=== PATIENT | female | born 1950 | race Caucasian/White ===

== ENCOUNTER 2019-12-02 19:59 | Emergency (ER) | payer MEDICARE, OTHER, SELFPAY ==
[2019-12-02 20:09] VITALS: BP 116/86; PULSE 101; RESP 18; TEMP 37.6; O2SAT 97; BMI 30.4
[2019-12-02 20:31] LABS: Basophils % 0.3 %; Eosinophils # 0.1 10^3/uL (0.0-0.8); Eosinophils % 0.7 %; Hematocrit 40.6 % (37.0-47.0); Hemoglobin 13.2 g/dL (11.5-15.3); Lymphocytes # 0.3 10^3/uL (0.8-4.8); Lymphocytes % 3.4 %; Mean Corpuscular HGB Conc 32.5 g/dL (30.0-36.0); Mean Corpuscular Volume 89.2 fL (81-99); Mean Platelet Volume 9.9 fL (7.4-10.4); Monocytes # 0.3 10^3/uL (0.2-0.9); Neutrophils # 8.7 10^3/uL (1.8-7.7); Neutrophils % 92.3 %; Nucleated Red Blood Cells % 0 %; Platelet Count 220 10^3/cmm (130-400); Red Blood Count 4.55 10^6/uL (4.1-5.3); Red Cell Distribution Width 13.2 % (12.1-15.1); White Blood Count 9.4 10^3/uL (4.0-10.0)
[2019-12-02 20:48] VITALS: BP 170/99; PULSE 99; RESP 18; O2SAT 97
[2019-12-02 20:50] LABS: Alanine Aminotransferase 20 U/L (0-33); Albumin Level 4.3 g/dL (3.5-5.2); Alkaline Phosphatase 83 IU/L (35-105); Anion Gap 17.8 (5-19); Aspartate Amino Transferase 19 U/L (0-32); Blood Urea Nitrogen 20 mg/dL (8-23); Calcium 9.9 mg/Dl (8.8-10.2); Carbon Dioxide 23 mmol/L (22-29); Chloride 103 mmol/L (98-107); Globulin 3.1 g/dL (1.3-4.6); Glomerular Filtration Rate 44.4 mL/min (90-130); Glucose 154 mg/dL (74-106); Lipase 20 U/L (13-60); Potassium 3.8 mmol/L (3.5-5.1); Sodium 140 mmol/L (136-145); Total Bilirubin 0.3 mg/dL (0.15-1.2); Total Protein 7.4 g/dL (6.6-8.7)
--- NOTE | 2019-12-02 23:27 | W.ED.NAVMDI ---
HPI - Nausea/Vomiting/Diarrhea General: Chief complaint: Nausea/Vomiting/Diarrhea Stated complaint: VOMITING Time Seen by Provider: 12/02/19 23:26 History of Present Illness: HPI Narrative: Patient is had nausea and vomiting started today. She also says she has right left flank pain and has had trouble urinating today, Thinks that could be because she hasn't been able to keep anything down. Most of her abdominal pain is on the left side and on the left flank side. She states the pain is rated at about an 8. She has vomited around 10 times today. Patient states she had some shrimp Several hours before the vomiting started and thinks that that could be the cause of her illness. Denies any diarrhea but does say she's been constipated for 3 days. Patient says that going 3 days with a bowel movement really normal for her. She does take some Docusate to help with constipation. Denies any fever, chills, chest pain, shortness of breath, cough, upper respiratory symptoms, blood in the stool, blood in the urine, hematuria, bladder incontinence, numbness or weakness to extremities. Patient states that about a month ago she was treated for diverticulitis and put on Flagyl. Denies any fever, chills, chest pain, shortness of breath, dysuria, hematuria, blood in the stool, diarrhea, numbness or tingling to extremities, weakness to extremities, upper respiratory symptoms or headache. Review of Systems General: Reports: 10 or more systems reviewed and unremarkable except in HPI and below PFSH ED PFSH: Statuses (acute, chronic, etc) shown below reflect problem list status as previously entered and may not be historically accurate Social History Smoking and tobacco status: never smoked Physical Exam Const: COMMON NORMALS: oriented x3 HENMT: COMMON NORMALS: normocephalic HEAD & SCALP: normocephalic MOUTH: oral and palatal mucosa normal THROAT: posterior oropharynx normal and uvula midline Neck/C-Spine: COMMON NORMALS: supple GENERAL: Yes normal visual inspection Resp: COMMON NORMALS: normal respiratory effort, no retractions, no use of accessory muscles and clear to auscultation bilaterally AUSCULTATION: clear to auscultation bilaterally Cardio: COMMON NORMALS: regular rate, regular rhythm, S1 normal heart sound, S2 normal heart sound, no gallops, no clicks, no murmurs and peripheral pulses 2+ throughout RATE: regular rate RHYTHM: regular rhythm HEART SOUNDS: S1 normal and S2 normal PERIPHERAL PULSES: pulses 2+ throughout GI: COMMON NORMALS: normal to inspection, nondistended, normoactive bowel sounds, soft to palpation and no masses INSPECTION: Yes central obesity PALPATION: Yes soft and Yes tender Details: LLQ : BLADDER/KIDNEY EXAM: Yes CVA tenderness on the left Back/Pelvis: GENERAL BACK: Yes CVA tenderness CVA tenderness: left Neuro: COMMON NORMALS: oriented x3 Skin: COMMON NORMALS: no rashes or lesions noted GENERAL SKIN EXAM: no rashes or lesions noted Course ED course: She says after some IV fluids, morphine and Zofran and she is feeling a lot better. CT of the abdomen was performed and showed nothing acute patient does have some colonic diverticulosis. Vital Signs: Vital signs: Vital Signs Temperature 98.9 F 12/02/19 23:45 Pulse Rate 98 12/03/19 03:57 Respiratory Rate 16 12/03/19 03:57 Blood Pressure 130/73 12/03/19 03:57 Pulse Oximetry 92 12/03/19 03:57 MDM - Nausea/Vomiting/Diarrhea Lab Data: Attestation: I reviewed the patient's lab results. Labs: Lab Results 12/02/19 12/02/19 12/02/19 Range/Units 20:25 20:25 23:40 WBC 9.4 (4.0-10.0) 10^3/ uL RBC 4.55 (4.1-5.3) 10^6/u L Hgb 13.2 (11.5-15.3) g/dL Hct 40.6 (37.0-47.0) % MCV 89.2 (81-99) fL MCH 29.0 (28.0-34.0) pg MCHC 32.5 (30.0-36.0) g/dL RDW 13.2 (12.1-15.1) % Plt Count 220 (130-400) 10^3/c mm MPV 9.9 (7.4-10.4) fL Neut % (Auto) 92.3 % Lymph % (Auto) 3.4 % [place] % (Auto) 3.0 % Eos % (Auto) 0.7 % Baso % (Auto) 0.3 % Neut # (Auto) 8.7 H (1.8-7.7) 10^3/u L Lymph # (Auto) 0.3 L (0.8-4.8) 10^3/u L [place] # (Auto) 0.3 (0.2-0.9) 10^3/u L Eos # (Auto) 0.1 (0.0-0.8) 10^3/u L Baso # (Auto) 0.0 (0.0-0.1) 10^3/u L Nucleated RBC % (a uto) 0 % Nucleated RBCs # 0.0 /100WBC Sodium 140 (136-145) mmol/L Potassium 3.8 (3.5-5.1) mmol/L Chloride 103 (98-107) mmol/L Carbon Dioxide 23 (22-29) mmol/L Anion Gap 17.8 (5-19) BUN 20 (8-23) mg/dL Creatinine 1.2 H (0.5-0.9) mg/dL GFR Calculation 44.4 L (90-130) mL/min Glucose 154 H (74-106) mg/dL Calcium 9.9 (8.8-10.2) mg/Dl Total Bilirubin 0.3 (0.15-1.2) mg/dL AST 19 (0-32) U/L ALT 20 (0-33) U/L Alkaline Phosphata se 83 (35-105) IU/L Total Protein 7.4 (6.6-8.7) g/dL Albumin 4.3 (3.5-5.2) g/dL Globulin 3.1 (1.3-4.6) g/dL Lipase 20 (13-60) U/L Urine Color Yellow (Yellow) Urine Appearance Clear (CLEAR) Urine pH 5 (5-7) Ur Specific Gravit y 1.025 (1.005-1.030) Urine Protein Neg (Negative) Urine Glucose (UA) Norm (Normal) Urine Ketones Negative (Negative) Urine Occult Blood Neg (Negative) Urine Nitrate Negative (Negative) Urine Bilirubin Neg (NEGATIVE) Urine Urobilinogen Norm (Negative) mg/dL Ur Leukocyte Soo ase Negative (Negative) Urine RBC 0-4 H (0-2) /hpf Urine WBC 0-4 H (0-5) /hpf Ur Squamous Epith Cells 25-40 H (0-5) Urine Bacteria 1+ H (NONE) Discharge Plan Discharge Patient Disposition: Home, Self-Care Clinical Impression: Diverticulosis of colon Condition: Stable Prescriptions: New Zofran 4 mg tablet 4 mg PO Q8H PRN (Reason: nausea and vomiting) 3 Days Qty: 10 RF: 0 No Action aspirin 325 mg tablet 650 mg PO TID RF: 0 docusate sodium [Colace] 100 mg capsule 100 mg PO .qd RF: 0 nitroglycerin [Nitro-Time] 2.5 mg capsule, extended release 2.5 mg PO BID PRN (Reason: not prn) RF: 0 clonidine HCl 0.3 mg tablet 0.15 mg PO QID RF: 0 alprazolam [Xanax] 0.5 mg tablet 0.5 mg PO TID PRN (Reason: anxiety) RF: 0 hydralazine 25 mg tablet 25 mg PO QID PRN (Reason: Blood Pressure) RF: 0 hydrochlorothiazide 12.5 mg capsule 12.5 mg PO QAM RF: 0 labetalol 200 mg tablet 200 mg PO TID RF: 0 verapamil 120 mg capsule,ext rel. pellets 24 hr 120 mg PO BID RF: 0 pregabalin [Lyrica] 50 mg capsule 50 mg PO TID RF: 0 Discharge Orders: Discharge Order (Routine); Ordered 12/03/19 Ordered By: Augustin Lay Referrals: Ann Marie Kim MD [Primary Care Provider] - Discharge Diet: Advance as tolerated Discharge Activity: Increase activity as tolerated Activity Restrictions/Additional Instructions: Follow-up with your primary care doctor in 5-7 days for reevaluation. Continue all home medications as previously prescribed. Try to eat a high-fiber diet. Drink plenty of fluids and take Tylenol or ibuprofen as needed for any pain or fevers. Consider [id number] MiraLAX to help with normalizing bowel movements. Discharge Date/Time: 12/03/19 04:08 Coding Level of Care Code ED Clamp Carrier Operator for Crystal Urban
[2019-12-02 23:45] VITALS: BP 147/80; PULSE 97; RESP 20; TEMP 37.2; O2SAT 93
--- NOTE | 2019-12-02 23:58 | PC.NURSE ---
rates pain 8/10
--- NOTE | 2019-12-02 23:59 | CTR_ITS ---
PROCEDURE INFORMATION: Exam: CT Abdomen And Pelvis With Contrast Exam date and time: 12/02/2019 1:44 AM Age: 69 years old Clinical indication: Vomiting; Abdominal pain; Localized; Left; Prior surgery; Surgery date: 6+ months; Surgery type: Hyst, gb; Additional info: Abdominal pain, nausea, vomiting and constipation TECHNIQUE: Imaging protocol: Computed tomography of the abdomen and pelvis with intravenous contrast. Total DLP: 1441.35 mGy-cm Radiation optimization: All CT scans at this facility use at least one of these dose optimization techniques: automated exposure control; mA and/or kV adjustment per patient size (includes targeted exams where dose is matched to clinical indication); or iterative reconstruction. Contrast material: VISI; Contrast volume: 95 ml; Contrast route: IV; COMPARISON: CT Abdomen/Pelvis Renal [id number] 09/28/2019 3:01 AM FINDINGS: Lungs: Calcified right pulmonary granuloma. Liver: Normal. No mass. Gallbladder and bile ducts: Cholecystectomy. Pancreas: Normal. No ductal dilation. Spleen: No splenomegaly. Adrenals: Normal. No mass. Kidneys and ureters: Subcentimeter left renal cyst. Stomach and bowel: Colonic diverticulosis. Appendix: No evidence of acute appendicitis. Intraperitoneal space: No free air. No significant fluid collection. Vasculature: No abdominal aortic aneurysm. Lymph nodes: No enlarged lymph nodes. Bladder: Unremarkable as visualized. Reproductive: Hysterectomy. Bones/joints: Unremarkable. No acute fracture. Soft tissues: Unremarkable. CT/CT abdomen pelvis w con* [id number] IMPRESSION: No acute abnormality detected. Radiation Dose CTDIVOL = (mGy): DLP = 1441.35 (mGy-cm)
[2019-12-03] MEDS: ondansetron 2 mg/ML SDV 2 mL 4 MG IVP (00:23)
[2019-12-03] MEDS: sodium chloride 0.9% 500 ML IV (00:23)
[2019-12-03 00:24] VITALS: RESP 20; O2SAT 93
[2019-12-03] MEDS: morphine 4 mg/mL SDV 1 mL IVP (00:24)
[2019-12-03 00:35] LABS: Urine Appearance Clear (CLEAR); Urine Color Yellow (Yellow); pH Urine 5 (5-7)
[2019-12-03 00:36] LABS: Protein Urine Neg (Negative); Specific Gravity, Urine 1.025 (1.005-1.030)
[2019-12-03 00:37] LABS: Add Urine Culture? No; Bacteria Urine 1+; Bilirubin Urine Neg (NEGATIVE); Blood Urine Neg (Negative); Glucose Urine UA Norm (Normal); Ketones Urine Negative (Negative); Leukocyte Esterase Urine Negative (Negative); Nitrate Urine Negative (Negative); RBC Urine 0-4 /hpf (0-2); Squamous Epithelial Cell Urine 25-40 (0-5); Urobilinogen Urine Norm (Negative); WBC Urine 0-4 /hpf (0-5)
[2019-12-03 01:11] VITALS: BP 116/71; PULSE 95; RESP 16; O2SAT 93
--- NOTE | 2019-12-03 01:12 | PC.NURSE ---
resting with eyes closed resp e/u NAD noted. denies needs at this time
[2019-12-03] MEDS: iodixanol 320 mg/mL 100mL Btl IV (01:47)
--- NOTE | 2019-12-03 02:04 | PC.NURSE ---
returns from CT denies needs at this time. remains drowsy without c/o's denies pain or discomfort at this time
--- NOTE | 2019-12-03 03:30 | PC.NURSE ---
resting quietly without c/o's. denies needs at this time
[2019-12-03 03:57] VITALS: BP 130/73; PULSE 98; RESP 16; O2SAT 92
== END 2019-12-03 04:08 | disposition home or self-care (01) ==
PROVIDERS: Emergency Medicine; Emergency Provider Physician Assistant; Family Provider Family Medicine; PCP Family Medicine
DX: K57.30 Diverticulosis of large intestine without perforation or abscess without bleeding (principal)
CPT/HCPCS: 74177; 80053; 81001; 83690; 85025; 96360; 96374; 99282; J2270; J2405; J7040; Q9967

== ENCOUNTER 2019-12-11 08:33 | Outpatient (CLI) | payer MEDICARE, OTHER, SELFPAY ==
--- NOTE | 2019-12-11 08:45 | MM_ITS ---
WS: [id number] . BILATERAL DIGITAL SCREENING MAMMOGRAPHY WITH CAD CLINICAL INFORMATION: SCREENING HISTORY: Screening mammogram. No current complaints. COMPARISON: June 22, 2016 TECHNIQUE: Bilateral CC and MLO views. FINDINGS: Scattered fibroglandular densities bilaterally. Lucent centered calcifications. Stable punctate calci fications. No suspicious focal mass, asymmetry, calcifications, or architectural distortion. No evide nce of malignancy. MM/[place] [id number] IMPRESSION: BI-RADS: 2-Benign FOLLOW UP: 1 Year Follow-up Recommend return to annual screening mammography.
== END 2019-12-11 08:34 | disposition home or self-care (01) ==
LOC: RADSHAW 08:41
PROVIDERS: Family Provider Family Medicine; PCP Family Medicine; Visit Provider Family Medicine
DX: Z12.31 Encounter for screening mammogram for malignant neoplasm of breast (principal)
CPT/HCPCS: 77067

== ENCOUNTER → 2019-12-16 13:49 | Outpatient (BNVA) | payer MEDICARE, OTHER, SELFPAY | PROVIDERS: Family Provider Family Medicine; PCP Family Medicine; Visit Provider Otolaryngology | DX: K14.6 Glossodynia (principal); K21.9 Gastro-esophageal reflux disease without esophagitis | CPT/HCPCS: 99204; 99214 ==

== ENCOUNTER → 2019-12-27 08:52 | Outpatient (BNVA) | payer MEDICARE, OTHER, SELFPAY | PROVIDERS: Family Provider Family Medicine; PCP Family Medicine; Referring Provider Family Medicine; Visit Provider Family Medicine | DX: K14.6 Glossodynia (principal); Z00.00 Encounter for general adult medical examination without abnormal findings | CPT/HCPCS: 80053; 82607; 83540; 83550; 85025; 85651 ==

== ENCOUNTER → 2020-01-13 10:34 | Outpatient (BNVA) | payer MEDICARE, OTHER, SELFPAY | PROVIDERS: Family Provider Family Medicine; PCP Family Medicine; Visit Provider Otolaryngology | DX: K14.6 Glossodynia (principal); K21.9 Gastro-esophageal reflux disease without esophagitis | CPT/HCPCS: 99214 ==

== ENCOUNTER → 2020-01-23 08:08 | Outpatient (BNVA) | payer MEDICARE, OTHER, SELFPAY | PROVIDERS: Family Provider Family Medicine; PCP Family Medicine; Visit Provider Anesthesiology | DX: G89.29 Other chronic pain (principal); M51.16 Intervertebral disc disorders with radiculopathy, lumbar region; Z79.891 Long term (current) use of opiate analgesic | CPT/HCPCS: 62323; 77003; 99214; J1040; J2001; J3490 ==

== ENCOUNTER → 2020-01-30 12:36 | Outpatient (BNVA) | payer MEDICARE, OTHER, SELFPAY | PROVIDERS: Family Provider Family Medicine; PCP Family Medicine; Referring Provider Family Medicine; Visit Provider Family Medicine | DX: E11.9 Type 2 diabetes mellitus without complications (principal); M35.1 Other overlap syndromes; F41.9 Anxiety disorder, unspecified | CPT/HCPCS: 83036; 85651; 86431 ==

== ENCOUNTER → 2020-07-01 11:39 | Outpatient (BNVA) | payer MEDICARE, OTHER, SELFPAY | PROVIDERS: Family Provider Family Medicine; PCP Family Medicine; Visit Provider Family Medicine | DX: E11.9 Type 2 diabetes mellitus without complications (principal); I10 Essential (primary) hypertension; M75.52 Bursitis of left shoulder; R73.9 Hyperglycemia, unspecified; F41.9 Anxiety disorder, unspecified; R06.02 Shortness of breath; R06.00 Dyspnea, unspecified | CPT/HCPCS: 80048; 83036 ==

== ENCOUNTER 2020-07-04 22:46 | Emergency (ER) | payer MEDICARE, OTHER, SELFPAY ==
--- NOTE | 2020-07-04 22:54 | XRR_ITS ---
PROCEDURE INFORMATION: Exam: XR Chest, 1 View Exam date and time: 07/04/2020 11:58 PM Age: 70 years old Clinical indication: Chest pain; Type not specified; Additional info: Cp TECHNIQUE: Imaging protocol: XR of the chest Views: 1 view. COMPARISON: CR Chest 1 [place] [id number] 05/05/2018 4:44 PM FINDINGS: Lungs: A calcified granulomas seen in the right lower hemithorax. Pleural space: There is some blunting of the left costophrenic recess possibly secondary to some pleural scarring versus a small pleural effusion. Heart/Mediastinum: Unremarkable. No cardiomegaly. Bones/joints: Unremarkable. XR/XR chest 1V portable [id number] IMPRESSION: 1. Blunting of the left costophrenic recess likely secondary to pleural thickening versus small pleural effusion. 2. Calcified granuloma seen in the right lower hemithorax.
--- NOTE | 2020-07-04 22:54 | ECG_ITS ---
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 Measurements Intervals [place] Rate: 71 P: 52 MA: 163 QRS: -4 QRSD: 88 T: 30 QT: 392 QTc: 427 Interpretive Statements SINUS RHYTHM NONSPECIFIC T-WAVE ABNORMALITY Compared to ECG 05/05/2018 15:23:05 T-wave abnormality now present Sinus bradycardia no longer present Electronically Signed On 07-05-2020 8:24:18 CDT by Matilda Leary M.D. [id number] f
[2020-07-04 23:09] VITALS: BP 117/75; PULSE 75; RESP 18; TEMP 36.7; O2SAT 97; BMI 28.8
--- NOTE | 2020-07-05 00:18 | CTR_ITS ---
PROCEDURE INFORMATION: Exam: CT Head Without Contrast Exam date and time: 07/05/2020 1:04 AM Age: 70 years old Clinical indication: Dizziness; Additional info: Dizzy TECHNIQUE: Imaging protocol: Computed tomography of the head without contrast. Radiation optimization: All CT scans at this facility use at least one of these dose optimization techniques: automated exposure control; mA and/or kV adjustment per patient size (includes targeted exams where dose is matched to clinical indication); or iterative reconstruction. COMPARISON: CT Head wo IV contrast* [id number] 05/05/2018 4:41 PM RADIATION DOSE METRICS: Total DLP (mGy-cm): 795.8 FINDINGS: Brain: Subtle areas of hypoattenuation are seen in the deep white matter of the cerebral hemispheres bilaterally compatible with mild deep white matter microvascular disease. Ventricles: Normal. No ventriculomegaly. Bones/joints: Unremarkable. No acute fracture. Sinuses: Visualized sinuses are unremarkable. No fluid levels. Mastoid air cells: Visualized mastoid air cells are well aerated. Soft tissues: Unremarkable. CT/CT head wo con* [id number] IMPRESSION: There are no acute intracranial findings. Radiation Dose CTDIVOL = (mGy): DLP = 795.8 (mGy-cm)
[2020-07-05 00:46] LABS: Basophils # 0.1 10^3/uL (0.0-0.1); Basophils % 0.8 %; Eosinophils # 0.1 10^3/uL (0.0-0.8); Eosinophils % 0.5 %; Hemoglobin 12.9 g/dL (11.5-15.3); Lymphocytes # 1.9 10^3/uL (0.8-4.8); Lymphocytes % 19.5 %; Mean Corpuscular HGB Conc 32.3 g/dL (30.0-36.0); Mean Corpuscular Hemoglobin 30.2 pg (28.0-34.0); Mean Corpuscular Volume 93.7 fL (81-99); Mean Platelet Volume 9.9 fL (7.4-10.4); Monocytes # 0.8 10^3/uL (0.2-0.9); Monocytes % 7.8 %; Neutrophils # 6.94 10^3/uL (1.8-7.7); Neutrophils % 71.1 %; Nucleated Red Blood Cells % 0 %; Platelet Count 242 10^3/cmm (130-400); Red Blood Count 4.27 10^6/uL (4.1-5.3); Red Cell Distribution Width 13.1 % (12.1-15.1); White Blood Count 9.8 10^3/uL (4.0-10.0)
[2020-07-05 00:48] VITALS: BP 155/108; PULSE 60; RESP 16; O2SAT 96
--- NOTE | 2020-07-05 00:54 | ECG_ITS ---
[facility] Test Date: 2020-07-05 Pat Name: Holly Diez Department: Room: Gender: Female Director Of Hotel: : 1950 Requested By: Lainey Holland Order Number: [id number] Yo MD: Matilda Leary M.D. Measurements Intervals [place] Rate: 60 P: 49 CO: 173 QRS: 12 QRSD: 92 T: 45 QT: 432 QTc: 432 Interpretive Statements SINUS RHYTHM NONSPECIFIC T-WAVE ABNORMALITY Compared to ECG 07/04/2020 23:15:43 No significant changes Electronically Signed On 07-05-2020 8:49:37 CDT by Matilda Leary M.D. [id number]
[2020-07-05 01:02] LABS: Alanine Aminotransferase 24 U/L (0-33); Albumin Level 4.1 g/dL (3.5-5.2); Alkaline Phosphatase 74 IU/L (35-105); Anion Gap 14.4 (5-19); Aspartate Amino Transferase 15 U/L (0-32); Blood Urea Nitrogen 19 mg/dL (8-23); Carbon Dioxide 25 mmol/L (22-29); Chloride 104 mmol/L (98-107); Globulin 2.8 g/dL (1.3-4.6); Glucose 133 mg/dL (65-115); Osmolality Calculated 286 mOsm/kg (285-295); Potassium 4.4 mmol/L (3.5-5.1); Sodium 139 mmol/L (136-145); Total Bilirubin 0.2 mg/dL (0.15-1.2); Total Protein 6.9 g/dL (6.6-8.7)
[2020-07-05 01:04] LABS: Troponin(5th) Baseline 10 ng/L (0-10)
--- NOTE | 2020-07-05 01:09 | ED_ITS ---
HPI - Chest Pain General: Chief Complaint: Chest Pain Stated Complaint: cp Time Seen by Provider: 07/04/20 23:56 History of Present Illness: HPI narrative: 70-year-old female who complains of high blood pressure, dizziness, and chest discomfort that is been present since last night. She took her antihypertensives today, and took an extra dose because of the hypertension. She also took nitroglycerin at home with some relief for about an hour at a time. She complains of some chest discomfort and discomfort in her left arm. She does not have any weakness or acute visual change, or trouble with language. She does have a mild headache. She has no prior history of coronary disease MD complaint: chest heaviness and chest discomfort Pertinent past history: other (Hypertension) Onset (ago): day(s) (1) Timing of current episode: episodic Prior episodes: No Onset: during rest Pain location: substernal and left chest Pain radiation: left arm and back Quality: tightness Relieving factors: nitroglycerin Exacerbating factors: nothing Associated symptoms: Reports dyspnea and nausea; Deny abdominal pain, diaphoresis, fever(s), leg edema, syncope or vomiting Treatment prior to arrival: nitroglycerin Review of Systems Const: Denies: fever(s) or diaphoresis Eyes: Reports: blurry vision; Denies: change in vision ENMT: Denies: dental pain, change in hearing, epistaxis or sinus pain Card: Denies: syncope Resp: Reports: dyspnea GI: Reports: nausea; Denies: abdominal pain or vomiting : Denies: dysuria or hematuria Musc: Denies: neck pain or back pain Skin/Breast: Denies: rash or erythema Neuro: Reports: headache(s) and dizziness; Denies: vertigo or seizure-like activity Psych: Denies: anxiety [facility] ED PFSH: Medical History (Updated 07/05/20 @ 02:15 by Brady Cerda DO) Anxiety Diabetes Encounter for long-term opiate analgesic use Essential hypertension Lumbar disc disease with radiculopathy Opioid contract exists Surgical History History of cholecystectomy History of dilation and curettage History of total hysterectomy Family History Father Parkinson disease Cancer Mother Cancer Social History Smoking and tobacco status: never smoked Alcohol intake: never History of recent travel: No Physical Exam Const: GENERAL APPEARANCE: well developed ORIENTATION/CONSCIOUSNESS: Yes oriented to person, Yes oriented to place and Yes oriented to time HENMT: COMMON NORMALS: normocephalic, external ears normal and Normal external nose present HEAD & SCALP: normocephalic FACE & SINUS: normal facial exam NOSE: Normal external nose present and No nasal discharge present EXTERNAL EAR: Yes external ears normal THROAT: posterior oropharynx normal; no peritonsillar mass Eye: COMMON NORMALS: Equal, round and reactive pupils present, EOMs intact bilaterally and conjunctivae normal EYELID: eyelids normal CONJUNCTIVA: Yes conjunctivae normal PUPIL: Yes Equal, round and reactive pupils present Neck/C-Spine: GENERAL: No tracheal deviation Chest: COMMONS NORMALS: normal inspection of the chest CHEST: No tenderness Resp: COMMON NORMALS: clear to auscultation bilaterally EFFORT & INSPECTION: No tachypneic, No respiratory distress, No retractions, No uses accessory muscles and No tracheal deviation AUSCULTATION: clear to auscultation bilaterally, no rhonchi, no wheezes and lung sounds not diminished Cardio: COMMON NORMALS: regular rate and regular rhythm RATE: regular rate RHYTHM: regular rhythm HEART SOUNDS: no murmurs PERIPHERAL PULSES: radial pulses present GI: INSPECTION: No abdominal distension AUSCULTATION: No Hyperactive bowel sounds present and No Hypoactive bowel sounds present PALPATION: No Guarding due to palpation present (GI) and No Rigid due to palpation PERCUSSION: no dullness to percussion and no tympanic to percussion Neuro: SENSORIUM/ORIENTATION: Yes oriented to person, Yes oriented to place and Yes oriented to time COORDINATION/BALANCE: [id number] test normal SPEECH: speech normal SENSORY EXAM: Yes extremities MOTOR EXAM: 5/5 motor strength present throughout and Pronator motor function not present COORDINATION: [id number] test normal Psych: COMMON NORMALS: mental status grossly normal Skin: COMMON NORMALS: no rashes or lesions noted GENERAL SKIN EXAM: no rashes or lesions noted Course Vital Signs: Vital signs: Vital Signs Temperature 98.0 F 07/04/20 23:09 Pulse Rate 64 07/05/20 01:49 Respiratory Rate 18 08/09/20 01:49 Blood Pressure 146/77 08/09/20 01:49 Pulse Oximetry 99 07/05/20 01:49 MDM - Chest Pain MDM Narrative: Medical decision making narrative: Patient's blood pressure still elevated on arrival. She received 1.5 inches of nitroglycerin paste, and amlodipine. She did not want an IV line, as she is a hard stick .. After hours of discomfort, if there was any coronary involvement, it should be elevated. Her laboratory is otherwise benign. Her chest x-ray is negative. Her head CT done for the complaint of dizziness is negative. There is no widening of the mediastinum to suggest dissection. Her blood pressure now is 130/76. She will follow-up with her primary. She is already on verapamil. We used a dose of amlodipine, which brought her pressure down nicely. I told her it that we did not want her on verapamil plus amlodipine all the time, but that she could take an amlodipine if her blood pressure remains high as needed. This of course, is only until she can see her primary. She will continue to take her pressures twice daily at home. Lab Data: Labs: Lab Results 07/05/20 07/05/20 07/05/20 Range/Units 00:31 00:31 00:31 WBC 9.8 (4.0-10.0) 10^3/ uL RBC 4.27 (4.1-5.3) 10^6/u L Hgb 12.9 (11.5-15.3) g/dL Hct 40.0 (37.0-47.0) % MCV 93.7 (81-99) fL MCH 30.2 (28.0-34.0) pg MCHC 32.3 (30.0-36.0) g/dL RDW 13.1 (12.1-15.1) % Plt Count 242 (130-400) 10^3/c mm MPV 9.9 (7.4-10.4) fL Neut % (Auto) 71.1 % Lymph % (Auto) 19.5 % [place] % (Auto) 7.8 % Eos % (Auto) 0.5 % Baso % (Auto) 0.8 % Neut # (Auto) 6.94 (1.8-7.7) 10^3/u L Lymph # (Auto) 1.9 (0.8-4.8) 10^3/u L [place] # (Auto) 0.8 (0.2-0.9) 10^3/u L Eos # (Auto) 0.1 (0.0-0.8) 10^3/u L Baso # (Auto) 0.1 (0.0-0.1) 10^3/u L Nucleated RBC % (a uto) 0 % Nucleated RBCs # 0.0 /100WBC Sodium 139 (136-145) mmol/L Potassium 4.4 (3.5-5.1) mmol/L Chloride 104 (98-107) mmol/L Carbon Dioxide 25 (22-29) mmol/L Anion Gap 14.4 (5-19) BUN 19 (8-23) mg/dL Creatinine 1.1 H (0.5-0.9) mg/dL GFR Calculation Not Reportable Glucose 133 H (65-115) mg/dL Calculated Osmolal ity 286 (285-295) mOsm/k g Calcium 9.0 (8.5-10.5) mg/dL Total Bilirubin 0.2 (0.15-1.2) mg/dL AST 15 (0-32) U/L ALT 24 (0-33) U/L Alkaline Phosphata se 74 (35-105) IU/L Troponin T Baselin e 10 (0-10) ng/L Total Protein 6.9 (6.6-8.7) g/dL Albumin 4.1 (3.5-5.2) g/dL Globulin 2.8 (1.3-4.6) g/dL Discharge Plan Discharge Patient Disposition: Home Clinical Impression: Essential hypertension Condition: Stable Prescriptions: New amlodipine 10 mg tablet 10 mg PO DAILY Qty: 14 RF: 0 No Action triamcinolone acetonide 0.1 % ointment 1 applic TOPICAL DAILY Qty: 30 RF: 1 mirtazapine 30 mg tablet 30 mg PO DAILY Qty: 10 RF: 0 aspirin 325 mg tablet 650 mg PO TID RF: 0 nitroglycerin [Nitro-Time] 2.5 mg capsule, extended release 2.5 mg PO BID PRN (Reason: not prn) RF: 0 hydralazine 25 mg tablet 25 mg PO QID PRN (Reason: Blood Pressure) RF: 0 labetalol 200 mg tablet 200 mg PO TID RF: 0 verapamil 120 mg capsule,ext rel. pellets 24 hr 120 mg PO BID RF: 0 clonidine HCl 0.3 mg tablet 0.15 mg PO QID Qty: 180 RF: 3 hydrochlorothiazide 12.5 mg capsule 12.5 mg PO QAM 90 Days Qty: 90 RF: 3 alprazolam [Xanax] 0.5 mg tablet 0.5 mg PO TID PRN (Reason: anxiety) 30 Days Qty: 90 RF: 3 metformin 500 mg tablet 500 mg PO DAILY Qty: 30 RF: 1 Discharge Orders: Discharge Order (Routine); Ordered 07/05/20 Ordered By: Brady Cerda Referrals: Ann Marie Kim MD [Primary Care Provider] - 1-3 days Discharge Diet: Advance as tolerated Discharge Activity: Increase activity as tolerated Patient Instructions: Chest Pain (ED), Hypertension (ED) Activity Restrictions/Additional Instructions: Continue to take your blood pressures twice daily. Only take the medication you were prescribed if your systolic or top number blood pressure remains over 150. Return for worsening chest discomfort despite treatment, shortness of breath, mental status changes, weakness, other concerning symptoms. Coding Level of Care Code ED Lactation Nurse for Crystal Fwd Exam Comprehensive
[2020-07-05] MEDS: nitroglycerin 1 gm/inch oint Pkt 1.5 INCH TOPICAL (01:10)
[2020-07-05] MEDS: amlodipine 10 mg Tablet PO (01:10)
[2020-07-05 01:21] VITALS: BP 161/105; PULSE 82; RESP 18; O2SAT 98
[2020-07-05 01:49] VITALS: BP 146/77; PULSE 64; RESP 18; O2SAT 99
== END 2020-07-05 02:27 | disposition home or self-care (01) ==
PROVIDERS: Emergency Medicine; Emergency Provider Emergency Medicine; PCP Family Medicine
DX: I10 Essential (primary) hypertension (principal); Z79.82 Long term (current) use of aspirin; E11.9 Type 2 diabetes mellitus without complications
CPT/HCPCS: 12345; 70450; 71045; 80053; 84484; 85025; 93005; 99282; 99284

== ENCOUNTER 2020-07-10 07:41 | Outpatient (CLI) | payer MEDICARE, OTHER, SELFPAY ==
--- NOTE | 2020-07-10 07:50 | XR_ITS ---
WS: [id number] Left shoulder, 3 views, 07/10/2020 Clinical Data: pain left shoulder Comparison: Left shoulder, 02/20/2008. Findings: No fractures or dislocations are seen. The AC joint shows minimal osteoarthritis. The adjacent left c lavicle, left scapula and ribs are normal. The soft tissues are unremarkable. XR/XR shoulder LT min 2V* [id number] Impression: Negative left shoulder.
--- NOTE | 2020-07-10 07:50 | XR_ITS ---
WS: [id number] Chest 2 views, 07/10/2020 Clinical Data: dyspnea Comparison: Portable chest, 07/04/2020. Findings: No nodules, masses or effusions are seen. The heart is normal. The pulmonary vascularity is not increased. No pneumonia or pneumothorax is seen. The aortic arch and descending aorta are tortuo us. There is a left cardiophrenic fat pad or cyst. XR/XR chest 2V* [id number] Impression: Atherosclerosis.
== END 2020-07-10 07:42 | disposition home or self-care (01) ==
LOC: RADWPI 07:46
PROVIDERS: PCP Family Medicine; Visit Provider Family Medicine
DX: R06.00 Dyspnea, unspecified (principal); M25.512 Pain in left shoulder; I70.90 Unspecified atherosclerosis
CPT/HCPCS: 71046; 73030

== ENCOUNTER 2020-08-16 07:17 | Emergency (ER) | payer MEDICARE, OTHER, SELFPAY ==
[2020-08-16 07:21] VITALS: BP 127/73; PULSE 70; RESP 18; TEMP 36.2; O2SAT 98; BMI 27.9
--- NOTE | 2020-08-16 07:32 | ED_ITS ---
HPI - Skin/Abscess/Foreign Bdy General: Chief complaint: Skin/Abscess/Foreign Body Stated complaint: RASH Time Seen by Provider: 08/16/20 07:21 History of Present Illness: HPI narrative: Patient is a 70-year-old female comes to the ED with a pruritic rash. Patient says it started approximately 5 days ago. Her primary care physician called in some acyclovir because they thought it was potentially shingles. Patient has been taking acyclovir for 4 days and has not gotten any better. Rash is not painful. She describes the rash as red and very itchy and continues to spread. Rash continues to spread and is located on left upper quadrant of her abdomen and also around the side to her back. She states that now her whole back is starting to feel itchy. She denies any known contact with any plants such as poison sumac, poison sara or poison oak. Patient states she does have an allergy to plastics. Patient denies any known contact with any plastics. Denies any change in soaps, lotions or detergents. Associated symptoms: Deny chills, fever(s), nausea or vomiting Review of Systems Const: Denies: fever(s), chills or fatigue Eyes: Denies: change in vision or eye discomfort ENMT: Denies: throat pain, odynophagia, nasal discharge or nasal congestion Card: Denies: chest pain, palpitations, edema, swelling of feet/ankles, dy spnea on exertion or orthopnea Resp: Denies: dyspnea, productive cough or non-productive cough GI: Denies: abdominal pain, nausea, vomiting, diarrhea, constipation or hematochezia : Denies: flank pain, dysuria or hematuria Musc: Denies: neck pain, back pain or extremity swelling Skin/Breast: Reports: rash and pruritus; Denies: new lesions Neuro: Denies: headache(s), numbness in extremities or weakness in extremities PFSH ED PFSH: Medical History Anxiety Diabetes Encounter for long-term opiate analgesic use Essential hypertension Lumbar disc disease with radiculopathy Opioid contract exists Surgical History History of cholecystectomy History of dilation and curettage History of total hysterectomy Family History Father Parkinson disease Cancer Mother Cancer Social History Smoking and tobacco status: never smoked Alcohol intake: never History of recent travel: No Physical Exam Const: COMMON NORMALS: no acute distress, patient oriented x3, healthy appearing and alert GENERAL APPEARANCE: cooperative and comfortable HENMT: COMMON NORMALS: normocephalic HEAD & SCALP: normocephalic MOUTH: Normal oral and palatal mucosa present THROAT: posterior oropharynx normal and uvula midline Neck/C-Spine: COMMON NORMALS: supple GENERAL: Yes normal visual inspection Resp: COMMON NORMALS: normal respiratory effort, No retractions, No use of accessory muscles and clear to auscultation bilaterally AUSCULTATION: clear to auscultation bilaterally Cardio: COMMON NORMALS: regular rate, regular rhythm, S1 normal heart sound present, S2 normal heart sound present, No gallops present (Cardio), No clicks present (Cardio), No murmurs present (Cardio) and Peripheral pulses 2+ throughout RATE: regular rate RHYTHM: regular rhythm HEART SOUNDS: S1 normal heart sound present and S2 normal heart sound present PERIPHERAL PULSES: Peripheral pulses 2+ throughout GI: COMMON NORMALS: Normal to inspection, nondistended, normoactive bowel sounds present, Soft to palpation, non-tender and no masses PALPATION: Yes Soft to palpation : COMMON NORMALS: Yes no CVA tenderness BLADDER/KIDNEY EXAM: Yes no CVA tenderness Back/Pelvis: COMMON NORMALS: no CVA tenderness Extremity: COMMON NORMALS: normal to inspection Neuro: COMMON NORMALS: patient oriented x3 and moves all extremities SENSORIUM/ORIENTATION: Yes alert Skin: NARRATIVE SKIN EXAM: Patient is a 70-year-old female who has a pruritic rash on the left upper quadrant of her abdomen that wraps around to her back. It appears red there are multiple tiny raised red dots surrounding inflamed red rash. No vesicles or purulent drainage seen. It appears based on kind of allergic dermatitis causing urticaria. GENERAL SKIN EXAM: dry skin Course Vital Signs: Vital signs: Vital Signs Temperature 97.2 F L 08/16/20 07:21 Pulse Rate 70 08/16/20 07:21 Respiratory Rate 18 08/16/20 07:21 Blood Pressure 127/73 08/16/20 07:21 Pulse Oximetry 98 08/16/20 07:21 MDM - Skin/Abscess/Foreign Bdy MDM Narrative: Medical decision making narrative: Patient is a 70-year-old female comes to the ED with pruritic rash on her abdomen. Physical exam shows a red inflamed rash with surrounding urticaria. Patient diagnosed with allergic dermatitis and was given a shot of triamcinolone while here in the ED. She was sent home with a prescription for triamcinolone cream and oral prednisone to help with rash. I told her to follow-up with her PCP in 7 to 10 days for reevaluation. Return to ED precautions given. Patient understood and agree with plan. Discharge Plan Discharge Patient Disposition: Home Clinical Impression: Allergic dermatitis Condition: Stable Prescriptions: New prednisone 50 mg tablet 50 mg PO DAILY 5 Days Qty: 5 RF: 0 triamcinolone acetonide 0.1 % cream 1 applic TOPICAL BID Qty: 15 RF: 0 No Action triamcinolone acetonide 0.1 % ointment 1 applic TOPICAL DAILY Qty: 30 RF: 1 alprazolam [Xanax] 0.5 mg tablet 0.5 mg PO QID PRN (Reason: anxiety) 30 Days Qty: 120 RF: 3 nitroglycerin 0.4 mg tablet, sublingual 0.4 mg SUBLINGUAL Q5M PRN (Reason: chest pain) Qty: 25 RF: 2 sulindac 200 mg tablet 200 mg PO ONCE Qty: 30 RF: 1 hydrochlorothiazide 12.5 mg capsule 12.5 mg PO QAM PRNRF: 0 aspirin 325 mg tablet 650 mg PO TID RF: 0 hydralazine 25 mg tablet 25 mg PO QID PRN (Reason: Blood Pressure) RF: 0 labetalol 200 mg tablet 200 mg PO TID RF: 0 verapamil 120 mg capsule,ext rel. pellets 24 hr 120 mg PO BID RF: 0 zolpidem 10 mg tablet 10 mg PO .bed time Qty: 10 RF: 0 clonidine HCl 0.3 mg tablet 0.15 mg PO QID Qty: 180 RF: 3 acyclovir 800 mg tablet 800 mg PO QID 7 Days Qty: 28 RF: 0 Discharge Orders: Discharge Order (Routine); Ordered 08/16/20 Ordered By: Augustin Lay Referrals: Ann Marie Kim MD [Primary Care Provider] - Discharge Diet: Regular Discharge Activity: Resume usual activity Patient Instructions: Contact Dermatitis (ED) Activity Restrictions/Additional Instructions: Follow-up with medical provider as directed in 7 to 10 days. Take medications as prescribed. You can also take [id number] Benadryl or Zyrtec to help with rash as well. Return to the ER or your medical provider if condition worsens. Please read and understand discharge instructions. If any questions, please ask. Coding Level of Care Code ED Campus Interviews Intern for Crystal Fwd Exam Comprehensive
[2020-08-16] MEDS: triamcinolone 40 mg/mL SDV IM (07:53)
[2020-08-16 07:57] VITALS: RESP 18
== END 2020-08-16 07:56 | disposition home or self-care (01) ==
PROVIDERS: Emergency Provider Physician Assistant; PCP Family Medicine
DX: L23.9 Allergic contact dermatitis, unspecified cause (principal); Z79.82 Long term (current) use of aspirin; E11.9 Type 2 diabetes mellitus without complications; I10 Essential (primary) hypertension
CPT/HCPCS: 12345; 96372; 99281; 99282; J3301

== ENCOUNTER 2020-08-26 07:09 | Outpatient (CLI) | payer MEDICARE, OTHER, SELFPAY ==
--- NOTE | 2020-08-26 07:46 | ECG_ITS ---
[facility] Test Date: 2020-08-26 Pat Name: Holly Diez Department: Room: Gender: Female [employer] Workers: : 1950 Requested By: Matilda Leary Order Number: [id number] MD: Matilda Leary M.D. Interpretive Statements NAME OF STUDY: LEXISCAN SESTAMIBI STRESS TEST INDICATION: Chest Pain PROCEDURE: At the baseline, the EKG revealed sinus rhythm at 67 beats per minute. Normal axis with normal ST and T's. The baseline blood pressure was 142/80 mm Hg with a heart rate of 67 beats/min and oxygen saturation of 97%. Lexiscan was infused over a period of 20 seconds. A total of 0.4 milligrams of Lexiscan was infused. The stress phase was continued for a total of 5 minutes. Heart rate at the end of the stress phase was 74 bpm with a blood pressure 139/76 mm Hg and oxygen saturation of 98%. The EKG at the peak infusion revealed sinus rhythm with no significant ST and T wave chnages. Sestamibi was injected 20 seconds after the Lexiscan infusion. The study was terminated due to protocol completion. Blood pressure at the end of the recovery phase was 137/71 mm Hg with a heart rate of 71 per minute and oxygen saturation of 97%. CONCLUSION: 1. Nonspecific ST-T changes with the LexiScan infusion 2. No LexiScan induced chest pain or cardiac arrhythmia 3. Normal blood pressure and heart rate response 4. Sestamibi/sestamibi perfusion scan pending; see separate report. Electronically Signed On 08-27-2020 20:19:19 CDT by Matilda Leary M.D. [id number]
--- NOTE | 2020-08-26 07:47 | NMCV_ITS ---
NM kailey perf SPECT r/s* [id number] Holly Diez Age: 70 Gender: F : 1950 Exam Date: 08/26/2020 08:23 Ordering Phys: Matilda Leary MD ([email or web address]) Technologist: KIRK Roper Exam Location: [facility] Indications: Chest pain STRESS TEST Please see separate stress test report in [facility] for full findings IMAGE PROTOCOL Rest/Stress 1 Lexiscan Day Radiopharmaceutical Dose (mCi) Administration Site Administered by Rest: Tc-99m 10.8 IV KIRK Roper Sestamibi Stress:Tc-99m 32.3 IV KIRK Roper Sestamibi Rest: 26-Aug-2020 60 Discovery 630 Stress: 26-Aug-2020 45 Discovery 630 0.4mg Lexiscan. Images obtained in supine and prone position. SPECT RESULTS Technical Quality: Good Raw Data Analysis: Normal Image Corrections: No attenuation or motion correction applied Summed Stress Score: 0 Summed Rest Score: 0 Summed Difference Score: 0 PERFUSION FINDINGS SPECT images demonstrate homogeneous tracer distribution throughout the myocardium. FUNCTIONAL RESULTS (calculated via Gated SPECT) Stress Image LV EF (%): 75 Stress EDV (mL):59 TID: 1.03 Stress ESV (mL):15 FUNCTIONAL FINDINGS: The left ventricle is normal in size. Transient Ischemia Dilatation of 1. There is normal left ventricular systolic function. The left ventricular ejection fraction is normal with a value of 75%. There is normal left ventricular wall thickening. IMPRESSIONS 1. Myocardial perfusion imaging is normal. 2. Overall left ventricular systolic function is normal without regional wall motion abnormalities. 3. The left ventricular ejection fraction is normal with a value of 75%. 4. This study suggests low likelihood for of angiographically significant disease. Matilda Leary MD (Electronically Signed) Final Date: 30 August 2020 18:37 S
[2020-08-26 07:55] VITALS: BMI 28.8
[2020-08-26] MEDS: regadenoson 0.4 Mg/5 ml Syringe IVP (09:11)
[2020-08-26 09:29] VITALS: BP 137/71; PULSE 70
== END 2020-08-26 07:10 | disposition home or self-care (01) ==
LOC: CDL 07:12
PROVIDERS: PCP Family Medicine; Visit Provider Internal Medicine Cardiovascular Disease
DX: R07.9 Chest pain, unspecified (principal)
CPT/HCPCS: 78452; 93017; A9500; J2785

== ENCOUNTER 2020-09-03 07:43 | Outpatient (CLI) | payer MEDICARE, OTHER, SELFPAY ==
--- NOTE | 2020-09-03 08:00 | USCV_ITS ---
Holly Diez Age: 70 Gender: F : 1950 Exam Date: 09/03/2020 08:03 Ordering Phys: Matilda Leary MD ([email or web address]) Technologist: Ольга Davison Exam Location: [facility] Indication: carotid bruit Risk Factors: Previous Vascular Surgery: Right Brachial BP: / Left Brachial BP: / Right Left Velocity (cm/s) Spectral Plaque Velocity (cm/s) Spectral Plaque Syst/Diast Broadening Syst/Diast Broadening 61.40/ 8.50 Prox CCA 65.80 / 18.80 50.50/ 13.20 Mid CCA 59.80 / 13.70 31.50/ 8.00 Distal CCA 73.50 / 22.20 Hetro 59.80/ 17.10 Prox ICA 115.70/ 39.40 47.00/ 12.00 Mid ICA 69.40 / 26.70 73.40/ 20.50 Distal ICA 67.20 / 24.80 Hetro 86.30 ECA 71.80 1.20 ICA/CCA 1.57 Antegrade Vertebral Antegrade 51.30/ 14.00 cm/s 40.10/ 9.10 cm/s Tri Subclavian Tri 160.0 155.4 0 0 FINDINGS Mild to moderate dense plaques at the bifurcations and proximal carotid artery bilaterally Intimal thickening in the common carotid arteries bilaterally Antegrade flow in the vertebral arteries bilaterally Normal Doppler flow velocities in the external carotid arteries bilaterally The left proximal internal carotid artery was found to be tortuous CONCLUSIONS Mild to moderate dense plaques at the bifurcations and proximal carotid arteries bilaterally with elevated velocity ratios consistent with 16-49% stenosis. Intimal thickening in the common carotid arteries bilaterally . Dr Shona Hamilton MD [facility] (Electronically Signed) Final Date: 03 September 2020 21:22 S
== END 2020-09-03 07:44 | disposition home or self-care (01) ==
LOC: US 07:43
PROVIDERS: PCP Family Medicine; Visit Provider Internal Medicine Cardiovascular Disease
DX: R09.89 Other specified symptoms and signs involving the circulatory and respiratory systems (principal); I65.23 Occlusion and stenosis of bilateral carotid arteries
CPT/HCPCS: 93880

== ENCOUNTER → 2020-10-28 08:34 | Outpatient (BNVA) | payer MEDICARE, OTHER, SELFPAY | PROVIDERS: PCP Family Medicine; Visit Provider Nurse Practitioner | DX: M51.16 Intervertebral disc disorders with radiculopathy, lumbar region (principal); M54.9 Dorsalgia, unspecified; Z79.891 Long term (current) use of opiate analgesic | CPT/HCPCS: 99213 ==

== ENCOUNTER → 2020-11-03 12:34 | Outpatient (BNVA) | payer MEDICARE, OTHER, SELFPAY | PROVIDERS: PCP Family Medicine; Visit Provider Anesthesiology Pain Medicine | DX: Z01.812 Encounter for preprocedural laboratory examination (principal); E11.9 Type 2 diabetes mellitus without complications; G89.29 Other chronic pain; M51.16 Intervertebral disc disorders with radiculopathy, lumbar region; M54.9 Dorsalgia, unspecified | CPT/HCPCS: 62323; J1040; J3490 ==

== ENCOUNTER → 2020-11-18 08:54 | Outpatient (BNVA) | payer MEDICARE, OTHER, SELFPAY | PROVIDERS: PCP Family Medicine; Visit Provider Anesthesiology | DX: M54.9 Dorsalgia, unspecified (principal); M54.6 Pain in thoracic spine; G89.29 Other chronic pain | CPT/HCPCS: 99213 ==

== ENCOUNTER 2020-11-23 08:50 | Outpatient (CLI) | payer MEDICARE, OTHER, SELFPAY ==
--- NOTE | 2020-11-23 08:58 | XR_ITS ---
WS: [id number] Exam: XR lumbar spine 2-3V* [id number] Date/Time of Exam: 11/23/2020 8:58 AM Reason For Exam: M51.16 - Intervertebral disc disorders with radiculopathy, lumbar region Comparison 07/18/2019. No acute fracture or dislocation. Grade 1 degenerative anterolisthesis of L4 on L5. Mild degenerative retrolisthesis of L2 on L3. Degenerative disc narrowing at L1-2, L2-3 and L5-S1. Spondylosis. Facet arthropathy at all levels. Mild dextroscoliosis. DJD of the SI joints. Aortoiliac atherosclerotic dis ease. XR/XR lumbar spine 2-3V* [id number] IMPRESSION: 1. No acute fracture or malalignment. 2. Degenerative anterolisthesis of L4 on L5 stable. Degenerative retrolisthesis of L2 on L3 also unchanged. 3. Degenerative changes and mild scoliosis as above.
--- NOTE | 2020-11-23 08:58 | XR_ITS ---
WS: [id number] Exam: XR thoracic spine 3V* [id number] Date/Time of Exam: 11/23/2020 8:58 AM Reason For Exam: M54.6 - Pain in thoracic spine No fracture or dislocation. Mild spondylosis. Slight dextroscoliosis of may be positional. Normal par aspinal soft tissues. Osteopenia. XR/XR thoracic spine 3V* [id number] IMPRESSION: 1. No fracture or malalignment. 2. Mild degenerative changes and osteopenia.
== END 2020-11-23 08:51 | disposition home or self-care (01) ==
LOC: RADWPI 08:55
PROVIDERS: PCP Family Medicine; Visit Provider Anesthesiology
DX: M54.6 Pain in thoracic spine (principal); G89.29 Other chronic pain; M41.80 Other forms of scoliosis, site unspecified; M85.88 Other specified disorders of bone density and structure, other site
CPT/HCPCS: 72072; 72100

== ENCOUNTER → 2020-12-16 09:54 | Outpatient (BNVA) | payer MEDICARE, OTHER, SELFPAY | PROVIDERS: PCP Family Medicine; Visit Provider Nurse Practitioner | DX: M51.16 Intervertebral disc disorders with radiculopathy, lumbar region (principal); M53.2X6 Spinal instabilities, lumbar region | CPT/HCPCS: 72120; 99213 ==

== ENCOUNTER 2020-12-16 11:02 | Outpatient (CLI) | payer MEDICARE, OTHER, SELFPAY ==
--- NOTE | 2020-12-16 11:04 | XR_ITS ---
WS: [id number] LUMBAR SPINE FLEXION AND EXTENSION TECHNIQUE: 3 views of the lumbar spine: Lateral neutral, flexion, and extension views. CLINICAL INFORMATION: M51.16 - Intervertebral disc disorders with radiculopathy, lumbar region COMPARISON: None. FINDINGS: Mild lumbar curve. Slight anterolisthesis L4 on L5 measuring 7 mm in neutral position. This increases slightly to 8 mm in flexion and decreases to 5 mm in extension. Disc space narrowing worse at L1-L2 L2-3 and L5-S1. Slight retrolisthesis L1 on L2 and L2 on L3. Anterior hypertrophic changes upper lumb ar spine. Advanced facet arthropathy L5-S1. Aortic calcification. XR/XR lumbar spine f/e only [id number] IMPRESSION: 1. Mild flexion-extension instability L4-5 described above. 2. Disc space narrowing worse at L1-2 and L2-3.
== END 2020-12-16 11:03 | disposition home or self-care (01) ==
LOC: RADWPI 11:02
PROVIDERS: PCP Family Medicine; Visit Provider Nurse Practitioner
DX: M51.16 Intervertebral disc disorders with radiculopathy, lumbar region (principal); M53.2X6 Spinal instabilities, lumbar region
CPT/HCPCS: 72120

== ENCOUNTER 2020-12-30 16:20 | Outpatient (CLI) | payer MEDICARE, OTHER, SELFPAY ==
--- NOTE | 2020-12-30 16:45 | MR_ITS ---
WS: [id number] MRI LUMBAR SPINE NONCONTRAST HISTORY: M51.16 - Intervertebral disc disorders with radiculopathy, lumbar region COMPARISON: 07/18/2019 TECHNIQUE: Sagittal and axial multisequence imaging is submitted. Increased signal in the thoracic cord at the T11-12 level is unchanged and may be a cyst mild syrinx. Increase in the lumbar lordosis. L1 and L2 retrolisthesis by 5 mm. L3 retrolisthesis by 2 mm. Disc spaces are narrowed with degeneration. No marrow edema or fracture. Conus terminates normally at L1-2 disc level. L1-L2: Diffuse annular disc bulging with no significant stenosis. L2-L3: Diffuse annular disc bulging and mild osteophytic ridging. There is a focal disc protrusion ex tending into the LEFT lateral recess displacing the L3 nerve root posteriorly. Mild bilateral foramin al stenosis. There is minimal encroachment upon the RIGHT L3 nerve root. Similar findings were noted on the prior study. L3-L4: Diffuse annular disc bulging and mild osteophytic ridging. Mild bilateral facet arthritis. The re is shallow central disc protrusion. Very mild central stenosis. No foraminal narrowing. L4-L5: Mild annular disc bulging. Marked facet hypertrophy encroaches into the thecal sac. Very mild progression of the central stenosis and encroachment upon the thecal sac. No foraminal narrowing. L5-S1: Diffuse annular disc bulging with small foraminal osteophytes. No significant stenosis. Nerve roots are slightly clumped in the periphery of the thecal sac. MR/MR lumbar spine wo con* [id number] IMPRESSION: 1. Moderate spondylitic changes throughout the lumbar spine with only mild pro gression since 07/18/2019. 2. Mild central stenosis at L4-5 has slightly progressed since the prior study . 3. Moderate-sized LEFT paracentral disc protrusion extending into the LEFT lat eral recess at L2-3 with displacement of the L3 nerve root. 4. Mild encroachment upon the RIGHT L3 nerve root and mild bilateral foraminal stenosis at L2-3. 5. Mild central stenosis at L3-4 is unchanged.
== END 2020-12-30 16:21 | disposition home or self-care (01) ==
LOC: RADSHAW 16:20
PROVIDERS: PCP Family Medicine; Visit Provider Nurse Practitioner
DX: M51.16 Intervertebral disc disorders with radiculopathy, lumbar region (principal); M48.061 Spinal stenosis, lumbar region without neurogenic claudication; M51.26 Other intervertebral disc displacement, lumbar region
CPT/HCPCS: 72148

== ENCOUNTER → 2021-03-18 08:50 | Outpatient (BNVA) | payer MEDICARE, OTHER, SELFPAY | PROVIDERS: PCP Family Medicine; Visit Provider Surgery | DX: Z86.010 Personal history of colon polyps (principal); Z11.52 Encounter for screening for COVID-19 | CPT/HCPCS: 87635 ==

== ENCOUNTER 2021-03-23 07:34 | Day surgery (SDC) | payer MEDICARE, OTHER, SELFPAY ==
[2021-03-19 07:27] VITALS: BMI 29.6
[2021-03-22 07:36] VITALS: BMI 29.6
--- NOTE | 2021-03-23 07:44 | ANES.PREANE2 ---
Pre-Anesthetic Assessment Pre-Anesthetic Assessment: Height/Weight: Height 1.7 m Weight 85.729 kg Preop Diagnosis: diagnostic Proposed Procedure: Operation Date: 03/23/21 08:30 Proposed Procedures p Colonoscopy 83062 Z86.010(Not Applicable) - Elvis Lopez MD Familial anesthetic complications: None Was Beta Meron taken within 24 hours: Yes Was Clonidine taken within 24 hours: Yes Last intake: > 8 hrs Social: Social History: No alcohol and No tobacco Exam: Pre-Anes Outpt Exam: alert, oriented x 3, clear to auscultation bilaterally and regular rate & rhythm Airway: Cervical ROM: WNL Dentition: Full CV/HEM: CV/HEM: HTN GI: GI: GERD Metabolic: Metabolic: DM (Pre-DM) Musc/skel: Comments: says she cannot lay for any length of time on her side because the bones move, supposed to have surgery in august (spondylolisthesis L4-L5) Anesthetic Plan: ASA status: 3 Anesthesia: MAC Risk of > 500 ml blood loss (7ml/kg in children): No PFSH Anesthesia PFSH: Medical History Anxiety Diabetes Essential hypertension History of colon polyps Irritable bowel syndrome with both constipation and diarrhea Lumbar disc disease with radiculopathy Thoracic spine pain Surgical History History of cholecystectomy History of colonoscopy (~2014) History of dilation and curettage History of total hysterectomy Family History Father Parkinson disease Cancer Mother Cancer Social History Smoking and tobacco status: never smoked Alcohol intake: never History of recent travel: No Data Anesthesia Cardiac Studies: No Data to Display
[2021-03-23 08:08] VITALS: BP 120/74; PULSE 68; RESP 16; TEMP 37; O2SAT 98
[2021-03-23] MEDS: sodium chloride 0.9% 1,000 ML 30 ML IV (08:15)
--- NOTE | 2021-03-23 08:23 | W.PM.OPSUD ---
Surgery/Procedure H&P Update DATE OF PROCEDURE: March 23, 2021 DATE H&P PERFORMED: 03/01/21 H&P UPDATE INFORMATION: I have reviewed H&P completed within last 30 days, I have examined patient prior to procedure and No changes to prior documentation PREOP DIAGNOSIS: diagnostic PLANNED PROCEDURE: Operation Date: 03/23/21 08:30 Proposed Procedures p Colonoscopy 08628 Z86.010(Not Applicable) - Elvis Lopez MD
[2021-03-23 08:50] VITALS: BP 108/46; PULSE 56; RESP 16; TEMP 36; O2SAT 96
--- NOTE | 2021-03-23 14:15 | ANE.PACU2 ---
Inpatient post-anesthesia follow up: Airway intact: Yes Vital signs: Temperature 96.8 F Pulse Rate 56 Respiratory Rate 16 Blood Pressure 108/46 Pulse Oximetry 96 Oxygen Delivery Me thod Nasal Cannula Oxygen Flow Rate 5 Fraction of Inspir ed Oxygen Hydration adequate: Yes Nausea and vomiting: No Pain level: 1 Mental status: Baseline
== END 2021-03-23 09:20 | disposition home or self-care (01) ==
PROVIDERS: PCP Family Medicine; Visit Provider Surgery
PROC: 0DJD8ZZ Inspection of Lower Intestinal Tract, Via Natural or Artificial Opening Endoscopic (ICD-10-PCS; CPT 45378; principal; 2021-03-23 08:30)
DX: Z86.010 Personal history of colon polyps (principal); K57.30 Diverticulosis of large intestine without perforation or abscess without bleeding; K59.00 Constipation, unspecified; Z79.82 Long term (current) use of aspirin; F41.9 Anxiety disorder, unspecified; E11.9 Type 2 diabetes mellitus without complications; I10 Essential (primary) hypertension; K21.9 Gastro-esophageal reflux disease without esophagitis
CPT/HCPCS: 45378; 96360; J2704; J7030

== ENCOUNTER 2021-04-12 11:10 | Outpatient (CLI) | payer MEDICARE, OTHER, SELFPAY ==
[2021-04-12 11:43] LABS: Basophils # 0.1 10^3/uL (0.0-0.1); Basophils % 1.2 %; Eosinophils # 0.2 10^3/uL (0.0-0.8); Eosinophils % 2.2 %; Hematocrit 38.2 % (37.0-47.0); Hemoglobin 12.3 g/dL (11.5-15.3); Lymphocytes # 1.7 10^3/uL (0.8-4.8); Lymphocytes % 22.3 %; Mean Corpuscular HGB Conc 32.2 g/dL (30.0-36.0); Mean Corpuscular Hemoglobin 29.6 pg (28.0-34.0); Monocytes # 0.6 10^3/uL (0.2-0.9); Monocytes % 7.4 %; Neutrophils # 5.16 10^3/uL (1.8-7.7); Neutrophils % 66.8 %; Nucleated Red Blood Cells % 0 %; Platelet Count 241 10^3/cmm (130-400); Red Blood Count 4.15 10^6/uL (4.1-5.3); White Blood Count 7.7 10^3/uL (4.0-10.0)
[2021-04-12 11:59] LABS: Estmated Average Glucose 114; Hemoglobin A1C 5.6 % (4.0-6.0)
[2021-04-12 12:15] LABS: Alanine Aminotransferase 22 U/L (0-33); Albumin Level 4.1 g/dL (3.5-5.2); Alkaline Phosphatase 74 IU/L (35-105); Anion Gap 12.7 (5-19); Aspartate Amino Transferase 18 U/L (0-32); Blood Urea Nitrogen 15 mg/dL (8-23); Calcium 8.7 mg/dL (8.5-10.5); Carbon Dioxide 24 mmol/L (22-29); Chloride 106 mmol/L (98-107); Free T4 Free Thyroxine 1.11 ng/dL (0.82-1.77); Globulin 2.8 g/dL (1.3-4.6); Glucose 99 mg/dL (65-115); Osmolality Calculated 289 mOsm/kg (285-295); Potassium 3.7 mmol/L (3.5-5.1); Sodium 139 mmol/L (136-145); Thyroid Stimulating Hormone 3.68 uIU/mL (0.27-4.20); Total Bilirubin 0.3 mg/dL (0.15-1.2); Total Protein 6.9 g/dL (6.6-8.7)
[2021-04-12 12:26] LABS: Erythrocyte Sedimentation Rate 49 mm/hr (0-15)
[2021-04-13 13:53] LABS: Anti-Nuclear Antibody Screen NEGATIVE (NEGATIVE)
== END 2021-04-12 11:11 | disposition home or self-care (01) ==
LOC: LAB 11:18
PROVIDERS: PCP Family Medicine; Visit Provider Family Medicine
DX: E11.9 Type 2 diabetes mellitus without complications (principal); I10 Essential (primary) hypertension; L93.2 Other local lupus erythematosus; T46.5X5A Adverse effect of other antihypertensive drugs, initial encounter; Z79.891 Long term (current) use of opiate analgesic
CPT/HCPCS: 36415; 80053; 83036; 84439; 84443; 85025; 85651; 86038

== ENCOUNTER → 2022-02-22 13:29 | Outpatient (BNVA) | payer MEDICARE, OTHER, SELFPAY | PROVIDERS: PCP Family Medicine; Visit Provider Orthopaedic Surgery | DX: M43.16 Spondylolisthesis, lumbar region (principal) | CPT/HCPCS: 72110 ==

== ENCOUNTER → 2022-03-15 08:23 | Outpatient (BNVA) | payer MEDICARE, OTHER, SELFPAY | PROVIDERS: PCP Family Medicine; Visit Provider Family Medicine | DX: E11.9 Type 2 diabetes mellitus without complications (principal); I10 Essential (primary) hypertension | CPT/HCPCS: 83036; 85025 ==

== ENCOUNTER → 2022-03-24 13:14 | Day surgery (SDC) | payer MEDICARE, OTHER, SELFPAY | PROVIDERS: PCP Family Medicine; Visit Provider Orthopaedic Surgery | DX: Z01.818 Encounter for other preprocedural examination (principal) | CPT/HCPCS: 93005 ==

== ENCOUNTER → 2022-03-25 08:21 | Outpatient (BNVA) | payer MEDICARE, OTHER, SELFPAY | PROVIDERS: PCP Family Medicine; Visit Provider Internal Medicine Cardiovascular Disease | DX: Z01.810 Encounter for preprocedural cardiovascular examination (principal); I10 Essential (primary) hypertension; L93.2 Other local lupus erythematosus; T46.5X5A Adverse effect of other antihypertensive drugs, initial encounter; F41.9 Anxiety disorder, unspecified; E11.9 Type 2 diabetes mellitus without complications | CPT/HCPCS: 99213 ==

== ENCOUNTER 2022-03-30 10:59 | Inpatient (IN) | payer MEDICARE, OTHER, SELFPAY ==
[2022-03-24 12:58] VITALS: BMI 29.2
--- NOTE | 2022-03-24 13:14 | ECG_ITS ---
[facility] Test Date: 2022-03-24 Pat Name: Holly Diez Department: Room: Gender: Female [employer] Manager: : 1950 Requested By: Gosia Sotelo Order Number: [id number] MD: Ranjit Block M.D. Measurements Intervals [place] Rate: 66 P: 30 [place]: 174 QRS: 9 QRSD: 90 T: 29 QT: 418 QTc: 441 Interpretive Statements SINUS RHYTHM Compared to ECG 07/05/2020 01:09:39 T-wave abnormality no longer present Electronically Signed On 03-24-2022 17:01:21 CDT by Ranjit Block M.D. [email or web address] memorial hospitalInDex Pharmaceuticalsmount st. mary hospitalSwipesense/store/OM/[id number]
--- NOTE | 2022-03-24 13:23 | P.ANESASSM_ITS ---
Pre-Anesthetic Assessment Height/Weight: Height 1.68 m Weight 82.1 kg Preop Diagnosis: diagnostic Operation Date: 03/30/22 07:00 Proposed Procedures p Posterior Lumbar Interbody Fusion(Not Applicable) - Aguila Ibarra DO Familial anesthetic complications: none Was Beta Meron taken within 24 hours: Yes Was Clonidine taken within 24 hours: Yes Social No alcohol and No tobacco Exam alert, oriented x 3, clear to auscultation bilaterally and regular rate & rhythm Airway Submandibular: within normal limits Cervical ROM: within normal limits Mallampati: Class II Dentition: chipped Pulmonary None reported CV/HEM Hypertension None reported Hepatic None reported GI Gastroesophageal Reflux Disease IBS Gastroenteritis Metabolic Diabetes Mellitus Musc/skel Lower Back Pain and Osteoarthritis/DJD Drug induced SLE Anterolisthesis Bursitis of left shoulder Neuropsych Anxiety Anesthetic Plan ASA status: 3 Anesthesia: Anesthesia Evaluation and General Other: We discussed risk and benefits of general anesthesia including PONV, sore throat (sometimes severe), corneal abrasion, positioning and peripheral nerve injuries, life threatening allergic reaction, post operative ICU admission requiring prolonged intubation, stroke, heart attack, , and rare incidences of recall. Patient consents to proceed with general anesthesia. Pending metanaphrines and cardiac clearence. Plan GETA, 2 IV , arterial line. Patient has hx of hypertensive, patient to take clonidine, verapamil, and labetalol DOS. Risk of > 500 ml blood loss (7ml/kg in children): No Other Pertinent Information Patient sent for cardiac clearance given hx of long standing periodic hypertensive urgency with headache, diaphoresis at times, anxiety, and sensation of feeling cold triggered by caffeine and chocolate (patient does not drink.). Urine metanaphrines ordered and pending. Medications/Allergies Home Medications Medication Instructions Recorded Confirmed Last Taken Type nitroglycerin 0.4 mg sublingual 0.4 mg SUBLINGUAL Q5M PRN #25 tab 07/08/20 03/24/22 Unknown Rx tablet clonidine HCl 0.3 mg tablet 0.3 mg PO TID 90 Days #270 tab 05/12/21 03/24/22 Unknown Rx verapamil 120 mg tablet,extended See Rx Instructions .ROUTE 09/27/21 03/22/22 Unknown Rx release .COMPLEX #180 tablet alprazolam 0.5 mg tablet (Xanax) 0.5 mg PO QID PRN 30 Days #120 tab 11/01/21 03/24/22 Unknown Rx labetalol 200 mg tablet See Rx Instructions .ROUTE 02/25/22 03/24/22 Unknown Rx .COMPLEX #270 tab hydralazine 25 mg tablet 25 mg PO QID 03/24/22 03/24/22 Unknown History Allergies Allergy/AdvReac Type Severity Reaction Status Date / Time plastics Allergy ALGY-Rash Uncoded 03/24/22 13:27 [facility] Anesthesia Medical History Anxiety Diabetes Eczema Essential hypertension History of colon polyps Irritable bowel syndrome with both constipation and diarrhea Lumbar disc disease with radiculopathy Thoracic spine pain Surgical History History of cholecystectomy History of colonoscopy (03/23/21) 2015: Colon polyps 2020: Mild diverticulosis History of dilation and curettage History of total hysterectomy Family History Father Parkinson disease Cancer Mother Cancer Social History Smoking and tobacco status: never smoked Alcohol intake: never History of recent travel: No Data Anesthesia : 03/24/22 13:50 Cardiac Studies: Sestamibi Stress Test (Cardiology) 08/26/20
[2022-03-24 14:39] LABS: Alanine Aminotransferase 18 U/L (0-33); Alkaline Phosphatase 72 IU/L (35-105); Aspartate Amino Transferase 17 U/L (0-32); Blood Urea Nitrogen 15 mg/dL (8-23); Calcium 8.4 mg/dL (8.5-10.5); Carbon Dioxide 25 mmol/L (22-29); Chloride 104 mmol/L (98-107); Globulin 2.5 g/dL (1.3-4.6); Glucose 110 mg/dL (65-115); Osmolality Calculated 289 mOsm/kg (285-295); Sodium 139 mmol/L (136-145); Total Bilirubin 0.2 mg/dL (0.15-1.2); Total Protein 6.5 g/dL (6.6-8.7)
[2022-03-24 14:42] LABS: Anion Gap 14.1 (5-19); Potassium 4.1 mmol/L (3.5-5.1)
[2022-03-30] VITALS (20 sets, daily range): BP systolic 136–186; BP diastolic 63–105; PULSE 66–85; RESP 14–19; TEMP 36.2–36.8; O2SAT 91–100; BMI 31.0
--- NOTE | 2022-03-30 | XR_ITS ---
WS: [id number] C-ARM RADIOGRAPHS LUMBAR SPINE; 3 IMAGES HISTORY: REECE PICS COMPARISON: None available. Intraoperative imaging during lumbar spine decompression. Posterior fusion noted at the L4-5 level. XR/XR lumbar spine 1V [id number] IMPRESSION: Intraoperative imaging during posterior L4-5 spine fusion.
--- NOTE | 2022-03-30 | SCC_ITS ---
Procedure done: 1. L4-L5 instrumentation 2. L4-L5 posterior spine fusion 3. L4/5 laminectomy with partial facetectomy 4. Use of computer navigation / stereotactic of spine 5. Bone marrow aspirate from Right iliac crest 6. Use of autograft 7. use allograft 1 second of fluoroscopic guidance, for a cumulative dose of 87.2 mGy, was provided to Dr. Ibarra by the radiology department. C-arm images of the lumbar spine were saved for the patient's permanent record. KERVIN
--- NOTE | 2022-03-30 06:49 | W.PM.OPSUD ---
Surgery/Procedure H&P Update DATE OF PROCEDURE: March 30, 2022 DATE H&P PERFORMED: 03/25/22 H&P UPDATE INFORMATION: I have reviewed H&P completed within last 30 days, I have examined patient prior to procedure and No changes to prior documentation PREOP DIAGNOSIS: Spondylolisthesis L4-5 with lumbar stenosis PLANNED PROCEDURE: Operation Date: 03/30/22 07:00 Proposed Procedures p Posterior Lumbar Interbody Fusion(Not Applicable) - Aguila Ibarra DO
--- NOTE | 2022-03-30 07:35 | P.ANESUD_ITS ---
Pre-Anesthetic Update Pre-Anesthetic Assessment: Date of Surgery/Procedure: 03/30/22 Preop Tara gnosis: Spondylolisthesis L4-5 with lumbar stenosis Proposed Procedure: Operation Date: 03/30/22 07:00 Proposed Procedures p Posterior Lumbar Interbody Fusion(Not Applicable) - Aguila Ibarra, DO Any changes to Pre-Anesthetic Assessment?: No Last Intake: Intake Last Liquid Date 03/30/22 Last Liquid Time 02:00 Last Solid Date 03/29/22 Last Solid Time 18:00 Vitals: Temperature 97.2 F L 03/30/22 06:02 Temperature Source Temporal Artery S can 03/30/22 06:02 Pulse Rate 66 03/30/22 06:02 Respiratory Rate 18 03/30/22 06:02 Blood Pressure 136/66 03/30/22 06:02 Blood Pressure Claribel n 89 03/30/22 06:02 Pulse Oximetry 98 03/30/22 06:02 Oxygen Delivery Me thod 03/30/22 06:05 Exam: Pre-Anes Outpt Exam: alert, oriented x 3, clear to auscultation bilaterally and regular rate & rhythm Cardiac Studies: Sestamibi Stress Test (Cardiology) 08/26/20
[2022-03-30] MEDS: vancomycin 1,000 MG SDV 1000 MG IRRIGATION (08:04)
[2022-03-30] MEDS: heparin, porcine 1,000 unit/mL INJ 10 mL 10000 UNIT IRRIGATION (08:06)
[2022-03-30] MEDS: fentaNYL 50 mcg/mL INJ 2mL IVP ×2 (10:00→10:12)
--- NOTE | 2022-03-30 10:02 | PM.OP ---
Operative Report Date of procedure: March 30, 2022 Pre-op diagnosis: Preop Diagnosis Spondylolisthesis L4-5 with lumbar stenosis Post-op diagnosis: same Procedure done: 1. L4-L5 instrumentation 2. L4-L5 posterior spine fusion 3. L4/5 laminectomy with partial facetectomy 4. Use of computer navigation / stereotactic of spine 5. Bone marrow aspirate from Right iliac crest 6. Use of autograft 7. use allograft Surgeon: Aguila Ibarra Electrician Locomotive: Cheo Barber Electrician Locomotive: The assistant to the dean, Cheo Barber, PAC was needed for his expertise under the microscope. He was important and necessary throughout the procedure to complete in a safe and timely manner. He assisted with patient positioning prepping and draping tissue retraction suctioning of the operative field protection of the dural sac and tissue closure Estimated blood loss (mL): 50 Procedure: 1. L4-L5 instrumentation 2. L4-L5 posterior spine fusion 3. L4/5 laminectomy with partial facetectomy 4. Use of computer navigation / stereotactic of spine 5. Bone marrow aspirate from Right iliac crest 6. Use of autograft 7. use allograft Patient brought to the operative suite after undergoing anesthesia all areas impingement were well-padded patient was positioned in the prone position. Patient was prepped and draped normal sterile fashion. Skin incision was made over the L4-5 level. Subperiosteal dissection was made out to the transverse processes of L4 and L5 bilaterally. Once exposure was complete attention was brought to obtaining the bone marrow aspirate. This was done by using the Kiley cell bone marrow aspiration kit. Is placed into the right iliac crest and aspirated then a 1 tube was then in place into the iliac crest and the bone marrow aspirate was taken at 1 mm increments until 20 cc were taken. This bone marrow aspirate was then mixed with the ostial amp fibers and sponge. Along with the autograft is taken later in the case. Patient attention was brought to placing the fiducial. The 2 pins were placed into the right iliac crest. These pins were removed later at the end of the case. The fiducial was attached to these 2 pins. And then the C-arm was brought in and spun around the patient. The information from the serum was then linked to the computer order to facilitate placing pedicle screws using computer navigation. Next attention was brought to placing the pedicle screws. This was done by using the gearshift probe that was attached to the fiducial and linked to the computer. Once the gearshift was placed the screws were measured as the gearshift was removed and then the pedicle feeler was used followed by placing the screw with the computer navigation. This was repeated at L4 and L5 bilaterally. Once the screws were placed. It was felt that patient did not need a cage placed and neck showed wanted to just distract little bit at the foramen. Next attention was brought to decompressing the laminectomy was performed using high-speed bur curved curette and Kerrison rongeur this was done at L4 once the lamina was taken down the medial aspect of the facet joint on the left side was taken down using high-speed bur Kerrison rongeur and curettes. The L4 nerve was felt to be adequately decompressed on the left side as well as the L5 nerve root as a transfer on the pedicle. Next attention was brought to placing the rods. The rhoda was placed on the right side L4-5 the rhoda was distracted and then the caps were placed locked the rhoda into position. This process was repeated on the left side as well. Decision was brought to decorticating the transverse processes of L4 and L5 bilaterally once this was done with a high-speed bur the autograft and allograft were packed into the lateral gutters. Wounds were irrigated and closed in layered fashion using Vicryl for the thoracolumbar fascia and 2-0 Vicryl and Monocryl suture for the skin with Steri-Strips. Sterile dressings were applied patient was transferred to the PACU in stable condition.
[2022-03-30] MEDS: HYDROmorphone 1 mg/mL INJ 1 mL 0.5 MG IVP (10:18)
[2022-03-30] MEDS: diphenhydrAMINE 50 mg/mL SDV 1mL 12.5 MG IVP (10:50)
[2022-03-30] MEDS: ondansetron 2 mg/ML SDV 2 mL 4 MG IVP (10:51)
[2022-03-30] MEDS: lactated ringers 1,000 ML 90 ML IV (12:13)
[2022-03-30] MEDS: hyDRALAzine 25 mg Tablet PO ×2 (12:14→20:55)
--- NOTE | 2022-03-30 12:38 | ANE.PACU2 ---
Inpatient post-anesthesia follow up: Airway intact: Yes Vital signs: Temperature 97.2 F Pulse Rate 67 Respiratory Rate 14 Blood Pressure 175/74 Pulse Oximetry 96 Oxygen Delivery Me thod Nasal Cannula Oxygen Flow Rate 2 Fraction of Inspir ed Oxygen Hydration adequate: Yes Nausea and vomiting: Yes Pain level: 3 Mental status: Baseline
[2022-03-30] MEDS: HYDROcodone-acetaminophen 5-325 mg Tablet PO ×2 (15:25→21:01)
[2022-03-30] MEDS: labetalol 200 mg Tablet PO ×2 (15:26→20:55)
[2022-03-30] MEDS: docusate sodium 100 mg Capsule PO (17:51)
[2022-03-30] MEDS: ketorolac 30 mg/mL INJ IVP (18:38)
[2022-03-31] VITALS (11 sets, daily range): BP systolic 144–194; BP diastolic 74–91; PULSE 86–97; RESP 16–19; TEMP 36.8–37.6; O2SAT 94–98
[2022-03-31] MEDS: ALPRAZolam 0.5 mg Tablet PO ×3 (00:17→20:49)
[2022-03-31] MEDS: morphine 4 mg/mL SDV 1 mL 2 MG IVP ×4 (00:23→16:11)
[2022-03-31] MEDS: ketorolac 30 mg/mL INJ IVP ×2 (01:26→20:05)
[2022-03-31] MEDS: HYDROcodone-acetaminophen 5-325 mg Tablet PO ×3 (03:08→19:55)
[2022-03-31] MEDS: lactated ringers 1,000 ML 90 ML IV ×2 (05:30→16:09)
[2022-03-31] MEDS: enoxaparin 40 mg/0.4 mL Syringe SUBCUT (05:30)
[2022-03-31] MEDS: nitroglycerin 0.4 mg sublingual Tablet SUBLINGUAL (05:37)
--- NOTE | 2022-03-31 07:54 | P.PN_ITS ---
Subjective Subjective: POD 1 Ms Diez is doing okay complains of low back and left leg pain. Her is present today. She denies any headaches, fevers, chills, shortness of breath or chest pain. Her biggest complaint is her lower abdominal area where she has skin on skin contact from excessive weight loss. Vitals/I&O/Wt Last Vital Signs Temp 98.2 F 03/31/22 04:50 Pulse 91 03/31/22 04:50 Resp 18 03/31/22 06:01 BP 177/91 03/31/22 05:35 Pulse Ox 98 03/31/22 04:50 03/30/22 03/31/22 03/31/22 22:59 06:59 14:59 Intake Total 160 / 510 1060 / 1570 Output Total 565 / 1015 320 / 1335 Balance -405 / -505 740 / 235 Weight last 48 hrs Weight 192 lb 1.6 oz Physical Exam Narrative: Patient presents alert and oriented x3 with a good general appearance normal mood and affect. Normal coordination normal stability. Mild tenderness around the incisional site with the incision appear to be clean and dry. No signs of erythema or drainage. No signs of infection. Patient denies any fevers or chills. 5/5 motor strength both lower extremities except with left hip flexion where she is 4/5 strength. negative straight leg raise bilaterally. Calves are supple no medial thigh tenderness. Pulses are 2+ at the dorsalis pedis and posterior tibial region. Good capillary refill throughout normal sensation light touch both lower extremities. Urinary Catheter Management: Vega: Cath Placed During This Visit: yes Reason for Continuing Indwelling Catheter: Other Urinary Catheter Date of Insertion: 03/30/22 Urinary Catheter Time of Insertion: 07:35 Data : 03/24/22 13:50 A&P Assessment and plan (1) Status post lumbar spinal fusion: We will discontinue the Vega catheter and Hemovac drain today. Have physical therapy work on mobilization. Discussed with the nurses regarding the care for the skin on skin contact in her lower abdominal area. We will plan to discharge her tomorrow to home. 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
[2022-03-31] MEDS: cloNIDine 0.1 mg Tablet 0.3 MG PO ×3 (07:57→20:46)
[2022-03-31] MEDS: hyDRALAzine 25 mg Tablet PO ×4 (07:57→20:51)
[2022-03-31] MEDS: docusate sodium 100 mg Capsule PO (07:57)
[2022-03-31] MEDS: labetalol 200 mg Tablet PO ×3 (07:58→20:46)
[2022-03-31] MEDS: nystatin powder 15 gm Btl 1 APPLIC TOPICAL ×2 (10:45→17:38)
--- NOTE | 2022-03-31 10:52 | PC.CHAP ---
Pastoral Care Encounter/Spiritual Assessment Type of Contact [] Declined secretary office clerk visit [] Patient/Family/Request visit [] Outpatient visit [] Follow-up visit [] Physician referral [] Code/Alert [x] Routine visit [] Staff referral [] Actively dying [] Patient sleeping [] Family support [] [] Out of room [] Palliative care [] [x] Receiving care in room [] Pre-surgical visit [] Trauma [] Long length of stay [] ICU visit [] Other: Relational/Emotional Strength [x] Patient feels connected with others/family/visitors/staff [] Distress [] Loneliness/isolation [] Abandonment Spirituality of Patient [x] Person of Nicole [] Attends Holiness of their Nicole [x] Believes in Prayer [] Reads Bible or Judaism materials [] There are Spiritual issues to be addressed Credit Card Analyst Interventions [x] Prayer [x] Active listening [] Non-anxious presence [] Spiritual/emotional support [] Crisis/trauma care [] Spiritual counseling [] Bereavement support [] Provided bereavement packet [] Provided Bible/devotional materials [] Provided toy/stuffed animal, coloring book to patient or family member [] Provided Communion [] Anointing/Pooler [] Salvation [] Completed spiritual assessment [] Other: Impact on Illness or Injury [] Angry [x] Fearful [] Anxious [] Often cries [] Exhaustion [x] Unable to work [] Unable to attend roman catholic [] Unable to walk/stand [] Unable to read [] Unable to drive [] Unable to eat/drink [] Unable to sleep [] Unable to be with family [] Patient intubated [] Other: Summary has a negetive attitude well go home soon Time spent with patient 10 mins
[2022-04-01] VITALS: BP 129/75; PULSE 88; RESP 18; TEMP 36.6; O2SAT 96
[2022-04-01] MEDS: HYDROcodone-acetaminophen 5-325 mg Tablet PO ×2 (03:04→10:25)
[2022-04-01] MEDS: lactated ringers 1,000 ML 90 ML IV (03:05)
[2022-04-01 04:00] VITALS: BP 146/78; PULSE 88; RESP 16; TEMP 36.9; O2SAT 94
[2022-04-01 05:40] VITALS: BP 146/68; PULSE 88; RESP 18; TEMP 36.8; O2SAT 97
[2022-04-01] MEDS: enoxaparin 40 mg/0.4 mL Syringe SUBCUT (05:42)
--- NOTE | 2022-04-01 07:08 | PM.DCS ---
Discharge Providers Date of Admission: 03/30/22 10:59 Date of Discharge: April 01, 2022 Attending Provider at Admission: Aguila Ibarra DO Attending Provider at Discharge: Aguila Ibarra DO Primary Care Provider: Ann Marie Kim MD Diagnoses at Discharge Discharge Diagnosis (1) Status post lumbar spinal fusion: Status: Acute Reason for Visit Reason for Visit: spondylosis lumbar region Hospital Course Hospital Course uneventful Physical Exam Narrative: pain controlled Urinary Catheter Management: Vega: Cath Placed During This Visit: yes Reason for Continuing Indwelling Catheter: Other Urinary Catheter Date of Insertion: 03/30/22 Urinary Catheter Time of Insertion: 07:35 Discharge Data Studies Completed and Pending Completed Studies During Hospitalization Category Date Time Status XR lumbar spine 1V [id number] Routine Exams 03/30/22 Completed Pending at discharge Category Date Time Status Miscellaneous Test Routine Lab 03/24/22 13:30 Received Urinalysis Routine Lab 03/24/22 14:00 Ordered Radiology Impressions Lumbar Spine X-Ray 03/30/22 00:00 IMPRESSION: Intraoperative imaging during posterior L4-5 spine fusion. Laboratory Results Sodium 139 mmol/L (136-145) 03/24/22 13:50 Potassium 4.1 mmol/L (3.5-5.1) 03/24/22 13:50 Chloride 104 mmol/L (98-107) 03/24/22 13:50 Carbon Dioxide 25 mmol/L (22-29) 03/24/22 13:50 Anion Gap 14.1 (5-19) 03/24/22 13:50 BUN 15 mg/dL (8-23) 03/24/22 13:50 Creatinine 0.9 mg/dL (0.5-0.9) 03/24/22 13:50 GFR Calculation Not Reportable 03/24/22 13:50 Glucose 110 mg/dL (65-115) 03/24/22 13:50 Calculated Osmolality 289 mOsm/kg (285-295) 03/24/22 13:50 Calcium 8.4 mg/dL (8.5-10.5) L 03/24/22 13:50 Total Bilirubin 0.2 mg/dL (0.15-1.2) 03/24/22 13:50 AST 17 U/L (0-32) 03/24/22 13:50 ALT 18 U/L (0-33) 03/24/22 13:50 Alkaline Phosphatase 72 IU/L (35-105) 03/24/22 13:50 Total Protein 6.5 g/dL (6.6-8.7) L 03/24/22 13:50 Albumin 4.0 g/dL (3.5-5.2) 03/24/22 13:50 Globulin 2.5 g/dL (1.3-4.6) 03/24/22 13:50 Plasma Free Metaneph Cancelled 03/24/22 13:30 Plasma Free Normeta Cancelled 03/24/22 13:30 Pls Totl Free Metaneph Cancelled 03/24/22 13:30 Vitals Last Vital Signs Temp 98.2 F 04/01/22 05:40 Pulse 88 04/01/22 05:40 Resp 18 04/01/22 05:40 BP 146/68 04/01/22 05:40 Pulse Ox 97 04/01/22 05:40 Discharge Plan Discharge Patient Disposition: Home Condition: Stable Prescriptions: New hydrocodone-acetaminophen 5-325 mg tablet 1 - 2 tab PO .Q4-6H Qty: 40 0RF Continued nitroglycerin 0.4 mg tablet, sublingual 0.4 mg SUBLINGUAL Q5M PRN (Reason: chest pain) Qty: 25 2RF Rx Instructions: do not exceed 3 doses per episode clonidine HCl 0.3 mg tablet 0.3 mg PO TID 90 Days Qty: 270 3RF verapamil 120 mg tablet extended release See Rx Instructions .ROUTE .COMPLEX Qty: 180 2RF Dose Instruction: TAKE 1 TABLET BY MOUTH TWICE DAILY Rx Instructions: TAKE 1 TABLET BY MOUTH TWICE DAILY alprazolam [Xanax] 0.5 mg tablet 0.5 mg PO QID PRN (Reason: anxiety) 30 Days Qty: 120 4RF labetalol 200 mg tablet See Rx Instructions .ROUTE .COMPLEX Qty: 270 1RF Dose Instruction: TAKE 1 TABLET BY MOUTH THREE TIMES DAILY Rx Instructions: TAKE 1 TABLET BY MOUTH THREE TIMES DAILY hydralazine 25 mg tablet 25 mg PO QID 0RF Discharge Orders: Discharge Order (Routine); Ordered 04/01/22 Ordered By: Aguila Ibarra Discharge Diet: Advance as tolerated Discharge Activity: Limit activity as instructed Patient Instructions: Opioid Safety Activity Restrictions/Additional Instructions: Thank you for [facility] for your care! The following is a list of instructions, from your provider, to follow upon your discharge to ensure you have the optimal recovery from your recent injury orsurgery. Follow-up care is a gramajo part of your treatment and safety. Be sure to make and go to all appointments, and call your doctor if you are having problems. If you do not already have a follow-up appointment made, call Dr. Ibarra office in the next 1-3 days to make follow up appointment for mondayApril 05 at [phone]. It is also a good idea to know your test results and keep a list of the medicines you take. Medications will be prescribed for you at your provider's discretion. These medications are to be used as instructed; if they are taken more often that prescribed they will not be refilled early and in most cases will not be refilled at all. > When a refill is needed,you should contact sruthi cummins 2-3 business days before your prescription runs out. Medications will NOT be refilled by legal receptionist providers after hours! > Many pain medications contain Tylenol (Acetaminophen). Do not consume more than 4,000 mg of Tylenol per day in total with any combination ofmedications. > Pain medications can cause constipation. Please use an over the counter stool softener as directed, while taking pain medications. Consulty our local pharmacist with questions or recommendations on stool softeners. If constipation persists, contact our office or your primary care provider. > While under our care,you are not to receive pain medications or other controlled substances from any other provider unless our office is notified and approves. Any attempts to do so will result in refusal to prescribe any further pain medications and possible dismissal from our practice. ? Keep dressing on until seen in the clinic on MondayApril 05 ? Walking is essential for the healing process after surgery. We would like you to slowly advance your walking. This should be done on relatively flat clear ground (inside or out) or can be done on a treadmill. Remember this goal does not have to happen all at once, slowly increase your distance and duration. This can be broken into more more than one walk per day as tolerated. Patients who walk as directed after surgery rarely require Physical Therapy. In the unlikely event this issue arises your provider will direct hospital staff to make the appropriate arrangements. ? No lifting over 5 pounds {a gallon of milk) or bending/twisting until further notice. Each of these activities places an unnecessary amount of stress onto the body and can impede the delicate healing process. > Instead of bending at the waist, keep your back straight and bend at the knees. > Instead of twisting your torso, keep your back straight and turn your entire body with your feet. ? You may sleep in any position which makes you comfortable. Many patients find comfort sleeping in a reclining chair. It is not abnormal to have difficulty sleeping for the first several weeks following your surgery. We recommend trying Benadry! or Tylenol PM as directed to help with your sleeping difficulties. Both medications are over the counter and available withoutprescription. ? NO SMOKING!!! Smoking dramatically increases the probability of developing postoperative wound infections. ? Common complaints after lumbar and/or thoracic spine surgery include, but are not limited to: numbness and/or tingling in the legs, pain around the incision and surrounding tissues, muscle spasms, or stiffness of the middle to low back. Contact our office if these symptoms persist or if an acute change occurs. ? No driving for the first 3-5days, and not while taking narcotics until seen at your follow-up appointment and cleared. There are no restrictions for riding on short trips, however if you take a longer trip, arrangements should be made to make regular stops to get out of the vehicle and stretch . ? Swelling is an unfortunate event that will take place with any surgery and is the primary source of your postoperative discomfort. While walking and regular approved activities helps control inflammation, there are additional steps you can take to minimizeswelling. > Place ice over the surgical site and surrounding tissue for twenty minutes, followed by applying a low/medium heat (heating pad) for an additional twenty minutes every 1-2 hours as needed for painrelief. > You may use of over the counter anti-inflammatory medications (Ibuprofen, Motrin, Aleve, Advil, etc) as directed on the package label. These types of medicines wm significantly reduce the amount of discomfort you experience after surgery from swelling. It should be noted that if you have and allergy to any of these medications, or a history of ulcers or kidney disease you should consult you primary care provider prior to starting these medications. Discharge Attestations Time Spent in Discharge Care*: less than 30 min Quality Metrics Clinical Quality Measures [ No reported AMI, CVA or VTE this stay] Coding Level of Care Code Acute Chg FW DC note Diagnoses Status post lumbar spinal fusion Z98.1
[2022-04-01 07:48] VITALS: BP 162/79; PULSE 88; RESP 16; TEMP 37.1; O2SAT 95
[2022-04-01] MEDS: docusate sodium 100 mg Capsule PO (08:23)
[2022-04-01] MEDS: cloNIDine 0.1 mg Tablet 0.3 MG PO (08:23)
[2022-04-01] MEDS: hyDRALAzine 25 mg Tablet PO (08:23)
[2022-04-01] MEDS: labetalol 200 mg Tablet PO (08:24)
[2022-04-01] MEDS: nystatin powder 15 gm Btl 1 APPLIC TOPICAL (10:13)
[2022-04-01 10:40] VITALS: BP 162/79; PULSE 88; RESP 16; TEMP 37.1; O2SAT 95
== END 2022-04-01 10:40 | disposition home or self-care (01) | DRG 460 ==
LOC: MEDSURG 11:00
PROVIDERS: Anesthesiology; Admitting Provider Orthopaedic Surgery; PCP Family Medicine; Visit Provider Orthopaedic Surgery
PROC: 0SG007J Fusion of Lumbar Vertebral Joint with Autologous Tissue Substitute, Posterior Approach, Anterior Column, Open Approach (ICD-10-PCS; CPT 22612; principal; 2022-03-30 07:00)
DX: M43.16 Spondylolisthesis, lumbar region (principal); M48.061 Spinal stenosis, lumbar region without neurogenic claudication
CPT/HCPCS: 51702; 72020; 76000; 80053; 83835; 96372; 97110; 97116; 97161; 97530; C1713; J0690; J1100; J1170; J1200; J1644; J1650; J1885; J2270; J2370; J2405; J2704; J3010; J3370; J3490

== ENCOUNTER → 2022-04-05 11:07 | Outpatient (BNVA) | payer MEDICARE, OTHER, SELFPAY | PROVIDERS: PCP Family Medicine; Visit Provider Orthopaedic Surgery | DX: Z47.89 Encounter for other orthopedic aftercare (principal); Z98.890 Other specified postprocedural states; Z98.1 Arthrodesis status | CPT/HCPCS: 99024 ==

== ENCOUNTER → 2022-04-12 14:59 | Outpatient (BNVA) | payer MEDICARE, OTHER, SELFPAY | PROVIDERS: PCP Family Medicine; Visit Provider Orthopaedic Surgery | DX: Z47.89 Encounter for other orthopedic aftercare (principal); Z98.890 Other specified postprocedural states | CPT/HCPCS: 99024 ==

== ENCOUNTER → 2022-04-19 15:23 | Outpatient (BNVA) | payer MEDICARE, OTHER, SELFPAY | PROVIDERS: PCP Family Medicine; Visit Provider Orthopaedic Surgery | DX: Z47.89 Encounter for other orthopedic aftercare (principal); Z98.890 Other specified postprocedural states; Z98.1 Arthrodesis status | CPT/HCPCS: 72100; 99024 ==

== ENCOUNTER → 2022-05-03 15:05 | Outpatient (BNVA) | payer MEDICARE, OTHER, SELFPAY | PROVIDERS: PCP Family Medicine; Visit Provider Orthopaedic Surgery | DX: Z47.89 Encounter for other orthopedic aftercare (principal); Z98.890 Other specified postprocedural states; Z98.1 Arthrodesis status | CPT/HCPCS: 72100; 99024 ==

== ENCOUNTER → 2022-05-10 12:49 | Outpatient (BNVA) | payer MEDICARE, OTHER, SELFPAY | PROVIDERS: PCP Family Medicine; Visit Provider Orthopaedic Surgery | DX: Z47.89 Encounter for other orthopedic aftercare (principal); Z98.1 Arthrodesis status; M47.816 Spondylosis without myelopathy or radiculopathy, lumbar region | CPT/HCPCS: 72100; 99024 ==

== ENCOUNTER → 2022-05-31 12:48 | Outpatient (BNVA) | payer MEDICARE, OTHER, SELFPAY | PROVIDERS: PCP Family Medicine; Visit Provider Orthopaedic Surgery | DX: Z47.89 Encounter for other orthopedic aftercare (principal); Z98.890 Other specified postprocedural states; Z98.1 Arthrodesis status | CPT/HCPCS: 72100; 99024 ==

== ENCOUNTER → 2022-06-15 11:51 | Outpatient (BNVA) | payer MEDICARE, OTHER, SELFPAY | PROVIDERS: PCP Family Medicine; Visit Provider Family Medicine | DX: I10 Essential (primary) hypertension (principal) | CPT/HCPCS: 80048; 85025 ==

== ENCOUNTER → 2022-06-16 15:20 | Outpatient (BNVA) | payer MEDICARE, OTHER, SELFPAY | PROVIDERS: PCP Family Medicine; Visit Provider Orthopaedic Surgery | DX: Z47.89 Encounter for other orthopedic aftercare (principal); Z98.890 Other specified postprocedural states; Z98.1 Arthrodesis status | CPT/HCPCS: 72100; 99024 ==

== ENCOUNTER 2022-07-15 09:52 | Outpatient (CLI) | payer MEDICARE, OTHER, SELFPAY ==
--- NOTE | 2022-07-15 10:07 | XR_ITS ---
WS: [id number] Lumbar spine, AP and lateral standing, 07/15/2022 Clinical Data: Z98.1 - Arthrodesis status Comparison: Lumbar spine, 06/16/2022. Findings: The posterior lumbar fusion with bilateral pedicle screws and connecting rods remains stable at L4-L5 . Degenerative disc narrowing at all levels remains the same. There is anterior osteoarthritic spurri ng of the lower thoracic and the upper lumbar vertebral bodies. There is a slight dextroscoliosis. Th ere is a laminectomy at L4. The transverse processes and SI joints are unremarkable. There is calcifi cation in the wall of the abdominal aorta but no aneurysm. There is diffuse osteoporosis. XR/XR lumbar spine 2-3V* [id number] Impression: Stable posterior lumbar fusion.
== END 2022-07-15 09:53 | disposition home or self-care (01) ==
LOC: RAD 09:55
PROVIDERS: PCP Family Medicine; Visit Provider Orthopaedic Surgery
DX: Z98.1 Arthrodesis status (principal)
CPT/HCPCS: 72100

== ENCOUNTER → 2022-07-21 14:30 | Outpatient (BNVA) | payer MEDICARE, OTHER, SELFPAY | PROVIDERS: PCP Family Medicine; Visit Provider Physician Assistant | DX: Z98.1 Arthrodesis status (principal); Z47.89 Encounter for other orthopedic aftercare | CPT/HCPCS: 99213 ==

== ENCOUNTER 2022-08-18 07:00 | Outpatient (CLI) | payer MEDICARE, OTHER, SELFPAY ==
--- NOTE | 2022-08-18 07:15 | MR_ITS ---
WS: [id number] MRI LUMBAR SPINE NONCONTRAST HISTORY: Status post lumbar spinal fusion, pain in back after recent surgery. RIGHT hip and RIGHT leg pain with weakness. COMPARISON: 12/30/2020 TECHNIQUE: Sagittal and axial multisequence imaging is submitted. Mild curvature the lumbar spine with increase in the lumbar lordosis. L1 retrolisthesis by 4.6 mm. 3 mm retrolisthesis of L2 and L3. L4 anterolisthesis by 3 mm. New since the prior MRI is a posterior liz mbar fusion at L4-5. Postsurgical changes are noted within the paravertebral soft tissues. No focal f luid collection. Disc spaces are all narrowed and desiccated. Most significant at L1-2, L2-3 and L5-S1. Conus terminates normally at L1. L1-L2: Mild disc bulging with fluid in the facet joints. No significant stenosis. L2-L3: Osteophytic ridging and annular disc bulge. Mild ligamentum flavum and facet arthritis. LEFT s ubarticular recess disc protrusion is reidentified and slightly increased in size. Contacts the trave rsing LEFT L3 nerve root with displacement. Mild bilateral foraminal stenosis is unchanged. L3-L4: Moderate diffuse annular disc bulge with a central disc protrusion. Ligamentum flavum and face t arthritis. There is artifact from the hardware obscuring portions of the disc and central canal. Th ere is moderate central with bilateral subarticular recess stenosis and at least mild foraminal steno sis. Progression of stenosis since the prior study. L4-L5: Mild disc bulging with ligamentum flavum and facet arthritis. Posterior laminectomy defect is evident. RIGHT hemilaminectomy defect. There may be a defect on the LEFT being obscured by the metall ic artifact. Improved central and foraminal stenosis as compared to the prior study. L5-S1: Mild disc bulging. Osteophytic ridging. There is very slight contact on the S1 nerve roots naty aterally, slightly greater on the RIGHT. RIGHT cortical cyst. MR/MR lumbar spine wo con* [id number] IMPRESSION: 1. Since the prior examination posterior lumbar fusion at L4-5 with laminectom y defect. 2. Progression of central and bilateral subarticular recess stenosis at L3-4 s nolan the prior examination of 12/30/2020. 3. Increase in size of the LEFT subarticular recess disc protrusion at L2-3. Disc contacts and displaces the traversing LEFT L3 nerve root.
== END 2022-08-18 07:01 | disposition home or self-care (01) ==
LOC: RAD 07:01
PROVIDERS: PCP Family Medicine; Visit Provider Orthopaedic Surgery
DX: Z98.1 Arthrodesis status (principal); M25.551 Pain in right hip; M96.1 Postlaminectomy syndrome, not elsewhere classified; M48.061 Spinal stenosis, lumbar region without neurogenic claudication; M51.26 Other intervertebral disc displacement, lumbar region
CPT/HCPCS: 72148

== ENCOUNTER → 2022-08-23 08:52 | Outpatient (BNVA) | payer MEDICARE, OTHER, SELFPAY | PROVIDERS: PCP Family Medicine; Visit Provider Orthopaedic Surgery | DX: M48.062 Spinal stenosis, lumbar region with neurogenic claudication (principal); Z98.1 Arthrodesis status | CPT/HCPCS: 99214 ==

== ENCOUNTER → 2022-09-15 08:55 | Outpatient (BNVA) | payer MEDICARE, OTHER, SELFPAY | PROVIDERS: PCP Family Medicine; Visit Provider Anesthesiology Pain Medicine | DX: M48.062 Spinal stenosis, lumbar region with neurogenic claudication (principal); M43.16 Spondylolisthesis, lumbar region; M47.816 Spondylosis without myelopathy or radiculopathy, lumbar region; Z98.1 Arthrodesis status | CPT/HCPCS: 99205 ==

== ENCOUNTER → 2022-09-27 14:02 | Outpatient (BNVA) | payer MEDICARE, OTHER, SELFPAY | PROVIDERS: PCP Family Medicine; Visit Provider Anesthesiology Pain Medicine | DX: M54.16 Radiculopathy, lumbar region (principal); M48.062 Spinal stenosis, lumbar region with neurogenic claudication | CPT/HCPCS: 64483; 64484; J1100; J3490 ==

== ENCOUNTER → 2022-10-11 12:34 | Outpatient (BNVA) | payer MEDICARE, OTHER, SELFPAY | PROVIDERS: PCP Family Medicine; Visit Provider Anesthesiology Pain Medicine | DX: M54.16 Radiculopathy, lumbar region (principal); M48.062 Spinal stenosis, lumbar region with neurogenic claudication | CPT/HCPCS: 64483; 64484; J1100; J3490 ==

== ENCOUNTER → 2022-10-26 09:08 | Outpatient (BNVA) | payer MEDICARE, OTHER, SELFPAY | PROVIDERS: PCP Family Medicine; Visit Provider Anesthesiology Pain Medicine | DX: M48.062 Spinal stenosis, lumbar region with neurogenic claudication (principal); M43.16 Spondylolisthesis, lumbar region; M47.816 Spondylosis without myelopathy or radiculopathy, lumbar region; Z98.1 Arthrodesis status | CPT/HCPCS: 99214 ==

== ENCOUNTER → 2022-11-09 10:04 | Outpatient (BNVA) | payer MEDICARE, OTHER, SELFPAY | PROVIDERS: PCP Family Medicine; Visit Provider Anesthesiology Pain Medicine | DX: M54.16 Radiculopathy, lumbar region (principal); M48.062 Spinal stenosis, lumbar region with neurogenic claudication; M47.816 Spondylosis without myelopathy or radiculopathy, lumbar region; M43.16 Spondylolisthesis, lumbar region; Z98.1 Arthrodesis status; M79.604 Pain in right leg; M79.605 Pain in left leg | CPT/HCPCS: 72110; 99214 ==

== ENCOUNTER → 2022-12-06 12:41 | Outpatient (BNVA) | payer MEDICARE, OTHER, SELFPAY | PROVIDERS: PCP Family Medicine; Visit Provider Anesthesiology Pain Medicine | DX: M47.816 Spondylosis without myelopathy or radiculopathy, lumbar region (principal); M48.062 Spinal stenosis, lumbar region with neurogenic claudication | CPT/HCPCS: 64493; 64494; 64495 ==

== ENCOUNTER → 2022-12-20 12:34 | Outpatient (BNVA) | payer MEDICARE, OTHER, SELFPAY | PROVIDERS: PCP Family Medicine; Visit Provider Anesthesiology Pain Medicine | DX: M47.816 Spondylosis without myelopathy or radiculopathy, lumbar region (principal); M48.062 Spinal stenosis, lumbar region with neurogenic claudication | CPT/HCPCS: 64493; 64494; 64495 ==

== ENCOUNTER → 2023-01-12 09:18 | Outpatient (BNVA) | payer MEDICARE, OTHER, SELFPAY | PROVIDERS: PCP Family Medicine; Visit Provider Anesthesiology Pain Medicine | DX: M48.062 Spinal stenosis, lumbar region with neurogenic claudication (principal); M43.16 Spondylolisthesis, lumbar region; M47.816 Spondylosis without myelopathy or radiculopathy, lumbar region; M79.604 Pain in right leg; M79.605 Pain in left leg; Z98.1 Arthrodesis status | CPT/HCPCS: 99214 ==

== ENCOUNTER → 2023-01-24 14:15 | Outpatient (BNVA) | payer MEDICARE, OTHER, SELFPAY | PROVIDERS: PCP Family Medicine; Visit Provider Physician Assistant | DX: M47.894 Other spondylosis, thoracic region (principal); Z98.1 Arthrodesis status; W19.XXXA Unspecified fall, initial encounter | CPT/HCPCS: 72072; 72100; 99213 ==

== ENCOUNTER → 2023-01-31 14:27 | Outpatient (BNVA) | payer MEDICARE, OTHER, SELFPAY | PROVIDERS: PCP Family Medicine; Visit Provider Anesthesiology Pain Medicine | DX: M47.816 Spondylosis without myelopathy or radiculopathy, lumbar region (principal); M48.062 Spinal stenosis, lumbar region with neurogenic claudication | CPT/HCPCS: 64635; 64636 ==

== ENCOUNTER → 2023-02-14 12:31 | Outpatient (BNVA) | payer MEDICARE, OTHER, SELFPAY | PROVIDERS: PCP Family Medicine; Visit Provider Anesthesiology Pain Medicine | DX: M47.816 Spondylosis without myelopathy or radiculopathy, lumbar region (principal) | CPT/HCPCS: 64635; 64636; J1030 ==

== ENCOUNTER → 2023-02-27 09:28 | Outpatient (BNVA) | payer MEDICARE, OTHER, SELFPAY | PROVIDERS: PCP Family Medicine; Visit Provider Anesthesiology Pain Medicine | DX: M48.062 Spinal stenosis, lumbar region with neurogenic claudication (principal); M43.16 Spondylolisthesis, lumbar region; M47.816 Spondylosis without myelopathy or radiculopathy, lumbar region; Z98.1 Arthrodesis status | CPT/HCPCS: 99212 ==

== ENCOUNTER → 2023-03-14 14:27 | Outpatient (BNVA) | payer MEDICARE, OTHER, SELFPAY | PROVIDERS: PCP Family Medicine; Visit Provider Anesthesiology Pain Medicine | DX: M47.816 Spondylosis without myelopathy or radiculopathy, lumbar region (principal); M48.062 Spinal stenosis, lumbar region with neurogenic claudication | CPT/HCPCS: 64635; 64636; J1030 ==

== ENCOUNTER → 2023-03-28 10:44 | Outpatient (BNVA) | payer MEDICARE, OTHER, SELFPAY | PROVIDERS: PCP Family Medicine; Visit Provider Anesthesiology Pain Medicine | DX: M06.9 Rheumatoid arthritis, unspecified (principal); M48.062 Spinal stenosis, lumbar region with neurogenic claudication; M43.16 Spondylolisthesis, lumbar region; M47.816 Spondylosis without myelopathy or radiculopathy, lumbar region; Z98.1 Arthrodesis status | CPT/HCPCS: 99213 ==

== ENCOUNTER → 2023-04-13 10:01 | Outpatient (BNVA) | payer MEDICARE, OTHER, SELFPAY | PROVIDERS: PCP Family Medicine; Visit Provider Family Medicine | DX: R35.0 Frequency of micturition (principal); I87.2 Venous insufficiency (chronic) (peripheral); I10 Essential (primary) hypertension; M43.16 Spondylolisthesis, lumbar region; K59.09 Other constipation; R39.9 Unspecified symptoms and signs involving the genitourinary system; D17.9 Benign lipomatous neoplasm, unspecified | CPT/HCPCS: 81000 ==

== ENCOUNTER → 2023-06-06 10:55 | Outpatient (BNVA) | payer MEDICARE, OTHER, SELFPAY | PROVIDERS: PCP Family Medicine; Visit Provider Orthopaedic Surgery | DX: Z98.1 Arthrodesis status (principal); M25.569 Pain in unspecified knee | CPT/HCPCS: 72100; 73560; 73565; 99214 ==

== ENCOUNTER → 2023-06-08 08:59 | Outpatient (BNVA) | payer MEDICARE, OTHER, SELFPAY | PROVIDERS: PCP Family Medicine; Visit Provider Family Medicine | DX: R30.0 Dysuria (principal); N39.46 Mixed incontinence | CPT/HCPCS: 81000 ==

== ENCOUNTER → 2023-06-28 09:31 | Outpatient (BNVA) | payer MEDICARE, OTHER, SELFPAY | PROVIDERS: PCP Family Medicine; Visit Provider Anesthesiology Pain Medicine | DX: M48.062 Spinal stenosis, lumbar region with neurogenic claudication (principal); M43.16 Spondylolisthesis, lumbar region; Z98.1 Arthrodesis status; M47.816 Spondylosis without myelopathy or radiculopathy, lumbar region | CPT/HCPCS: 99215 ==

== ENCOUNTER → 2023-06-29 11:06 | Outpatient (BNVA) | payer MEDICARE, OTHER, SELFPAY | PROVIDERS: PCP Family Medicine; Visit Provider Internal Medicine Rheumatology | DX: Z79.899 Other long term (current) drug therapy (principal); M19.90 Unspecified osteoarthritis, unspecified site; M16.0 Bilateral primary osteoarthritis of hip; M19.042 Primary osteoarthritis, left hand | CPT/HCPCS: 36415; 72170; 73130; 73630; 80076; 82306; 82565; 85025; 85651; 86140; 86431; 86480; 86704; 86803; 87340; 99204 ==

== ENCOUNTER → 2023-08-01 09:22 | Outpatient (BNVA) | payer MEDICARE, OTHER, SELFPAY | PROVIDERS: PCP Family Medicine; Visit Provider Anesthesiology Pain Medicine | DX: M48.062 Spinal stenosis, lumbar region with neurogenic claudication (principal); M43.16 Spondylolisthesis, lumbar region; Z98.1 Arthrodesis status; M47.816 Spondylosis without myelopathy or radiculopathy, lumbar region | CPT/HCPCS: 99214 ==

== ENCOUNTER 2023-08-14 12:36 | Outpatient (CLI) | payer MEDICARE, OTHER, SELFPAY ==
--- NOTE | 2023-08-14 12:50 | MM_ITS ---
WS: [id number] BILATERAL 3D TOMOSYNTHESIS DIGITAL SCREENING MAMMOGRAPHY WITH CAD CLINICAL INFORMATION: Z00.00 - Encounter for general adult medical examination ... HISTORY: Screening mammogram. No current complaints. COMPARISON: 2020 TECHNIQUE: Bilateral CC and MLO views. FINDINGS: Scattered fibroglandular densities bilaterally. No suspicious focal mass, asymmetry, calcifications, or architectural distortion. No evidence of malignancy. Incidental punctate and lucent centered calci fications. IMPRESSION: MM/[place] [id number] BI-RADS: 2-Benign FOLLOW UP: 1 Year Follow-up Recommend return to annual screening mammography.
[2023-08-14 13:51] LABS: Basophils # 0.1 10^3/uL (0.0-0.1); Basophils % 1.2 %; Eosinophils # 0.1 10^3/uL (0.0-0.8); Eosinophils % 1.7 %; Hematocrit 36.5 % (36-47); Lymphocytes % 24.5 %; Mean Corpuscular HGB Conc 32.9 g/dL (30-55); Mean Corpuscular Hemoglobin 30.3 pg (27-33); Mean Corpuscular Volume 92.2 fl (85-98); Mean Platelet Volume 9.5 fL (7.4-10.4); Monocytes # 0.7 10^3/uL (0.2-0.9); Monocytes % 8.2 %; Neutrophils # 5.27 10^3/uL (1.8-7.7); Nucleated Red Blood Cells % 0 %; Platelet Count 240 10^3/cmm (157-399); Red Blood Count 3.96 10^6/uL (3.85-5.65); Red Cell Distribution Width 13.1 % (12.1-15.1); White Blood Count 8.22 10^3/uL (3.29-11.43)
[2023-08-14 14:16] LABS: Alanine Aminotransferase 25 U/L (0-33); Albumin Level 3.9 g/dL (3.5-5.2); Alkaline Phosphatase 68 U/L (35-105); Anion Gap 11.1 (5-19); Aspartate Amino Transferase 17 U/L (0-32); Blood Urea Nitrogen 15 mg/dL (8-23); C Reactive Protein 10.6 mg/L (0.0-4.9); Calcium 9.1 mg/dL (8.5-10.5); Carbon Dioxide 28 mmol/L (22-29); Chloride 104 mmol/L (98-107); Globulin 2.8 g/dL (1.3-4.6); Glucose 102 mg/dL (65-115); Osmolality Calculated 289 mOsm/kg (285-295); Potassium 4.1 mmol/L (3.5-5.1); Sodium 139 mmol/L (136-145); Total Bilirubin 0.2 mg/dL (0.15-1.2); Total Protein 6.7 g/dL (6.6-8.7)
[2023-08-14 14:33] LABS: Estmated Average Glucose 126
[2023-08-14 14:49] LABS: Add Urine Microscopic? YES; Bilirubin Urine Neg (Negative); Blood Urine Neg (Negative); Glucose Urine UA Norm (Normal); Ketones Urine Negative (Negative); Leukocyte Esterase Urine 2+ (Negative); Nitrate Urine Negative (Negative); Protein Urine Neg (Negative); Specific Gravity, Urine 1.015 (1.005-1.030); Urine Appearance Clear (CLEAR); Urine Color Yellow (Yellow); Urobilinogen Urine Norm (Negative); pH Urine 5 (5-7)
[2023-08-14 14:50] LABS: Add Urine Culture? No; Bacteria Urine TRACE /hpf; Squamous Epithelial Cell Urine 0-4 /hpf (0-5); Transitional Epi Cells Urine RARE /hpf
== END 2023-08-14 12:37 | disposition home or self-care (01) ==
PROVIDERS: Orthopaedic Surgery; PCP Family Medicine; Referring Provider Internal Medicine Rheumatology; Visit Provider Family Medicine
DX: Z12.31 Encounter for screening mammogram for malignant neoplasm of breast (principal); Z00.00 Encounter for general adult medical examination without abnormal findings; Z01.818 Encounter for other preprocedural examination; H49.10 Fourth [trochlear] nerve palsy, unspecified eye; M19.90 Unspecified osteoarthritis, unspecified site; Z79.899 Other long term (current) drug therapy
CPT/HCPCS: 36415; 77063; 77067; 80053; 81001; 83036; 85025; 86140

== ENCOUNTER → 2023-08-22 12:39 | Outpatient (BNVA) | payer MEDICARE, OTHER, SELFPAY | PROVIDERS: PCP Family Medicine; Visit Provider Anesthesiology Pain Medicine | DX: M54.16 Radiculopathy, lumbar region (principal); M48.062 Spinal stenosis, lumbar region with neurogenic claudication | CPT/HCPCS: 64483; 64484; J1100; J3490 ==

== ENCOUNTER → 2023-08-28 13:17 | Outpatient (BNVA) | payer MEDICARE, OTHER, SELFPAY | PROVIDERS: PCP Family Medicine; Visit Provider Internal Medicine Rheumatology | DX: M51.16 Intervertebral disc disorders with radiculopathy, lumbar region (principal); M19.90 Unspecified osteoarthritis, unspecified site; M47.816 Spondylosis without myelopathy or radiculopathy, lumbar region; M48.062 Spinal stenosis, lumbar region with neurogenic claudication | CPT/HCPCS: 99214 ==

== ENCOUNTER → 2023-10-24 13:14 | Outpatient (BNVA) | payer MEDICARE, OTHER, SELFPAY | PROVIDERS: PCP Family Medicine; Visit Provider Anesthesiology Pain Medicine | DX: M54.16 Radiculopathy, lumbar region (principal); M48.062 Spinal stenosis, lumbar region with neurogenic claudication | CPT/HCPCS: 64483; 64484; J1100; J3490 ==

== ENCOUNTER → 2023-10-30 13:41 | Outpatient (BNVA) | payer MEDICARE, OTHER, SELFPAY | PROVIDERS: PCP Family Medicine; Referring Provider Internal Medicine Rheumatology; Visit Provider Dermatology | DX: K13.0 Diseases of lips (principal); L73.8 Other specified follicular disorders; L82.1 Other seborrheic keratosis; D22.21 Melanocytic nevi of right ear and external auricular canal; D22.0 Melanocytic nevi of lip | CPT/HCPCS: 17000; 17110; 99203 ==

== ENCOUNTER → 2023-11-01 13:40 | Outpatient (BNVA) | payer MEDICARE, OTHER, SELFPAY | PROVIDERS: PCP Family Medicine; Visit Provider Specialist | DX: G30.1 Alzheimer's disease with late onset (principal); F02.B0 Dementia in other diseases classified elsewhere, moderate, without behavioral disturbance, psychotic disturbance, mood disturbance, and anxiety | CPT/HCPCS: 96116; 99205 ==

== ENCOUNTER → 2023-11-08 10:12 | Outpatient (BNVA) | payer MEDICARE, OTHER, SELFPAY | PROVIDERS: PCP Family Medicine; Visit Provider Anesthesiology Pain Medicine | DX: M48.062 Spinal stenosis, lumbar region with neurogenic claudication (principal); M54.2 Cervicalgia; M25.519 Pain in unspecified shoulder; M43.16 Spondylolisthesis, lumbar region; Z98.1 Arthrodesis status; M47.816 Spondylosis without myelopathy or radiculopathy, lumbar region | CPT/HCPCS: 99214 ==

== ENCOUNTER → 2023-11-14 10:33 | Outpatient (BNVA) | payer MEDICARE, OTHER, SELFPAY | PROVIDERS: PCP Family Medicine; Visit Provider Orthopaedic Surgery | DX: M48.062 Spinal stenosis, lumbar region with neurogenic claudication (principal); Z98.1 Arthrodesis status; M81.0 Age-related osteoporosis without current pathological fracture; M47.816 Spondylosis without myelopathy or radiculopathy, lumbar region; M51.36 Other intervertebral disc degeneration, lumbar region | CPT/HCPCS: 72100; 99214 ==

== ENCOUNTER 2023-11-30 09:07 | Outpatient (CLI) | payer MEDICARE, OTHER, SELFPAY ==
--- NOTE | 2023-11-30 09:30 | MR_ITS ---
WS: [id number] MR CERVICAL SPINE WO/W COMPARISON: None. HISTORY: M54.2 - Cervicalgia TECHNIQUE: Sagittal T1, T2 and T2 inversion recovery; axial T2, T2 gradient and fiesta. Post gadolini um imaging with fat saturation technique. FINDINGS:Straightening of the normal cervical lordosis. No high grade central canal narrowing. Cord s ignal is normal. No abnormal gadolinium enhancement C2-3: Mild facet arthropathy. Spinal canal and foramen are patent. C3-4: Mild disc osteophyte complex with endplate ridging. Moderate facet arthropathy. Mild bilateral foraminal narrowing. Tiny central protrusion. C4-5: Tiny central protrusion. Moderate bilateral bony foraminal narrowing. Moderate facet arthropath y with uncovertebral joint hypertrophy. Edema and enhancement RIGHT facet compatible with synovitis. C5-6: Disc osteophyte complex with endplate ridging. Slight indentation of the cervical cord. Moderat e facet arthropathy. Moderate to severe bilateral bony foraminal narrowing. Moderate facet arthropat hy. C6-7: Disc osteophyte complex endplate ridging. Moderate to severe bilateral bony foraminal narrowing . Moderate facet arthropathy. C7-T1: Uncovertebral joint hypertrophy with osteophytic ridging. Moderate to severe LEFT and mild RIG HT bony foraminal narrowing. Moderate facet arthropathy. IMPRESSION: 1. Straightening of the normal cervical lordosis. No high-grade central canal narrowing. Cord signa l is normal. 2. Moderate to severe multilevel bony foraminal narrowing worse at bilateral C4-5, bilateral C5-C6, bilateral C6-7, and LEFT C7-T1. 3. Synovitis RIGHT C4-5 facets with associated edema and enhancement. This is likely inflammatory. 4. No other suspicious findings.
[2023-11-30] MEDS: gadobenate dimeglumine 20 mL vial IV (10:14)
== END 2023-11-30 09:08 | disposition home or self-care (01) ==
LOC: RAD 09:08
PROVIDERS: PCP Family Medicine; Visit Provider Anesthesiology Pain Medicine
DX: M48.02 Spinal stenosis, cervical region (principal); M25.519 Pain in unspecified shoulder; M65.88 Other synovitis and tenosynovitis, other site
CPT/HCPCS: 72156; A9577

== ENCOUNTER → 2023-12-05 12:55 | Outpatient (BNVA) | payer MEDICARE, OTHER, SELFPAY | PROVIDERS: PCP Family Medicine; Visit Provider Internal Medicine Rheumatology | DX: M19.90 Unspecified osteoarthritis, unspecified site (principal); Z79.899 Other long term (current) drug therapy; M45.6 Ankylosing spondylitis lumbar region; M51.16 Intervertebral disc disorders with radiculopathy, lumbar region; M47.816 Spondylosis without myelopathy or radiculopathy, lumbar region; M48.062 Spinal stenosis, lumbar region with neurogenic claudication | CPT/HCPCS: 99214 ==

== ENCOUNTER 2023-12-07 10:22 | Outpatient (CLI) | payer MEDICARE, OTHER, SELFPAY ==
--- NOTE | 2023-12-07 11:00 | MR_ITS ---
WS: [id number] MRI LUMBAR SPINE NONCONTRAST HISTORY: lumbar pain, prior lumbar spine surgery. COMPARISON: None available. TECHNIQUE: Sagittal and axial multisequence imaging is submitted. Posterior lumbar fusion at L4-5. Increase in the lumbar lordosis. 3 mm retrolisthesis of L1 and L2. L4 anterolisthesis by 5 mm. Simila r findings as noted on the prior study. Disc spaces are all narrowed and desiccated. Hypertrophic osteophytes throughout all vertebral bodies . Conus terminates normally at L1-2 disc level. L1-L2: Diffuse annular disc bulging, no stenosis. L2-L3: Diffuse marked annular disc bulging is asymmetric to the LEFT. Osteophytic ridging and posteri or displacement of the L2 vertebral body. Asymmetric disc protrusion extends into the LEFT subarticul ar recess contacting the traversing LEFT L3 nerve root. Very similar to the prior study. There is add itional disc contact on the traversing RIGHT L3 nerve root. Mild central, moderate bilateral subartic ular recess and foraminal stenosis. Stenosis appears to have progressed since the prior study. L3-L4: Marked annular disc bulging, osteophytic ridging, ligamentum flavum and facet arthritis. [place] appearance of the thecal sac with a large central disc protrusion. The large central disc protrusi on has increased in size. Progression of stenoses. Moderate to severe central, bilateral subarticular recess and foraminal stenosis. L4-L5: Osteophytic ridging, annular disc bulging and facet arthritis. Large posterior laminectomy def ect. No stenosis. L5-S1: Mild disc bulging. No stenosis. Subcentimeter LEFT renal cyst. IMPRESSION: 1. Prior posterior lumbar fusion at L4-5 with large laminectomy defects. 2. L3-4: Progression of stenoses and degenerative changes. The central disc protrusion has increased in size. Moderate to severe central, bilateral subarticular recess and foraminal stenosis. Most sign ificant contact on the traversing L4 nerve roots. 3. L4-5: No stenosis. 4. L2-3: Disc contacts the traversing L3 nerve roots, greatest on the LEFT. Progression of mild cent ral, bilateral subarticular recess and foraminal stenosis since the prior exam.
== END 2023-12-07 10:23 | disposition home or self-care (01) ==
PROVIDERS: PCP Family Medicine; Visit Provider Orthopaedic Surgery
DX: M48.062 Spinal stenosis, lumbar region with neurogenic claudication (principal); Z98.1 Arthrodesis status; M51.26 Other intervertebral disc displacement, lumbar region; M47.816 Spondylosis without myelopathy or radiculopathy, lumbar region
CPT/HCPCS: 72148

== ENCOUNTER 2023-12-08 07:54 | Outpatient (CLI) | payer MEDICARE, OTHER, SELFPAY ==
--- NOTE | 2023-12-08 08:30 | CT_ITS ---
WS: [id number] CT HEAD TECHNIQUE: Noncontrast CT of the head obtained from the skullbase to the vertex. CLINICAL INFORMATION: disorientation/balance/weakness on 11/20 to 11/21/23 COMPARISON: None. DLP: 1084.[address] scans at [facility] use at least one of these dose optimization techniques: automated e xposure control; mA and/or kV adjustment per patient size (includes targeted exams where dose is matc hed to clinical indication); or iterative reconstruction. FINDINGS: No evidence of intracranial hemorrhage or mass effect. Ventricular system and basal cisterns are dodd nt. Moderate small vessel changes with mild parenchymal volume loss. Intracranial vascular calcificat ion. No extra-axial fluid collections. No evidence of mass or mass effect. Paranasal sinuses and mastoid air cells are well aerated. .Normal visualized soft tissues. IMPRESSION: 1. No evidence of intracranial hemorrhage or mass effect. 2. Moderate small vessel changes with mild parenchymal volume loss 3. Intracranial vascular calcification 4. No acute intracranial findings.
== END 2023-12-08 07:55 | disposition home or self-care (01) ==
LOC: RAD 07:54
PROVIDERS: PCP Family Medicine; Visit Provider Family Medicine
DX: F41.9 Anxiety disorder, unspecified (principal); F03.90 Unspecified dementia, unspecified severity, without behavioral disturbance, psychotic disturbance, mood disturbance, and anxiety; R41.82 Altered mental status, unspecified; R42 Dizziness and giddiness; G45.9 Transient cerebral ischemic attack, unspecified
CPT/HCPCS: 70450

== ENCOUNTER → 2023-12-27 09:19 | Outpatient (BNVA) | payer MEDICARE, OTHER, SELFPAY | PROVIDERS: PCP Family Medicine; Visit Provider Anesthesiology Pain Medicine | DX: M48.062 Spinal stenosis, lumbar region with neurogenic claudication (principal); Z98.1 Arthrodesis status; M48.02 Spinal stenosis, cervical region | CPT/HCPCS: 99214 ==

== ENCOUNTER 2024-01-01 10:37 | Outpatient (CLI) | payer MEDICARE, OTHER, SELFPAY ==
[2024-01-01 11:15] LABS: Basophils % 0.4 %; Eosinophils % 0.3 %; Hematocrit 35.8 % (36-47); Lymphocytes # 0.8 10^3/uL (0.8-4.8); Lymphocytes % 11.5 %; Mean Corpuscular HGB Conc 32.1 g/dL (30-55); Mean Corpuscular Hemoglobin 30.6 pg (27-33); Mean Corpuscular Volume 95.2 fl (85-98); Mean Platelet Volume 9.6 fL (7.4-10.4); Monocytes # 0.4 10^3/uL (0.2-0.9); Monocytes % 6.3 %; Neutrophils # 5.34 10^3/uL (1.8-7.7); Nucleated Red Blood Cells % 0 %; Platelet Count 170 10^3/cmm (157-399); Red Blood Count 3.76 10^6/uL (3.85-5.65); Red Cell Distribution Width 13.4 % (12.1-15.1); White Blood Count 6.68 10^3/uL (3.29-11.43)
[2024-01-01 11:33] LABS: Alanine Aminotransferase 20 U/L (0-33); Albumin Level 3.3 g/dL (3.5-5.2); Alkaline Phosphatase 50 U/L (35-105); Aspartate Amino Transferase 15 U/L (0-32); C Reactive Protein 25.7 mg/L (0.0-4.9); Globulin 2.7 g/dL (1.3-4.6); Total Bilirubin 0.3 mg/dL (0.15-1.2)
[2024-01-02 20:50] LABS: HLA-B27 NEGATIVE (NEGATIVE)
== END 2024-01-01 10:38 | disposition home or self-care (01) ==
LOC: LAB 10:40
PROVIDERS: Absent Provider Internal Medicine Rheumatology; PCP Family Medicine; Visit Provider Internal Medicine Rheumatology
DX: M45.6 Ankylosing spondylitis lumbar region (principal); M19.90 Unspecified osteoarthritis, unspecified site; Z79.899 Other long term (current) drug therapy
CPT/HCPCS: 36415; 80076; 82565; 85025; 86140; 86812

== ENCOUNTER → 2024-01-29 16:46 | Outpatient (BNVA) | payer MEDICARE, OTHER, SELFPAY | PROVIDERS: PCP Family Medicine; Visit Provider Family Medicine | DX: K21.9 Gastro-esophageal reflux disease without esophagitis (principal); M19.90 Unspecified osteoarthritis, unspecified site | CPT/HCPCS: 80053; 85025; 86140 ==

== ENCOUNTER → 2024-01-31 13:36 | Outpatient (BNVA) | payer MEDICARE, OTHER, SELFPAY | PROVIDERS: PCP Family Medicine; Visit Provider Specialist | DX: F03.90 Unspecified dementia, unspecified severity, without behavioral disturbance, psychotic disturbance, mood disturbance, and anxiety (principal) | CPT/HCPCS: 99213 ==

== ENCOUNTER → 2024-03-19 12:37 | Outpatient (BNVA) | payer MEDICARE, OTHER, SELFPAY | PROVIDERS: PCP Family Medicine; Visit Provider Internal Medicine Rheumatology | DX: Z79.899 Other long term (current) drug therapy (principal); M19.90 Unspecified osteoarthritis, unspecified site; M51.16 Intervertebral disc disorders with radiculopathy, lumbar region; M47.816 Spondylosis without myelopathy or radiculopathy, lumbar region; M48.062 Spinal stenosis, lumbar region with neurogenic claudication | CPT/HCPCS: 99214 ==

== ENCOUNTER 2024-04-18 12:13 | Outpatient (CLI) | payer MEDICARE, OTHER, SELFPAY ==
[2024-04-18 12:56] LABS: Basophils # 0.1 10^3/uL (0.0-0.1); Basophils % 1.8 %; Eosinophils # 0.1 10^3/uL (0.0-0.8); Eosinophils % 2.6 %; Hematocrit 36.6 % (36-47); Lymphocytes # 1.3 10^3/uL (0.8-4.8); Lymphocytes % 24.3 %; Mean Corpuscular HGB Conc 31.4 g/dL (30-55); Mean Corpuscular Hemoglobin 29.9 pg (27-33); Mean Corpuscular Volume 95.3 fl (85-98); Mean Platelet Volume 10.3 fL (7.4-10.4); Monocytes # 0.6 10^3/uL (0.2-0.9); Monocytes % 11.8 %; Neutrophils # 3.22 10^3/uL (1.8-7.7); Neutrophils % 59.3 %; Nucleated Red Blood Cells % 0 %; Platelet Count 196 10^3/cmm (157-399); Red Blood Count 3.84 10^6/uL (3.85-5.65); Red Cell Distribution Width 12.9 % (12.1-15.1); White Blood Count 5.43 10^3/uL (3.29-11.43)
[2024-04-18 13:18] LABS: Alanine Aminotransferase 11 U/L (0-33); Albumin Level 3.7 g/dL (3.5-5.2); Alkaline Phosphatase 67 U/L (35-105); Aspartate Amino Transferase 17 U/L (0-32); C Reactive Protein 6.2 mg/L (0.0-4.9); Globulin 2.9 g/dL (1.3-4.6); Total Bilirubin 0.2 mg/dL (0.15-1.2); Total Protein 6.6 g/dL (6.6-8.7)
[2024-04-20 00:29] LABS: HLA-B27 NEGATIVE (NEGATIVE)
== END 2024-04-18 12:14 | disposition home or self-care (01) ==
LOC: LAB 12:14
PROVIDERS: PCP Family Medicine; Visit Provider Internal Medicine Rheumatology
DX: Z79.899 Other long term (current) drug therapy (principal); M19.90 Unspecified osteoarthritis, unspecified site; M45.6 Ankylosing spondylitis lumbar region
CPT/HCPCS: 36415; 80076; 82565; 85025; 86140; 86812

== ENCOUNTER 2024-05-02 08:10 | Emergency (ER) | payer MEDICARE, OTHER, SELFPAY ==
[2024-05-02 08:30] VITALS: BP 124/75; PULSE 73; TEMP 36.4; O2SAT 95; BMI 26.8
--- NOTE | 2024-05-02 09:01 | W.ED.BACK ---
HPI - Back Pain/Injury General: Chief Complaint: Back Pain/Injury Stated Complaint: right side pain Time Seen by Provider: 05/02/24 08:23 Source: patient Mode of arrival: ambulatory History of Present Illness: 74-year-old female who presents to the emergency room with complaints of right flank pain x 2 days. No fever sweats or chills she has noticed some discoloration of her urine. She states she has rheumatoid arthritis has other generalized aches and pains in all extremities but this is more focal and new. She has not had associated vomiting or diarrhea. She has some chronic constipation. Pain seems to radiate down into her leg. She has had back surgery in the past. Pain emanates from the right upper quadrant. No recent traumas or falls no fecal incontinence or urinary retention no saddle paresthesias. Onset (ago): day(s) Timing: constant and progressively worsening Severity: moderate Quality: sharp Radiation: right upper leg Exacerbating factors: none Relieving factors: none Associated symptoms: Deny abdominal pain, arthralgias, chills, change in bowel habits, difficulty walking, dysuria, fatigue, fecal incontinence, fever(s), hematuria, myalgias, nausea, numbness, syncope, tingling/numbness/burning, urinary frequency, urinary urgency, vomiting or weakness Work related injury: No Review of Systems Const: Denies: fever(s), chills or fatigue Card: Denies: chest pain or syncope Resp: Denies: dyspnea GI: Denies: abdominal pain, nausea, vomiting, fecal incontinence or change in bowel habits : Denies: dysuria, urinary frequency, urinary urgency or hematuria Musc: Denies: neck pain or back pain Skin/Breast: Denies: rash Neuro: Denies: difficulty walking [facility] [place] [facility] PFSH: Medical History Immunization counseling High risk medication use Inflammatory arthritis Eczema History of colon polyps Irritable bowel syndrome with both constipation and diarrhea Thoracic spine pain Essential hypertension Anxiety Diabetes Lumbar disc disease with radiculopathy Surgical History History of colonoscopy (03/23/21) 2015: Colon polyps 2020: Mild diverticulosis History of cholecystectomy History of dilation and curettage History of total hysterectomy Family History Father Parkinson disease Cancer Mother Cancer Social History Smoking and tobacco/nicotine status: never used tobacco/nicotine Second hand smoke exposure: No Alcohol intake: never Substance/Drug Use: never Physical Exam Const: GENERAL APPEARANCE: cooperative and comfortable ORIENTATION/CONSCIOUSNESS: Yes awake, Yes oriented to person, Yes oriented to place and Yes oriented to time HENMT: COMMON NORMALS: normocephalic, atraumatic and hearing grossly normal bilaterally HEAD & SCALP: normocephalic and atraumatic Resp: COMMON NORMALS: normal respiratory effort, No retractions, No use of accessory muscles and clear to auscultation bilaterally AUSCULTATION: clear to auscultation bilaterally Cardio: COMMON NORMALS: regular rate, regular rhythm and No murmurs present (Cardio) RATE: regular rate RHYTHM: regular rhythm GI: COMMON NORMALS: No hepatosplenomegaly present AUSCULTATION: Yes normoactive bowel sounds PALPATION: Yes Tenderness to palpation present (GI) (Diffuse), No Guarding due to palpation present (GI) and Yes No hepatosplenomegaly present : BLADDER/KIDNEY EXAM: Yes CVA tenderness Back/Pelvis: GENERAL BACK: Yes CVA tenderness CVA tenderness: right Extremity: COMMON NORMALS: normal to inspection, capillary refill normal, no clubbing, cyanosis or edema, no calf tenderness and no pedal edema Neuro: SENSORIUM/ORIENTATION: Yes oriented to person, Yes oriented to place and Yes oriented to time Skin: COMMON NORMALS: no rashes or lesions noted GENERAL SKIN EXAM: no rashes or lesions noted Course Vital Signs: Vital signs: Vital Signs Temperature 97.6 F 05/02/24 11:38 Pulse Rate 79 05/02/24 11:38 Respiratory Rate 16 05/02/24 11:38 Blood Pressure 179/91 05/02/24 11:38 Pulse Oximetry 95 05/02/24 11:38 Oxygen Delivery Me thod Room Air 05/02/24 08:30 MDM - Back Pain/Injury Medical Decision Making Cystitis, pyelonephritis no leukocytosis. Will treat as an outpatient given hydrocodone for the flank pain also given Pyridium and started on oral antibiotic. Follow-up with primary care if not improving. Return if symptoms worsen. Medical Records I reviewed the patient's medical records. Labs I reviewed the patient's lab results. 05/02/24 09:12 05/02/24 09:12 Radiology Impressions Abdomen/Pelvis CT 05/02/24 09:25 IMPRESSION: 1. No renal or ureteral calcification or obstruction. 2. Prior cholecystectomy. 3. No GI tract obstruction or colitis. 4. Mild perinephric stranding around each kidney can be seen with urinary tract infection. This stranding is new since 2019. Laboratory Results WBC 5.81 10^3/uL (3.29-11.43) 05/02/24 09:12 RBC 3.37 10^6/uL (3.85-5.65) L 05/02/24 09:12 Hgb 10.10 g/dL (11.27-16.99) L 05/02/24 09:12 Hct 32.3 % (36-47) L 05/02/24 09:12 MCV 95.8 fl (85-98) 05/02/24 09:12 MCH 30.0 pg (27-33) 05/02/24 09:12 MCHC 31.3 g/dL (30-55) 05/02/24 09:12 RDW 13.0 % (12.1-15.1) 05/02/24 09:12 Plt Count 180 10^3/cmm (157-399) 05/02/24 09:12 MPV 9.9 fL (7.4-10.4) 05/02/24 09:12 Neut % (Auto) 60.2 % 05/02/24 09:12 Lymph % (Auto) 24.3 % 05/02/24 09:12 [place] % (Auto) 11.7 % 05/02/24 09:12 Eos % (Auto) 2.1 % 05/02/24 09:12 Baso % (Auto) 1.5 % 05/02/24 09:12 Neut # (Auto) 3.50 10^3/uL (1.8-7.7) 05/02/24 09:12 Lymph # (Auto) 1.4 10^3/uL (0.8-4.8) 05/02/24 09:12 [place] # (Auto) 0.7 10^3/uL (0.2-0.9) 05/02/24 09:12 Eos # (Auto) 0.1 10^3/uL (0.0-0.8) 05/02/24 09:12 Baso # (Auto) 0.1 10^3/uL (0.0-0.1) 05/02/24 09:12 Nucleated RBC % (auto) 0 % 05/02/24 09:12 Nucleated RBCs # 0.0 /100WBC 05/02/24 09:12 Sodium 142 mmol/L (136-145) 05/02/24 09:12 Potassium 3.9 mmol/L (3.5-5.1) 05/02/24 09:12 Chloride 106 mmol/L (98-107) 05/02/24 09:12 Carbon Dioxide 24 mmol/L (22-29) 05/02/24 09:12 Anion Gap 15.9 (5-19) 05/02/24 09:12 BUN 18 mg/dL (8-23) 05/02/24 09:12 Creatinine 0.9 mg/dL (0.5-0.9) 05/02/24 09:12 GFR Calculation Not Reportable 05/02/24 09:12 Glucose 113 mg/dL (65-115) 05/02/24 09:12 Calculated Osmolality 297 mOsm/kg (285-295) H 05/02/24 09:12 Calcium 9.1 mg/dL (8.5-10.5) 05/02/24 09:12 Total Bilirubin 0.3 mg/dL (0.15-1.2) 05/02/24 09:12 AST 15 U/L (0-32) 05/02/24 09:12 ALT 14 U/L (0-33) 05/02/24 09:12 Alkaline Phosphatase 66 U/L (35-105) 05/02/24 09:12 Total Protein 6.9 g/dL (6.6-8.7) 05/02/24 09:12 Albumin 3.8 g/dL (3.5-5.2) 05/02/24 09:12 Globulin 3.1 g/dL (1.3-4.6) 05/02/24 09:12 Lipase 35 U/L (13-60) 05/02/24 09:12 Urine Color Yellow (Yellow) 05/02/24 08:43 Urine Appearance Clear (CLEAR) 05/02/24 08:43 Urine pH 6 (5-7) 05/02/24 08:43 Ur Specific [place] 1.015 (1.005-1.030) 05/02/24 08:43 Urine Protein Neg (Negative) 05/02/24 08:43 Urine Glucose (UA) Norm (Normal) 05/02/24 08:43 Urine Ketones Negative (Negative) 05/02/24 08:43 Urine Blood Neg (Negative) 05/02/24 08:43 Urine Nitrate Negative (Negative) 05/02/24 08:43 Urine Bilirubin Neg (Negative) 05/02/24 08:43 Urine Urobilinogen Norm mg/dL (Negative) 05/02/24 08:43 Ur Leukocyte Esterase 1+ (Negative) H 05/02/24 08:43 Urine RBC 0-4 /hpf (0-2) H 05/02/24 08:43 Urine WBC 5-10 /hpf (0-5) H 05/02/24 08:43 Ur Squamous Epith Cells 0-4 /hpf (0-5) H 05/02/24 08:43 Ur Transition Epith Cell 0-4 /hpf 05/02/24 08:43 Amorphous Sediment Not Reportable 05/02/24 08:43 Urine Bacteria Trace /hpf (NONE) 05/02/24 08:43 Urine Mucus None /hpf 05/02/24 08:43 All radiology interpretation(s) finalized by discharge Discharge Plan Discharge Patient Disposition: Home Clinical Impression: Pyelonephritis, Cystitis Condition: Stable Prescriptions: New Cipro 500 mg tablet 500 mg PO BID Qty: 20 0RF hydrocodone-acetaminophen 5-325 mg tablet 1 tab PO Q6H PRN (Reason: pain) Qty: 15 0RF promethazine 25 mg tablet 25 mg PO Q6H PRN (Reason: nausea and vomiting) Qty: 20 0RF Pyridium 200 mg tablet 200 mg PO Q8H Qty: 6 0RF Miralax 17 gram/dose powder 17 g PO DAILY Qty: 850 0RF No Action memantine 10 mg tablet 10 mg PO BID Qty: 60 5RF sulfasalazine 500 mg tablet 0.5 g PO BID Qty: 60 3RF Rx Instructions: Take 1 tab daily x1wk then stay on 1 tab twice daily.... give with food (meal/snack) leflunomide 20 mg tablet 20 mg PO DAILY Qty: 90 1RF nitroglycerin 0.4 mg tablet, sublingual 0.4 mg SUBLINGUAL Q5M PRN (Reason: chest pain) Qty: 25 2RF Rx Instructions: do not exceed 3 doses per episode clonidine HCl 0.3 mg tablet See Rx Instructions .ROUTE .COMPLEX Qty: 180 3RF Dose Instruction: TAKE 1 TABLET BY MOUTH THREE TIMES DAILY FOR 60 DAYS Rx Instructions: TAKE 1 TABLET BY MOUTH THREE TIMES DAILY FOR 60 DAYS alprazolam 0.5 mg tablet 0.5 mg PO QID Qty: 120 5RF prednisone 20 mg tablet See Rx Instructions PO .COMPLEX PRN (Reason: joint pain flare) Qty: 30 0RF Rx Instructions: take 1 or 2 tab daily for 3-7 days as needed for arthritis flare PO PRN; hydralazine 25 mg tablet 25 mg PO QID Qty: 240 1RF verapamil 120 mg tablet extended release 120 mg PO BID omeprazole 20 mg capsule,delayed release(DR/EC) 20 mg PO DAILY labetalol 200 mg tablet 200 mg PO TID diclofenac sodium 1 % gel 4 g topical QID PRN (Reason: Pain) Rx Instructions: apply to affected area as needed Discharge Orders: Discharge ED (Routine); Ordered 05/02/24 Ordered By: Venkata Johnson Referrals: Ann Marie Kim MD [Primary Care Provider] - Discharge Diet: Regular Discharge Activity: Increase activity as tolerated Patient Instructions: Opioid Safety, Pain Management Activity Restrictions/Additional Instructions: Thank you for choosing [facility] for your healthcare needs today. It is very important that you follow up as instructed or that you return to the Emergency Department should you have concerns or if your condition changes or worsens in any way. You were seen in the emergency room for flank pain. CT shows pyelonephritis your white count was normal. Recommend starting oral antibiotics 1 twice a day for 10 days also gave you pain medications and nausea medicine. Because of your pre-existing constipation recommend starting MiraLAX 17 g daily. Follow-up with your primary care doctor if not improving Coding Level of Care Code ED Acid Conditioner for Crystal Urban
[2024-05-02 09:21] LABS: Add Urine Microscopic? YES; Bilirubin Urine Neg (Negative); Blood Urine Neg (Negative); Glucose Urine UA Norm (Normal); Ketones Urine Negative (Negative); Leukocyte Esterase Urine 1+ (Negative); Nitrate Urine Negative (Negative); Protein Urine Neg (Negative); Specific Gravity, Urine 1.015 (1.005-1.030); Urine Appearance Clear (CLEAR); Urine Color Yellow (Yellow); Urobilinogen Urine Norm (Negative); pH Urine 6 (5-7)
[2024-05-02 09:22] LABS: Basophils # 0.1 10^3/uL (0.0-0.1); Basophils % 1.5 %; Eosinophils # 0.1 10^3/uL (0.0-0.8); Eosinophils % 2.1 %; Hematocrit 32.3 % (36-47); Lymphocytes # 1.4 10^3/uL (0.8-4.8); Lymphocytes % 24.3 %; Mean Corpuscular HGB Conc 31.3 g/dL (30-55); Mean Corpuscular Volume 95.8 fl (85-98); Mean Platelet Volume 9.9 fL (7.4-10.4); Monocytes # 0.7 10^3/uL (0.2-0.9); Monocytes % 11.7 %; Neutrophils % 60.2 %; Nucleated Red Blood Cells % 0 %; Platelet Count 180 10^3/cmm (157-399); Red Blood Count 3.37 10^6/uL (3.85-5.65); White Blood Count 5.81 10^3/uL (3.29-11.43)
--- NOTE | 2024-05-02 09:25 | CT_ITS ---
WS: [id number] CT ABDOMEN AND PELVIS NONCONTRAST HISTORY: Abdominal pain, RIGHT flank pain and RIGHT lower quadrant pain. TECHNIQUE: Imaging performed through the abdomen and pelvis. Coronal and sagittal reformats are submi tted. All CT scans at [facility] use at least one of these dose optimization techniques: auto mated exposure control; mA and/or kV adjustment per patient size (includes targeted exams where dose is matched to clinical indication); or iterative reconstruction. DLP: 698.51 mGy.cm COMPARISON: 12/03/2019 Lower thorax: Benign granuloma RIGHT lower lobe. No pneumonia. Mild cardiomegaly. Liver: Normal size liver. No mass or bile duct dilatation. Gallbladder: Prior cholecystectomy. Pancreas: Mild atrophy. No pancreatitis or pancreatic duct dilatation. Normal common bile duct. Spleen: Normal. Adrenal glands: Normal. No mass. Right kidney: Mild perinephric stranding. No renal obstruction. Left kidney: Mild perinephric stranding. No renal obstruction. Aorta: Mild atherosclerosis abdominal aorta with no aneurysm. No free fluid, intraperitoneal air or significant lymphadenopathy. GI tract: Normal stomach. No small bowel obstruction. No evidence of acute appendicitis. Mild distal colonic diverticular disease without acute diverticulitis. Abdominal wall: Negative. No hernia. Pelvis: No free fluid or adenopathy. Normal urinary bladder. Osseous structures: Prior posterior lumbar fusion at L4-5. CT/CT abdomen pelvis wo con [id number] IMPRESSION: 1. No renal or ureteral calcification or obstruction. 2. Prior cholecystectomy. 3. No GI tract obstruction or colitis. 4. Mild perinephric stranding around each kidney can be seen with urinary trac t infection. This stranding is new since 2019.
[2024-05-02 09:44] LABS: Bacteria Urine TRACE /hpf; RBC Urine 0-4 /hpf (0-2); Squamous Epithelial Cell Urine 0-4 /hpf (0-5); Transitional Epi Cells Urine 0-4 /hpf
[2024-05-02 09:46] LABS: Add Urine Culture? No
[2024-05-02 09:49] LABS: Alanine Aminotransferase 14 U/L (0-33); Albumin Level 3.8 g/dL (3.5-5.2); Alkaline Phosphatase 66 U/L (35-105); Anion Gap 15.9 (5-19); Aspartate Amino Transferase 15 U/L (0-32); Blood Urea Nitrogen 18 mg/dL (8-23); Calcium 9.1 mg/dL (8.5-10.5); Carbon Dioxide 24 mmol/L (22-29); Chloride 106 mmol/L (98-107); Globulin 3.1 g/dL (1.3-4.6); Glucose 113 mg/dL (65-115); Lipase 35 U/L (13-60); Osmolality Calculated 297 mOsm/kg (285-295); Potassium 3.9 mmol/L (3.5-5.1); Sodium 142 mmol/L (136-145); Total Bilirubin 0.3 mg/dL (0.15-1.2); Total Protein 6.9 g/dL (6.6-8.7)
[2024-05-02 11:35] VITALS: BP 179/91; PULSE 79; RESP 16; O2SAT 95
[2024-05-02 11:38] VITALS: BP 179/91; PULSE 79; RESP 16; TEMP 36.4; O2SAT 95
== END 2024-05-02 11:39 | disposition home or self-care (01) ==
PROVIDERS: Emergency Provider Family Medicine; PCP Family Medicine
DX: N12 Tubulo-interstitial nephritis, not specified as acute or chronic (principal); N30.90 Cystitis, unspecified without hematuria; I10 Essential (primary) hypertension; E11.9 Type 2 diabetes mellitus without complications
CPT/HCPCS: 36415; 74176; 80053; 81001; 83690; 85025; 99284

== ENCOUNTER → 2024-05-28 15:57 | Outpatient (BNVA) | payer MEDICARE, OTHER, SELFPAY | PROVIDERS: PCP Family Medicine; Visit Provider Orthopaedic Surgery | DX: M54.50 Low back pain, unspecified (principal); M48.062 Spinal stenosis, lumbar region with neurogenic claudication | CPT/HCPCS: 72110; 99214 ==

== ENCOUNTER 2024-06-04 09:35 | Emergency (ER) | payer MEDICARE, OTHER, SELFPAY ==
[2024-06-04] VITALS (8 sets, daily range): BP systolic 146–208; BP diastolic 88–141; PULSE 79–100; RESP 16–20; TEMP 36.4; O2SAT 94–97; BMI 25.0
--- NOTE | 2024-06-04 10:22 | ED_ITS ---
HPI - Back Pain/Injury General: Chief Complaint: Back Pain/Injury Stated Complaint: right side pain lower back pain Time Seen by Provider: 06/04/24 10:12 PFSH ED PFSH: Medical History Immunization counseling High risk medication use Inflammatory arthritis Eczema History of colon polyps Irritable bowel syndrome with both constipation and diarrhea Thoracic spine pain Essential hypertension Anxiety Diabetes Lumbar disc disease with radiculopathy Surgical History History of colonoscopy (03/23/21) 2015: Colon polyps 2020: Mild diverticulosis History of cholecystectomy History of dilation and curettage History of total hysterectomy Family History Father Parkinson disease Cancer Mother Cancer Social History Smoking and tobacco/nicotine status: never used tobacco/nicotine Second hand smoke exposure: No Alcohol intake: never Substance/Drug Use: never Course Vital Signs: Vital signs: Vital Signs Temperature 97.5 F L 06/04/24 09:42 Pulse Rate 100 06/04/24 09:42 Respiratory Rate 20 H 06/04/24 09:42 Blood Pressure 205/110 06/04/24 09:42 Pulse Oximetry 95 06/04/24 09:42 Oxygen Delivery Me thod Room Air 06/04/24 09:42 Discharge Plan Discharge Condition: Stable Prescriptions: No Action memantine 10 mg tablet 10 mg PO BID Qty: 60 5RF tramadol 50 mg tablet 50 mg PO TID PRN (Reason: pain) 14 Days Qty: 42 0RF sulfasalazine 500 mg tablet 0.5 g PO BID Qty: 60 3RF Rx Instructions: Take 1 tab daily x1wk then stay on 1 tab twice daily.... give with food (meal/snack) leflunomide 20 mg tablet 20 mg PO DAILY Qty: 90 1RF dicyclomine 20 mg tablet 20 mg PO TID PRN (Reason: abdominal pain/bowel cramping) Qty: 20 0RF nitroglycerin 0.4 mg tablet, sublingual 0.4 mg SUBLINGUAL Q5M PRN (Reason: chest pain) Qty: 25 2RF Rx Instructions: do not exceed 3 doses per episode clonidine HCl 0.3 mg tablet See Rx Instructions .ROUTE .COMPLEX Qty: 180 3RF Dose Instruction: TAKE 1 TABLET BY MOUTH THREE TIMES DAILY FOR 60 DAYS Rx Instructions: TAKE 1 TABLET BY MOUTH THREE TIMES DAILY FOR 60 DAYS hydralazine 25 mg tablet 25 mg PO QID Qty: 240 1RF alprazolam 0.5 mg tablet 0.5 mg PO QID Qty: 120 5RF verapamil 120 mg tablet extended release 120 mg PO BID omeprazole 20 mg capsule,delayed release(DR/EC) 20 mg PO DAILY labetalol 200 mg tablet 200 mg PO TID diclofenac sodium 1 % gel 4 g topical QID PRN (Reason: Pain) Rx Instructions: apply to affected area as needed promethazine 25 mg tablet 25 mg PO Q6H PRN (Reason: nausea and vomiting) Qty: 20 0RF Miralax 17 gram/dose powder 17 g PO DAILY Qty: 850 0RF Referrals: Ann Marie Kim MD [Primary Care Provider] - Coding Level of Care Code ED Zig Zag Spring Machine Operator for Ifrahg Rajni
--- NOTE | 2024-06-04 10:22 | CTR_ITS ---
PROCEDURE INFORMATION: Exam: CT Abdomen And Pelvis With Contrast Exam date and time: 06/04/2024 11:24 AM Age: 74 years old Clinical indication: Mass, lump, or swelling; Rlq; Prior surgery; Surgery date: 6+ months; Surgery type: Gb, complete hysterectomy, lumbar; Additional info: Complains of mass/pain to R lateral abdomen TECHNIQUE: Imaging protocol: Computed tomography of the abdomen and pelvis with contrast. Radiation optimization: All CT scans at this facility use at least one of these dose optimization techniques: automated exposure control; mA and/or kV adjustment per patient size (includes targeted exams where dose is matched to clinical indication); or iterative reconstruction. Contrast material: OMNI 350; Contrast volume: 100 ml; Contrast route: INTRAVENOUS (IV); COMPARISON: CT abdomen pelvis wo con [id number] 05/02/2024 9:42 AM RADIATION DOSE METRICS: Total DLP (mGy-cm): 654.24 FINDINGS: Liver: Normal. No mass. Gallbladder and biliary ducts: Normal. No calcified stones. No ductal dilation. Pancreas: Normal. No ductal dilation. Spleen: Normal. No splenomegaly. Adrenal glands: Normal. No mass. Kidneys and ureters: Small left renal cyst. Stomach and bowel: Unremarkable. No obstruction. No mucosal thickening. Appendix: No evidence of appendicitis. Intraperitoneal space: Unremarkable. No free air. No significant fluid collection. Vasculature: Unremarkable. No abdominal aortic aneurysm. Lymph nodes: Unremarkable. No enlarged lymph nodes. Urinary bladder: Unremarkable as visualized. Reproductive: Hysterectomy. Bones/joints: Lower lumbar laminectomy and fusion. Soft tissues: Unremarkable. CT/CT abdomen pelvis w con* [id number] IMPRESSION: No acute findings. COMMENTS: Consistent with the [employer]'s Incidental Findings Committee white paper (J Am Yoana Radiol 2018): Any incidental renal lesion less than 1 cm or classified as too small to characterize, or any incidental cystic renal lesion characterized as simple-appearing, is likely benign. No follow-up imaging is recommended for these lesions per consensus recommendations based on imaging criteria.
--- NOTE | 2024-06-04 10:25 | ED_ITS ---
HPI - Abdominal Pain 2 General: Chief Complaint: Back Pain/Injury Stated Complaint: right side pain lower back pain Time Seen by Provider: 06/04/24 10:12 Source: patient and family () Mode of arrival: wheelchair Limitations: no limitations History of Present Illness: Patient is a 74-year-old female presents to ED today along with her significant other for evaluation of right abdominal pain. She tells me that she can feel a lump that she feels like it is enlarging to the right side of her lateral trunk. She states that is causing her quite a bit of discomfort and radiates around into the right side of her abdomen. Patient states she was diagnosed with a kidney infection approximately a month ago and states I haven't cleared up . She is complaining of dark foul smelling urine and bubbles in my urine . She has had similar complaints back in January when she saw her PCP. She complains of diarrhea-again has had this complaint before through primary care. No fevers. She is very hypertensive upon arrival. States she has not taken any of her blood pressure meds today. States I usually have to fight to keep my top number below 180 . Scheduled for MRI of her back tomorrow. MD elicited complaint: abdominal pain Onset (ago): day(s) Pain Consistency: constant Location: RUQ, RLQ and R flank Severity: moderate Radiation: none Migration to: no migration Exacerbating factors: nothing Relieving factors: nothing Associated Symptoms: Reports diarrhea; Denies chills, dysuria, fever(s), hematochezia, hematemesis, melena, nausea and vomiting Related Data: Patient : No Review of Systems 2 Const: Denies: fever(s), chills, body aches, fatigue or malaise Card: Denies: chest pain Resp: Denies: dyspnea GI: Reports: abdominal pain and diarrhea; Denies: nausea, vomiting, hematemesis, hematochezia or melena : Reports: flank pain and other (complains of bubbles in urine and dark appearance ); Denies: difficulty voiding, dysuria, urinary frequency, urinary urgency or urinary hesitancy Musc: Reports: back pain; Denies: neck pain, extremity pain, extremity swelling, joint pain or joint swelling Skin/Breast: Denies: rash Neuro: Denies: headache(s) or dizziness PFS ED 2 PFSH: Medical History Immunization counseling High risk medication use Inflammatory arthritis Eczema History of colon polyps Irritable bowel syndrome with both constipation and diarrhea Thoracic spine pain Essential hypertension Anxiety Diabetes Lumbar disc disease with radiculopathy Surgical History History of colonoscopy (03/23/21) 2015: Colon polyps 2020: Mild diverticulosis History of cholecystectomy History of dilation and curettage History of total hysterectomy Family History Father Parkinson disease Cancer Mother Cancer Social History Smoking and tobacco/nicotine status: never used tobacco/nicotine Second hand smoke exposure: No Alcohol intake: never Substance/Drug Use: never Physical Exam 2 Const: COMMON NORMALS: no limitations, alert and well nourished GENERAL APPEARANCE: cooperative, anxious and other (tearful at times) O RIENTATION/CONSCIOUSNESS: Yes awake, Yes oriented to person and Yes oriented to place HENMT: COMMON NORMALS: normocephalic and atraumatic HEAD & SCALP: normal to inspection, normocephalic and atraumatic FACE & SINUS: normal facial exam Eye: COMMON NORMALS: no scleral icterus Neck/C-Spine: GENERAL: Yes normal visual inspection Chest: COMMONS NORMALS: normal inspection of the chest and normal palpation of entire chest wall Resp: COMMON NORMALS: normal respiratory effort and clear to auscultation bilaterally AUSCULTATION: clear to auscultation bilaterally Cardio: COMMON NORMALS: regular rate and regular rhythm RATE: regular rate RHYTHM: regular rhythm GI: COMMON NORMALS: Normal to inspection, nondistended, normoactive bowel sounds present, Soft to palpation and No hepatosplenomegaly present I NSPECTION: Yes normal to inspection AUSCULTATION: Yes normoactive bowel sounds PALPATION: Yes Soft to palpation, Yes Tenderness to palpation present (GI) (tenderness reported throughout R side of abdomen), No Guarding due to palpation present (GI), No Rigid due to palpation and Yes No hepatosplenomegaly present OTHER: patient complaints of a lump/mass to right lateral abdomen/trunk that is difficult to discern with my physical exam some of which due to body habitus/positioning; possibly some variations in adipose densities but I do not appreciate any soft tissue or bony masses : COMMON NORMALS: Yes no CVA tenderness BLADDER/KIDNEY EXAM: Yes no CVA tenderness Back/Pelvis: COMMON NORMALS: no CVA tenderness and thoracic and lumbar spine normal to inspection Extremity: GENERAL: Yes normal exam except as noted Neuro: COMMON NORMALS: moves all extremities, no focal motor deficits and no sensory deficits noted SENSORIUM/ORIENTATION: Yes alert, Yes oriented to person and Yes oriented to place Skin: COMMON NORMALS: no rashes or lesions noted GENERAL SKIN EXAM: no rashes or lesions noted Course 2 Vital Signs: Vital signs: Vital Signs Temperature 97.5 F L 06/04/24 09:42 Pulse Rate 80 06/04/24 12:00 Respiratory Rate 18 06/04/24 10:40 Blood Pressure 146/98 06/04/24 12:00 Pulse Oximetry 95 06/04/24 12:00 Oxygen Delivery Me thod Room Air 06/04/24 12:00 MDM - Abdominal Pain Medical Decision Making Workup here overall is unremarkable. CT abdomen/pelvis with no acute findings. Question whether her discomfort could be radicular from her back. Ultimately she is stable for discharge from an emergency standpoint. Recommend she follow- up with her primary care provider as well as continued follow-up with Dr. Ibarra for her back. She is requesting stronger pain medications and tramadol as well as small amount of this will be provided. Return to ED precautions given. Medical Records I reviewed the patient's medical records. Lab Data I reviewed the patient's lab results. 06/04/24 10:28 06/04/24 10:28 Labs/Radiology: Radiology Impressions Abdomen/Pelvis CT 06/04/24 10:22 IMPRESSION: No acute findings. COMMENTS: Consistent with the [employer]'s Incidental Findings Committee white paper (J Am Yoana Radiol 2018): Any incidental renal lesion less than 1 cm or classified as too small to characterize, or any incidental cystic renal lesion characterized as simple-appearing, is likely benign. No follow-up imaging is recommended for these lesions per consensus recommendations based on imaging criteria. Laboratory Results WBC 6.24 10^3/uL (3.29-11.43) 06/04/24 10:28 RBC 3.81 10^6/uL (3.85-5.65) L 06/04/24 10:28 Hgb 11.80 g/dL (11.27-16.99) 06/04/24 10:28 Hct 37.0 % (36-47) 06/04/24 10:28 MCV 97.1 fl (85-98) 06/04/24 10:28 MCH 31.0 pg (27-33) 06/04/24 10:28 MCHC 31.9 g/dL (30-55) 06/04/24 10:28 RDW 12.8 % (12.1-15.1) 06/04/24 10:28 Plt Count 206 10^3/cmm (157-399) 06/04/24 10:28 MPV 9.7 fL (7.4-10.4) 06/04/24 10:28 Neut % (Auto) 68.7 % 06/04/24 10: Lymph % (Auto) 19.7 % 06/04/24 10:28 [place]linger % (Auto) 8.5 % 06/04/24 10:28 Eos % (Auto) 1.8 % 06/04/24 10:28 Baso % (Auto) 1.1 % 06/04/24 10:28 Neut # (Auto) 4.29 10^3/uL (1.8-7.7) 06/04/24 10:28 Lymph # (Auto) 1.2 10^3/uL (0.8-4.8) 06/04/24 10:28 [place]linger # (Auto) 0.5 10^3/uL (0.2-0.9) 06/04/24 10:28 Eos # (Auto) 0.1 10^3/uL (0.0-0.8) 06/04/24 10:28 Baso # (Auto) 0.1 10^3/uL (0.0-0.1) 06/04/24 10:28 Nucleated RBC % (auto) 0 % 06/04/24 10: Nucleated RBCs # 0.0 /100WBC 06/04/24 10:28 Sodium 142 mmol/L (136-145) 06/04/24 10:28 Potassium 3.8 mmol/L (3.5-5.1) 06/04/24 10:28 Chloride 105 mmol/L (98-107) 06/04/24 10:28 Carbon Dioxide 24 mmol/L (22-29) 06/04/24 10:28 Anion Gap 16.8 (5-19) 06/04/24 10:28 BUN 14 mg/dL (8-23) 06/04/24 10:28 Creatinine 1.1 mg/dL (0.5-0.9) H 06/04/24 10:28 GFR Calculation Not Reportable 06/04/24 10:28 Glucose 108 mg/dL (65-115) 06/04/24 10:28 Calculated Osmolality 295 mOsm/kg (285-295) 06/04/24 10:28 Calcium 9.5 mg/dL (8.5-10.5) 06/04/24 10:28 Total Bilirubin 0.3 mg/dL (0.15-1.2) 06/04/24 10:28 AST 18 U/L (0-32) 06/04/24 10:28 ALT 13 U/L (0-33) 06/04/24 10:28 Alkaline Phosphatase 62 U/L (35-105) 06/04/24 10:28 Total Protein 7.1 g/dL (6.6-8.7) 06/04/24 10:28 Albumin 4.1 g/dL (3.5-5.2) 06/04/24 10:28 Globulin 3.0 g/dL (1.3-4.6) 06/04/24 10:28 Urine Color Yellow (Yellow) 06/04/24 10:28 Urine Appearance Clear (CLEAR) 06/04/24 10:28 Urine pH 5 (5-7) 06/04/24 10:28 Ur Specific [place] 1.020 (1.005-1.030) 06/04/24 10:28 Urine Protein Trace (Negative) 06/04/24 10:28 Urine Glucose (UA) Norm (Normal) 06/04/24 10:28 Urine Ketones Negative (Negative) 06/04/24 10:28 Urine Blood Neg (Negative) 06/04/24 10:28 Urine Nitrate Negative (Negative) 06/04/24 10:28 Urine Bilirubin 1+ (Negative) H 06/04/24 10:28 Urine Urobilinogen Norm mg/dL (Negative) 06/04/24 10:28 Ur Leukocyte Esterase Trace (Negative) H 06/04/24 10:28 Urine RBC Rare /hpf (0-2) 06/04/24 10:28 Urine WBC 0-4 /hpf (0-5) H 06/04/24 10:28 Ur Squamous Epith Cells None /hpf (0-5) 06/04/24 10:28 Amorphous Sediment Not Reportable 06/04/24 10:28 Urine Bacteria Trace /hpf (NONE) 06/04/24 10:28 Hyaline Casts 5-10 /lpf H 06/04/24 10:28 Urine Mucus 1+ /hpf 06/04/24 10:28 All radiology interpretation(s) finalized by discharge Discharge Plan Discharge Patient Disposition: Home Clinical Impression: Abdominal pain Qualifiers: Abdominal location: unspecified location Qualified Code(s): R10.9 - Unspecified abdominal pain Diarrhea Qualifiers: Diarrhea type: unspecified type Qualified Code(s): R19.7 - Diarrhea, unspecified Condition: Stable Prescriptions: New hydrocodone-acetaminophen 5-325 mg tablet 1 tab PO Q6H PRN (Reason: pain) Qty: 14 0RF Held tramadol 50 mg tablet 50 mg PO TID PRN (Reason: pain) 14 Days Qty: 42 0RF Hold Instructions: Do not take along with the hydrocodone-pick one or the other No Action memantine 10 mg tablet 10 mg PO BID Qty: 60 5RF sulfasalazine 500 mg tablet 0.5 g PO BID Qty: 60 3RF Rx Instructions: Take 1 tab daily x1wk then stay on 1 tab twice daily.... give with food (meal/snack) leflunomide 20 mg tablet 20 mg PO DAILY Qty: 90 1RF dicyclomine 20 mg tablet 20 mg PO TID PRN (Reason: abdominal pain/bowel cramping) Qty: 20 0RF nitroglycerin 0.4 mg tablet, sublingual 0.4 mg SUBLINGUAL Q5M PRN (Reason: chest pain) Qty: 25 2RF Rx Instructions: do not exceed 3 doses per episode clonidine HCl 0.3 mg tablet See Rx Instructions .ROUTE .COMPLEX Qty: 180 3RF Dose Instruction: TAKE 1 TABLET BY MOUTH THREE TIMES DAILY FOR 60 DAYS Rx Instructions: TAKE 1 TABLET BY MOUTH THREE TIMES DAILY FOR 60 DAYS hydralazine 25 mg tablet 25 mg PO QID Qty: 240 1RF alprazolam 0.5 mg tablet 0.5 mg PO QID Qty: 120 5RF verapamil 120 mg tablet extended release 120 mg PO BID omeprazole 20 mg capsule,delayed release(DR/EC) 20 mg PO DAILY labetalol 200 mg tablet 200 mg PO TID diclofenac sodium 1 % gel 4 g topical QID PRN (Reason: Pain) Rx Instructions: apply to affected area as needed promethazine 25 mg tablet 25 mg PO Q6H PRN (Reason: nausea and vomiting) Qty: 20 0RF Miralax 17 gram/dose powder 17 g PO DAILY Qty: 850 0RF Discharge Orders: Discharge ED (Routine); Ordered 06/04/24 Ordered By: Nicole Jiang Referrals: Ann Marie Kim MD [Primary Care Provider] - Patient Instructions: Abdominal Pain (ED), Opioid Safety, Pain Management Activity Restrictions/Additional Instructions: As we discussed please follow-up with your primary care provider. You may continue current plan for MRI imaging of your back in the morning. 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
[2024-06-04] MEDS: labetalol 200 mg Tablet PO (10:35)
[2024-06-04] MEDS: cloNIDine 0.1 mg Tablet PO (10:35)
[2024-06-04] MEDS: hyDRALAzine 25 mg Tablet PO (10:35)
--- NOTE | 2024-06-04 10:35 | ECG_ITS ---
[facility] Test Date: 2024-06-04 Pat Name: Holly Diez Department: Room: Gender: Female [employer]: : 1950 Requested By: Nicole Jiang Order Number: [id number] MD: Shona Hamilton M.D. Measurements Intervals [place] Rate: 74 P: 31 LA: 156 QRS: 6 QRSD: 93 T: 53 QT: 401 QTc: 448 Interpretive Statements SINUS RHYTHM Compared to ECG 03/24/2022 13:21:44 No significant changes Electronically Signed On 06-04-2024 23:45:26 CDT by Shona Hamilton M.D. [id number] f
[2024-06-04] MEDS: morphine 4 mg/mL SDV 1 mL IVP (10:40)
[2024-06-04 10:41] LABS: Basophils # 0.1 10^3/uL (0.0-0.1); Basophils % 1.1 %; Eosinophils # 0.1 10^3/uL (0.0-0.8); Eosinophils % 1.8 %; Lymphocytes # 1.2 10^3/uL (0.8-4.8); Lymphocytes % 19.7 %; Mean Corpuscular HGB Conc 31.9 g/dL (30-55); Mean Corpuscular Volume 97.1 fl (85-98); Mean Platelet Volume 9.7 fL (7.4-10.4); Monocytes # 0.5 10^3/uL (0.2-0.9); Monocytes % 8.5 %; Neutrophils # 4.29 10^3/uL (1.8-7.7); Neutrophils % 68.7 %; Nucleated Red Blood Cells % 0 %; Platelet Count 206 10^3/cmm (157-399); Red Blood Count 3.81 10^6/uL (3.85-5.65); Red Cell Distribution Width 12.8 % (12.1-15.1); White Blood Count 6.24 10^3/uL (3.29-11.43)
[2024-06-04] MEDS: ondansetron 2 mg/ML SDV 2 mL 4 MG IVP (10:41)
[2024-06-04 10:59] LABS: Alanine Aminotransferase 13 U/L (0-33); Albumin Level 4.1 g/dL (3.5-5.2); Alkaline Phosphatase 62 U/L (35-105); Anion Gap 16.8 (5-19); Aspartate Amino Transferase 18 U/L (0-32); Blood Urea Nitrogen 14 mg/dL (8-23); Calcium 9.5 mg/dL (8.5-10.5); Carbon Dioxide 24 mmol/L (22-29); Chloride 105 mmol/L (98-107); Creatinine Clr Calc Pharmacy 44.4391; Glucose 108 mg/dL (65-115); Osmolality Calculated 295 mOsm/kg (285-295); Potassium 3.8 mmol/L (3.5-5.1); Sodium 142 mmol/L (136-145); Total Bilirubin 0.3 mg/dL (0.15-1.2); Total Protein 7.1 g/dL (6.6-8.7)
[2024-06-04 11:27] LABS: Add Urine Microscopic? YES; Bilirubin Urine 1+ (Negative); Blood Urine Neg (Negative); Glucose Urine UA Norm (Normal); Ketones Urine Negative (Negative); Leukocyte Esterase Urine Trace (Negative); Nitrate Urine Negative (Negative); Protein Urine Trace (Negative); Urine Appearance Clear (CLEAR); Urine Color Yellow (Yellow); Urobilinogen Urine Norm (Negative); pH Urine 5 (5-7)
[2024-06-04] MEDS: iohexol 350 mg/mL 500 mL Btl (per mL) IV (11:30)
[2024-06-04 11:34] LABS: Add Urine Culture? No; Bacteria Urine TRACE /hpf; Mucus Urine 1+ /hpf; RBC Urine RARE /hpf (0-2); WBC Urine 0-4 /hpf (0-5)
== END 2024-06-04 12:47 | disposition home or self-care (01) ==
PROVIDERS: Family Medicine; Emergency Provider Physician Assistant; PCP Family Medicine
DX: R19.7 Diarrhea, unspecified (principal); R10.11 Right upper quadrant pain; R10.31 Right lower quadrant pain; I10 Essential (primary) hypertension; E11.9 Type 2 diabetes mellitus without complications
CPT/HCPCS: 74177; 80053; 81001; 85025; 93005; 96374; 96375; 99285; J2270; J2405; Q9967

== ENCOUNTER → 2024-06-05 07:37 | Outpatient (CLI) | payer MEDICARE, OTHER, SELFPAY ==
--- NOTE | 2024-06-05 08:00 | MR_ITS ---
WS: [id number] MRI LUMBAR SPINE NONCONTRAST TECHNIQUE: Sagittal T1, T2 and STIR imaging. Axial T1 and T2 imaging. CLINICAL INFORMATION: back pain COMPARISON: MRI 12/07/2023 FINDINGS: Mild lumbar curve. No acute compression. Pedicle screw fixation L4-5. Slight anterolisthesis L4 on L5 . L1-L2: Mild disc osteophyte complex with endplate ridging. Mild facet arthropathy. Foramen are patent . L2-L3: Slight retrolisthesis. Tiny LEFT subarticular protrusion with impingement of the LEFT subartic ular recess and traversing LEFT L3 nerve root. Moderate facet arthropathy. Mild central canal stenosi s. Mild RIGHT and no significant LEFT foraminal narrowing. L3-L4: Slight anterolisthesis L3 on L4. Central disc bulging with severe central canal stenosis. Impi ngement of traversing L4 nerve roots bilaterally. Moderate LEFT and mild RIGHT foraminal narrowing. L4-L5: Slight anterolisthesis L4 on L5. Pedicle screw fixation. Spinal canal and foramen are patent. Laminectomy defects. L5-S1: LEFT eccentric disc osteophyte complex with mild LEFT and no significant RIGHT foraminal narro wing. Mild facet arthropathy. Visualized pelvic bony structures: Normal. Paravertebral soft tissues: Normal. Small bilateral renal cysts. MR/MR lumbar spine wo con* [id number] IMPRESSION: Overall no significant changes since 12/07/2023 1. Severe central canal stenosis L3-4 due to central disc bulging unchanged si nce previous. 2. Moderate LEFT L3-4 foraminal narrowing. 3. LEFT subarticular protrusion L2-3 impinges the LEFT subarticular recess wit h mild central canal stenosis also unchanged. 4. Pedicle screw fixation L4-L5 and L5-S1 with laminectomy defects unchanged
== END | disposition home or self-care (01) ==
LOC: RAD 07:37
PROVIDERS: PCP Family Medicine; Visit Provider Orthopaedic Surgery
DX: M48.062 Spinal stenosis, lumbar region with neurogenic claudication (principal); Z98.1 Arthrodesis status; M47.896 Other spondylosis, lumbar region; M51.36 Other intervertebral disc degeneration, lumbar region; M25.78 Osteophyte, vertebrae
CPT/HCPCS: 72148

== ENCOUNTER → 2024-06-13 14:01 | Outpatient (BNVA) | payer MEDICARE, OTHER, SELFPAY | PROVIDERS: PCP Family Medicine; Visit Provider Orthopaedic Surgery | DX: Z09 Encounter for follow-up examination after completed treatment for conditions other than malignant neoplasm (principal); M48.062 Spinal stenosis, lumbar region with neurogenic claudication | CPT/HCPCS: 99214 ==

== ENCOUNTER 2024-06-18 09:47 | Outpatient (CLI) | payer MEDICARE, OTHER, SELFPAY ==
[2024-06-18 10:08] LABS: Basophils # 0.1 10^3/uL (0.0-0.1); Basophils % 1.3 %; Eosinophils # 0.1 10^3/uL (0.0-0.8); Eosinophils % 2.7 %; Hematocrit 32.1 % (36-47); Lymphocytes # 1.3 10^3/uL (0.8-4.8); Lymphocytes % 27.1 %; Mean Corpuscular HGB Conc 32.1 g/dL (30-55); Mean Corpuscular Hemoglobin 31.2 pg (27-33); Mean Corpuscular Volume 97.3 fl (85-98); Mean Platelet Volume 9.5 fL (7.4-10.4); Monocytes # 0.5 10^3/uL (0.2-0.9); Monocytes % 10.3 %; Neutrophils # 2.78 10^3/uL (1.8-7.7); Neutrophils % 58.4 %; Nucleated Red Blood Cells % 0 %; Platelet Count 204 10^3/cmm (157-399); Red Cell Distribution Width 12.2 % (12.1-15.1); White Blood Count 4.76 10^3/uL (3.29-11.43)
[2024-06-18 10:30] LABS: Alanine Aminotransferase 13 U/L (0-33); Albumin Level 3.7 g/dL (3.5-5.2); Alkaline Phosphatase 57 U/L (35-105); Aspartate Amino Transferase 18 U/L (0-32); C Reactive Protein 8.3 mg/L (0.0-4.9); Globulin 2.6 g/dL (1.3-4.6); Total Bilirubin 0.2 mg/dL (0.15-1.2); Total Protein 6.3 g/dL (6.6-8.7)
== END 2024-06-18 09:48 | disposition home or self-care (01) ==
LOC: LAB 09:48
PROVIDERS: PCP Family Medicine; Visit Provider Internal Medicine Rheumatology
DX: Z79.899 Other long term (current) drug therapy (principal); M19.90 Unspecified osteoarthritis, unspecified site
CPT/HCPCS: 36415; 80076; 82565; 85025; 86140

== ENCOUNTER → 2024-08-06 13:36 | Outpatient (BNVA) | payer MEDICARE, OTHER, SELFPAY | PROVIDERS: PCP Family Medicine; Visit Provider Internal Medicine Rheumatology | DX: M19.90 Unspecified osteoarthritis, unspecified site; M51.16 Intervertebral disc disorders with radiculopathy, lumbar region; M47.816 Spondylosis without myelopathy or radiculopathy, lumbar region; M48.062 Spinal stenosis, lumbar region with neurogenic claudication | CPT/HCPCS: 99214 ==

== ENCOUNTER → 2024-08-20 07:37 | Outpatient (BNVA) | payer MEDICARE, OTHER, SELFPAY | PROVIDERS: PCP Family Medicine; Visit Provider Orthopaedic Surgery | DX: M54.9 Dorsalgia, unspecified (principal); Z09 Encounter for follow-up examination after completed treatment for conditions other than malignant neoplasm | CPT/HCPCS: 36415; 80053; 81001; 85025; 99214 ==

== ENCOUNTER → 2024-09-02 11:15 | Outpatient (BNVA) | payer MEDICARE, OTHER, SELFPAY | PROVIDERS: PCP Family Medicine; Visit Provider Family Medicine | DX: Z01.818 Encounter for other preprocedural examination (principal) | CPT/HCPCS: 81003 ==

== ENCOUNTER 2024-09-19 14:42 | Emergency (ER) | payer MEDICARE, OTHER, SELFPAY ==
[2024-09-19 14:50] VITALS: BP 125/62; PULSE 70; RESP 16; TEMP 36.8; O2SAT 97; BMI 29.2
--- NOTE | 2024-09-19 14:52 | CTR_ITS ---
PROCEDURE INFORMATION: Exam: CTA Head With Contrast, Arteriography Exam date and time: 09/19/2024 3:14 PM Age: 74 years old Clinical indication: Other: Left side tingling; Patient HX: PT presents with weakness. Patient states that yesterday around noon she felt a loud pop and has had pain and tingling in left side of neck and down to left knee. Patient states that it hurts to move her head. During assessment, neuros checked, patient asked to smile and patient states i have forgot how. patient asked when she last felt normally and patient states around noon yesterday. All other neuro checks normal. ; Additional info: Possible stroke TECHNIQUE: Imaging protocol: Computed tomographic angiography of the head with contrast. Exam focused on the arteries. 3D rendering (Not supervised by radiologist): MIP and/or 3D reconstructed images were created by the technologist. Radiation optimization: All CT scans at this facility use at least one of these dose optimization techniques: automated exposure control; mA and/or kV adjustment per patient size (includes targeted exams where dose is matched to clinical indication); or iterative reconstruction. Contrast material: OMNI 350; Contrast volume: 100 ml; Contrast route: INTRAVENOUS (IV); COMPARISON: CT head wo con* [id number] 09/19/2024 3:07 PM RADIATION DOSE METRICS: Total DLP (mGy-cm): 475.22 FINDINGS: ANTERIOR CIRCULATION: Right internal carotid artery: The intracranial right internal carotid artery demonstrates mild atherosclerotic calcification of the carotid siphon without significant stenosis. No aneurysm. Right middle cerebral artery: Right middle cerebral artery is patent. No significant stenosis. No aneurysm. Right anterior cerebral artery: Right anterior cerebral artery is patent. No significant stenosis. No aneurysm. Left internal carotid artery: The intracranial left internal carotid artery demonstrates mild atherosclerotic calcification of the carotid siphon without significant stenosis. No aneurysm. Left middle cerebral artery: Left middle cerebral artery is patent. No significant stenosis. No aneurysm. Left anterior cerebral artery: Left anterior cerebral artery is patent. No significant stenosis. No aneurysm. POSTERIOR CIRCULATION: Right vertebral artery: Right vertebral artery is patent. No significant stenosis. No aneurysm. 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 The left vertebral artery is patent before and after the stenosis and patent at the level of the vertebrobasilar junction. Basilar artery: The basilar artery is patent. No significant stenosis. No aneurysm. Right posterior cerebral artery: Right posterior cerebral artery is patent. No significant stenosis. No aneurysm. Left posterior cerebral artery: Left posterior cerebral artery is patent. No significant stenosis. No aneurysm. Brain: Questionable linear low-attenuation within the left cerebellar hemisphere (series 4, image 240). There is extensive artifact at this level from the cranial vault. Otherwise, see separately dictated CT of the head. Cerebral ventricles: No hydrocephalus. Bones/joints: The calvarium is intact. Soft tissues: Soft tissues are unremarkable as visualized. COMMENTS: THIS REPORT CONTAINS FINDINGS THAT MAY BE CRITICAL TO PATIENT CARE. The exam findings were verbally communicated by me to HATTIE KOVACS via telephone conference at 3:52 PM CDT on 09/19/2024. The findings were acknowledged and understood. PROCEDURE INFORMATION: Exam: CTA Neck With Contrast Exam date and time: 09/19/2024 3:14 PM Age: 74 years old Clinical indication: Other: Left side tingling; Patient HX: PT presents with weakness. Patient states that yesterday around noon she felt a loud pop and has had pain and tingling in left side of neck and down to left knee. Patient states that it hurts to move her head. During assessment, neuros checked, patient asked to smile and patient states i have forgot how. patient asked when she last felt normally and patient states around noon yesterday. All other neuro checks normal. ; Additional info: Possible stroke TECHNIQUE: Imaging protocol: Computed tomographic angiography of the neck with contrast. Exam focused on the cervical segments of the vasculature. 3D rendering (Not supervised by radiologist): MIP and/or 3D reconstructed images were created by the technologist. Radiation optimization: All CT scans at this facility use at least one of these dose optimization techniques: automated exposure control; mA and/or kV adjustment per patient size (includes targeted exams where dose is matched to clinical indication); or iterative reconstruction. Contrast material: OMNI 350; Contrast volume: 100 ml; Contrast route: INTRAVENOUS (IV); COMPARISON: MR cervical spine wo/w [id number] 11/30/2023 9:40 AM RADIATION DOSE METRICS: Total DLP (mGy-cm): 475.22 FINDINGS: Right common carotid artery: The right common carotid artery demonstrates mild atherosclerotic narrowing, predominantly at the level of the carotid bulb. No significant stenosis. No dissection. Right internal carotid artery: Partially calcified plaque of the proximal right internal carotid artery resulting in mild stenosis by NASCET criteria. No occlusion. No evidence of dissection. Right external carotid artery: The right external carotid artery shows no evidence of significant stenosis. Left common carotid artery: The left common carotid artery demonstrates mild atherosclerotic narrowing, predominantly at the level of the carotid bulb. No significant stenosis. No dissection. Left internal carotid artery: Partially calcified plaque of the proximal left internal carotid artery resulting in mild stenosis by NASCET criteria. No occlusion. No evidence of dissection. Left external carotid artery: The left external carotid artery shows no evidence of significant stenosis. Right vertebral artery: Right vertebral artery is patent. No significant stenosis. No aneurysm. Left vertebral artery: Left vertebral artery is patent. No significant stenosis. No aneurysm. Thyroid: Subcentimeter nodules within the right thyroid gland measuring up to 3 mm. Soft tissues: Soft tissues are unremarkable as visualized. Soft tissues are unremarkable as visualized. Bones/joints: The cervical spine demonstrates moderate degenerative changes at multiple levels. Lungs: The visualized portions of the lungs are unremarkable. CT/CT angio headneck* [id number] IMPRESSION: 1. 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 The left vertebral artery is patent before and after the stenosis and patent at the level of the vertebrobasilar junction. 2. Questionable linear low-attenuation within the left cerebellar hemisphere, not seen on the concurrent head CT. This may be artifactual due to dense beam hardening from adjacent calvarium or may represent a small branch vessel infarct. MRI may be obtained for further assessment. IMPRESSION: 1. Mild atherosclerotic stenosis of the bilateral proximal cervical internal carotid arteries. 2. No high-grade stenosis or occlusion of the neck/extracranial vasculature. COMMENTS: 1. THIS REPORT CONTAINS FINDINGS THAT MAY BE CRITICAL TO PATIENT CARE. The exam findings were verbally communicated by me to HATTIE KOVACS via telephone conference at 3:52 PM CDT on 09/19/2024. The findings were acknowledged and understood. 2. Consistent with the [employer]'s Incidental Findings Committee white paper (J Am Yoana Radiol 2015): In patients aged 35 years and older with an incidental thyroid nodule equal to or greater than 1.[address], MRI or extrathyroidal US, further evaluation with dedicated thyroid US is recommended for patients with normal life expectancy and without comorbidities. For smaller nodules without suspicious features, no further evaluation or follow up is recommended. REFERENCES: NASCET CRITERIA. The degree of stenosis in the cervical segment of the internal carotid artery is based on NASCET criteria. Normal is no stenosis. Mild is less than 50% stenosis. Moderate is 50-69% stenosis. Severe is 70% to 99% stenosis. Total occlusion is no detectable patent lumen.
--- NOTE | 2024-09-19 14:52 | CTR_ITS ---
PROCEDURE INFORMATION: Exam: CT Head Without Contrast Exam date and time: 09/19/2024 3:07 PM Age: 74 years old Clinical indication: Stroke-like symptoms; Other: Left side of neck tingling; Additional info: Possible stroke TECHNIQUE: Imaging protocol: Computed tomography of the head without contrast. Radiation optimization: All CT scans at this facility use at least one of these dose optimization techniques: automated exposure control; mA and/or kV adjustment per patient size (includes targeted exams where dose is matched to clinical indication); or iterative reconstruction. Other technique: STROKE PROTOCOL was implemented. COMPARISON: CT head wo con* [id number] 12/08/2023 8:16 AM RADIATION DOSE METRICS: Total DLP (mGy-cm): 1100.48 FINDINGS: Brain: No intracranial hemorrhage. There is global parenchymal volume loss. Periventricular white matter hypoattenuation is nonspecific but most likely due to moderate small vessel disease. No evidence of acute territorial infarct or cerebral edema. No mass effect or midline shift. Cerebral ventricles: Prominent ventricles likely secondary to volume loss. Paranasal sinuses: Mild mucosal thickening of the paranasal sinuses. No air-fluid levels. Mastoid air cells: The mastoid air cells are clear. Bones: The calvarium is intact. Soft tissues: Soft tissues are unremarkable as visualized. CT/CT head wo con* [id number] IMPRESSION: 1. No acute intracranial findings. 2. Moderate chronic microvascular ischemic changes. ASSESSMENT: ASPECTS ([place] Stroke Program Early CT Score) is 10.
--- NOTE | 2024-09-19 14:53 | XR_ITS ---
WS: [id number] Exam: XR chest 1V portable [id number] Date/Time of Exam: 09/19/2024 2:53 PM Reason For Exam: Chest pain Comparison 07/10/2020. Lungs are fully expanded and clear. Unremarkable cardiomediastinal silhouette for technique. No pleur al effusions. Scattered calcified granulomas. XR/XR chest 1V portable [id number] IMPRESSION: 1. No acute cardiopulmonary finding.
--- NOTE | 2024-09-19 15:09 | CTR_ITS ---
PROCEDURE INFORMATION: Exam: CT Maxillofacial Without Contrast Exam date and time: 09/19/2024 3:11 PM Age: 74 years old Clinical indication: Jaw pain TECHNIQUE: Imaging protocol: Computed tomography of the face without contrast. Radiation optimization: All CT scans at this facility use at least one of these dose optimization techniques: automated exposure control; mA and/or kV adjustment per patient size (includes targeted exams where dose is matched to clinical indication); or iterative reconstruction. COMPARISON: CT head wo con* [id number] 09/19/2024 3:07 PM RADIATION DOSE METRICS: Total DLP (mGy-cm): 572.38 FINDINGS: Paranasal sinuses: Mild mucosal thickening of the paranasal sinuses. No air-fluid levels. Orbital cavities: The orbits are intact. The globes are unremarkable. Mastoid air cells: The visualized mastoid air cells are clear. Bones: There is no evidence of acute fracture. The osseous structures are unremarkable. Soft tissues: Soft tissues are unremarkable as visualized. CT/CT facial bones wo con* [id number] IMPRESSION: No acute findings.
[2024-09-19 15:17] LABS: Basophils # 0.1 10^3/uL (0.0-0.1); Basophils % 1.4 %; Eosinophils # 0.2 10^3/uL (0.0-0.8); Eosinophils % 2.1 %; Hematocrit 34.2 % (36-47); Lymphocytes # 2.2 10^3/uL (0.8-4.8); Lymphocytes % 31.4 %; Mean Corpuscular HGB Conc 32.5 g/dL (30-55); Mean Corpuscular Hemoglobin 30.2 pg (27-33); Mean Corpuscular Volume 93.2 fl (85-98); Monocytes # 0.6 10^3/uL (0.2-0.9); Monocytes % 8.9 %; Neutrophils # 3.98 10^3/uL (1.8-7.7); Neutrophils % 56.1 %; Nucleated Red Blood Cells % 0 %; Platelet Count 217 10^3/cmm (157-399); Red Blood Count 3.67 10^6/uL (3.85-5.65); Red Cell Distribution Width 13.1 % (12.1-15.1)
--- NOTE | 2024-09-19 15:18 | ED_ITS ---
HPI - Weakness 2 General: Chief complaint: Weakness Stated complaint: sob chest pain stroke like Time Seen by Provider: 09/19/24 14:44 History of Present Illness: 74-year-old female with a history of dem entia and chronic back pain and hypertension who presents to the emergency room by ambulance. She was complaining of some back pain that is kind of at her lateral rib and back area that radiated all the way down her legs all the way up into her jaw. She also says she does not know how to smile anymore. She moves her lips when she talks but she does not seem to be able to smile. No other focal motor deficits. No slurred speech. No confusion. No altered mental status. No abdominal pain. No nausea or vomiting. No shortness of breath. All of the symptoms started around 26 hours ago at around noon yesterday. Review of Systems 2 Narrative: Constitutional symptoms: Negative except as documented in HPI. Skin symptoms: Negative except as documented in HPI. Eye symptoms: Negative except as documented in HPI. ENMT symptoms: Negative except as documented in HPI. Respiratory symptoms: Negative except as documented in HPI. Cardiovascular symptoms: Negative except as documented in HPI. Gastrointestinal symptoms: Negative except as documented in HPI. Genitourinary symptoms: Negative except as documented in HPI. Musculoskeletal symptoms: Negative except as documented in HPI. Neurologic symptoms: Negative except as documented in HPI. Psychiatric symptoms: Negative except as documented in HPI. Endocrine symptoms: Negative except as documented in HPI. PFSH ED 2 PFSH: Medical History Immunization counseling High risk medication use Inflammatory arthritis Eczema History of colon polyps Irritable bowel syndrome with both constipation and diarrhea Thoracic spine pain Essential hypertension Anxiety Diabetes Lumbar disc disease with radiculopathy Surgical History History of colonoscopy (03/23/21) 2015: Colon polyps 2020: Mild diverticulosis History of cholecystectomy History of dilation and curettage History of total hysterectomy Family History Father Parkinson disease Cancer Mother Cancer Social History Smoking and tobacco/nicotine status: never used tobacco/nicotine Second hand smoke exposure: No Alcohol intake: never Substance/Drug Use: never Physical Exam 2 Narrative: EXAM NARRATIVE: General: Alert, no acute distress. Skin: Warm, dry. Head: Normocephalic, atraumatic. Neck: Supple, trachea midline. Eye: Extraocular movements are intact. Ears, nose, mouth and throat: mucosa moist. Cardiovascular: Regular, Normal peripheral perfusion. Respiratory: Lungs are clear to auscultation, respirations are non-labored, breath sounds are equal, Symmetrical chest wall expansion. Gastrointestinal: Soft, Nontender, Non distended Musculoskeletal: Normal ROM, no deformity. Neurological: Alert and oriented, No focal neurological deficit observed. Patient does not seem to be able to smile. She is able to move her upper lip when she talks normally. Psychiatric: Cooperative, appropriate mood & affect. Course 2 Vital Signs: Vital signs: Vital Signs Temperature 98.3 F 09/19/24 14:50 Pulse Rate 70 09/19/24 14:50 Respiratory Rate 16 09/19/24 14:50 Blood Pressure 125/62 09/19/24 14:50 Pulse Oximetry 97 09/19/24 14:50 Oxygen Delivery Me thod Room Air 09/19/24 14:50 MDM - Weakness Medical Decision Making Differential diagnosis for patient with chest pain includes but is not limited to and based on the above HPI, review of systems and physical exam: Pneumonia. unstable angina. angina. Acute coronary syndrome / CT. Pulmonary embolism. Costochondritis / musculoskeletal. Pleurisy. Pericarditis. Esophageal spasm. Pancreatis. Cholecystitis. Also will rule out stroke, however this symptom does not seem to be strokelike. Consultation: I spoke with Dr. Del Rio with neurology. She agrees that this does not need to be called as a stroke as a started over 26 hours ago and also the symptoms do not seem to be strokelike. I discussed the patient with her again and we reviewed the findings after all was done and she agrees with discharge home. She is seen the patient in clinic and she has fairly advanced dementia. Orders placed to evaluate differential diagnosis based on the above differential, HPI and physical exam EKG: Normal sinus rhythm, No ST-T changes, no ectopy, normal ND & QRS intervals, This was reviewed and interpreted by myself the ER physician Chest x-ray: No acute process. No infiltrate. No pneumothorax. This was reviewed and interpreted by myself the ER physician. CT head: No acute intracranial process. no intracranial hemorrhage, no evidence of infarct. no evidence of acute fracture.This was reviewed and interpreted by myself the ER physician. CTA of the head and neck: No obvious occlusions are identified. There is a small aneurysm that has what appears to be some chronic occlusion. No mass. This was reviewed and interpreted by myself the emergency room physician. I also reviewed the radiology report. Lab Review: Laboratory results were reviewed and interpreted by myself the emergency room physician. No leukocytosis. No anemia. No renal failure. I reviewed the patient's medical record. Reexamination: Patient's pain has resolved. She is talking normally. She still cannot seem to get herself to smile. But has no other focal motor deficits. We discussed that maybe her pain is related to her chronic back issues and it has now resolved. She request something stronger for pain if this happens again. I agreed. They are planning on moving soon and she will have follow-up when she does about her back issues. We discussed she needs to follow-up with her primary in the next few days and she will do this. Assessment and plan: Noncardiac chest pain Neurologic symptoms Symptoms have basically resolved. Patient will follow-up with her primary care provider - Discharged home - Discussed findings and plan with patient. Answered any questions. - All laboratory values were reviewed and interpreted personally by myself, the ER physician - All imaging was reviewed and interpreted personally by myself, the ER physician. - Evaluation and treatment of this problem were appropriate in the emergency setting Lab Data 09/19/24 15:01 09/19/24 15:[address] 09/19/24 14:52 IMPRESSION: 1. No acute intracranial findings. 2. Moderate chronic microvascular ischemic changes. ASSESSMENT: ASPECTS (Ellery Stroke Program Early CT Score) is 10. Head/Neck CTA 09/19/24 14:52 IMPRESSION: 1. 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 The left vertebral artery is patent before and after the stenosis and patent at the level of the vertebrobasilar junction. 2. Questionable linear low-attenuation within the left cerebellar hemisphere, not seen on the concurrent head CT. This may be artifactual due to dense beam hardening from adjacent calvarium or may represent a small branch vessel infarct. MRI may be obtained for further assessment. IMPRESSION: 1. Mild atherosclerotic stenosis of the bilateral proximal cervical internal carotid arteries. 2. No high-grade stenosis or occlusion of the neck/extracranial vasculature. COMMENTS: 1. THIS REPORT CONTAINS FINDINGS THAT MAY BE CRITICAL TO PATIENT CARE. The exam findings were verbally communicated by me to ROSA OLIVIER via telephone conference at 3:52 PM CDT on 09/19/2024. The findings were acknowledged and understood. 2. Consistent with the [employer]'s Incidental Findings Committee white paper (J Am Yoana Radiol 2015): In patients aged 35 years and older with an incidental thyroid nodule equal to or greater than 1.[address], MRI or extrathyroidal US, further evaluation with dedicated thyroid US is recommended for patients with normal life expectancy and without comorbidities. For smaller nodules without suspicious features, no further evaluation or follow up is recommended. REFERENCES: NASCET CRITERIA. The degree of stenosis in the cervical segment of the internal carotid artery is based on NASCET criteria. Normal is no stenosis. Mild is less than 50% stenosis. Moderate is 50-69% stenosis. Severe is 70% to 99% stenosis. Total occlusion is no detectable patent lumen. Chest X-Ray 09/19/24 14:53 IMPRESSION: 1. No acute cardiopulmonary finding. Face CT 09/19/24 15:09 IMPRESSION: No acute findings. Laboratory Results WBC 7.10 10^3/uL (3.29-11.43) 09/19/24 15:01 RBC 3.67 10^6/uL (3.85-5.65) L 09/19/24 15:01 Hgb 11.10 g/dL (11.27-16.99) L 09/19/24 15:01 Hct 34.2 % (36-47) L 09/19/24 15:01 MCV 93.2 fl (85-98) 09/19/24 15:01 MCH 30.2 pg (27-33) 09/19/24 15:01 MCHC 32.5 g/dL (30-55) 09/19/24 15:01 RDW 13.1 % (12.1-15.1) 09/19/24 15:01 Plt Count 217 10^3/cmm (157-399) 09/19/24 15:01 MPV 10.0 fL (7.4-10.4) 09/19/24 15:01 Neut % (Auto) 56.1 % 09/19/24 15:01 Lymph % (Auto) 31.4 % 09/19/24 15:01 [place] % (Auto) 8.9 % 09/19/24 15:01 Eos % (Auto) 2.1 % 09/19/24 15:01 Baso % (Auto) 1.4 % 09/19/24 15:01 Neut # (Auto) 3.98 10^3/uL (1.8-7.7) 09/19/24 15:01 Lymph # (Auto) 2.2 10^3/uL (0.8-4.8) 09/19/24 15:01 [place] # (Auto) 0.6 10^3/uL (0.2-0.9) 09/19/24 15:01 Eos # (Auto) 0.2 10^3/uL (0.0-0.8) 09/19/24 15:01 Baso # (Auto) 0.1 10^3/uL (0.0-0.1) 09/19/24 15:01 Nucleated RBC % (auto) 0 % 09/19/24 15:01 Nucleated RBCs # 0.0 /100WBC 09/19/24 15:01 Sodium 142 mmol/L (136-145) 09/19/24 15:01 Potassium 3.5 mmol/L (3.5-5.1) 09/19/24 15:01 Chloride 105 mmol/L (98-107) 09/19/24 15:01 Carbon Dioxide 26 mmol/L (22-29) 09/19/24 15:01 Anion Gap 14.5 (5-19) 09/19/24 15:01 BUN 16 mg/dL (8-23) 09/19/24 15:01 Creatinine 0.9 mg/dL (0.5-0.9) 09/19/24 15:01 GFR Calculation Not Reportable 09/19/24 15:01 Glucose 119 mg/dL (65-115) H 09/19/24 15:01 Calculated Osmolality 296 mOsm/kg (285-295) H 09/19/24 15:01 Lactic Acid 1.7 mmol/L (0.5-2.2) 09/19/24 15:01 Calcium 8.9 mg/dL (8.5-10.5) 09/19/24 15:01 Total Bilirubin 0.3 mg/dL (0.15-1.2) 09/19/24 15:01 AST 17 U/L (0-32) 09/19/24 15:01 ALT 11 U/L (0-33) 09/19/24 15:01 Alkaline Phosphatase 64 U/L (35-105) 09/19/24 15:01 Troponin T Baseline 17 ng/L (0-10) H 09/19/24 15:01 Total Protein 6.4 g/dL (6.6-8.7) L 09/19/24 15:01 Albumin 4.1 g/dL (3.5-5.2) 09/19/24 15:01 Globulin 2.3 g/dL (1.3-4.6) 09/19/24 15:01 All radiology interpretation(s) finalized by discharge Discharge Plan Discharge Patient Disposition: Home Clinical Impression: Non-cardiac chest pain, Neurological symptoms Condition: Stable Prescriptions: New hydrocodone-acetaminophen 5-325 mg tablet 1 tab PO Q8H PRN (Reason: pain) Qty: 14 0RF Rx Instructions: Take 1/2 to 1 tab every 8 hours as needed for pain polyethylene glycol 3350 [Miralax] 17 gram/dose powder 17 g PO DAILY Qty: 510 0RF Rx Instructions: Take 1 scoop daily while taking pain medications. No Action leflunomide 20 mg tablet 20 mg PO DAILY Qty: 90 1RF tramadol 50 mg tablet 50 mg PO TID PRN (Reason: pain) 14 Days Qty: 42 0RF Hold Instructions: Do not take along with the hydrocodone-pick one or the other dicyclomine 20 mg tablet 20 mg PO TID PRN (Reason: abdominal pain/bowel cramping) Qty: 20 0RF prednisone 5 mg tablet 5 mg PO DAILY PRN nitroglycerin 0.4 mg tablet, sublingual 0.4 mg SUBLINGUAL Q5M PRN (Reason: chest pain) Qty: 25 2RF Rx Instructions: do not exceed 3 doses per episode hydralazine 25 mg tablet 25 mg PO QID Qty: 240 1RF alprazolam 0.5 mg tablet 0.5 mg PO QID Qty: 120 5RF labetalol 200 mg tablet See Rx Instructions .ROUTE .COMPLEX Qty: 270 1RF Dose Instruction: TAKE 1 TABLET BY MOUTH THREE TIMES DAILY Rx Instructions: TAKE 1 TABLET BY MOUTH THREE TIMES DAILY verapamil 120 mg tablet extended release See Rx Instructions .ROUTE .COMPLEX Qty: 180 2RF Dose Instruction: TAKE ONE TABLET BY MOUTH TWICE DAILY Rx Instructions: TAKE ONE TABLET BY MOUTH TWICE DAILY clonidine HCl 0.3 mg tablet See Rx Instructions .ROUTE .COMPLEX Qty: 180 3RF Dose Instruction: TAKE 1 TABLET BY MOUTH THREE TIMES DAILY FOR 60 DAYS Rx Instructions: TAKE 1 TABLET BY MOUTH THREE TIMES DAILY FOR 60 DAYS diclofenac sodium 1 % gel 4 g topical QID PRN (Reason: Pain) Rx Instructions: apply to affected area as needed hydrocodone-acetaminophen 5-325 mg tablet 1 tab PO Q6H PRN (Reason: pain) Qty: 14 0RF Discharge Orders: Discharge ED (Routine); Ordered 09/19/24 Ordered By: Rosa Olivier Referrals: Ann Marie Kim MD [Primary Care Provider] - Discharge Diet: Usual diet Discharge Activity: Increase activity as tolerated Patient Instructions: Pain Management Activity Restrictions/Additional Instructions: Thank you for choosing [facility] for your healthcare needs today. Please realize this is an emergency room and that we are providing you with a medical screening exam and this may not be complete and all inclusive of all the testing and or work up that you may need to determine your ailment or severity of your illness. You have been screened and evaluated and felt safe for discharge. Health conditions do change or evolve sometimes and as such it is important that you follow up with your Primary Doctor to be re checked, 3-5 days is a general good time frame for follow up. 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 Related Data Home Medications Medication Instructions Recorded Confirmed diclofenac sodium 1 % topical gel 4 g topical QID PRN Pain 05/02/24 08/20/24 prednisone 5 mg tablet 5 mg PO DAILY PRN 09/02/24 09/02/24 Previous Rx's Medication Instructions Recorded nitroglycerin 0.4 mg sublingual 0.4 mg sublingual Q5M PRN chest 09/14/22 tablet pain #25 tabs hydralazine 25 mg tablet 25 mg PO QID #240 tabs 02/22/24 dicyclomine 20 mg tablet 20 mg PO TID PRN abdominal 05/13/24 pain/bowel cramping #20 tabs alprazolam 0.5 mg tablet 0.5 mg PO QID #120 tabs 05/20/24 tramadol 50 mg tablet 50 mg PO TID PRN pain 14 days #42 05/28/24 tabs hydrocodone 5 mg-acetaminophen 325 1 tab PO Q6H PRN pain #14 tabs 06/04/24 mg tablet labetalol 200 mg tablet See Rx Instructions .Route 07/12/24 .COMPLEX #270 tabs verapamil 120 mg tablet,extended See Rx Instructions .Route 07/15/24 release .COMPLEX #180 tabs clonidine HCl 0.3 mg tablet See Rx Instructions .Route 07/23/24 .COMPLEX #180 tabs leflunomide 20 mg tablet 20 mg PO DAILY #90 tabs 08/06/24 hydrocodone 5 mg-acetaminophen 325 1 tab PO Q8H PRN pain #14 tabs 09/19/24 mg tablet polyethylene glycol 3350 17 17 g PO DAILY #510 grams 09/19/24 gram/dose oral powder (Miralax) Allergies Allergy/AdvReac Type Severity Reaction Status Date / Time sulfasalazine Allergy Unknown ADR-Nausea Verified 09/02/24 11:22 plastics Allergy ALGY-Rash Uncoded 09/02/24 11:22
[2024-09-19] MEDS: iohexol 350 mg/mL 500 mL Btl (per mL) IV (15:25)
[2024-09-19 15:28] LABS: Alanine Aminotransferase 11 U/L (0-33); Albumin Level 4.1 g/dL (3.5-5.2); Alkaline Phosphatase 64 U/L (35-105); Anion Gap 14.5 (5-19); Aspartate Amino Transferase 17 U/L (0-32); Blood Urea Nitrogen 16 mg/dL (8-23); Calcium 8.9 mg/dL (8.5-10.5); Carbon Dioxide 26 mmol/L (22-29); Chloride 105 mmol/L (98-107); Creatinine Clr Calc Pharmacy 58.3365; Globulin 2.3 g/dL (1.3-4.6); Glucose 119 mg/dL (65-115); Osmolality Calculated 296 mOsm/kg (285-295); Potassium 3.5 mmol/L (3.5-5.1); Sodium 142 mmol/L (136-145); Total Bilirubin 0.3 mg/dL (0.15-1.2); Total Protein 6.4 g/dL (6.6-8.7)
[2024-09-19 15:33] LABS: Lactic Sepsis W/Reflex 1.7 mmol/L (0.5-2.2)
[2024-09-19 15:34] LABS: Troponin(5th) Baseline 17 ng/L (0-10)
--- NOTE | 2024-09-19 15:44 | ECG_ITS ---
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 Measurements Intervals [place] Rate: 62 P: 49 NV: 180 QRS: 17 QRSD: 90 T: 57 QT: 430 QTc: 438 Interpretive Statements SINUS RHYTHM NONSPECIFIC T-WAVE ABNORMALITY Compared to ECG 06/04/2024 10:35:48 T-wave abnormality now present Electronically Signed On 09-19-2024 22:58:58 CDT by Shona Hamilton M.D. [email or web address]
[2024-09-19 16:05] VITALS: BP 126/52; PULSE 62; RESP 12; O2SAT 96
[2024-09-19 16:35] VITALS: BP 123/56; PULSE 61; RESP 14; O2SAT 97
[2024-09-19 17:05] VITALS: BP 139/67; PULSE 65; RESP 16; O2SAT 97
[2024-09-19 17:33] VITALS: BP 139/67; PULSE 59; O2SAT 97
[2024-09-19 17:41] LABS: Troponin 5 2HR 14.37 ng/L (0-10)
[2024-09-19 17:42] LABS: Troponin 5 2HR Delta -2.63 ABS# (0-10)
== END 2024-09-19 17:34 | disposition home or self-care (01) ==
PROVIDERS: Emergency Provider Emergency Medicine; PCP Family Medicine
DX: R07.89 Other chest pain (principal); R29.818 Other symptoms and signs involving the nervous system
CPT/HCPCS: 36415; 70450; 70486; 70496; 70498; 71045; 80053; 83605; 84484; 85025; 93005; 99285

== ENCOUNTER 2024-10-08 07:35 | Outpatient (CLI) | payer MEDICARE, OTHER, SELFPAY ==
--- NOTE | 2024-10-08 07:38 | MM_ITS ---
WS: [id number] BILATERAL 3D TOMOSYNTHESIS DIGITAL SCREENING MAMMOGRAPHY WITH CAD CLINICAL INFORMATION: SCREENING HISTORY: Screening mammogram. No current complaints. COMPARISON: 08/14/2023 TECHNIQUE: Bilateral CC and MLO views. FINDINGS: Scattered fibroglandular densities bilaterally. No suspicious focal mass, asymmetry, calcifications, or architectural distortion. No evidence of malignancy. Incidental punctate calcifications. Lucent ce ntered calcifications. Skin calcifications. MM/MM scr tomosynthesis [id number] IMPRESSION: DENSITY: There are scattered areas of fibroglandular density. BI-RADS: 2 - Benign. FOLLOW UP: 1 Year Follow-up Recommend return to annual screening mammography.
== END 2024-10-08 07:36 | disposition home or self-care (01) ==
LOC: RAD 07:36
PROVIDERS: PCP Family Medicine; Visit Provider Family Medicine
DX: Z12.31 Encounter for screening mammogram for malignant neoplasm of breast (principal); R92.323 Mammographic fibroglandular density, bilateral breasts; R92.1 Mammographic calcification found on diagnostic imaging of breast; Z23 Encounter for immunization
CPT/HCPCS: 77063; 77067; 90686

== ENCOUNTER 2024-10-30 10:34 | Outpatient (CLI) | payer MEDICARE, OTHER, SELFPAY ==
--- NOTE | 2024-10-30 10:39 | XR_ITS ---
WS: [id number] XR knee LT 3V* [id number] REASON FOR EXAM: pop in medial knee 2 mos prior to visit FINDINGS: No fracture or focal bone lesion. No joint effusion. Medial knee joint space demonstrates narrowing which on a standing AP images of 06/06/2023 would be co nsidered moderate. There is a narrowing in the lateral knee joint space which on a standing AP view of 06/06/2023 would b e considered moderate. Moderate narrowing of the patellofemoral joint space with mild to moderate subchondral sclerosis and osteophytosis. XR/XR knee LT 3V* [id number] IMPRESSION: Mild to moderate osteoarthritis with no acute abnormality.
== END 2024-10-30 10:35 | disposition home or self-care (01) ==
LOC: RAD 10:38
PROVIDERS: PCP Family Medicine; Visit Provider Family Medicine
DX: M17.12 Unilateral primary osteoarthritis, left knee (principal); M25.762 Osteophyte, left knee
CPT/HCPCS: 73562

== ENCOUNTER 2024-11-05 12:19 | Outpatient (CLI) | payer MEDICARE, OTHER, SELFPAY ==
[2024-11-05 13:26] LABS: Alanine Aminotransferase 9 U/L (0-33); Albumin Level 3.5 g/dL (3.5-5.2); Alkaline Phosphatase 52 U/L (35-105); Aspartate Amino Transferase 15 U/L (0-32); Globulin 2.9 g/dL (1.3-4.6); Total Bilirubin 0.2 mg/dL (0.15-1.2); Total Protein 6.4 g/dL (6.6-8.7)
[2024-11-05 13:38] LABS: Basophils # 0.1 10^3/uL (0.0-0.1); Basophils % 1.6 %; Eosinophils # 0.1 10^3/uL (0.0-0.8); Eosinophils % 1.9 %; Lymphocytes # 1.5 10^3/uL (0.8-4.8); Lymphocytes % 23.2 %; Mean Corpuscular HGB Conc 31.9 g/dL (30-55); Mean Corpuscular Hemoglobin 29.9 pg (27-33); Mean Corpuscular Volume 93.8 fl (85-98); Mean Platelet Volume 9.9 fL (7.4-10.4); Monocytes # 0.7 10^3/uL (0.2-0.9); Monocytes % 11.1 %; Neutrophils # 3.93 10^3/uL (1.8-7.7); Nucleated Red Blood Cells % 0 %; Platelet Count 206 10^3/cmm (157-399); Red Blood Count 3.41 10^6/uL (3.85-5.65); Red Cell Distribution Width 13.1 % (12.1-15.1); White Blood Count 6.33 10^3/uL (3.29-11.43)
[2024-11-05 13:39] LABS: Erythrocyte Sedimentation Rate 15 mm/hr (0-15)
== END 2024-11-05 12:20 | disposition home or self-care (01) ==
LOC: LAB 12:22
PROVIDERS: PCP Family Medicine; Visit Provider Internal Medicine Rheumatology
DX: Z79.899 Other long term (current) drug therapy (principal); M19.90 Unspecified osteoarthritis, unspecified site
CPT/HCPCS: 36415; 80076; 82565; 85025; 85651; 86140

== ENCOUNTER → 2024-11-13 08:42 | Outpatient (BNVA) | payer MEDICARE, OTHER, SELFPAY | PROVIDERS: PCP Family Medicine; Visit Provider Specialist | DX: M25.562 Pain in left knee (principal); M17.12 Unilateral primary osteoarthritis, left knee | CPT/HCPCS: 73560; 73565; 99204 ==

== ENCOUNTER 2024-11-18 13:24 | Observation (INO) | payer MEDICARE, OTHER, SELFPAY ==
--- NOTE | 2024-11-17 10:44 | ANES.PREANE2 ---
Pre-Anesthetic Assessment Height/Weight: Height 5 ft 6 in Preop Diagnosis: Lumbar stenosis Operation Date: 11/18/24 07:00 Proposed Procedures p Lumbar Spine Decompression Lumbar Decompression(Not Applicable) - Aguila Ibarra, DO Social No alcohol and No tobacco Exam alert, oriented x 3, clear to auscultation bilaterally and regular rate & rhythm Airway Submandibular: within normal limits Cervical ROM: within normal limits Mallampati: Class III Dentition: full Anesthetic Plan ASA status: 3 Anesthesia: General Other: No prior issues with anesthesia NPO since yesterday History of diabetes Hypertension on hydralazine, clonidine, labetalol and verapamil Lupus on chronic prednisone Alzheimer's disease, patient is A&Ox3 Patient takes chronic tramadol at baseline Labs 11/05/2024 reviewed and acceptable for procedure Prior EKG showing sinus rhythm Plan for GETA Medications/Allergies Home Medications Medication Instructions Recorded Confirmed Last Taken Type nitroglycerin 0.4 mg sublingual 0.4 mg sublingual Q5M PRN chest 09/14/22 11/14/24 Unknown Rx tablet pain #25 tabs dicyclomine 20 mg tablet 20 mg PO TID PRN abdominal 05/13/24 11/14/24 11/14/24 Rx pain/bowel cramping #20 tabs alprazolam 0.5 mg tablet 0.5 mg PO QID #120 tabs 05/20/24 11/14/24 11/18/24 Rx tramadol 50 mg tablet 50 mg PO TID PRN pain 14 days #42 05/28/24 11/14/24 11/14/24 Rx tabs hydrocodone 5 mg-acetaminophen 325 1 tab PO Q6H PRN pain #14 tabs 06/04/24 11/14/24 Unknown Rx mg tablet labetalol 200 mg tablet See Rx Instructions .Route 07/12/24 11/14/24 11/18/24 Rx .COMPLEX #270 tabs verapamil 120 mg tablet,extended See Rx Instructions .Route 07/15/24 11/14/24 11/14/24 Rx release .COMPLEX #180 tabs clonidine HCl 0.3 mg tablet See Rx Instructions .Route 07/23/24 11/14/24 11/18/24 Rx .COMPLEX #180 tabs leflunomide 20 mg tablet 20 mg PO DAILY #90 tabs 08/06/24 11/14/24 11/14/24 Rx prednisone 5 mg tablet 5 mg PO DAILY PRN painm 09/02/24 11/14/24 Unknown History polyethylene glycol 3350 17 17 g PO DAILY #510 grams 09/19/24 11/14/24 Unknown Rx gram/dose oral powder (Miralax) hydralazine 25 mg tablet See Rx Instructions .Route 10/14/24 11/14/24 11/14/24 Rx .COMPLEX #240 tabs Allergies Allergy/AdvReac Type Severity Reaction Status Date / Time sulfasalazine Allergy Unknown ADR-Nausea Verified 11/13/24 08:58 plastics Allergy ALGY-Rash Uncoded 11/13/24 08:58 [facility] Anesthesia Medical History Immunization counseling High risk medication use Inflammatory arthritis Eczema History of colon polyps Irritable bowel syndrome with both constipation and diarrhea Thoracic spine pain Essential hypertension Anxiety Diabetes Lumbar disc disease with radiculopathy Surgical History History of colonoscopy (03/23/21) 2015: Colon polyps 2020: Mild diverticulosis History of cholecystectomy History of dilation and curettage History of total hysterectomy Family History Father Parkinson disease Cancer Mother Cancer Social History Smoking and tobacco/nicotine status: never used tobacco/nicotine Second hand smoke exposure: No Alcohol intake: never Substance/Drug Use: never Data Anesthesia Cardiac Studies: Sestamibi Stress Test (Cardiology) 08/26/20
[2024-11-18] VITALS (22 sets, daily range): BP systolic 146–220; BP diastolic 80–105; PULSE 79–96; RESP 16–18; TEMP 36.1–36.7; O2SAT 92–100; BMI 24.0
--- NOTE | 2024-11-18 06:23 | W.PM.OPSUD ---
Surgery/Procedure H&P Update DATE OF PROCEDURE: November 18, 2024 DATE H&P PERFORMED: 10/30/24 H&P UPDATE INFORMATION: I have reviewed H&P completed within last 30 days, I have examined patient prior to procedure and No changes to prior documentation PREOP DIAGNOSIS: Lumbar stenosis with neurogenic claudication PLANNED PROCEDURE: Operation Date: 11/18/24 07:00 Proposed Procedures p Lumbar Spine Decompression Lumbar Decompression(Not Applicable) - Aguila Ibarra DO
[2024-11-18] MEDS: sodium chloride 0.9% 1,000 ML 30 ML IV (06:24)
[2024-11-18] MEDS: ceFAZolin 2,000 mg SDV 2000 MG IVP ×3 (07:03→22:48)
[2024-11-18] MEDS: lidocaine-epi 1% 20 mL INJ INJECTION (07:34)
--- NOTE | 2024-11-18 08:06 | XR_ITS ---
WS: [id number] C-ARM RADIOGRAPHS LUMBAR SPINE; 2 IMAGES HISTORY: OR PIC COMPARISON: None available. Intraoperative imaging during lumbar spine fusion. Prior fusion at L4-5. New marker at the L3-4 level . XR/XR lumbar spine 2-3V* [id number] IMPRESSION: Intraoperative imaging during lumbar spine fusion.
--- NOTE | 2024-11-18 08:08 | PM.OP ---
Operative Report Date of procedure: November 18, 2024 Pre-op diagnosis: Lumbar stenosis with neurogenic claudication Post-op diagnosis: same Post-op findings: L3/4 laminectomy and partial facetectomy Surgeon: Aguila Ibarra DO Estimated blood loss (mL): 10 Procedure: L3/4 laminectomy and partial facetectomy Patient is brought to the operative suite. After undergoing anesthesia they are placed in the prone position. All areas of impingement are well padded. Patient is then prepped and draped in the normal sterile fashion. A skin incision is made over the L3/4 level. This is confirmed under c-arm guidance. A series of dilators are passed and the tubular retractor is docked on the L3 lamina. A bovie is used to clear the soft tissue off the lamina and the L 3/4 facet joint. A high speed walter is then used to perform the laminectomy and take down the medial aspect of the L 3/4 facet joint. A kerrison rongeure was then used to take down the remaining lamina and smooth the edge of the laminectomy up to the point where the ligamentum flavum attaches. Attention was then brought to the medial aspect of the facet joint. The remaining medial aspect of the superior and inferior aspect of the facet joint were taken down with the kerrison from the pedicle of L3 to L 4. The facet joint had significant hypertrophy. Attention was then brought to the Ligamentum Flavum. The ligament was taken down from the lamina of L3 to L4 and out medially to the remaining facet joint. The ligament was thick scarred. The dura was then exposed. The dura was in good repair. The L3 nerve was then traced with a curette out the L3/4 foramen and found to be adequately decompressed. The L4 nerve was traced with a curette around the L4 pedicle. The lateral recess was opened with a kerrison helping to further decompress the L4 nerve. Wound is then irrigated copiously with saline and surgiflo is used to stop any bleeding. The tubular retractor is removed and the wound is closed with vicryl and monocryl suture. Glue is then used to protect the wound. A sterile dressing is then placed. Patient was then placed in the supine position and transferred to the PACU in stable condition.
--- NOTE | 2024-11-18 08:19 | ANES.PREANE2 ---
Pre-Anesthetic Assessment Height/Weight: Height 5 ft 6 in Weight 149 lb Temp Pulse Resp BP Pulse Ox O2 Del Method 97 F L 79 17 157/86 97 Room Air 11/18/24 05:59 11/18/24 05:59 11/18/24 05:59 11/18/24 05:59 11/18/24 05:59 11/18/24 06:06 Preop Diagnosis: Lumbar stenosis Operation Date: 11/18/24 07:00 Proposed Procedures p Lumbar Spine Decompression Lumbar Decompression(Not Applicable) - Aguila Ibarra, DO Was Beta Meron taken within 24 hours: N/A Was Clonidine taken within 24 hours: Yes Last intake: Intake Last Liquid Date 11/17/24 Last Liquid Time 21:00 Last Solid Date 11/17/24 Last Solid Time 17:00 Social No alcohol and No tobacco Exam alert, oriented x 3 and regular rate & rhythm Decreased breath sounds bilaterally Airway Submandibular: within normal limits Cervical ROM: within normal limits Mallampati: Class II Dentition: full Comments: Comments: Missing teeth Anesthetic Plan ASA status: 3 Anesthesia: General Other: No prior issues with anesthesia NPO since yesterday History of hypertension on clonidine verapamil and labetalol Patient has COPD, on home O2 2 L at baseline Patient states that she is able to get around okay at home but does get short of breath with any long distance exertion Labs reviewed from 11/05/2024 and acceptable for procedure Plan for GETA Medications/Allergies Home Medications Medication Instructions Recorded Confirmed Last Taken Type nitroglycerin 0.4 mg sublingual 0.4 mg sublingual Q5M PRN chest 09/14/22 11/14/24 Unknown Rx tablet pain #25 tabs dicyclomine 20 mg tablet 20 mg PO TID PRN abdominal 05/13/24 11/14/24 11/14/24 Rx pain/bowel cramping #20 tabs alprazolam 0.5 mg tablet 0.5 mg PO QID #120 tabs 05/20/24 11/14/24 11/18/24 Rx labetalol 200 mg tablet See Rx Instructions .Route 07/12/24 11/14/24 11/18/24 Rx .COMPLEX #270 tabs verapamil 120 mg tablet,extended See Rx Instructions .Route 07/15/24 11/14/24 11/14/24 Rx release .COMPLEX #180 tabs clonidine HCl 0.3 mg tablet See Rx Instructions .Route 07/23/24 11/14/24 11/18/24 Rx .COMPLEX #180 tabs leflunomide 20 mg tablet 20 mg PO DAILY #90 tabs 08/06/24 11/14/24 11/14/24 Rx prednisone 5 mg tablet 5 mg PO DAILY PRN painm 09/02/24 11/14/24 Unknown History polyethylene glycol 3350 17 17 g PO DAILY #510 grams 09/19/24 11/14/24 Unknown Rx gram/dose oral powder (Miralax) hydralazine 25 mg tablet See Rx Instructions .Route 10/14/24 11/14/24 11/14/24 Rx .COMPLEX #240 tabs hydrocodone 5 mg-acetaminophen 325 1 - 2 tab PO .Q4-6H #40 tabs 11/18/24 Unknown Rx mg tablet Allergies Allergy/AdvReac Type Severity Reaction Status Date / Time sulfasalazine Allergy Unknown ADR-Nausea Verified 11/13/24 08:58 plastics Allergy ALGY-Rash Uncoded 11/13/24 08:58 Current Medications Generic Name Dose Route Start Last Admin Trade Name Freq PRN Reason Stop Dose Admin Sodium Chloride 1,000 mls @ 30 mls/hr 11/18/24 06:00 11/18/24 06:24 Sodium Chloride 0.9% IV 11/19/24 05:59 30 mls/hr .Q24H LLOYD Administration PFSH Anesthesia Medical History Immunization counseling High risk medication use Inflammatory arthritis Eczema History of colon polyps Irritable bowel syndrome with both constipation and diarrhea Thoracic spine pain Essential hypertension Anxiety Diabetes Lumbar disc disease with radiculopathy Surgical History History of colonoscopy (03/23/21) 2015: Colon polyps 2020: Mild diverticulosis History of cholecystectomy History of dilation and curettage History of total hysterectomy Family History Father Parkinson disease Cancer Mother Cancer Social History Smoking and tobacco/nicotine status: never used tobacco/nicotine Second hand smoke exposure: No Alcohol intake: never Substance/Drug Use: never Data Anesthesia Cardiac Studies: Sestamibi Stress Test (Cardiology) 08/26/20
[2024-11-18] MEDS: hyDRALAzine 20 mg/mL INJ 1 mL 10 MG IVP (08:26)
[2024-11-18] MEDS: HYDROcodone-acetaminophen 5-325 mg Tablet 1 TAB PO (09:18)
[2024-11-18] MEDS: ondansetron 2 mg/ML SDV 2 mL 4 MG IVP ×2 (10:26→16:30)
[2024-11-18] MEDS: labetalol 5 mg/mL SDV 20mL 10 MG IVP (12:40)
--- NOTE | 2024-11-18 12:46 | P.CONIM_ITS ---
Providers/Reason For Consult Consulting Physician/Specialty*: Collins Villalba MD, hospitalist Reason for Consult*: Hypertension Requesting Physician: Dr. Ibarra Attending Physician: Aguila Ibarra DO Primary Care Provider: Ann Marie Kim MD History of Present Illness History of Present Illness Holly Diez is a 74 year old female who underwent an L3/4 laminectomy today. Following surgery she has complained of significant pain in her left lower extremity, and blood pressure has been noted to be markedly high. Patient reports she did take some of her blood pressure medication this morning, her labetalol, clonidine, and perhaps hydralazine. She reports she did not take her verapamil as it sometimes makes her nauseated. She reports significant pain following her surgery. She states she feels like her left leg is completely numb. She reports cannot raise it off the bed but can move her foot. No chest pain, shortness of breath. Review of Systems General: Reports: 10 or more systems reviewed and unremarkable except in HPI and below Card: Denies: chest pain Resp: Denies: dyspnea Medications/Allergies Home Medications Medication Instructions Recorded Confirmed Last Taken Type nitroglycerin 0.4 mg sublingual 0.4 mg sublingual Q5M PRN chest 09/14/22 11/14/24 Unknown Rx tablet pain #25 tabs dicyclomine 20 mg tablet 20 mg PO TID PRN abdominal 05/13/24 11/14/24 11/14/24 Rx pain/bowel cramping #20 tabs alprazolam 0.5 mg tablet 0.5 mg PO QID #120 tabs 05/20/24 11/14/24 11/18/24 Rx labetalol 200 mg tablet See Rx Instructions .Route 07/12/24 11/14/24 11/18/24 Rx .COMPLEX #270 tabs verapamil 120 mg tablet,extended See Rx Instructions .Route 07/15/24 11/14/24 11/14/24 Rx release .COMPLEX #180 tabs clonidine HCl 0.3 mg tablet See Rx Instructions .Route 07/23/24 11/14/24 11/18/24 Rx .COMPLEX #180 tabs leflunomide 20 mg tablet 20 mg PO DAILY #90 tabs 08/06/24 11/14/24 11/14/24 Rx prednisone 5 mg tablet 5 mg PO DAILY PRN painm 09/02/24 11/14/24 Unknown History polyethylene glycol 3350 17 17 g PO DAILY #510 grams 09/19/24 11/14/24 Unknown Rx gram/dose oral powder (Miralax) hydralazine 25 mg tablet See Rx Instructions .Route 10/14/24 11/14/24 11/14/24 Rx .COMPLEX #240 tabs hydrocodone 5 mg-acetaminophen 325 1 - 2 tab PO .Q4-6H #40 tabs 11/18/24 Unknown Rx mg tablet Allergies Allergy/AdvReac Type Severity Reaction Status Date / Time sulfasalazine Allergy Unknown ADR-Nausea Verified 11/13/24 08:58 plastics Allergy ALGY-Rash Uncoded 11/13/24 08:58 Current Medications Generic Name Dose Route Start Last Admin Trade Name Freq PRN Reason Stop Dose Admin Sodium Chloride 1,000 mls @ 30 mls/hr 11/18/24 06:00 11/18/24 10:16 Sodium Chloride 0.9% IV 11/19/24 05:59 Infused .Q24H LLOYD Infusion Ondansetron HCl 4 mg 11/18/24 05:47 11/18/24 10:26 Ondansetron 2 Mg/Ml Sdv 2 Ml IVP 4 mg Q5M PRN Administration NAUSEA AND VOMITING PFSH Acute PFSH: Medical History Immunization counseling High risk medication use Inflammatory arthritis Eczema History of colon polyps Irritable bowel syndrome with both constipation and diarrhea Thoracic spine pain Essential hypertension Anxiety Diabetes Lumbar disc disease with radiculopathy Surgical History History of colonoscopy (03/23/21) 2015: Colon polyps 2020: Mild diverticulosis History of cholecystectomy History of dilation and curettage History of total hysterectomy Family History Father Parkinson disease Cancer Mother Cancer Social History Smoking and tobacco/nicotine status: never used tobacco/nicotine Second hand smoke exposure: No Alcohol intake: never Substance/Drug Use: never Vitals/I&O/Wt Last Vital Signs Temp 9.4 F L 11/18/24 08:45 Pulse 79 11/18/24 08:45 Resp 17 11/18/24 08:45 BP 178/89 11/18/24 08:45 Pulse Ox 96 11/18/24 08:45 O2 Del Method Room Air 11/18/24 08:45 O2 Flow Rate 5 11/18/24 08:27 11/17/24 11/18/24 11/18/24 22:59 06:59 14:59 Intake Total 1000 / 1000 Output Total 0 / 0 Balance 1000 / 1000 Weight last 48 hrs Weight 67.585 kg Physical Exam Narrative: General exam is a white female, reporting pain HEENT: Oropharynx clear Neck is supple no lymphadenopathy thyromegaly Cardiovascular regular rate and rhythm, no murmur Lungs clear Abdomen is soft nontender positive bowel sounds. No obvious organomegaly exam is deferred Extremities no cyanosis clubbing or edema. Can move right upper extremity without difficulty. Left she can dorsiflex and plantarflex some, wiggle her toes but I cannot get her to raise her leg off the bed. She reports she cannot feel sensation on that side subjectively on exam. This goes all the way to the hip. Neuro: See findings above Skin without rash Data Other Labs: Laboratory from November 05 reviewed. Hemoglobin 10.2, creatinine 0.9, LFTs are normal. A&P Assessment and plan (1) Essential hypertension: Blood pressure elevated. This may be secondary to not taking all of her medication this morning, in addition to significant pain. Reinstitute her home medication Labetalol IV has been ordered Her home medicines will be restarted Will follow her blood pressure closely Check CBC and CMP (2) Diabetes: Will need to consistent carb diet when p.o. status is initiated. It does not appear she is on any medication for diabetes currently, and her last hemoglobin A1c was 6.0. Will reevaluate after blood sugar comes back Qualifiers: Diabetes mellitus type: type 2 Diabetes mellitus penitentiary insulin use: without penitentiary use Diabetes mellitus complication status: without complication Qualified Code(s): E11.9 - Type 2 diabetes mellitus without complications (3) Lumbar disc disease with radiculopathy: Patient with significant pain postoperative, mainly focused in her left leg. She reports significant reduced sensation on this leg. She is able to move her toes, and has the ability to plantar flex and dorsiflex some. She has increased pain with trying to do a straight leg raise on the left side but easily does the right. Will let orthopedic spine surgery know this exam, and defer to them regarding significance postoperatively. (4) Inflammatory arthritis: She is on prednisone 5 mg daily, which she is slated to continue. Plan Multiple other medical problems as outlined in past medical history Thank you for this consultation, we will continue to follow with you Consult Attestations Medical Necessity Statement: As per primary Diagnoses Essential hypertension I10 Type 2 diabetes mellitus without complication, without long-term current use of insulin E11.9 Diabetes mellitus type: type 2 Diabetes mellitus penitentiary insulin use: without penitentiary use Diabetes mellitus complication status: without complication Lumbar disc disease with radiculopathy M51.16 Inflammatory arthritis M19.90 Time Spent (min) 42
[2024-11-18] MEDS: fentaNYL 50 mcg/mL INJ 2mL IVP (12:49)
--- NOTE | 2024-11-18 13:28 | ANE.PACU2 ---
Inpatient post-anesthesia follow up: Airway intact: Yes Vital signs: Temperature 97.4 F Pulse Rate 87 Respiratory Rate 16 Blood Pressure 184/99 Pulse Oximetry 96 Oxygen Delivery Me thod Room Air Oxygen Flow Rate 2 Fraction of Inspir ed Oxygen Hydration adequate: Yes Nausea and vomiting: No Pain level: 1 Mental status: Baseline
[2024-11-18] MEDS: cloNIDine 0.1 mg Tablet 0.3 MG PO ×2 (14:45→20:25)
[2024-11-18] MEDS: labetalol 200 mg Tablet PO ×2 (14:45→20:24)
[2024-11-18] MEDS: ALPRAZolam 0.5 mg Tablet PO ×2 (14:46→20:24)
[2024-11-18] MEDS: lactated ringers 1,000 ML 30 ML IV (14:48)
[2024-11-18] MEDS: ketorolac 30 mg/mL INJ IVP (14:49)
[2024-11-18] MEDS: HYDROcodone-acetaminophen 5-325 mg Tablet PO ×2 (14:49→23:35)
--- NOTE | 2024-11-18 16:08 | PC.PT ---
PT evaluation attempted x 2. BP continues to remain elevated. Patient states she is too sick and cannot put weight through LLE.
[2024-11-18] MEDS: alum-mag-hydroxide-sime 30 mL UDC PO (16:30)
[2024-11-18] MEDS: hyDRALAzine 25 mg Tablet PO ×2 (16:30→20:25)
[2024-11-18] MEDS: docusate sodium 100 mg Capsule PO (16:30)
[2024-11-18] MEDS: dexamethasone 10 mg/mL INJ IVP ×2 (16:30→22:48)
[2024-11-18 21:29] LABS: Basophils % 0.2 %; Hematocrit 33.4 % (36-47); Lymphocytes # 0.6 10^3/uL (0.8-4.8); Lymphocytes % 6.2 %; Mean Corpuscular HGB Conc 31.7 g/dL (30-55); Mean Corpuscular Hemoglobin 30.5 pg (27-33); Monocytes # 0.2 10^3/uL (0.2-0.9); Monocytes % 2.4 %; Neutrophils # 8.49 10^3/uL (1.8-7.7); Neutrophils % 90.9 %; Nucleated Red Blood Cells % 0 %; Platelet Count 169 10^3/cmm (157-399); Red Blood Count 3.48 10^6/uL (3.85-5.65); Red Cell Distribution Width 12.7 % (12.1-15.1); White Blood Count 9.34 10^3/uL (3.29-11.43)
[2024-11-18 21:43] LABS: Alanine Aminotransferase 8 U/L (0-33); Albumin Level 3.7 g/dL (3.5-5.2); Alkaline Phosphatase 60 U/L (35-105); Anion Gap 16.1 (5-19); Aspartate Amino Transferase 15 U/L (0-32); Blood Urea Nitrogen 18 mg/dL (8-23); Calcium 8.7 mg/dL (8.5-10.5); Carbon Dioxide 24 mmol/L (22-29); Chloride 101 mmol/L (98-107); Creatinine Clr Calc Pharmacy 48.0475; Globulin 2.6 g/dL (1.3-4.6); Glucose 156 mg/dL (65-115); Osmolality Calculated 289 mOsm/kg (285-295); Potassium 4.1 mmol/L (3.5-5.1); Sodium 137 mmol/L (136-145); Total Bilirubin 0.2 mg/dL (0.15-1.2); Total Protein 6.3 g/dL (6.6-8.7)
[2024-11-19] VITALS: BP 158/81; PULSE 90; RESP 17; TEMP 36.6; O2SAT 94
[2024-11-19 04:00] VITALS: BP 170/83; PULSE 89; RESP 17; TEMP 36.4; O2SAT 94
[2024-11-19] MEDS: dexamethasone 10 mg/mL INJ IVP (05:59)
[2024-11-19] MEDS: ceFAZolin 2,000 mg SDV 2000 MG IVP (06:06)
[2024-11-19 07:25] VITALS: BP 180/95; PULSE 89; RESP 18; TEMP 36.8; O2SAT 95
--- NOTE | 2024-11-19 08:25 | P.PN_ITS ---
Subjective 2 Subjective: Patient is still complaining of pain in her back and leg. At this point she is complaining more of the leg pain. Did discuss with her the option of potentially going to a rehab facility to help with her recovery. Vitals/I&O/Wt Last Vital Signs Temp 98.2 F 11/19/24 07:25 Pulse 89 11/19/24 07:25 Resp 18 11/19/24 07:25 BP 180/95 11/19/24 07:25 Pulse Ox 95 11/19/24 07:25 O2 Del Method Room Air 11/19/24 07:25 O2 Flow Rate 2 11/18/24 13:00 11/18/24 11/19/24 11/19/24 22:59 06:59 14:59 Intake Total 480 / 1480 300 / 1780 Output Total 300 / 300 Balance 180 / 1180 300 / 1480 Weight last 48 hrs Weight 149 lb 9.6 oz Weight 149 lb Weight 149 lb Physical Exam 2 Narrative: Sensation is improved since yesterday. But still having pain. Data 11/18/24 21:13 11/18/24 21:13 A&P Assessment and plan (1) Lumbar stenosis with neurogenic claudication: Patient is postop day #1 L3-4 decompression. Looking at [facility] placement Up with physical therapy Attestations 2 Medical Necessity Statement*: Pain control Coding Level of Care Code Acute Code for [facility] Fwd Diagnoses Lumbar stenosis with neurogenic claudication M48.062
--- NOTE | 2024-11-19 08:30 | PM.PN ---
Subjective Subjective: Reports leg is a little bit better. Still having some pain. Reports she can now feel a little bit in it. She is able to raise it is slightly off the bed. She did not get her verapamil yesterday, as it was labeled nonformulary. Medications: Reviewed: Yes Vitals/I&O/Wt Last Vital Signs Temp 98.2 F 11/19/24 07:25 Pulse 89 11/19/24 07:25 Resp 18 11/19/24 07:25 BP 180/95 11/19/24 07:25 Pulse Ox 95 11/19/24 07:25 O2 Del Method Room Air 11/19/24 07:25 O2 Flow Rate 2 11/18/24 13:00 11/18/24 11/19/24 11/19/24 22:59 06:59 14:59 Intake Total 480 / 1480 300 / 1780 Output Total 300 / 300 Balance 180 / 1180 300 / 1480 Weight last 48 hrs Weight 67.857 kg Weight 67.585 kg Weight 67.585 kg Physical Exam Narrative: General exam no distress Neck is supple no lymphadenopathy thyromegaly Cardiovascular regular rate and rhythm, no murmur Lungs clear Abdomen is soft nontender positive bowel sounds. No obvious organomegaly Extremities no cyanosis clubbing or edema. Now is able to sense her left lower extremity to palpation, although she reports it is dull. She is able to raise the leg slightly. Data 11/18/24 21:13 11/18/24 21:13 A&P Assessment and plan (1) Essential hypertension: Blood pressure elevated. Blood pressure still running high. I discussed with pharmacy. They will be starting verapamil 240 mg daily Continue other home medications Will follow her blood pressure closely Check CBC and CMP Currently Dexamethasone (2) Diabetes: Continue regular diet. Recent history of weight loss. It does not appear she is on any medication for diabetes currently, and her last hemoglobin A1c was 6.0. Will reevaluate after blood sugar comes back Qualifiers: Diabetes mellitus type: type 2 Diabetes mellitus termite control representative insulin use: without termite control representative use Diabetes mellitus complication status: without complication Qualified Code(s): E11.9 - Type 2 diabetes mellitus without complications (3) Lumbar disc disease with radiculopathy: Patient with significant pain postoperative, mainly focused in her left leg. This is improved from yesterday, but still significant (4) Inflammatory arthritis: She is on prednisone 5 mg daily. Currently on Dexamethasone for above. Plan Multiple other medical problems as outlined in past medical history Thank you for this consultation, we will continue to follow with you Attestations Medical Necessity Statement*: As per primary Diagnoses Essential hypertension I10 Type 2 diabetes mellitus without complication, without long-term current use of insulin E11.9 Diabetes mellitus type: type 2 Diabetes mellitus intermediate insulin use: without intermediate use Diabetes mellitus complication status: without complication Lumbar disc disease with radiculopathy M51.16 Inflammatory arthritis M19.90 Time Spent (min) 18
[2024-11-19 08:52] LABS: Thyroid Stimulating Hormone 0.44 uIU/mL (0.27-4.20)
--- NOTE | 2024-11-19 10:07 | P.DS_ITS ---
Discharge Providers Date of Admission: 11/18/24 13:24 Date of Discharge: November 19, 2024 Attending Provider at Admission: Aguila Ibarra DO Attending Provider at Discharge: Aguila Ibarra DO Primary Care Provider: Ann Marie Kim MD Diagnoses at Discharge Discharge Diagnosis (1) Essential hypertension: Status: Acute (2) Diabetes: Status: Acute Qualifiers: Diabetes mellitus type: type 2 Diabetes mellitus senior care insulin use: without senior care use Diabetes mellitus complication status: without complication Qualified Code(s): E11.9 - Type 2 diabetes mellitus without complications (3) Lumbar disc disease with radiculopathy: Status: Chronic (4) Inflammatory arthritis: Status: Acute Reason for Visit Reason for Visit: M48.062 Physical Exam Narrative: Patient numbness has improved Discharge Data Studies Completed and Pending Completed Studies During Hospitalization Category Date Time Status XR lumbar spine 2-3V* 96342 Routine Exams 11/18/24 08:06 Completed Pending at discharge Category Date Time Status C-arm Fluoroscopy [id number] Routine Exams 11/18/24 05:47 Ordered BMP [Basic Metabolic Panel] AM LABS Lab 11/20/24 04:00 Ordered CBC Auto Diff [Complete Blood Count w/Auto] AM LABS Lab 11/20/24 04:00 Ordered Radiology Impressions Lumbar Spine X-Ray 11/18/24 08:06 IMPRESSION: Intraoperative imaging during lumbar spine fusion. Laboratory Results WBC 9.34 10^3/uL (3.29-11.43) 11/18/24 21:13 RBC 3.48 10^6/uL (3.85-5.65) L 11/18/24 21:13 Hgb 10.60 g/dL (11.27-16.99) L 11/18/24 21:13 Hct 33.4 % (36-47) L 11/18/24 21:13 MCV 96.0 fl (85-98) 11/18/24 21:13 MCH 30.5 pg (27-33) 11/18/24 21:13 MCHC 31.7 g/dL (30-55) 11/18/24 21:13 RDW 12.7 % (12.1-15.1) 11/18/24 21:13 Plt Count 169 10^3/cmm (157-399) 11/18/24 21:13 MPV 10.0 fL (7.4-10.4) 11/18/24 21:13 Neut % (Auto) 90.9 % 11/18/24 21:13 Lymph % (Auto) 6.2 % 11/18/24 21:13 Cook % (Auto) 2.4 % 11/18/24 21:13 Eos % (Auto) 0.0 % 11/18/24 21:13 Baso % (Auto) 0.2 % 11/18/24 21:13 Neut # (Auto) 8.49 10^3/uL (1.8-7.7) H 11/18/24 21:13 Lymph # (Auto) 0.6 10^3/uL (0.8-4.8) L 11/18/24 21:13 Cook # (Auto) 0.2 10^3/uL (0.2-0.9) 11/18/24 21:13 Eos # (Auto) 0.0 10^3/uL (0.0-0.8) 11/18/24 21:13 Baso # (Auto) 0.0 10^3/uL (0.0-0.1) 11/18/24 21:13 Nucleated RBC % (auto) 0 % 11/18/24 21:13 Nucleated RBCs # 0.0 /100WBC 11/18/24 21:13 Sodium 137 mmol/L (136-145) 11/18/24 21:13 Potassium 4.1 mmol/L (3.5-5.1) 11/18/24 21:13 Chloride 101 mmol/L (98-107) 11/18/24 21:13 Carbon Dioxide 24 mmol/L (22-29) 11/18/24 21:13 Anion Gap 16.1 (5-19) 11/18/24 21:13 BUN 18 mg/dL (8-23) 11/18/24 21:13 Creatinine 1.0 mg/dL (0.5-0.9) H 11/18/24 21:13 GFR Calculation Not Reportable 11/18/24 21:13 Glucose 156 mg/dL (65-115) H 11/18/24 21:13 Calculated Osmolality 289 mOsm/kg (285-295) 11/18/24 21:13 Calcium 8.7 mg/dL (8.5-10.5) 11/18/24 21:13 Total Bilirubin 0.2 mg/dL (0.15-1.2) 11/18/24 21:13 AST 15 U/L (0-32) 11/18/24 21:13 ALT 8 U/L (0-33) 11/18/24 21:13 Alkaline Phosphatase 60 U/L (35-105) 11/18/24 21:13 Total Protein 6.3 g/dL (6.6-8.7) L 11/18/24 21:13 Albumin 3.7 g/dL (3.5-5.2) 11/18/24 21:13 Globulin 2.6 g/dL (1.3-4.6) 11/18/24 21:13 TSH 0.44 uIU/mL (0.27-4.20) 11/18/24 21:13 Vitals Last Vital Signs Temp 98.2 F 11/19/24 07:25 Pulse 89 11/19/24 07:25 Resp 18 11/19/24 07:25 BP 180/95 11/19/24 07:25 Pulse Ox 95 11/19/24 07:25 O2 Del Method Room Air 11/19/24 07:25 O2 Flow Rate 2 11/18/24 13:00 Discharge Plan Discharge Patient Disposition: Home Condition: Stable Prescriptions: New hydrocodone-acetaminophen 5-325 mg tablet 1 - 2 tab PO .Q4-6H Qty: 40 0RF Continued leflunomide 20 mg tablet 20 mg PO DAILY Qty: 90 1RF dicyclomine 20 mg tablet 20 mg PO TID PRN (Reason: abdominal pain/bowel cramping) Qty: 20 0RF prednisone 5 mg tablet 5 mg PO DAILY PRN (Reason: painm) triamcinolone acetonide 40 mg/mL suspension 40 mg intra-articular ONCE Qty: 1 0RF nitroglycerin 0.4 mg tablet, sublingual 0.4 mg SUBLINGUAL Q5M PRN (Reason: chest pain) Qty: 25 2RF Rx Instructions: do not exceed 3 doses per episode labetalol 200 mg tablet See Rx Instructions .ROUTE .COMPLEX Qty: 270 1RF Dose Instruction: TAKE 1 TABLET BY MOUTH THREE TIMES DAILY Rx Instructions: TAKE 1 TABLET BY MOUTH THREE TIMES DAILY verapamil 120 mg tablet extended release See Rx Instructions .ROUTE .COMPLEX Qty: 180 2RF Dose Instruction: TAKE ONE TABLET BY MOUTH TWICE DAILY Rx Instructions: TAKE ONE TABLET BY MOUTH TWICE DAILY clonidine HCl 0.3 mg tablet See Rx Instructions .ROUTE .COMPLEX Qty: 180 3RF Dose Instruction: TAKE 1 TABLET BY MOUTH THREE TIMES DAILY FOR 60 DAYS Rx Instructions: TAKE 1 TABLET BY MOUTH THREE TIMES DAILY FOR 60 DAYS hydralazine 25 mg tablet See Rx Instructions .ROUTE .COMPLEX Qty: 240 1RF Dose Instruction: TAKE 1 TABLET BY MOUTH FOUR TIMES DAILY Rx Instructions: TAKE 1 TABLET BY MOUTH FOUR TIMES DAILY polyethylene glycol 3350 [Miralax] 17 gram/dose powder 17 g PO DAILY Qty: 510 0RF Rx Instructions: Take 1 scoop daily while taking pain medications. Discontinued tramadol 50 mg tablet 50 mg PO TID PRN (Reason: pain) 14 Days Qty: 42 0RF Hold Instructions: Do not take along with the hydrocodone-pick one or the other alprazolam 0.5 mg tablet 0.5 mg PO QID Qty: 120 5RF hydrocodone-acetaminophen 5-325 mg tablet 1 tab PO Q6H PRN (Reason: pain) Qty: 14 0RF Discharge Orders: Discharge Order (Routine); Ordered 11/19/24 Ordered By: Aguila Ibarra Referrals: Aguila Ibarra, DO [Physician] - Discharge Diet: Advance as tolerated Discharge Activity: Limit activity as instructed Patient Instructions: Acute Wound Care (DC), Post Anesthesia Care Activity Restrictions/Additional Instructions: Restart Alprazalam when you get home Thank you for [facility] for your care! The following is a list of instructions, from your provider, to follow upon your discharge to ensure you have the optimal recovery from your recent injury orsurgery. Follow-up care is a gramajo part of your treatment and safety. Be sure to make and go to all appointments, and call your doctor if you are having problems. If you do not already have a follow-up appointment made, call Dr. Ibarra office in the next 1-3 days to make follow up appointment for 2 weeks at [phone]. It is also a good idea to know your test results and keep a list of the medicines you take. Medications will be prescribed for you at your provider's discretion. These medications are to be used as instructed; if they are taken more often that prescribed they will not be refilled early and in most cases will not be refilled at all. > When a refill is needed,you should contact sruthi cummins 2-3 business days before your prescription runs out. Medications will NOT be refilled by internet consultant providers after hours! > Many pain medications contain Tylenol (Acetaminophen). Do not consume more than 4,000 mg of Tylenol per day in total with any combination ofmedications. > Pain medications can cause constipation. Please use an over the counter stool softener as directed, while taking pain medications. Consulty our local pharmacist with questions or recommendations on stool softeners. If constipation persists, contact our office or your primary care provider. > While under our care,you are not to receive pain medications or other controlled substances from any other provider unless our office is notified and approves. Any attempts to do so will result in refusal to prescribe any further pain medications and possible dismissal from our practice. ? Your wound and/or dressing should remain clean and dry for 2 days after surgery. On postoperative day 2 (48 hours after your surgery) the dressing (if present) should be removed and it is okay to shower and get the incision wet. Pad dry afterwards. No further dressing should be required from that point on. Do not put any creams or ointments on theincision > It is normal for there to be a small amount of discharge (bloody or blood tinged) present from a surgical wound for the first 1-3days. > The wound should be examined twice a day for signs of infection. Mild redness or bruising is to be expected but indications that an infection maybe starting would include; An increase in redness, swelling, or discharge, a foul odor present around the incision, and/or a fever greater than 101 ?F ? Showering is permitted, however we ask that you do not take a bath, sit in a whirlpool / Jacuzzi, or go swimming for 1 month. For only the first 2 days after surgery, lt wilt be necessary for you to cover your wound/dressing with plastic and tape to keep it dry. ? Walking is essential for the healing process after surgery. We would like you to slowly advance your walking. This should be done on rel atively flat clear ground (inside or out) or can be done on a treadmill. Remember this goal does not have to happen all at once, slowly increase your distance and duration. This can be broken into more more than one walk per day as tolerated. Patients who walk as directed after surgery rarely require Physical Therapy. In the unlikely event this issue arises your provider will direct hospital staff to make the appropriate arrangements. ? No lifting over 5 pounds {a gallon of milk) or bending/twisting until further notice. Each of these activities places an unnecessary amount of stress onto the body and can impede the delicate healing process. > Instead of bending at the waist, keep your back straight and bend at the knees. > Instead of twisting your torso, keep your back straight and turn your entire body with your feet. ? You may sleep in any position which makes you comfortable. Many patients find comfort sleeping in a reclining chair. It is not abnormal to have difficulty sleeping for the first several weeks following your surgery. We recommend trying Benadry! or Tylenol PM as directed to help with your sleeping difficulties. Both medications are over the counter and available withoutprescription. ? NO SMOKING!!! Smoking dramatically increases the probability of developing postoperative wound infections. ? Common complaints after lumbar and/or thoracic spine surgery include, but are not limited to: numbness and/or tingling in the legs, pain around the incision and surrounding tissues, muscle spasms, or stiffness of the middle to low back. Contact our office if these symptoms persist or if an acute change occurs. ? No driving for the first 3-5days, and not while taking narcotics until seen at your follow-up appointment and cleared. There are no restrictions for riding on short trips, however if you take a longer trip, arrangements should be made to make regular stops to get out of the vehicle and stretch . ? Swelling is an unfortunate event that will take place with any surgery and is the primary source of your postoperative discomfort. While walking and regular approved activities helps control inflammation, there are additional steps you can take to minimizeswelling. > Place ice over the surgical site and surrounding tissue for twenty minutes, followed by applying a low/medium heat (heating pad) for an additional twenty minutes every 1-2 hours as needed for painrelief. > You may use of over the counter anti-inflammatory medications (Ibuprofen, Motrin, Aleve, Advil, etc) as directed on the package label. These types of medicines wm significantly reduce the amount of discomfort you experience after surgery from swelling. It should be noted that if you have and allergy to any of these medications, or a history of ulcers or kidney disease you should consult you primary care provider prior to starting these medications. 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
[2024-11-19] MEDS: hyDRALAzine 25 mg Tablet PO (10:17)
[2024-11-19] MEDS: labetalol 200 mg Tablet PO (10:18)
[2024-11-19] MEDS: cloNIDine 0.1 mg Tablet 0.3 MG PO (10:18)
[2024-11-19] MEDS: ALPRAZolam 0.5 mg Tablet PO (10:18)
[2024-11-19] MEDS: verapamil ER 240 mg Tablet PO (10:18)
--- NOTE | 2024-11-19 10:23 | PC.CHAP ---
Pastoral Care Encounter/Spiritual Assessment Type of Contact [] Declined lung puller visit [] Patient/Family/Request visit [] Outpatient visit [] Follow-up visit [] Physician referral [] Code/Alert [x] Routine visit [] Staff referral [] Actively dying [] Patient sleeping [x] Family support [] [] Out of room [] Palliative care [] [] Receiving care in room [] Pre-surgical visit [] Trauma [] Long length of stay [] ICU visit [] Other: Relational/Emotional Strength [x] Patient feels connected with others/family/visitors/staff [x] Distress [] Loneliness/isolation [] Abandonment Spirituality of Patient [x] Person of Nicole [] Attends Sabianism of their Nicole [x] Believes in Prayer [] Reads Bible or Druze materials [] There are Spiritual issues to be addressed Pipe Stem Sawyer Interventions [x] Prayer [x] Active listening [x] Non-anxious presence [x] Spiritual/emotional support [] Crisis/trauma care [] Spiritual counseling [] Bereavement support [] Provided bereavement packet [] Provided Bible/devotional materials [] Provided toy/stuffed animal, coloring book to patient or family member [] Provided Communion [] Anointing/Blanding [] Salvation [x] Completed spiritual assessment [] Other: Impact on Illness or Injury [x] Angry [] Fearful [x] Anxious [] Often cries [] Exhaustion [] Unable to work [] Unable to attend anglican [] Unable to walk/stand [] Unable to read [] Unable to drive [] Unable to eat/drink [] Unable to sleep [] Unable to be with family [] Patient intubated [] Other: Summary Time spent with patient 5 min
[2024-11-19 11:43] VITALS: BP 169/92; PULSE 83; RESP 17; TEMP 36.7; O2SAT 95
== END 2024-11-19 12:15 | disposition home health service (06) ==
LOC: MEDSURG 13:24
PROVIDERS: Internal Medicine; Admitting Provider Orthopaedic Surgery; PCP Family Medicine; Visit Provider Orthopaedic Surgery
PROC: (CPT 63005; principal; 2024-11-18 07:00)
DX: M48.062 Spinal stenosis, lumbar region with neurogenic claudication (principal); I10 Essential (primary) hypertension; E11.9 Type 2 diabetes mellitus without complications; M19.90 Unspecified osteoarthritis, unspecified site; Z79.52 Long term (current) use of systemic steroids; M32.9 Systemic lupus erythematosus, unspecified
CPT/HCPCS: 63047; 36415; 72100; 76000; 80053; 84443; 85025; 97110; 97116; 97161; G0378; J0360; J0690; J1100; J1885; J2405; J2704; J2710; J3010; J3490; J7030; J7120

== ENCOUNTER → 2024-12-03 08:31 | Outpatient (BNVA) | payer MEDICARE, OTHER, SELFPAY | PROVIDERS: PCP Family Medicine; Visit Provider Orthopaedic Surgery | DX: Z98.890 Other specified postprocedural states (principal) | CPT/HCPCS: 99024 ==

== ENCOUNTER → 2024-12-10 13:58 | Outpatient (BNVA) | payer MEDICARE, OTHER, SELFPAY | PROVIDERS: PCP Family Medicine; Visit Provider Internal Medicine Rheumatology | DX: M51.16 Intervertebral disc disorders with radiculopathy, lumbar region (principal); M19.90 Unspecified osteoarthritis, unspecified site; M47.816 Spondylosis without myelopathy or radiculopathy, lumbar region; M48.062 Spinal stenosis, lumbar region with neurogenic claudication; Z79.899 Other long term (current) drug therapy | CPT/HCPCS: 99214 ==

== ENCOUNTER → 2024-12-18 11:15 | Outpatient (BNVA) | payer MEDICARE, OTHER, SELFPAY | PROVIDERS: PCP Family Medicine; Visit Provider Specialist | DX: M17.12 Unilateral primary osteoarthritis, left knee | CPT/HCPCS: 20610; 99213; J7326 ==

== ENCOUNTER 2024-12-30 15:41 | Outpatient (CLI) | payer MEDICARE, OTHER, SELFPAY ==
--- NOTE | 2024-12-30 15:48 | XRR_ITS ---
PROCEDURE INFORMATION: Exam: XR Chest Exam date and time: 12/30/2024 3:53 PM Age: 74 years old Clinical indication: Dyspnea; Difficulty breathing specifically on left side, runny nose and congestion; Additional info: Dyspnea on exertion/ left 4th, 5th, 6th rib pain TECHNIQUE: Imaging protocol: Radiologic exam of the chest. Views: 2 views. COMPARISON: CR XR chest 1V portable [id number] 09/19/2024 3:23 PM FINDINGS: Lungs: Stable calcified right basilar granuloma. No focal airspace consolidation or evidence of pulmonary edema. Pleural spaces: Unremarkable. No pleural effusion. No pneumothorax. Heart/Mediastinum: Unremarkable. No cardiomegaly. Vasculature: Tortuous thoracic aorta with atherosclerotic plaques. Bones/joints: Lumbar fusion hardware partially imaged. XR/XR chest 2V* [id number] IMPRESSION: No acute cardiopulmonary findings.
== END 2024-12-30 15:42 | disposition home or self-care (01) ==
LOC: RAD 15:46
PROVIDERS: PCP Family Medicine; Visit Provider Family Medicine
DX: R06.00 Dyspnea, unspecified (principal); R06.89 Other abnormalities of breathing; R07.81 Pleurodynia; J84.10 Pulmonary fibrosis, unspecified; Q25.46 Tortuous aortic arch; I70.0 Atherosclerosis of aorta; Z98.1 Arthrodesis status
CPT/HCPCS: 71046

== ENCOUNTER → 2024-12-31 07:50 | Outpatient (BNVA) | payer MEDICARE, OTHER, SELFPAY | PROVIDERS: Family Provider Family Medicine; PCP Family Medicine; Visit Provider Orthopaedic Surgery | DX: Z98.890 Other specified postprocedural states (principal) | CPT/HCPCS: 99024 ==

== ENCOUNTER → 2025-02-18 08:17 | Outpatient (BNVA) | payer MEDICARE, OTHER, SELFPAY | PROVIDERS: Family Provider Family Medicine; PCP Family Medicine; Visit Provider Orthopaedic Surgery | DX: Z98.890 Other specified postprocedural states (principal) | CPT/HCPCS: 99024 ==

== ENCOUNTER 2025-03-10 13:18 | Outpatient (CLI) | payer MEDICARE, OTHER, SELFPAY ==
[2025-03-10 13:43] LABS: Basophils # 0.1 10^3/uL (0.0-0.1); Basophils % 1.5 %; Eosinophils # 0.1 10^3/uL (0.0-0.8); Eosinophils % 0.9 %; Hematocrit 32.1 % (36-47); Lymphocytes # 1.2 10^3/uL (0.8-4.8); Lymphocytes % 18.5 %; Mean Corpuscular HGB Conc 31.5 g/dL (30-55); Mean Corpuscular Hemoglobin 30.6 pg (27-33); Mean Corpuscular Volume 97.3 fl (85-98); Mean Platelet Volume 9.2 fL (7.4-10.4); Monocytes # 0.5 10^3/uL (0.2-0.9); Monocytes % 7.6 %; Neutrophils # 4.77 10^3/uL (1.8-7.7); Neutrophils % 71.2 %; Nucleated Red Blood Cells % 0 %; Platelet Count 201 10^3/cmm (157-399); Red Cell Distribution Width 13.5 % (12.1-15.1)
[2025-03-10 13:57] LABS: Erythrocyte Sedimentation Rate 7 mm/hr (0-15)
[2025-03-10 14:03] LABS: Alanine Aminotransferase 13 U/L (0-33); Albumin Level 3.9 g/dL (3.5-5.2); Alkaline Phosphatase 54 U/L (35-105); Aspartate Amino Transferase 12 U/L (0-32); Globulin 2.6 g/dL (1.3-4.6); Total Bilirubin 0.2 mg/dL (0.15-1.2); Total Protein 6.5 g/dL (6.6-8.7)
== END 2025-03-10 13:19 | disposition home or self-care (01) ==
PROVIDERS: PCP Family Medicine; Visit Provider Internal Medicine Rheumatology
DX: Z79.899 Other long term (current) drug therapy (principal)
CPT/HCPCS: 36415; 80076; 82565; 85025; 85651; 86140

== ENCOUNTER → 2025-03-14 11:27 | Outpatient (BNVA) | payer MEDICARE, OTHER, SELFPAY | PROVIDERS: PCP Family Medicine; Visit Provider Specialist | DX: M17.12 Unilateral primary osteoarthritis, left knee (principal) | CPT/HCPCS: 20610; J1100; J2795; J3301; J9999 ==

== ENCOUNTER 2025-03-17 14:46 | Emergency (ER) | payer MEDICARE, OTHER, SELFPAY ==
[2025-03-17 14:52] VITALS: BP 129/78; PULSE 80; TEMP 36.7; O2SAT 96; BMI 24.5
--- NOTE | 2025-03-17 15:23 | ECG_ITS ---
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 Measurements Intervals [place] Rate: 75 P: 47 GA: 136 QRS: 15 QRSD: 82 T: 46 QT: 371 QTc: 415 Interpretive Statements SINUS RHYTHM WITH SINUS ARRHYTHMIA POSSIBLE ANTERIOR MYOCARDIAL INFARCTION , PROBABLY OLD [30 ms Q WAVE IN V3/V4, OR R < 0.2 mV IN V4] INTERPRETATION BASED ON A DEFAULT AGE OF 40 YEARS Compared to ECG 09/19/2024 15:44:07 Myocardial infarct finding now present T-wave abnormality no longer present Electronically Signed On 03-17-2025 18:54:24 CDT by Shona Hamilton M.D. [email or web address]
[2025-03-17 16:04] LABS: Basophils % 0.1 %; Hematocrit 35.4 % (36-47); Lymphocytes # 0.7 10^3/uL (0.8-4.8); Lymphocytes % 8.9 %; Mean Corpuscular HGB Conc 31.9 g/dL (30-55); Mean Corpuscular Hemoglobin 31.2 pg (27-33); Mean Corpuscular Volume 97.8 fl (85-98); Mean Platelet Volume 9.4 fL (7.4-10.4); Monocytes # 0.8 10^3/uL (0.2-0.9); Monocytes % 9.2 %; Neutrophils # 6.76 10^3/uL (1.8-7.7); Neutrophils % 81.4 %; Nucleated Red Blood Cells % 0 %; Platelet Count 199 10^3/cmm (157-399); Red Blood Count 3.62 10^6/uL (3.85-5.65); Red Cell Distribution Width 13.3 % (12.1-15.1)
--- NOTE | 2025-03-17 16:22 | W.ED.GENADLT ---
Documented by User: JAUN Goldsmith 03/17/25 17:07 HPI - General Adult General: Chief complaint: General Medical Stated complaint: high bp Time Seen by Provider: 03/17/25 15:23 Source: patient Mode of arrival: ambulatory Limitations: no limitations History of Present Illness: Patient is a 75-year-old female presents to ED today with concerns of an elevated blood pressure reading at home. Patient states she has chronic hypertension and takes many medications including hydralazine, labetalol, and verapamil for her blood pressure. She states at home her blood pressure normally runs roughly 140s systolic although she will sometimes have higher systolic readings. She states she woke up this morning with a headache and checked her blood pressure and her systolic was over 200 so decided to seek medical evaluation. She did states she took a nitro prior to arrival to the ED. At triage her blood pressure was 129/78. When I evaluated her she had a manual blood pressure of 170s/90s. She does feel like her headache has improved. She is not having any chest pain, dizziness, visual changes. Onset (ago): hour(s) Relieving factors: none Exacerbating factors: none Associated symptoms: Reports no associated symptoms and headache(s) (this AM-improved at time of my examination); Deny chest pain, confusion, dyspnea, malaise, nausea or vomiting Treatments prior to arrival: none Related Data Home Medications ?Medication ?Instructions ?Recorded ?Confirmed hydralazine 25 mg tablet 25 mg PO QID 03/17/25 03/17/25 verapamil 120 mg tablet,extended 120 mg PO BID 03/17/25 03/17/25 release Previous Rx's ?Medication ?Instructions ?Recorded nitroglycerin 0.4 mg sublingual 0.4 mg sublingual Q5M PRN chest 09/14/22 tablet pain #25 tabs hydrocodone 5 mg-acetaminophen 325 1 - 2 tab PO .Q4-6H #40 tabs 11/18/24 mg tablet alprazolam 0.5 mg tablet 0.5 mg PO QID #120 tabs 11/25/24 leflunomide 20 mg tablet 20 mg PO DAILY #90 tabs 12/10/24 prednisone 5 mg tablet 5 mg PO DAILY PRN pain flare #30 12/10/24 tabs tramadol 50 mg tablet 50 mg PO Q8H PRN pain 20 days #60 12/30/24 tabs labetalol 200 mg tablet 100 mg (1/2 x 200 mg) .Route Q12H 03/10/25 #270 tabs linaclotide 145 mcg capsule 145 mcg PO DAILY #30 caps 03/10/25 (Linzess) Allergies Allergy/AdvReac Type Severity Reaction Status Date / Time sulfasalazine Allergy Unknown ADR-Nausea Verified 03/17/25 15:01 plastics Allergy ALGY-Rash Uncoded 03/17/25 15:01 Review of Systems Const: Denies: fever(s), chills, body aches, fatigue or malaise Card: Denies: chest pain Resp: Denies: dyspnea GI: Denies: abdominal pain, nausea or vomiting : Denies: flank pain, dysuria or hematuria Musc: Denies: neck pain, back pain, extremity pain, extremity swelling, joint swelling or joint redness Neuro: Reports: headache(s) (this AM-improved at time of my examination); Denies: numbness in extremities, weakness in extremities, sensory changes, lack of coordination, difficulty walking, dizziness, confusion, behavioral changes, Slurred speech present, difficulty communicating thoughts or seizure-like activity PFSH ED PFSH: Medical History Immunization counseling High risk medication use Inflammatory arthritis Eczema History of colon polyps Irritable bowel syndrome with both constipation and diarrhea Thoracic spine pain Essential hypertension Anxiety Diabetes Lumbar disc disease with radiculopathy Surgical History History of colonoscopy (03/23/21) 2015: Colon polyps 2020: Mild diverticulosis History of cholecystectomy History of dilation and curettage History of total hysterectomy Family History Father Parkinson disease Cancer Mother Cancer Social History Smoking and tobacco/nicotine status: never used tobacco/nicotine Second hand smoke exposure: No Alcohol intake: never Substance/Drug Use: never Physical Exam Const: COMMON NORMALS: no acute distress, patient oriented x3, no limitations, alert and well nourished GENERAL APPEARANCE: cooperative ORIENTATION/CONSCIOUSNESS: Yes awake, Yes oriented to person, Yes oriented to place and Yes oriented to time HENMT: COMMON NORMALS: normocephalic and atraumatic HEAD & SCALP: normal to inspection, normocephalic and atraumatic FACE & SINUS: face symmetric Neck/C-Spine: COMMON NORMALS: full ROM, no lymphadenopathy, supple and no meningeal signs Chest: COMMONS NORMALS: normal inspection of the chest Resp: COMMON NORMALS: normal respiratory effort and clear to auscultation bilaterally AUSCULTATION: clear to auscultation bilaterally Cardio: COMMON NORMALS: regular rate and regular rhythm RATE: regular rate RHYTHM: regular rhythm GI: COMMON NORMALS: Normal to inspection, nondistended, normoactive bowel sounds present, Soft to palpation, non-tender, No hepatosplenomegaly present and no masses PALPATION: Yes Soft to palpation and Yes No hepatosplenomegaly present : COMMON NORMALS: Yes no CVA tenderness BLADDER/KIDNEY EXAM: Yes no CVA tenderness Back/Pelvis: COMMON NORMALS: no CVA tenderness and thoracic and lumbar spine normal to inspection Extremity: COMMON NORMALS: normal to inspection GENERAL: Yes normal exam except as noted Neuro: ROBYN COMA SCALE: document GCS findings Robyn coma scale eye opening: Spontaneous Robyn coma scale verbal response: Orientated [place] coma scale motor response: Obey commands [place] coma scale total score: 15 COMMON NORMALS: patient oriented x3, CN's II-XII intact bilaterally, moves all extremities, no focal motor deficits, no sensory deficits noted and gait normal SENSORIUM/ORIENTATION: Yes alert, Yes oriented to person, Yes oriented to place and Yes oriented to time MENINGEAL SIGNS: Yes no meningeal signs Skin: COMMON NORMALS: no rashes or lesions noted GENERAL SKIN EXAM: no rashes or lesions noted Course Vital Signs: Vital signs: Vital Signs Temperature 98.1 F 03/17/25 14:52 Pulse Rate 79 03/17/25 18:21 Blood Pressure 173/92 03/17/25 18:21 Pulse Oximetry 98 03/17/25 18:21 Oxygen Delivery Me thod Room Air 03/17/25 17:30 [facility] - General Adult Lab Data 03/17/25 15:48 03/17/25 15:48 Laboratory Results WBC 8.30 10^3/uL (3.29-11.43) 03/17/25 15:48 RBC 3.62 10^6/uL (3.85-5.65) L 03/17/25 15:48 Hgb 11.30 g/dL (11.27-16.99) 03/17/25 15:48 Hct 35.4 % (36-47) L 03/17/25 15:48 MCV 97.8 fl (85-98) 03/17/25 15:48 MCH 31.2 pg (27-33) 03/17/25 15:48 MCHC 31.9 g/dL (30-55) 03/17/25 15:48 RDW 13.3 % (12.1-15.1) 03/17/25 15:48 Plt Count 199 10^3/cmm (157-399) 03/17/25 15:48 MPV 9.4 fL (7.4-10.4) 03/17/25 15:48 Neut % (Auto) 81.4 % 03/17/25 15:48 Lymph % (Auto) 8.9 % 03/17/25 15:48 Mccormick % (Auto) 9.2 % 03/17/25 15:48 Eos % (Auto) 0.0 % 03/17/25 15:48 Baso % (Auto) 0.1 % 03/17/25 15:48 Neut # (Auto) 6.76 10^3/uL (1.8-7.7) 03/17/25 15:48 Lymph # (Auto) 0.7 10^3/uL (0.8-4.8) L 03/17/25 15:48 Mccormick # (Auto) 0.8 10^3/uL (0.2-0.9) 03/17/25 15:48 Eos # (Auto) 0.0 10^3/uL (0.0-0.8) 03/17/25 15:48 Baso # (Auto) 0.0 10^3/uL (0.0-0.1) 03/17/25 15:48 Nucleated RBC % (auto) 0 % 03/17/25 15:48 Nucleated RBCs # 0.0 /100WBC 03/17/25 15:48 Sodium 141 mmol/L (136-145) 03/17/25 15:48 Potassium 4.2 mmol/L (3.5-5.1) 03/17/25 15:48 Chloride 106 mmol/L (98-107) 03/17/25 15:48 Carbon Dioxide 27 mmol/L (22-29) 03/17/25 15:48 Anion Gap 12.2 (5-19) 03/17/25 15:48 BUN 23 mg/dL (8-23) 03/17/25 15:48 Creatinine 0.8 mg/dL (0.5-0.9) 03/17/25 15:48 GFR Calculation Not Reportable 03/17/25 15:48 Glucose 99 mg/dL (65-115) 03/17/25 15:48 Calculated Osmolality 296 mOsm/kg (285-295) H 03/17/25 15:48 Calcium 9.0 mg/dL (8.5-10.5) 03/17/25 15:48 Total Bilirubin 0.3 mg/dL (0.15-1.2) 03/17/25 15:48 AST 26 U/L (0-32) 03/17/25 15:48 ALT 42 U/L (0-33) H 03/17/25 15:48 Alkaline Phosphatase 50 U/L (35-105) 03/17/25 15:48 Total Protein 6.3 g/dL (6.6-8.7) L 03/17/25 15:48 Albumin 3.8 g/dL (3.5-5.2) 03/17/25 15:48 Globulin 2.5 g/dL (1.3-4.6) 03/17/25 15:48 Discharge Plan Discharge Patient Disposition: Home Clinical Impression: Essential hypertension Condition: Stable Prescriptions: No Action leflunomide 20 mg tablet 20 mg PO DAILY Qty: 90 1RF prednisone 5 mg tablet 5 mg PO DAILY PRN (Reason: pain flare) Qty: 30 1RF tramadol 50 mg tablet 50 mg PO Q8H PRN (Reason: pain) 20 Days Qty: 60 0RF labetalol 200 mg tablet 100 mg .ROUTE Q12H Qty: 270 1RF Rx Instructions: 100 mg every 12 hours; Linzess 145 mcg capsule 145 mcg PO DAILY Qty: 30 0RF nitroglycerin 0.4 mg tablet, sublingual 0.4 mg SUBLINGUAL Q5M PRN (Reason: chest pain) Qty: 25 2RF Rx Instructions: do not exceed 3 doses per episode alprazolam 0.5 mg tablet 0.5 mg PO QID Qty: 120 5RF hydrocodone-acetaminophen 5-325 mg tablet 1 - 2 tab PO .Q4-6H Qty: 40 0RF verapamil 120 mg tablet extended release 120 mg PO BID Rx Instructions: TAKE ONE TABLET BY MOUTH TWICE DAILY hydralazine 25 mg tablet 25 mg PO QID Rx Instructions: TAKE 1 TABLET BY MOUTH FOUR TIMES DAILY Discharge Orders: Discharge ED (Routine); Ordered 03/17/25 Ordered By: Tha Crystal Referrals: Ann Marie Kim MD [Primary Care Provider] - Patient Instructions: Hypertension (ED) Activity Restrictions/Additional Instructions: Please follow-up with your regular doctor tomorrow as discussed. Increase your dose of hydralazine to 50 mg p.o. 4 times daily. Please return with any chest pain, shortness of breath, continued issues with your blood pressure, or other concerning signs or symptoms. Continue taking the rest of your medications as prescribed. Keep a log of your blood pressures at home to report to your primary care. Print Language: Greenlandic Sign Out Sign Out Data: Patient Sign Out occurred on 03/17/25 at 17:19. Patient's care was discussed, and care was transferred from JAUN Goldsmith to JAUN Daly. Coding Level of Care Code ED Director Of Rooms for Chg Fwd Documented by User: JAUN Daly 03/17/25 19:03 HPI - General Adult General: Chief complaint: General Medical Stated complaint: high bp Time Seen by Provider: 03/17/25 15:23 Related Data Home Medications ?Medication ?Instructions ?Recorded ?Confirmed hydralazine 25 mg tablet 25 mg PO QID 03/17/25 03/17/25 verapamil 120 mg tablet,extended 120 mg PO BID 03/17/25 03/17/25 release Previous Rx's ?Medication ?Instructions ?Recorded nitroglycerin 0.4 mg sublingual 0.4 mg sublingual Q5M PRN chest 09/14/22 tablet pain #25 tabs hydrocodone 5 mg-acetaminophen 325 1 - 2 tab PO .Q4-6H #40 tabs 11/18/24 mg tablet alprazolam 0.5 mg tablet 0.5 mg PO QID #120 tabs 11/25/24 leflunomide 20 mg tablet 20 mg PO DAILY #90 tabs 12/10/24 prednisone 5 mg tablet 5 mg PO DAILY PRN pain flare #30 12/10/24 tabs tramadol 50 mg tablet 50 mg PO Q8H PRN pain 20 days #60 12/30/24 tabs labetalol 200 mg tablet 100 mg (1/2 x 200 mg) .Route Q12H 03/10/25 #270 tabs linaclotide 145 mcg capsule 145 mcg PO DAILY #30 caps 03/10/25 (Linzess) Allergies Allergy/AdvReac Type Severity Reaction Status Date / Time sulfasalazine Allergy Unknown ADR-Nausea Verified 03/17/25 15:01 plastics Allergy ALGY-Rash Uncoded 03/17/25 15:01 PFS ED PFSH: Medical History Immunization counseling High risk medication use Inflammatory arthritis Eczema History of colon polyps Irritable bowel syndrome with both constipation and diarrhea Thoracic spine pain Essential hypertension Anxiety Diabetes Lumbar disc disease with radiculopathy Surgical History History of colonoscopy (03/23/21) 2015: Colon polyps 2020: Mild diverticulosis History of cholecystectomy History of dilation and curettage History of total hysterectomy Family History Father Parkinson disease Cancer Mother Cancer Social History Smoking and tobacco/nicotine status: never used tobacco/nicotine Second hand smoke exposure: No Alcohol intake: never Substance/Drug Use: never Physical Exam Neuro: ROBYN COMA SCALE: document GCS findings Robyn coma scale total score: 15 Course Vital Signs: Vital signs: Vital Signs Temperature 98.1 F 03/17/25 14:52 Pulse Rate 79 03/17/25 18:21 Blood Pressure 173/92 03/17/25 18:21 Pulse Oximetry 98 03/17/25 18:21 Oxygen Delivery Me thod Room Air 03/17/25 17:30 MDM - General Adult Medical Decision Making Care of patient transferred me by Nicole Jiang PA-C. Patient presented for concerns of her blood pressure, reportedly was 200 systolic, only associated symptom reported was a headache. Reviewing her prior blood pressures with prior visits this does appear to be an issue with her, in September was seen for the same issue. With her medication list it appears that she takes hydralazine, labetalol, and verapamil among other medications. She did note to me that she did hit her head recently has been dealing with a lot of pain, I suspect this has caused an increase in her blood pressure. Also was notably anxious when I am discussing discharge planning with her as we were able to get her blood pressure down to 170/90 with hydralazine and metoprolol here in the emergency department. In addition we checked her lab work that showed normal renal function and overall no abnormalities. Her EKG also reviewed with physician did not show any acute STEMI or other concerns. Will upper hydralazine to 50 mg 4 times daily and have her see her regular doctor within the next 24 to 48 hours for close reevaluation. As mentioned I do suspect that pain and anxiety could be potentially causing the increased blood pressure readings she is having at home, I did evaluate her scalp and head and I do not see any signs of trauma nor do I suspect any intracranial abnormalities. Prior to following up with regular doctor, encouraged her to take a close log of her blood pressures as well as to take the rest of her medications as prescribed. Discussed with her return precautions, such that if she starts to have any severe worsening headache, onset of chest pain or shortness of breath, or overall any worsening condition to return immediately to the emergency department. She agrees with this plan and is comfortable with discharge home at this time. Lab Data 03/17/25 15:48 03/17/25 15:48 Laboratory Results WBC 8.30 10^3/uL (3.29-11.43) 03/17/25 15:48 RBC 3.62 10^6/uL (3.85-5.65) L 03/17/25 15:48 Hgb 11.30 g/dL (11.27-16.99) 03/17/25 15:48 Hct 35.4 % (36-47) L 03/17/25 15:48 MCV 97.8 fl (85-98) 03/17/25 15:48 MCH 31.2 pg (27-33) 03/17/25 15:48 MCHC 31.9 g/dL (30-55) 03/17/25 15:48 RDW 13.3 % (12.1-15.1) 03/17/25 15:48 Plt Count 199 10^3/cmm (157-399) 03/17/25 15:48 MPV 9.4 fL (7.4-10.4) 03/17/25 15:48 Neut % (Auto) 81.4 % 03/17/25 15:48 Lymph % (Auto) 8.9 % 03/17/25 15:48 Mccormick % (Auto) 9.2 % 03/17/25 15:48 Eos % (Auto) 0.0 % 03/17/25 15:48 Baso % (Auto) 0.1 % 03/17/25 15:48 Neut # (Auto) 6.76 10^3/uL (1.8-7.7) 03/17/25 15:48 Lymph # (Auto) 0.7 10^3/uL (0.8-4.8) L 03/17/25 15:48 Mccormick # (Auto) 0.8 10^3/uL (0.2-0.9) 03/17/25 15:48 Eos # (Auto) 0.0 10^3/uL (0.0-0.8) 03/17/25 15:48 Baso # (Auto) 0.0 10^3/uL (0.0-0.1) 03/17/25 15:48 Nucleated RBC % (auto) 0 % 03/17/25 15:48 Nucleated RBCs # 0.0 /100WBC 03/17/25 15:48 Sodium 141 mmol/L (136-145) 03/17/25 15:48 Potassium 4.2 mmol/L (3.5-5.1) 03/17/25 15:48 Chloride 106 mmol/L (98-107) 03/17/25 15:48 Carbon Dioxide 27 mmol/L (22-29) 03/17/25 15:48 Anion Gap 12.2 (5-19) 03/17/25 15:48 BUN 23 mg/dL (8-23) 03/17/25 15:48 Creatinine 0.8 mg/dL (0.5-0.9) 03/17/25 15:48 GFR Calculation Not Reportable 03/17/25 15:48 Glucose 99 mg/dL (65-115) 03/17/25 15:48 Calculated Osmolality 296 mOsm/kg (285-295) H 03/17/25 15:48 Calcium 9.0 mg/dL (8.5-10.5) 03/17/25 15:48 Total Bilirubin 0.3 mg/dL (0.15-1.2) 03/17/25 15:48 AST 26 U/L (0-32) 03/17/25 15:48 ALT 42 U/L (0-33) H 03/17/25 15:48 Alkaline Phosphatase 50 U/L (35-105) 03/17/25 15:48 Total Protein 6.3 g/dL (6.6-8.7) L 03/17/25 15:48 Albumin 3.8 g/dL (3.5-5.2) 03/17/25 15:48 Globulin 2.5 g/dL (1.3-4.6) 03/17/25 15:48 No radiology studies performed this visit Discharge Plan Discharge Patient Disposition: Home Clinical Impression: Essential hypertension Condition: Stable Prescriptions: No Action leflunomide 20 mg tablet 20 mg PO DAILY Qty: 90 1RF prednisone 5 mg tablet 5 mg PO DAILY PRN (Reason: pain flare) Qty: 30 1RF tramadol 50 mg tablet 50 mg PO Q8H PRN (Reason: pain) 20 Days Qty: 60 0RF labetalol 200 mg tablet 100 mg .ROUTE Q12H Qty: 270 1RF Rx Instructions: 100 mg every 12 hours; Linzess 145 mcg capsule 145 mcg PO DAILY Qty: 30 0RF nitroglycerin 0.4 mg tablet, sublingual 0.4 mg SUBLINGUAL Q5M PRN (Reason: chest pain) Qty: 25 2RF Rx Instructions: do not exceed 3 doses per episode alprazolam 0.5 mg tablet 0.5 mg PO QID Qty: 120 5RF hydrocodone-acetaminophen 5-325 mg tablet 1 - 2 tab PO .Q4-6H Qty: 40 0RF verapamil 120 mg tablet extended release 120 mg PO BID Rx Instructions: TAKE ONE TABLET BY MOUTH TWICE DAILY hydralazine 25 mg tablet 25 mg PO QID Rx Instructions: TAKE 1 TABLET BY MOUTH FOUR TIMES DAILY Discharge Orders: Discharge ED (Routine); Ordered 03/17/25 Ordered By: Tha Crystal Referrals: Ann Marie Kim MD [Primary Care Provider] - Patient Instructions: Hypertension (ED) Activity Restrictions/Additional Instructions: Please follow-up with your regular doctor tomorrow as discussed. Increase your dose of hydralazine to 50 mg p.o. 4 times daily. Please return with any chest pain, shortness of breath, continued issues with your blood pressure, or other concerning signs or symptoms. Continue taking the rest of your medications as prescribed. Keep a log of your blood pressures at home to report to your primary care. Print Language: [place]ic Sign Out Sign Out Data: Patient Sign Out occurred on 03/17/25 at 17:19. Patient's care was discussed, and care was transferred from JAUN Goldsmith to JAUN Daly. Coding Level of Care Code ED Director Of Rooms for [facility] [place]
[2025-03-17 16:29] LABS: Alanine Aminotransferase 42 U/L (0-33); Albumin Level 3.8 g/dL (3.5-5.2); Alkaline Phosphatase 50 U/L (35-105); Anion Gap 12.2 (5-19); Aspartate Amino Transferase 26 U/L (0-32); Blood Urea Nitrogen 23 mg/dL (8-23); Carbon Dioxide 27 mmol/L (22-29); Chloride 106 mmol/L (98-107); Creatinine Clr Calc Pharmacy 51.3517; Globulin 2.5 g/dL (1.3-4.6); Glucose 99 mg/dL (65-115); Osmolality Calculated 296 mOsm/kg (285-295); Potassium 4.2 mmol/L (3.5-5.1); Sodium 141 mmol/L (136-145); Total Bilirubin 0.3 mg/dL (0.15-1.2); Total Protein 6.3 g/dL (6.6-8.7)
[2025-03-17 16:35] VITALS: BP 170/90
[2025-03-17 17:08] VITALS: BP 193/101; PULSE 71; O2SAT 98
[2025-03-17] MEDS: hyDRALAzine 20 mg/mL INJ 1 mL 10 MG IVP (17:08)
[2025-03-17] MEDS: metoprolol tartrate 1 mg/1 mL SDV 5 mL 2.5 MG IVP (17:08)
[2025-03-17 17:30] VITALS: BP 164/90; PULSE 78; O2SAT 98
[2025-03-17 18:21] VITALS: BP 173/92; PULSE 79; O2SAT 98
== END 2025-03-17 18:22 | disposition home or self-care (01) ==
PROVIDERS: Physician Assistant; Emergency Provider Physician Assistant; PCP Family Medicine
DX: I10 Essential (primary) hypertension (principal); E11.9 Type 2 diabetes mellitus without complications
CPT/HCPCS: 36415; 80053; 85025; 93005; 96374; 96375; 99284; J0360; J3490

== ENCOUNTER → 2025-03-18 14:05 | Outpatient (BNVA) | payer MEDICARE, OTHER, SELFPAY | PROVIDERS: PCP Family Medicine; Visit Provider Internal Medicine Rheumatology | DX: M51.16 Intervertebral disc disorders with radiculopathy, lumbar region (principal); M19.90 Unspecified osteoarthritis, unspecified site; Z79.899 Other long term (current) drug therapy; M48.062 Spinal stenosis, lumbar region with neurogenic claudication; M47.816 Spondylosis without myelopathy or radiculopathy, lumbar region | CPT/HCPCS: 99214 ==

== ENCOUNTER 2025-05-02 17:53 | Inpatient (IN) | payer MEDICARE, OTHER, SELFPAY ==
[2025-05-02 18:01] VITALS: BP 101/62; PULSE 92; RESP 16; TEMP 36.4; O2SAT 96; BMI 27.2
[2025-05-02 20:40] VITALS: BP 122/73; PULSE 90; RESP 16; O2SAT 96
--- NOTE | 2025-05-02 20:53 | CTR_ITS ---
PROCEDURE INFORMATION: Exam: CT Abdomen And Pelvis Without Contrast Exam date and time: 05/02/2025 9:04 PM Age: 75 years old Clinical indication: Nausea and vomiting; Abdominal pain; Localized; Prior surgery; Surgery date: 6+ months; Surgery type: Gb. Hysterectomy. Lumbar fusion. C/O upper abd pain with n/v/d. History of ibs. ; Additional info: Diffuse abd pain TECHNIQUE: Imaging protocol: Computed tomography of the abdomen and pelvis without contrast. Radiation optimization: All CT scans at this facility use at least one of these dose optimization techniques: automated exposure control; mA and/or kV adjustment per patient size (includes targeted exams where dose is matched to clinical indication); or iterative reconstruction. COMPARISON: CT abdomen pelvis w con* [id number] 06/04/2024 11:24 AM RADIATION DOSE METRICS: Total DLP (mGy-cm): 551.56 FINDINGS: Lungs: Right lower lobe granuloma. No airspace disease. Pleural spaces: No pleural fluid or pneumothorax. Heart: Heart size is normal. Diaphragm: Tiny sliding hiatal hernia. Liver: Liver measures 18.8 cm in length. Gallbladder and biliary ducts: Prior cholecystectomy. No biliary tree dilation or high-density retained stones appreciated. Pancreas: No edema or significant contour deformity. No ductal dilation. Diffuse atrophy. Spleen: Spleen measures 7.2 cm in length. Adrenal glands: Normal configuration. Kidneys and ureters: There is mild bilateral renal atrophy without evidence of obstruction. No significant renal contour deformity. Stomach and bowel: Postprandial stomach. Normal caliber small bowel. There is large volume fecal debris throughout the colon. Beginning at the splenic flexure and extending through the rectum, there is colonic mural thickening. Prominent paracolic vessels. Scattered distal colonic diverticula without convincing acute diverticulitis. Appendix: Normal appendix is confirmed. Intraperitoneal space: No free air. No significant fluid collection. Vasculature: Mild to moderate aortoiliac calcific atherosclerosis without aneurysm. No portal venous gas. Lymph nodes: No enlarged lymph nodes. Urinary bladder: Unremarkable as visualized. Reproductive: Prior hysterectomy. No evidence of vaginal cuff or adnexal mass. Pelvic floor insufficiency noted. Bones/joints: Diffuse fatty atrophy of skeletal muscle. Advanced spinal degenerative change. There has been prior lower lumbar laminectomy with fusion procedure at L4-L5. No evidence of hardware failure. Adequate spinal canal. Mild bilateral sacroiliac osteoarthritis. Mild right hip arthropathy. No acute fracture or destructive bony lesion. Soft tissues: Unremarkable. CT/CT abdomen pelvis wo con [id number] IMPRESSION: 1. Exam demonstrates features of colitis beginning at the splenic flexure and extending through the anorectal junction. There is large volume fecal debris throughout the colon suggesting secondary constipation/obstipation. No discrete obstructing lesion is evident. 2. There is diverticulosis without evidence of acute diverticulitis.
[2025-05-02 21:17] LABS: Basophils # 0.1 10^3/uL (0.0-0.1); Basophils % 0.6 %; Eosinophils # 0.1 10^3/uL (0.0-0.8); Eosinophils % 0.5 %; Hematocrit 35.8 % (36-47); Lymphocytes # 0.8 10^3/uL (0.8-4.8); Lymphocytes % 3.7 %; Mean Corpuscular HGB Conc 31.8 g/dL (30-55); Mean Corpuscular Hemoglobin 31.8 pg (27-33); Mean Platelet Volume 10.2 fL (7.4-10.4); Monocytes # 1.5 10^3/uL (0.2-0.9); Monocytes % 7.1 %; Neutrophils # 17.99 10^3/uL (1.8-7.7); Neutrophils % 87.7 %; Nucleated Red Blood Cells % 0 %; Platelet Count 216 10^3/cmm (157-399); Red Blood Count 3.58 10^6/uL (3.85-5.65); Red Cell Distribution Width 12.8 % (12.1-15.1); White Blood Count 20.51 10^3/uL (3.29-11.43)
--- NOTE | 2025-05-02 21:18 | ED_ITS ---
HPI - Nausea/Vomiting/Diarrhea 2 General: Chief complaint: Nausea/Vomiting/Diarrhea Stated complaint: n/v/d Time Seen by Provider: 05/02/25 20:22 History of Present Illness: Patient is a 75-year-old female with history of hypertension, inflammatory arthritis with secondary DM that presents to the emergency room due to nausea, vomiting, and diarrhea. Patient had 2 loose stools today, nausea and vomiting x 3. This started abruptly at 1130 today. Patient had normal breakfast. She complains of right lower quadrant pain after prompting. No recent antibiotics. No recent travel. Associated nausea: Yes Associated symtoms: Reports nausea; Denies chest pain or palpitations Related Data Home Medications ?Medication ?Instructions ?Recorded ?Confirmed verapamil 120 mg tablet,extended 120 mg PO BID 5 04/07/25 release Previous Rx's ?Medication ?Instructions ?Recorded nitroglycerin 0.4 mg sublingual 0.4 mg sublingual Q5M PRN chest 09/14/22 tablet pain #25 tabs hydrocodone 5 mg-acetaminophen 325 1 - 2 tab PO .Q4-6H #40 tabs 11/18/ mg tablet alprazolam 0.5 mg tablet 0.5 mg PO QID #120 tabs 10/29 024 prednisone 5 mg tablet 5 mg PO DAILY PRN pain flare #30 12/10/24 tabs labetalol 200 mg tablet 100 mg (1/2 x 200 mg) .Route Q12H 03/10/25 #270 tabs linaclotide 145 mcg capsule 145 mcg PO DAILY #30 caps 03/10/25 (Linzess) leflunomide 20 mg tablet 20 mg PO DAILY #90 tabs 02/26 01/21 clonidine HCl 0.3 mg tablet See Rx Instructions .Route 03/25/25 .COMPLEX #180 tabs tramadol 50 mg tablet 50 mg PO Q8H PRN pain 30 day s #90 04/07/25 tabs hydralazine 25 mg tablet See Rx Instructions .Route 0 04/22/25 .COMPLEX #240 tabs Allergies Allergy/AdvReac Type Severity Reaction Status Date / Time sulfasalazine Allergy Unknown ADR-Nausea Verified 04/07/25 10:39 plastics Allergy ALGY-Rash Uncoded 04/07/25 10:39 Review of Systems 2 Const: Denies: fever(s) or chills Card: Denies: chest pain or palpitations Resp: Denies: dyspnea or productive cough GI: Reports: abdominal pain, nausea and vomiting; Denies: coffee ground emesis or diarrhea Musc: Denies: neck pain, back pain or joint pain Skin/Breast: Denies: rash or pruritus Jovanni/Lymph: Denies: easy bruising or easy bleeding PFSH ED 2 PFSH: Medical History Immunization counseling High risk medication use Inflammatory arthritis Eczema History of colon polyps Irritable bowel syndrome with both constipation and diarrhea Thoracic spine pain Essential hypertension Anxiety Diabetes Lumbar disc disease with radiculopathy Surgical History History of colonoscopy (03/23/21) 2015: Colon polyps 2020: Mild diverticulosis History of cholecystectomy History of dilation and curettage History of total hysterectomy Family History Father Parkinson disease Cancer Mother Cancer Social History Smoking and tobacco/nicotine status: never used tobacco/nicotine Second hand smoke exposure: No Alcohol intake: never Substance/Drug Use: never Physical Exam 2 Const: COMMON NORMALS: no acute distress, average body habitus, patient oriented x3 and no limitations GENERAL APPEARANCE: cooperative Resp: COMMON NORMALS: normal respiratory effort, No retractions, No use of accessory muscles and clear to auscultation bilaterally AUSCULTATION: clear to auscultation bilaterally Cardio: COMMON NORMALS: regular rhythm, S1 normal heart sound present and S2 normal heart sound present RHYTHM: regular rhythm HEART SOUNDS: S1 normal heart sound present and S2 normal heart sound present GI: AUSCULTATION: Yes normoactive bowel sounds PALPATION: Yes Tenderness to palpation present (GI) Details: RLQ Neuro: COMMON NORMALS: patient oriented x3 Course 2 Reevaluation(s): Reevaluation #1: Dr. Blackburn accepted pt. Recommends Cipro 200 mg with flagyl and 500 ml more bolus. LA redraw, and blood cultures added Vital Signs: Vital signs: Vital Signs Temperature 97.5 F L 05/02/25 18:01 Pulse Rate 86 05/02/25 21:22 Respiratory Rate 16 05/02/25 21:22 Blood Pressure 122/95 05/02/25 21:22 Pulse Oximetry 95 05/02/25 21:22 Oxygen Delivery Me thod Room Air 05/02/25 18:01 MDM - Nausea/Vomiting/Diarrhea Medical Decision Making Obtain routine labs, and CT given mild guarding. Noting CT with splenic flexure colitis extending to anal rectal raises the question of ulcerative colitis. Patient has history of inflammatory arthritis, therefore we will stress dose x 1 with Solu-Cortef, however patient will need follow-up colonoscopy after admission. Given her JESSICA, I did call hospitalist to consult for possible admission. Hospitalist agrees for admission. Most likely associated with GI loss, however cannot rule out ATN. There was mild association of metabolic acidosis. No concern of C. difficile colitis as differential given there is no recent antibiotics, and does not appear to be gross diarrhea. Differential Diagnosis Likely gastroenteritis and dehydration Lab Data 05/02/25 20:35 05/02/25 20:35 Radiology Impressions Abdomen/Pelvis CT 05/02/25 20:53 IMPRESSION: 1. Exam demonstrates features of colitis beginning at the splenic flexure and extending through the anorectal junction. There is large volume fecal debris throughout the colon suggesting secondary constipation/obstipation. No discrete obstructing lesion is evident. 2. There is diverticulosis without evidence of acute diverticulitis. Laboratory Results WBC 20.51 10^3/uL (3.29-11.43) H 05/02/25 20:35 RBC 3.58 10^6/uL (3.85-5.65) L 05/02/25 20:35 Hgb 11.40 g/dL (11.27-16.99) 05/02/25 20:35 Hct 35.8 % (36-47) L 05/02/25 20:35 MCV 100.0 fl (85-98) H 05/02/25 20:35 MCH 31.8 pg (27-33) 05/02/25 20:35 MCHC 31.8 g/dL (30-55) 05/02/25 20:35 RDW 12.8 % (12.1-15.1) 05/02/25 20:35 Plt Count 216 10^3/cmm (157-399) 05/02/25 20:35 MPV 10.2 fL (7.4-10.4) 05/02/25 20:35 Neut % (Auto) 87.7 % 05/02/25 20:35 Lymph % (Auto) 3.7 % 05/02/25 20:35 [place] % (Auto) 7.1 % 05/02/25 20:35 Eos % (Auto) 0.5 % 05/02/25 20:35 Baso % (Auto) 0.6 % 05/02/25 20:35 Neut # (Auto) 17.99 10^3/uL (1.8-7.7) H 05/02/25 20:35 Lymph # (Auto) 0.8 10^3/uL (0.8-4.8) 05/02/25 20:35 [place] # (Auto) 1.5 10^3/uL (0.2-0.9) H 05/02/25 20:35 Eos # (Auto) 0.1 10^3/uL (0.0-0.8) 05/02/25 20:35 Baso # (Auto) 0.1 10^3/uL (0.0-0.1) 05/02/25 20:35 Nucleated RBC % (auto) 0 % 05/02/25 20:35 Nucleated RBCs # 0.0 /100WBC 05/02/25 20:35 Sodium 142 mmol/L (136-145) 05/02/25 20:35 Potassium 3.8 mmol/L (3.5-5.1) 05/02/25 20:35 Chloride 106 mmol/L (98-107) 05/02/25 20:35 Carbon Dioxide 21 mmol/L (22-29) L 05/02/25 20:35 Anion Gap 18.8 (5-19) 05/02/25 20:35 BUN 29 mg/dL (8-23) H 05/02/25 20:35 Creatinine 1.7 mg/dL (0.5-0.9) H 05/02/25 20:35 GFR Calculation Not Reportable 05/02/25 20:35 Glucose 101 mg/dL (65-115) 05/02/25 20:35 Calculated Osmolality 300 mOsm/kg (285-295) H 05/02/25 20:35 Lactic Acid 2.9 mmol/L (0.5-2.2) H 05/02/25 21:20 Calcium 9.1 mg/dL (8.5-10.5) 05/02/25 20:35 Magnesium 2.5 mg/dL (1.7-2.3) H 05/02/25 20:35 Total Bilirubin 0.3 mg/dL (0.15-1.2) 05/02/25 20:35 AST 18 U/L (0-32) 05/02/25 20:35 ALT 14 U/L (0-33) 05/02/25 20:35 Alkaline Phosphatase 47 U/L (35-105) 05/02/25 20:35 Total Protein 5.8 g/dL (6.6-8.7) L 05/02/25 20:35 Albumin 3.5 g/dL (3.5-5.2) 05/02/25 20:35 Globulin 2.3 g/dL (1.3-4.6) 05/02/25 20:35 Lipase 13 U/L (13-60) 05/02/25 20:35 Urine Color Other (Yellow) A 05/02/25 21:20 Urine Appearance Slightly cloudy (CLEAR) 05/02/25 21:20 Urine pH TNP 05/02/25 21:20 Ur Specific [place] TNP 05/02/25 21:20 Urine Protein TNP 05/02/25 21:20 Urine Glucose (UA) TNP 05/02/25 21:20 Urine Ketones TNP 05/02/25 21:20 Urine Blood TNP 05/02/25 21:20 Urine Nitrate TNP 05/02/25 21:20 Urine Bilirubin TNP 05/02/25 21:20 Urine Urobilinogen TNP 05/02/25 21:20 Ur Leukocyte Esterase TNP 05/02/25 21:20 Urine RBC 0-4 /hpf (0-2) H 05/02/25 21:20 Urine WBC 0-4 /hpf (0-5) H 05/02/25 21:20 Ur Squamous Epith Cells 15-25 /hpf (0-5) H 05/02/25 21:20 Calcium Oxalate Crystal 10-15 /hpf H 05/02/25 21:20 Amorphous Sediment Not Reportable 05/02/25 21:20 Urine Bacteria 1+ /hpf (NONE) H 05/02/25 21:20 All radiology interpretation(s) finalized by discharge Discharge Plan Discharge Patient Disposition: Admitted As Inpatient Admit Provider: Brigid Blackburn Clinical Impression: Colitis, JESSICA (acute kidney injury), Sepsis, Metabolic acidosis, Acidosis, lactic, Leukocytosis Condition: Stable Discharge Diet: Clear Liquid Coding Level 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
[2025-05-02] MEDS: sodium chloride 0.9% 1,000 ML 500 ML IV ×2 (21:21→23:51)
[2025-05-02] MEDS: ondansetron 2 mg/ML SDV 2 mL 4 MG IVP (21:21)
[2025-05-02 21:22] VITALS: BP 122/95; PULSE 86; RESP 16; O2SAT 95
[2025-05-02 21:40] LABS: Alanine Aminotransferase 14 U/L (0-33); Albumin Level 3.5 g/dL (3.5-5.2); Alkaline Phosphatase 47 U/L (35-105); Anion Gap 18.8 (5-19); Aspartate Amino Transferase 18 U/L (0-32); Blood Urea Nitrogen 29 mg/dL (8-23); Calcium 9.1 mg/dL (8.5-10.5); Carbon Dioxide 21 mmol/L (22-29); Chloride 106 mmol/L (98-107); Creatinine Clr Calc Pharmacy 25.3751; Globulin 2.3 g/dL (1.3-4.6); Glucose 101 mg/dL (65-115); Lipase 13 U/L (13-60); Magnesium 2.5 mg/dL (1.7-2.3); Osmolality Calculated 300 mOsm/kg (285-295); Potassium 3.8 mmol/L (3.5-5.1); Sodium 142 mmol/L (136-145); Total Bilirubin 0.3 mg/dL (0.15-1.2); Total Protein 5.8 g/dL (6.6-8.7)
[2025-05-02 21:42] LABS: Lactic Sepsis W/Reflex 2.9 mmol/L (0.5-2.2)
[2025-05-02 22:27] LABS: Add Urine Microscopic? YES; UA Manual Slide Review YES; Urine Appearance Slightly Cloudy (CLEAR); Urine Color Other (Yellow)
[2025-05-02 22:28] LABS: Add Urine Culture? No; Bacteria Urine 1+ /hpf; RBC Urine 0-4 /hpf (0-2); Squamous Epithelial Cell Urine 15-25 /hpf (0-5); WBC Urine 0-4 /hpf (0-5)
[2025-05-02] MEDS: sodium chloride 0.9% 1,000 ML 999 ML IV (22:33)
[2025-05-02 23:11] LABS: Reflex Lactate Order REFLEX LACTIC ORDERD
[2025-05-02] MEDS: morphine 4 mg/mL SDV 1 mL 2 MG IVP (23:47)
[2025-05-02] MEDS: hydrocortisone 100 mg/2 mL SDV IVP (23:48)
[2025-05-02] MEDS: ciprofloxacin 200 MG/100 ML PREMIX 100 MG IV (23:51)
[2025-05-03] VITALS (34 sets, daily range): BP systolic 120–190; BP diastolic 77–102; PULSE 68–99; RESP 15–18; TEMP 36.7–36.9; O2SAT 93–99; BMI 27.9
[2025-05-03 00:06] LABS: Lactic Acid level (Lactate) 2.2 mmol/L (0.5-2.2)
[2025-05-03] MEDS: metroNIDAZOLE IV 500 MG/100 ML PREMIX 100 MG IV ×5 (00:50→22:43)
--- NOTE | 2025-05-03 01:37 | P.HP_ITS ---
Providers/Chief Complaint 2 Admitting Physician: Brigid Blackburn MD--- patient seen before 12 midnight Primary Care Provider: Ann Marie Kim MD Chief Complaint: n/v/d x 2days History of Present Illness Holly Diez is a 75 year old female with medical history significant for what looks like inflamed got an inflamed colon in her most recent colonoscopy and EGD 2 weeks ago at [facility] in [place]. Patient went there and requested to have colonoscopy done because of issues that he has been having concern about what may be going on in the colon. For that reason patient had this done just 2 weeks ago. Colonoscopy was reported to be good and fine except for some polyps that they have taking out for biopsy and results that is still pending according to the patient. EGD we are unremarkable but still with inflamed stomach area inside In the emergency room as the emergency room doctor examined the patient they reported tenderness in the left upper quadrant and because of that a CT was obtained of the abdomen chest abdomen and pelvics. It was noted that the whole descending colon from the splenic flexure going down we are all inflamed according to the report on the CT. Patient has quite a bit of white count of 20,000 and came in with JESSICA because of prior nausea and vomiting did not get any meal down. Patient also added that in the within the last CAA in less than 1 year she had lost 70 pounds with diet trying. Her creatinine just in February 2025 this year was 0.8 today upon presenting it was 1.7. Patient was given fluid and I initiated Flagyl and ciprofloxacin for an associated colitis. 1 does not know what kind of bed it looks and felt like inflammatory colitis. The weight loss of 70 pounds within a year could have 1 and ulcerative colitis and Crohn's disease and also could be due to GI tract malignancy. Patient had no urinary tract infection we will follow through with IV hydration antibiotics for an associated colitis and patient had had colonoscopy and EGD done in the last 2 weeks and should be following up with [facility] to see the results of the biopsy posthospitalization. And this hospitalization should be made known to [facility] because they might go into depth in diagnosing ulcerative colitis of the likes. Review of Systems 2 Narrative: Generally 10 organ system reviewed with unremarkable except for gastrointestinal system with of the inflamed area with nausea and vomiting likely due to also loss of weight issues with leukocytosis. JESSICA. Medications/Allergies Home Medications ?Medication ?Instructions ?Recorded ?Confirmed ?Last Taken ?Type nitroglycerin 0.4 mg sublingual 0.4 mg sublingual Q5M PRN chest 09/14/22 04/07/25 03/17/25 Rx tablet pain #25 tabs hydrocodone 5 mg-acetaminophen 325 1 - 2 tab PO .Q4-6H #40 tabs 11/18/24 04/07/25 03/16/25 Rx mg tablet alprazolam 0.5 mg tablet 0.5 mg PO QID #120 tabs 12/04/07/25 03/17/25 Rx prednisone 5 mg tablet 5 mg PO DAILY PRN pain flare #30 12/10/24 04/07/25 Unknown Rx tabs labetalol 200 mg tablet 100 mg (1/2 x 200 mg) .Route Q12H 03/10/25 04/07/25 03/17/25 Rx #270 tabs linaclotide 145 mcg capsule 145 mcg PO DAILY #30 caps 03/10/25 04/07/25 03/17/25 Rx (Linzess) verapamil 120 mg tablet,extended 120 mg PO BID 5 04/07/25 03/17/25 History release leflunomide 20 mg tablet 20 mg PO DAILY #90 tabs 02/2604/07/25 Unknown Rx clonidine HCl 0.3 mg tablet See Rx Instructions .Route 03/25/25 04/07/25 Unknown Rx .COMPLEX #180 tabs tramadol 50 mg tablet 50 mg PO Q8H PRN pain 30 day s #90 04/07/25 04/07/25 Unknown Rx tabs hydralazine 25 mg tablet See Rx Instructions .Route 0 04/22/25 Unknown Rx .COMPLEX #240 tabs Allergies Allergy/AdvReac Type Severity Reaction Status Date / Time sulfasalazine Allergy Unknown ADR-Nausea Verified 04/07/25 10:39 plastics Allergy ALGY-Rash Uncoded 04/07/25 10:39 PFSH Acute 2 PFSH: Medical History Immunization counseling High risk medication use Inflammatory arthritis Eczema History of colon polyps Irritable bowel syndrome with both constipation and diarrhea Thoracic spine pain Essential hypertension Anxiety Diabetes Lumbar disc disease with radiculopathy Surgical History History of colonoscopy (03/23/21) 2015: Colon polyps 2020: Mild diverticulosis History of cholecystectomy History of dilation and curettage History of total hysterectomy Family History Father Parkinson disease Cancer Mother Cancer Social History Smoking and tobacco/nicotine status: never used tobacco/nicotine Second hand smoke exposure: No Alcohol intake: never Substance/Drug Use: never Vitals/I&O/Wt Last Vital Signs Temp 97.5 F L 05/02/25 18:01 Pulse 86 05/02/25 21:22 Resp 16 05/02/25 21:22 BP 122/95 05/02/25 21:22 Pulse Ox 95 05/02/25 21:22 O2 Del Method Room Air 05/02/25 18:01 05/02/25 05/02/25 05/03/25 14:59 22:59 06:59 Intake Total 0 / 0 Balance 0 / 0 Weight last 48 hrs Weight 67.585 kg Physical Exam 2 Narrative: Generally patient looks okay and apprehensive and hoping to feel and get better. HEENT normocephalic/atraumatic neck neck is supple cardiovascular heart rate is regular lungs are pretty much clear abdomen is tender in the left upper quadrant region. Patient also have pain now quite tender in the anterior abdomen. unremarkable extremities intact no edema has good pulses neurology no focality lab studies lab studies reviewed and noted. Data 05/02/25 20:35 05/02/25 20:35 Micro: Microbiology 05/02/25 23:32 Blood Culture - Preliminary Blood SPECIMEN COLLECTED 05/02/25 23:30 Blood Culture - Preliminary Blood SPECIMEN COLLECTED A&P Assessment and plan (1) Acute renal failure: Acute renal failure is due to GI losses and due to dehydration Must rehydrate and follow through the renal function to improve (2) Hypokalemia: Hypokalemia was due to GI loss of fluid with nausea and vomiting. Potassium have been replaced continue gentle hydration as well follow-up with any electrolyte imbalance and replace (3) Weight loss: Weight loss of 70 pounds without trying to diet is concerning and is within less than 1 year for a 75-year-old female differential diagnosis ulcerative colitis/Crohn's disease/GI malignancy Patient had recent colonoscopy with biopsy and removal of polyps in [facility] patient needs to follow-up with postprocedural visit for care and this hospitalization here should also be made known to the gastrointestinal physicians. Plan GI and DVT prophylaxis in place PDMP PDMP Reviewed: Last Reviewed 05/03/25 08:48 by Brigid Blackburn MD Attestations 2 Medical Necessity Statement*: Patient with abdominal pain with CT finding of very inflamed GI tract abdomen and the lumen of the large intestine I am significant for colitis other. Patient meets inpatient criteria to span at least 2 midnights stay for care Coding Level of Care Code 94244 Diagnoses Acute renal failure N17.9 Hypokalemia E87.6 Weight loss R63.4 Time Spent (min) 60
[2025-05-03] MEDS: ketorolac 30 mg/mL INJ 15 MG IVP ×3 (02:02→14:28)
[2025-05-03] MEDS: sodium chloride 0.9% 1,000 ML 75 ML IV ×2 (06:27→22:43)
[2025-05-03] MEDS: heparin 5,000 unit/mL INJ 1 mL 5000 UNIT SUBCUT ×2 (06:28→17:14)
[2025-05-03 07:18] LABS: Basophils # 0.1 10^3/uL (0.0-0.1); Basophils % 0.4 %; Hematocrit 31.6 % (36-47); Lymphocytes # 0.8 10^3/uL (0.8-4.8); Lymphocytes % 3.8 %; Mean Corpuscular Hemoglobin 31.8 pg (27-33); Mean Corpuscular Volume 99.4 fl (85-98); Mean Platelet Volume 9.5 fL (7.4-10.4); Monocytes % 4.6 %; Neutrophils # 19.25 10^3/uL (1.8-7.7); Neutrophils % 90.6 %; Nucleated Red Blood Cells % 0 %; Platelet Count 184 10^3/cmm (157-399); Red Blood Count 3.18 10^6/uL (3.85-5.65); Red Cell Distribution Width 12.8 % (12.1-15.1); White Blood Count 21.25 10^3/uL (3.29-11.43)
[2025-05-03 07:40] LABS: Alanine Aminotransferase 13 U/L (0-33); Albumin Level 3.3 g/dL (3.5-5.2); Alkaline Phosphatase 42 U/L (35-105); Anion Gap 12.9 (5-19); Aspartate Amino Transferase 17 U/L (0-32); Blood Urea Nitrogen 33 mg/dL (8-23); Calcium 8.4 mg/dL (8.5-10.5); Carbon Dioxide 22 mmol/L (22-29); Chloride 109 mmol/L (98-107); Creatinine Clr Calc Pharmacy 29.1149; Globulin 2.2 g/dL (1.3-4.6); Glucose 108 mg/dL (65-115); Magnesium 2.2 mg/dL (1.7-2.3); Osmolality Calculated 298 mOsm/kg (285-295); Phosphorus 3.3 mg/dL (2.5-4.5); Potassium 3.9 mmol/L (3.5-5.1); Sodium 140 mmol/L (136-145); Total Bilirubin 0.3 mg/dL (0.15-1.2); Total Protein 5.5 g/dL (6.6-8.7)
[2025-05-03 07:42] LABS: Estmated Average Glucose 91; Hemoglobin A1C 4.8 % (4.0-6.0)
[2025-05-03] MEDS: docusate sodium 100 mg Capsule PO (08:00)
[2025-05-03] MEDS: ondansetron 2 mg/ML SDV 2 mL 4 MG IVP ×2 (10:13→20:22)
[2025-05-03] MEDS: ciprofloxacin 200 MG/100 ML PREMIX IV (12:14)
[2025-05-03 12:23] LABS: C.Diff PCR (Lab) NEGATIVE (Negative)
--- NOTE | 2025-05-03 12:46 | PC.NURSE ---
Patient transferred to [facility] via wheelchair on room air. Patient and oriented to room and call light use. All belongings with and are at bedside. Patient up to chair and with afternoon meal. Instructed to use call light before getting up to bathroom. no complaints or requests from patient or . Antibiotics at administrative assistant front desk with chart.
--- NOTE | 2025-05-03 16:15 | PM.PN ---
Subjective Subjective: Seen this morning. WBC 21,000 cr 1.5 Vitals/I&O/Wt Last Vital Signs Temp 98.1 F 05/03/25 15:31 Pulse 94 05/03/25 15:31 Resp 15 05/03/25 15:31 BP 190/98 05/03/25 15:31 Pulse Ox 93 05/03/25 15:31 O2 Del Method Room Air 05/03/25 15:31 05/03/25 05/03/25 05/03/25 06:59 14:59 22:59 Intake Total 3200 / 3200 750 / 750 Output Total 150 / 150 Balance 3200 / 3200 600 / 600 Weight last 48 hrs Weight 69.354 kg Weight 67.585 kg Physical Exam Narrative: General: Alert oriented x3, patient seen laying in bed HEENT: Normocephalic, atraumatic, EOMI, Cardio: Regular rate rhythm, normal S1-S2, Respiratory: cta b/l, no wheezes no rhonchi appreciated GI: Abdomen soft, nontender, nondistended, bowel sounds + Extremities: no edema Data 05/03/25 07:12 05/03/25 07:12 Micro: Microbiology 05/02/25 23:32 Blood Culture - Preliminary Blood SPECIMEN COLLECTED 05/02/25 23:30 Blood Culture - Preliminary Blood SPECIMEN COLLECTED A&P Assessment and plan (1) Acute renal failure: Acute renal failure is due to GI losses and due to dehydration Must rehydrate and follow through the renal function to improve (2) Hypokalemia: Hypokalemia was due to GI loss of fluid with nausea and vomiting. Potassium have been replaced continue gentle hydration as well follow-up with any electrolyte imbalance and replace (3) Weight loss: Weight loss of 70 pounds without trying to diet is concerning and is within less than 1 year for a 75-year-old female differential diagnosis ulcerative colitis/Crohn's disease/GI malignancy Patient had recent colonoscopy with biopsy and removal of polyps in [facility] patient needs to follow-up with postprocedural visit for care and this hospitalization here should also be made known to the gastrointestinal physicians. Plan GI and DVT prophylaxis in place 05/03/2025 Continue on ciprofloxacin, add Flagyl I will stop IV ketorolac as patient has creatinine of 1.5. Avoid NSAIDs and nephrotoxic agents. Continue morphine 2 mg IV every 4 hours for pain Check C. difficile Restart home antihypertensives Continue on hydralazine 25 4 times daily Continue verapamil 120 twice daily Continue normal saline at 75 cc/h Will need GI follow-up at discharge Check stool culture Ova parasite screen PDMP PDMP Reviewed: Not Reviewed Attestations Medical Necessity Statement*: Patient with abdominal pain with CT finding of very inflamed GI tract abdomen and the lumen of the large intestine I am significant for colitis other. Patient meets inpatient criteria to span at least 2 midnights stay for care Diagnoses Acute renal failure N17.9 Hypokalemia E87.6 Weight loss R63.4
[2025-05-03] MEDS: morphine 4 mg/mL SDV 1 mL 2 MG IVP (17:13)
[2025-05-03] MEDS: hyDRALAzine 25 mg Tablet PO ×2 (17:14→20:20)
[2025-05-03] MEDS: labetalol 200 mg Tablet 100 MG PO (17:14)
[2025-05-03] MEDS: ALPRAZolam 0.5 mg Tablet PO (22:57)
[2025-05-04] VITALS (11 sets, daily range): BP systolic 139–198; BP diastolic 89–98; PULSE 94–112; RESP 16–18; TEMP 36.5–36.9; O2SAT 94–97
[2025-05-04] MEDS: morphine 4 mg/mL SDV 1 mL 2 MG IVP ×4 (00:38→17:51)
[2025-05-04] MEDS: ciprofloxacin 200 MG/100 ML PREMIX IV ×2 (00:39→13:48)
[2025-05-04] MEDS: hyDRALAzine 20 mg/mL INJ 1 mL 10 MG IVP (01:43)
[2025-05-04] MEDS: labetalol 200 mg Tablet 100 MG PO ×2 (04:27→17:50)
[2025-05-04] MEDS: metroNIDAZOLE IV 500 MG/100 ML PREMIX 100 MG IV ×4 (04:27→21:10)
[2025-05-04] MEDS: heparin 5,000 unit/mL INJ 1 mL 5000 UNIT SUBCUT ×2 (04:27→17:49)
[2025-05-04] MEDS: ondansetron 2 mg/ML SDV 2 mL 4 MG IVP ×2 (04:32→12:53)
--- NOTE | 2025-05-04 05:11 | PC.NURSE ---
This nurse was advised that patients blood pressure was 210/68. Nurse went to take a manual blood pressure and it was 190/98. This nurse contacted Dr. Blackburn to advise her of high blood pressure. Dr. Blackburn approved for nurse to give 0600 dose of 100mg labetalol at 0427. This nurse administered medication and will continue to monitor patients blood pressure for remainder of shift.
[2025-05-04] MEDS: hyDRALAzine 25 mg Tablet PO ×4 (09:55→21:10)
[2025-05-04] MEDS: pantoprazole DR 40 mg Tablet PO (09:55)
--- NOTE | 2025-05-04 14:49 | P.PN_ITS ---
Subjective 2 Subjective: The patient continues to have abdominal pain and is has not really improved since admission. She has not been able to tolerate any food or liquids by mouth. The patient has been on medications for rheumatoid arthritis for a number of years. She is currently on leflunomide. She is not sure that it is helping much at this point. The patient has been having diarrhea and it is black and tarry at times. Vitals/I&O/Wt Last Vital Signs Temp 98.2 F 05/04/25 11:41 Pulse 106 H 05/04/25 11:41 Resp 16 05/04/25 11:41 BP 181/94 05/04/25 11:41 Pulse Ox 94 05/04/25 11:41 O2 Del Method Room Air 05/04/25 11:41 05/03/25 05/04/25 05/04/25 22:59 06:59 14:59 Intake Total 1220 / 1970 780 / 2750 340 / 340 Balance 1220 / 1820 780 / 2600 340 / 340 Weight last 48 hrs Weight 152 lb 14.4 oz Weight 149 lb Physical Exam 2 Narrative: General: Alert and oriented x 3. Appears to be in pain. Mouth: No erythema or tonsilar enlargement. No masses noted. Neck: No thyromegaly. No lymphadenopathy. Heart: Regular rate and rhythm. No murmurs. Lungs: Clear to auscultation bilaterally. No wheezes, crackles or ronchi. Abdomen: Soft, moderate pain in the left upper and lower abdomen with rebound tenderness noted. No hepatosplenomegaly. Extremities: No pitting edema. Data 05/03/25 07:12 05/03/25 07:12 Micro: Microbiology 05/02/25 23:32 Blood Culture - Preliminary Blood NEGATIVE TO DATE 05/02/25 23:30 Blood Culture - Preliminary Blood NEGATIVE TO DATE A&P Assessment and plan (1) Colitis: The patient has colitis and the underlying cause is not entirely clear at this time. She has been on Flagyl and Cipro and so far has not shown signs of improvement. Her CT scan did not show signs of abscess. Her white blood cell count continues to be elevated through yesterday. We will recheck labs tomorrow. We will try treating her with steroids in case this is an autoimmune cause. If her pain is not improving, consideration for repeat imaging could be made. If the patient's pain is worsening, serial abdominal exams may be needed along with a referral to general surgery. We will hold the patient's leflunomide as it could potentially cause colitis. That being said she has had symptoms for longer than she has been on leflunomide so unlikely to be the direct cause. (2) Weight loss: The patient has noted a 70 pound weight loss. The underlying cause for this is not clear. Certainly a malignancy could be considered. We do not have any findings to suggest a source. Certainly with the patient's elevated white blood cell count if it is not improving or if it continues to worsen, a hematologic source of malignancy could also be considered. (3) Nausea and vomiting: Continue with Zofran for nausea. Continue with IV fluids for management of hydration. (4) Leukocytosis: PDMP PDMP Reviewed: Not Reviewed Attestations 2 Medical Necessity Statement*: The patient continues to need inpatient care as she has colitis and is not showing signs of improvement and continues to have nausea and vomiting. Her stay will cross 2 midnights. Coding Level of Care Code Acute Code for [facility] Diagnoses Colitis K52.9 Weight loss R63.4 Nausea and vomiting R11.2 Leukocytosis D72.825 Leukocytosis type: bandemia
[2025-05-04] MEDS: sodium chloride 0.9% 1,000 ML 75 ML IV (16:15)
[2025-05-04] MEDS: HYDROcodone-acetaminophen 5-325 mg Tablet 1 TAB PO (16:16)
[2025-05-04] MEDS: methylPREDNISolone sod succ 125 mg/2 mL INJ IVP (16:16)
[2025-05-04] MEDS: ALPRAZolam 0.5 mg Tablet PO (21:10)
[2025-05-05 00:23] VITALS: BP 182/90; PULSE 90; RESP 18; TEMP 36.7; O2SAT 95
[2025-05-05] MEDS: ciprofloxacin 200 MG/100 ML PREMIX IV (00:30)
[2025-05-05] MEDS: methylPREDNISolone sod succ 125 mg/2 mL INJ IVP (02:23)
[2025-05-05] MEDS: heparin 5,000 unit/mL INJ 1 mL 5000 UNIT SUBCUT (04:08)
[2025-05-05] MEDS: sodium chloride 0.9% 1,000 ML 75 ML IV (04:08)
[2025-05-05] MEDS: metroNIDAZOLE IV 500 MG/100 ML PREMIX 100 MG IV (04:08)
[2025-05-05 04:12] VITALS: BP 180/86; PULSE 86; RESP 18; TEMP 36.7; O2SAT 95
[2025-05-05 04:30] LABS: Basophils % 0.3 %; Hematocrit 36.7 % (36-47); Lymphocytes # 0.6 10^3/uL (0.8-4.8); Lymphocytes % 4.4 %; Mean Corpuscular HGB Conc 31.1 g/dL (30-55); Mean Corpuscular Volume 99.7 fl (85-98); Mean Platelet Volume 10.4 fL (7.4-10.4); Monocytes # 0.2 10^3/uL (0.2-0.9); Monocytes % 1.8 %; Neutrophils # 11.96 10^3/uL (1.8-7.7); Neutrophils % 92.7 %; Nucleated Red Blood Cells % 0 %; Platelet Count 187 10^3/cmm (157-399); Red Blood Count 3.68 10^6/uL (3.85-5.65); Red Cell Distribution Width 12.5 % (12.1-15.1)
[2025-05-05 04:48] LABS: Alanine Aminotransferase 16 U/L (0-33); Albumin Level 3.2 g/dL (3.5-5.2); Alkaline Phosphatase 67 U/L (35-105); Blood Urea Nitrogen 18 mg/dL (8-23); Calcium 8.2 mg/dL (8.5-10.5); Carbon Dioxide 16 mmol/L (22-29); Chloride 102 mmol/L (98-107); Creatinine Clr Calc Pharmacy 48.5248; Globulin 2.7 g/dL (1.3-4.6); Glucose 108 mg/dL (65-115); Osmolality Calculated 282 mOsm/kg (285-295); Sodium 135 mmol/L (136-145); Total Bilirubin 0.3 mg/dL (0.15-1.2); Total Protein 5.9 g/dL (6.6-8.7)
[2025-05-05 04:55] LABS: Anion Gap 20.5 (5-19); Aspartate Amino Transferase 30 U/L (0-32); Potassium 3.5 mmol/L (3.5-5.1)
[2025-05-05] MEDS: labetalol 200 mg Tablet 100 MG PO (05:04)
[2025-05-05] MEDS: pantoprazole DR 40 mg Tablet PO (07:27)
[2025-05-05] MEDS: hyDRALAzine 25 mg Tablet PO (07:27)
[2025-05-05 09:08] VITALS: BP 174/104; PULSE 106; RESP 19; TEMP 36.6; O2SAT 94
--- NOTE | 2025-05-05 10:28 | PM.DCS ---
Discharge Providers Date of Admission: 05/02/25 23:09 Date of Discharge: May 05, 2025 Attending Provider at Admission: Brigid Blackburn MD Attending Provider at Discharge: Primo Diaz MD Primary Care Provider: Ann Marie Kim MD Diagnoses at Discharge Discharge Diagnosis (1) Colitis: Status: Acute (2) Weight loss: Status: Acute (3) Nausea and vomiting: Status: Acute (4) Leukocytosis: Status: Acute Qualifiers: Leukocytosis type: bandemia Qualified Code(s): D72.825 - Bandemia Reason for Visit Reason for Visit: n/v/d x 2days Brief History: History as per HPI: Holly Diez is a 75 year old female with medical history significant for what looks like inflamed got an inflamed colon in her most recent colonoscopy and EGD 2 weeks ago at [facility] in [place]. Patient went there and requested to have colonoscopy done because of issues that he has been having concern about what may be going on in the colon. For that reason patient had this done just 2 weeks ago. Colonoscopy was reported to be good and fine except for some polyps that they have taking out for biopsy and results that is still pending according to the patient. EGD we are unremarkable but still with inflamed stomach area inside In the emergency room as the emergency room doctor examined the patient they reported tenderness in the left upper quadrant and because of that a CT was obtained of the abdomen chest abdomen and pelvics. It was noted that the whole descending colon from the splenic flexure going down we are all inflamed according to the report on the CT. Patient has quite a bit of white count of 20,000 and came in with [facility] because of prior nausea and vomiting did not get any meal down. Patient also added that in the within the last CAA in less than 1 year she had lost 70 pounds with diet trying. Her creatinine just in February 2025 this year was 0.8 today upon presenting it was 1.7. Patient was given fluid and I initiated Flagyl and ciprofloxacin for an associated colitis. 1 does not know what kind of bed it looks and felt like inflammatory colitis. The weight loss of 70 pounds within a year could have 1 and ulcerative colitis and Crohn's disease and also could be due to GI tract malignancy. Patient had no urinary tract infection we will follow through with IV hydration antibiotics for an associated colitis and patient had had colonoscopy and EGD done in the last 2 weeks and should be following up with [facility] to see the results of the biopsy posthospitalization. And this hospitalization should be made known to [facility] because they might go into depth in diagnosing ulcerative colitis of the likes. Hospital Course Hospital Course She was admitted to the hospital further evaluation and management of acute on chronic diarrhea. C. difficile was ruled out with negative stool studies. Patient was started on IV ciprofloxacin and Flagyl after which her leukocytosis resolved and symptoms also improved. Patient has not had any further episode of vomiting though she remains hesitant in eating by mouth given concerns for diarrhea. She has been discharged in medically stable condition advised to follow-up with outpatient gastroenterology for further evaluation and management for high concerns for inflammatory bowel disease. She has been discharged on 1 week of oral ciprofloxacin and Flagyl along with oral steroids with 50 mg of prednisone daily for next 7 days. Her home dose of antihypertensives have been continued. She is requested to take Imodium as needed for more than 2 bowel movements a day after 1 week. She is requested to increase her oral intake as possible. She has an appointment with an outpatient [facility] in May. Physical Exam Narrative: General: Alert oriented x3, patient seen laying in bed HEENT: Normocephalic, atraumatic, EOMI, Cardio: Regular rate rhythm, normal S1-S2, Respiratory: cta b/l, no wheezes no rhonchi appreciated GI: Abdomen soft, nontender, nondistended, bowel sounds + Extremities: no edema Discharge Data Studies Completed and Pending Completed Studies During Hospitalization Category Date Time Status CT abdomen pelvis wo con [id number] Stat Cat Scan 05/02/25 20:53 Completed Pending at discharge Category Date Time Status Blood Culture Stat Lab 05/02/25 23:32 Results Occult Blood Stool [Immunochemical Fecal OCB] Routine Lab 05/04/25 14:47 Uncollected Stool Culture - Enteric [Salmonella / Shigella / Campy] Lab 05/03/25 16:27 Uncollected Routine Radiology Impressions Abdomen/Pelvis CT 05/02/25 20:53 IMPRESSION: 1. Exam demonstrates features of colitis beginning at the splenic flexure and extending through the anorectal junction. There is large volume fecal debris throughout the colon suggesting secondary constipation/obstipation. No discrete obstructing lesion is evident. 2. There is diverticulosis without evidence of acute diverticulitis. Laboratory Results WBC 12.90 10^3/uL (3.29-11.43) H 05/05/25 03:36 RBC 3.68 10^6/uL (3.85-5.65) L 05/05/25 03:36 Hgb 11.40 g/dL (11.27-16.99) 05/05/25 03:36 Hct 36.7 % (36-47) 05/05/25 03:36 MCV 99.7 fl (85-98) H 05/05/25 03:36 MCH 31.0 pg (27-33) 05/05/25 03:36 MCHC 31.1 g/dL (30-55) 05/05/25 03:36 RDW 12.5 % (12.1-15.1) 05/05/25 03:36 Plt Count 187 10^3/cmm (157-399) 05/05/25 03:36 MPV 10.4 fL (7.4-10.4) 05/05/25 03:36 Neut % (Auto) 92.7 % 05/05/25 03:36 Lymph % (Auto) 4.4 % 05/05/25 03:36 [place] % (Auto) 1.8 % 05/05/25 03:36 Eos % (Auto) 0.0 % 05/05/25 03:36 Baso % (Auto) 0.3 % 05/05/25 03:36 Neut # (Auto) 11.96 10^3/uL (1.8-7.7) H 05/05/25 03:36 Lymph # (Auto) 0.6 10^3/uL (0.8-4.8) L 05/05/25 03:36 [place] # (Auto) 0.2 10^3/uL (0.2-0.9) 05/05/25 03:36 Eos # (Auto) 0.0 10^3/uL (0.0-0.8) 05/05/25 03:36 Baso # (Auto) 0.0 10^3/uL (0.0-0.1) 05/05/25 03:36 Nucleated RBC % (auto) 0 % 05/05/25 03:36 Nucleated RBCs # 0.0 /100WBC 05/05/25 03:36 Sodium 135 mmol/L (136-145) L 05/05/25 03:36 Potassium 3.5 mmol/L (3.5-5.1) 05/05/25 03:36 Chloride 102 mmol/L (98-107) 05/05/25 03:36 Carbon Dioxide 16 mmol/L (22-29) L 05/05/25 03:36 Anion Gap 20.5 (5-19) H 05/05/25 03:36 BUN 18 mg/dL (8-23) 05/05/25 03:36 Creatinine 0.9 mg/dL (0.5-0.9) 05/05/25 03:36 GFR Calculation Not Reportable 05/05/25 03:36 Glucose 108 mg/dL (65-115) 05/05/25 03:36 Estimat Average Glucose 91 05/03/25 07:12 Hemoglobin A1c 4.8 % (4.0-6.0) 05/03/25 07:12 Calculated Osmolality 282 mOsm/kg (285-295) L 05/05/25 03:36 Lactic Acid 2.9 mmol/L (0.5-2.2) H 05/02/25 21:20 Lactic Acid (Sepsis) 2.2 mmol/L (0.5-2.2) 05/02/25 23:30 Calcium 8.2 mg/dL (8.5-10.5) L 05/05/25 03:36 Phosphorus 3.3 mg/dL (2.5-4.5) 05/03/25 07:12 Magnesium 2.2 mg/dL (1.7-2.3) 05/03/25 07:12 Total Bilirubin 0.3 mg/dL (0.15-1.2) 05/05/25 03:36 AST 30 U/L (0-32) 05/05/25 03:36 ALT 16 U/L (0-33) 05/05/25 03:36 Alkaline Phosphatase 67 U/L (35-105) 05/05/25 03:36 C-React Prot High Sens 9.680 mg/dL (0.0-0.3) H 05/05/25 03:36 Total Protein 5.9 g/dL (6.6-8.7) L 05/05/25 03:36 Albumin 3.2 g/dL (3.5-5.2) L 05/05/25 03:36 Globulin 2.7 g/dL (1.3-4.6) 05/05/25 03:36 Lipase 13 U/L (13-60) 05/02/25 20:35 Urine Color Other (Yellow) A 05/02/25 21:20 Urine Appearance Slightly cloudy (CLEAR) 05/02/25 21:20 Urine pH TNP 05/02/25 21:20 Ur Specific [place] TNP 05/02/25 21:20 Urine Protein TNP 05/02/25 21:20 Urine Glucose (UA) TNP 05/02/25 21:20 Urine Ketones TNP 05/02/25 21:20 Urine Blood TNP 05/02/25 21:20 Urine Nitrate TNP 05/02/25 21:20 Urine Bilirubin TNP 05/02/25 21:20 Urine Urobilinogen TNP 05/02/25 21:20 Ur Leukocyte Esterase TNP 05/02/25 21:20 Urine RBC 0-4 /hpf (0-2) H 05/02/25 21:20 Urine WBC 0-4 /hpf (0-5) H 05/02/25 21:20 Ur Squamous Epith Cells 15-25 /hpf (0-5) H 05/02/25 21:20 Calcium Oxalate Crystal 10-15 /hpf H 05/02/25 21:20 Amorphous Sediment Not Reportable 05/02/25 21:20 Urine Bacteria 1+ /hpf (NONE) H 05/02/25 21:20 C. difficile (PCR) Negative (Negative) 05/03/25 11:27 Vitals Last Vital Signs Temp 97.8 F 05/05/25 09:08 Pulse 106 H 05/05/25 09:08 Resp 19 H 05/05/25 09:08 BP 174/104 05/05/25 09:08 Pulse Ox 94 05/05/25 09:08 O2 Del Method Room Air 05/05/25 09:08 Discharge Plan Discharge Patient Disposition: Home Condition: Stable Prescriptions: New ciprofloxacin HCl [Cipro] 500 mg tablet 500 mg PO BID Qty: 14 0RF metronidazole 500 mg tablet 500 mg PO BID 7 Days Qty: 14 0RF prednisone 50 mg tablet 50 mg PO DAILY 7 Days Qty: 7 0RF pantoprazole 40 mg Tablet,Delayed Release (Dr/Ec) 40 mg PO DAILY 30 Days Qty: 30 0RF Continued leflunomide 20 mg tablet 20 mg PO DAILY Qty: 90 1RF tramadol 50 mg tablet 50 mg PO Q8H PRN (Reason: pain) 30 Days Qty: 90 1RF prednisone 5 mg tablet 5 mg PO DAILY PRN (Reason: pain flare) Qty: 30 1RF labetalol 200 mg tablet 100 mg .ROUTE Q12H Qty: 270 1RF nitroglycerin 0.4 mg tablet, sublingual 0.4 mg SUBLINGUAL Q5M PRN (Reason: chest pain) Qty: 25 2RF Rx Instructions: do not exceed 3 doses per episode alprazolam 0.5 mg tablet 0.5 mg PO QID Qty: 120 5RF multivitamin Tablet 1 tab PO DAILY naproxen sodium [Aleve] 220 mg Tablet 220 mg PO BID PRN (Reason: Pain) estradiol 0.01 % (0.1 mg/gram) cream See Rx Instructions .ROUTE .COMPLEX Rx Instructions: pply DIRECTED DAILY TO INSIDE of VAGINA. hydrocodone-acetaminophen 5-325 mg tablet 1 - 2 tab PO .Q4-6H PRN (Reason: Pain) clonidine HCl 0.3 mg tablet 0.3 mg PO TID hydralazine 25 mg tablet 25 mg PO QID verapamil 120 mg tablet extended release 120 mg PO BID Discontinued omeprazole 20 mg capsule,delayed release(DR/EC) 20 mg PO DAILY Discharge Orders: Discharge Order (Routine); Ordered 05/05/25 Ordered By: Primo Diaz Referrals: Ann Marie Kim MD [Primary Care Provider, [facility]] - 05/08/25 10:00 am Discharge Diet: Clear Liquid Patient Instructions: Ciprofloxacin (By mouth) (Cipro), Prednisone (By mouth) (Prednisone Intensol, Prednicot, Deltasone, Enrique), Metronidazole (By mouth) (Flagyl, Flagyl 375, Flagyl ER, Likmez), Pantoprazole (By mouth) (Protonix), Acute Kidney Injury (DC), Hypokalemia (DC), Opioid Safety Activity Restrictions/Additional Instructions: Please follow-up with outpatient gastroenterology. Continue with ciprofloxacin and Flagyl along with 50 mg of steroid for next 7 days. If you continue to have diarrhea after 1 week you can take Imodium as needed for more than 2 bowel movements. Discharge Attestations Time Spent in Discharge Care*: greater than 30 min Specific Discharge Activities: educating patient, educating and/or supporting family/caregiver, discussing with pcp/other providers, discussing with housing case manager/social workers/dc planners, documenting/other paperwork and evaluating patient/reviewing data Status at Discharge: Cognitive status at discharge: cognitively intact, Behavioral status at discharge: cooperative, Functional status at discharge: independent ambulation, Overall status at discharge: patient is back to baseline Quality Metrics Clinical Quality Measures [ No reported AMI, CVA or VTE this stay] Coding Level of Care Code 37093 Total time (in minutes) for Discharge: 60 Diagnoses Colitis K52.9 Weight loss R63.4 Nausea and vomiting R11.2 Leukocytosis D72.825 Leukocytosis type: bandemia
--- NOTE | 2025-05-05 11:59 | PC.SOCIAL ---
IMM UPDATED IMM dated and initialed copy placed in chart and copy given to patient.
[2025-05-05 12:16] VITALS: BP 180/86; PULSE 106; RESP 19; TEMP 36.6; O2SAT 95
--- NOTE | 2025-05-05 12:17 | PC.NURSE ---
Discharge instructions provided to pt and her . NO questions or concerns voiced at this time. Pt to private vehicle via wheelchair with all belongings.
== END 2025-05-05 12:18 | disposition home or self-care (01) | DRG 392 ==
LOC: ER 22:43 → ER IP 23:20 → ICU 05-03 05:11 → MEDSURG 05-03 12:21
PROVIDERS: Family Medicine; Internal Medicine; Admitting Provider Internal Medicine; Emergency Provider Physician Assistant; PCP Family Medicine; Visit Provider Student in an Organized Health Care Education/Training Program
DX: K52.9 Noninfective gastroenteritis and colitis, unspecified (principal); N17.9 Acute kidney failure, unspecified; E87.20 Acidosis, unspecified; D72.825 Bandemia; I10 Essential (primary) hypertension; E11.9 Type 2 diabetes mellitus without complications; M19.90 Unspecified osteoarthritis, unspecified site; F41.9 Anxiety disorder, unspecified; M54.16 Radiculopathy, lumbar region; E86.0 Dehydration; E87.6 Hypokalemia; R63.4 Abnormal weight loss; Z68.27 Body mass index [BMI] 27.0-27.9, adult; Z79.891 Long term (current) use of opiate analgesic; Z79.890 Hormone replacement therapy; Z86.0100 Personal history of colon polyps, unspecified
CPT/HCPCS: 36415; 74176; 80053; 81001; 83036; 83605; 83690; 83735; 84100; 85025; 86141; 87040; 87493; 96365; 96367; 96372; 96375; 99285; J0360; J0744; J1644; J1720; J1885; J2270; J2405; J2919; J3490; J7030; J9999

== ENCOUNTER 2025-05-12 14:39 | Outpatient (CLI) | payer MEDICARE, OTHER, SELFPAY ==
[2025-05-12 15:31] LABS: Basophils % 0.5 %; Eosinophils # 0.1 10^3/uL (0.0-0.8); Eosinophils % 1.3 %; Hematocrit 31.9 % (36-47); Lymphocytes # 1.1 10^3/uL (0.8-4.8); Lymphocytes % 18.2 %; Mean Corpuscular HGB Conc 31.7 g/dL (30-55); Mean Corpuscular Hemoglobin 31.9 pg (27-33); Mean Corpuscular Volume 100.6 fl (85-98); Mean Platelet Volume 9.7 fL (7.4-10.4); Monocytes # 0.6 10^3/uL (0.2-0.9); Monocytes % 10.1 %; Neutrophils % 69.4 %; Nucleated Red Blood Cells % 0 %; Platelet Count 170 10^3/cmm (157-399); Red Blood Count 3.17 10^6/uL (3.85-5.65); Red Cell Distribution Width 12.9 % (12.1-15.1); White Blood Count 6.05 10^3/uL (3.29-11.43)
[2025-05-12 15:49] LABS: Alanine Aminotransferase 43 U/L (0-33); Albumin Level 3.4 g/dL (3.5-5.2); Alkaline Phosphatase 43 U/L (35-105); Anion Gap 16.5 (5-19); Aspartate Amino Transferase 32 U/L (0-32); Blood Urea Nitrogen 12 mg/dL (8-23); Calcium 8.4 mg/dL (8.5-10.5); Carbon Dioxide 26 mmol/L (22-29); Chloride 103 mmol/L (98-107); Globulin 2.3 g/dL (1.3-4.6); Glucose 67 mg/dL (65-115); Osmolality Calculated 292 mOsm/kg (285-295); Potassium 3.5 mmol/L (3.5-5.1); Sodium 142 mmol/L (136-145); Total Bilirubin 0.3 mg/dL (0.15-1.2); Total Protein 5.7 g/dL (6.6-8.7)
== END 2025-05-12 14:40 | disposition home or self-care (01) ==
LOC: LAB 14:40
PROVIDERS: PCP Family Medicine; Visit Provider Family Medicine
DX: D72.825 Bandemia (principal); R11.2 Nausea with vomiting, unspecified; R63.4 Abnormal weight loss; E87.6 Hypokalemia; N17.9 Acute kidney failure, unspecified; Z79.899 Other long term (current) drug therapy
CPT/HCPCS: 36415; 80053; 85025

== ENCOUNTER 2025-05-14 01:18 | Emergency (ER) | payer MEDICARE, OTHER, SELFPAY ==
[2025-05-14 01:28] VITALS: BP 159/99; PULSE 98; RESP 16; TEMP 36.7; O2SAT 95; BMI 25.7
--- NOTE | 2025-05-14 01:33 | W.ED.SOB ---
HPI - SOB/Dyspnea General: Chief Complaint: Shortness of Breath/Dyspnea Stated Complaint: SOB Rt Side Pain Time Seen by Provider: 05/14/25 01:33 History of Present Illness: HPI Narrative: 75-year-old female who presents emergency room with right-sided chest pain going down into her right flank and down her right leg. Apparently she has taken 3 hydrocodone she had leftover from surgery, 2 aspirin, 2 Tylenol a tramadol and 3 Xanax with no relief. No saddle numbness, no urinary retention or incontinence, no focal motor deficit, no sensory deficit. no recent fever. no cough. . no nausea or vomiting. no dysuria. no altered mental status. no edema. No dysuria. No hematuria. No shortness of breath. Related Data Home Medications ?Medication ?Instructions ?Recorded ?Confirmed clonidine HCl 0.3 mg tablet 0.3 mg PO TID 05/03/25 05/12/25 estradiol 0.01% (0.1 mg/gram) See Rx Instructions .Route .COMPLEX 05/03/25 05/12/25 vaginal cream hydralazine 25 mg tablet 25 mg PO QID 05/03/25 05/12/25 hydrocodone 5 mg-acetaminophen 325 1 - 2 tab PO .Q4-6H PRN Pain 05/03/25 05/12/25 mg tablet multivitamin 1 tab PO DAILY 05/03/25 05/12/25 naproxen sodium 220 mg tablet 220 mg PO BID PRN Pain 05/03/25 05/12/25 (Aleve) Previous Rx's ?Medication ?Instructions ?Recorded nitroglycerin 0.4 mg sublingual 0.4 mg sublingual Q5M PRN chest 09/14/22 tablet pain #25 tabs alprazolam 0.5 mg tablet 0.5 mg PO QID #120 tabs 11/25/24 prednisone 5 mg tablet 5 mg PO DAILY PRN pain flare #30 12/10/24 tabs leflunomide 20 mg tablet 20 mg PO DAILY #90 tabs 03/18/25 tramadol 50 mg tablet 50 mg PO Q8H PRN pain 30 days #90 04/07/25 tabs ciprofloxacin HCl 500 mg tablet 500 mg PO BID #14 tabs 05/05/25 (Cipro) pantoprazole 40 mg tablet,delayed 40 mg PO DAILY 30 days #30 tabs 05/05/25 release hydrocodone 5 mg-acetaminophen 325 1 tab PO Q6H PRN pain 7 days #28 05/12/25 mg tablet tabs labetalol 200 mg tablet 200 mg PO Q12H #270 tabs 05/12/25 lactulose 10 gram/15 mL oral 20 g (30 mL) PO BID #1,200 mL 05/12/25 solution verapamil 120 mg tablet,extended See Rx Instructions .Route 05/13/25 release .COMPLEX #180 tabs cyclobenzaprine 10 mg tablet 10 mg PO Q8H PRN muscle spasm #20 05/14/25 tabs dexamethasone 6 mg tablet 6 mg PO DAILY 5 days #5 tabs 05/14/25 Allergies Allergy/AdvReac Type Severity Reaction Status Date / Time sulfasalazine Allergy Unknown ADR-Nausea Verified 05/14/25 01:31 plastics Allergy ALGY-Rash Uncoded 05/14/25 01:31 Review of Systems Narrative: Constitutional symptoms: Negative except as documented in HPI. Skin symptoms: Negative except as documented in HPI. Eye symptoms: Negative except as documented in HPI. ENMT symptoms: Negative except as documented in HPI. Respiratory symptoms: Negative except as documented in HPI. Cardiovascular symptoms: Negative except as documented in HPI. Gastrointestinal symptoms: Negative except as documented in HPI. Genitourinary symptoms: Negative except as documented in HPI. Musculoskeletal symptoms: Negative except as documented in HPI. Neurologic symptoms: Negative except as documented in HPI. Psychiatric symptoms: Negative except as documented in HPI. Endocrine symptoms: Negative except as documented in HPI. PFS ED PFSH: Medical History Immunization counseling High risk medication use Inflammatory arthritis Eczema History of colon polyps Irritable bowel syndrome with both constipation and diarrhea Thoracic spine pain Essential hypertension Anxiety Diabetes Lumbar disc disease with radiculopathy Surgical History History of colonoscopy (03/23/21) 2014: Colon polyps 2020: Mild diverticulosis History of cholecystectomy History of dilation and curettage History of total hysterectomy Family History Father Parkinson disease Cancer Mother Cancer Social History Smoking and tobacco/nicotine status: never used tobacco/nicotine Second hand smoke exposure: No Alcohol intake: never Substance/Drug Use: never Physical Exam Narrative: EXAM NARRATIVE: General: Alert, no acute distress. Skin: Warm, dry. Head: Normocephalic, atraumatic. Neck: Supple, trachea midline. Eye: Extraocular movements are intact. Ears, nose, mouth and throat: mucosa moist. Cardiovascular: Regular, Normal peripheral perfusion. Respiratory: Lungs are clear to auscultation, respirations are non-labored, breath sounds are equal, Symmetrical chest wall expansion. Gastrointestinal: Soft, Nontender, Non distended Musculoskeletal: Normal ROM, no deformity. Neurological: Alert and oriented, No focal neurological deficit observed. Psychiatric: Cooperative, patient is crying in pain Course Vital Signs: Vital signs: Vital Signs Temperature 98.1 F 05/14/25 01:28 Pulse Rate 90 05/14/25 04:07 Respiratory Rate 16 05/14/25 04:07 Blood Pressure 197/97 05/14/25 04:07 Pulse Oximetry 99 05/14/25 04:07 Oxygen Delivery Me thod Nasal Cannula 05/14/25 02:31 Oxygen Flow Rate 2 05/14/25 02:31 MDM - SOB/Dyspnea Medical Decision Making Medical decision making: Differential diagnosis including but not limited to and based on the above HPI, review of systems and physical exam: Patient has chest pain flank pain back pain and sciatic pain. Would have concern for pneumonia, kidney stones, or just musculoskeletal pain. CT of the chest abdomen pelvis was ordered without contrast to evaluate. Also basic lab work. Orders placed to evaluate differential diagnosis based on the above differential, HPI and physical exam Lab Review: Laboratory results were reviewed and interpreted by myself the emergency room physician. No leukocytosis. Stable anemia. No renal failure. CT of the chest abdomen pelvis: Possible esophagitis. No symptoms. Pulmonary nodules. No acute abdominal or pelvic process. This was reviewed and interpreted by myself the emergency room physician. I also reviewed the radiology report. I reviewed the patient's medical record. Reexamination: Patient remained stable. No increased work of breathing. No altered mental status. No focal motor deficits. Pain seems to be somewhat improved after Dilaudid. Discussed findings. Assessment and plan: Back pain Pulmonary nodules ?Dilaudid, dexamethasone and Zofran IV. - Discharged home - Discussed plan with patient. Answered any questions. - Evaluation and treatment of this problem were appropriate in the emergency setting. Lab Data 05/14/25 01:57 05/14/25 01:57 Labs/Radiology: Radiology Impressions Chest/Abdomen/Pelvis CT 05/14/25 01:36 IMPRESSION: 1. Mild nonspecific circumferential wall thickening in the proximal and mid esophagus. Possible esophagitis. Correlate clinically. 2. Scattered tiny bilateral noncalcified pulmonary nodules measuring up to 3 mm in the right upper lobe. For patients at low risk (minimal or absent history of smoking and of other known risk factors), no routine follow-up is indicated. For patients at high risk (history of smoking or of other known IMPRESSION: No evidence of acute abdominal or pelvic process. Laboratory Results WBC 7.84 10^3/uL (3.29-11.43) 05/14/25 01:57 RBC 3.16 10^6/uL (3.85-5.65) L 05/14/25 01:57 Hgb 9.90 g/dL (11.27-16.99) L 05/14/25 01:57 Hct 30.6 % (36-47) L 05/14/25 01:57 MCV 96.8 fl (85-98) 05/14/25 01:57 MCH 31.3 pg (27-33) 05/14/25 01:57 MCHC 32.4 g/dL (30-55) 05/14/25 01:57 RDW 12.7 % (12.1-15.1) 05/14/25 01:57 Plt Count 198 10^3/cmm (157-399) 05/14/25 01:57 MPV 9.0 fL (7.4-10.4) 05/14/25 01:57 Neut % (Auto) 61.2 % 05/14/25 01:57 Lymph % (Auto) 24.9 % 05/14/25 01:57 Curry % (Auto) 10.7 % 05/14/25 01:57 Eos % (Auto) 1.8 % 05/14/25 01:57 Baso % (Auto) 0.9 % 05/14/25 01:57 Neut # (Auto) 4.80 10^3/uL (1.8-7.7) 05/14/25 01:57 Lymph # (Auto) 2.0 10^3/uL (0.8-4.8) 05/14/25 01:57 Curry # (Auto) 0.8 10^3/uL (0.2-0.9) 05/14/25 01:57 Eos # (Auto) 0.1 10^3/uL (0.0-0.8) 05/14/25 01:57 Baso # (Auto) 0.1 10^3/uL (0.0-0.1) 05/14/25 01:57 Nucleated RBC % (auto) 0 % 05/14/25 01:57 Nucleated RBCs # 0.0 /100WBC 05/14/25 01:57 Sodium 141 mmol/L (136-145) 05/14/25 01:57 Potassium 3.0 mmol/L (3.5-5.1) L 05/14/25 01:57 Chloride 102 mmol/L (98-107) 05/14/25 01:57 Carbon Dioxide 30 mmol/L (22-29) H 05/14/25 01:57 Anion Gap 12.0 (5-19) 05/14/25 01:57 BUN 9 mg/dL (8-23) 05/14/25 01:57 Creatinine 1.0 mg/dL (0.5-0.9) H 05/14/25 01:57 GFR Calculation Not Reportable 05/14/25 01:57 Glucose 101 mg/dL (65-115) 05/14/25 01:57 Calculated Osmolality 291 mOsm/kg (285-295) 05/14/25 01:57 Calcium 9.0 mg/dL (8.5-10.5) 05/14/25 01:57 Total Bilirubin 0.2 mg/dL (0.15-1.2) 05/14/25 01:57 AST 24 U/L (0-32) 05/14/25 01:57 ALT 36 U/L (0-33) H 05/14/25 01:57 Alkaline Phosphatase 49 U/L (35-105) 05/14/25 01:57 Total Protein 5.6 g/dL (6.6-8.7) L 05/14/25 01:57 Albumin 3.4 g/dL (3.5-5.2) L 05/14/25 01:57 Globulin 2.2 g/dL (1.3-4.6) 05/14/25 01:57 All radiology interpretation(s) finalized by discharge Discharge Plan Discharge Patient Disposition: Home Clinical Impression: Back pain, Incidental pulmonary nodule Condition: Stable Prescriptions: New cyclobenzaprine 10 mg tablet 10 mg PO Q8H PRN (Reason: muscle spasm) Qty: 20 0RF dexamethasone 6 mg tablet 6 mg PO DAILY 5 Days Qty: 5 0RF No Action leflunomide 20 mg tablet 20 mg PO DAILY Qty: 90 1RF tramadol 50 mg tablet 50 mg PO Q8H PRN (Reason: pain) 30 Days Qty: 90 1RF prednisone 5 mg tablet 5 mg PO DAILY PRN (Reason: pain flare) Qty: 30 1RF labetalol 200 mg tablet 200 mg PO Q12H Qty: 270 1RF hydrocodone-acetaminophen 5-325 mg tablet 1 tab PO Q6H PRN (Reason: pain) 7 Days Qty: 28 0RF lactulose 10 gram/15 mL solution 20 g PO BID Qty: 1200 1RF nitroglycerin 0.4 mg tablet, sublingual 0.4 mg SUBLINGUAL Q5M PRN (Reason: chest pain) Qty: 25 2RF Rx Instructions: do not exceed 3 doses per episode alprazolam 0.5 mg tablet 0.5 mg PO QID Qty: 120 5RF verapamil 120 mg tablet extended release See Rx Instructions .ROUTE .COMPLEX Qty: 180 2RF Dose Instruction: TAKE ONE TABLET BY MOUTH TWICE DAILY Rx Instructions: TAKE ONE TABLET BY MOUTH TWICE DAILY multivitamin Tablet 1 tab PO DAILY naproxen sodium [Aleve] 220 mg Tablet 220 mg PO BID PRN (Reason: Pain) estradiol 0.01 % (0.1 mg/gram) cream See Rx Instructions .ROUTE .COMPLEX Rx Instructions: pply DIRECTED DAILY TO INSIDE of VAGINA. hydrocodone-acetaminophen 5-325 mg tablet 1 - 2 tab PO .Q4-6H PRN (Reason: Pain) clonidine HCl 0.3 mg tablet 0.3 mg PO TID hydralazine 25 mg tablet 25 mg PO QID ciprofloxacin HCl [Cipro] 500 mg tablet 500 mg PO BID Qty: 14 0RF pantoprazole 40 mg Tablet,Delayed Release (Dr/Ec) 40 mg PO DAILY 30 Days Qty: 30 0RF Discharge Orders: Discharge ED (Routine); Ordered 05/14/25 Ordered By: Rosa Olivier Referrals: Ann Marie Kim MD [Primary Care Provider, Family Practice] Discharge Diet: Usual diet Discharge Activity: Increase activity as tolerated Patient Instructions: Opioid Safety, Pain Management Activity Restrictions/Additional Instructions: A pulmonary nodule was seen on imaging. This will need follow up imaging with your primary provider. Please schedule an appointment concerning this. Thank you for choosing [facility] for your healthcare needs today. You have been screened and evaluated and felt safe for discharge. Health conditions do change or evolve sometimes and as such it is important that you follow up with your Primary Doctor to be re checked, 3-5 days is a general good time frame for follow up. You are always welcome to return to the ED for re assessment if your symptoms are worsening or you have new concerns Print Language: Syriac Coding Level of Care Code ED Video Camera Operator for Crystal Urban
--- NOTE | 2025-05-14 01:36 | CTR_ITS ---
PROCEDURE INFORMATION: Exam: CT Chest Without Contrast; Diagnostic Exam date and time: 05/14/2025 2:24 AM Age: 75 years old Clinical indication: Abdominal pain; Flank; Right-sided; Prior surgery; Surgery date: 6+ months; Surgery type: Back surgery, hysterectomy, cholecystectomy; Additional info: Right chest and flank pain. TECHNIQUE: Imaging protocol: Diagnostic computed tomography of the chest without contrast. Radiation optimization: All CT scans at this facility use at least one of these dose optimization techniques: automated exposure control; mA and/or kV adjustment per patient size (includes targeted exams where dose is matched to clinical indication); or iterative reconstruction. COMPARISON: CT abdomen pelvis wo con [id number] 05/02/2025 9:04 PM RADIATION DOSE METRICS: Total DLP (mGy-cm): 357.5 FINDINGS: Lungs: Scattered tiny bilateral noncalcified pulmonary nodules measuring up to 3 mm in the right upper lobe. Calcified granuloma in the right lower lobe. Minimal bibasilar atelectasis and/or scar. Pleural spaces: Unremarkable. No pneumothorax. No pleural effusion. Heart: Unremarkable. No cardiomegaly. No pericardial effusion. Coronary arteries: Coronary artery calcifications are present. Esophagus: Mild nonspecific circumferential wall thickening in the proximal and mid esophagus. Lymph nodes: Unremarkable. No enlarged lymph nodes. Vasculature: Aortic atherosclerotic disease is seen without evidence of aneurysm. Bones/joints: Unremarkable. No acute fracture. Soft tissues: Unremarkable. risk factors), consider optional CT Chest at 12 months. (Reference: Ro) References: Griselhoangeles H, et al. Guidelines for Management of Incidental Pulmonary Nodules Detected on CT Images: From the Fleischner Society 2017. Radiology. 2017;284(1):228-243. PROCEDURE INFORMATION: Exam: CT Abdomen And Pelvis Without Contrast Exam date and time: 05/14/2025 2:24 AM Age: 75 years old Clinical indication: Abdominal pain; Flank; Right-sided; Prior surgery; Surgery date: 6+ months; Surgery type: Back surgery, hysterectomy, cholecystectomy; Additional info: Right chest and flank pain. TECHNIQUE: Imaging protocol: Computed tomography of the abdomen and pelvis without contrast. Radiation optimization: All CT scans at this facility use at least one of these dose optimization techniques: automated exposure control; mA and/or kV adjustment per patient size (includes targeted exams where dose is matched to clinical indication); or iterative reconstruction. COMPARISON: CT abdomen pelvis wo con [id number] 05/02/2025 9:04 PM RADIATION DOSE METRICS: Total DLP (mGy-cm): 545.5 FINDINGS: Liver: Normal. No mass. Gallbladder and biliary ducts: Status post cholecystectomy. No evidence of significant biliary obstruction. Pancreas: Normal. No ductal dilation. Spleen: Normal. No splenomegaly. Adrenal glands: Normal. No mass. Kidneys and ureters: Normal. No hydronephrosis. Stomach and bowel: Colonic diverticulosis is present without diverticulitis. Bowel has normal caliber. Appendix: No evidence of appendicitis. Intraperitoneal space: Unremarkable. No free air. No significant fluid collection. Vasculature: Aortoiliac atherosclerotic disease is seen without evidence of aneurysm. Lymph nodes: Unremarkable. No enlarged lymph nodes. Urinary bladder: Unremarkable as visualized. Reproductive: Uterus is surgically absent. No evidence of adnexal mass. Bones/joints: Redemonstrated postoperative changes from instrumented posterior spinal fusion L4-L5. No acute or suspicious osseous abnormality. Soft tissues: Unremarkable. CT/[place] [id number] IMPRESSION: 1. Mild nonspecific circumferential wall thickening in the proximal and mid esophagus. Possible esophagitis. Correlate clinically. 2. Scattered tiny bilateral noncalcified pulmonary nodules measuring up to 3 mm in the right upper lobe. For patients at low risk (minimal or absent history of smoking and of other known risk factors), no routine follow-up is indicated. For patients at high risk (history of smoking or of other known IMPRESSION: No evidence of acute abdominal or pelvic process.
[2025-05-14 02:03] LABS: Basophils # 0.1 10^3/uL (0.0-0.1); Basophils % 0.9 %; Eosinophils # 0.1 10^3/uL (0.0-0.8); Eosinophils % 1.8 %; Hematocrit 30.6 % (36-47); Lymphocytes % 24.9 %; Mean Corpuscular HGB Conc 32.4 g/dL (30-55); Mean Corpuscular Hemoglobin 31.3 pg (27-33); Mean Corpuscular Volume 96.8 fl (85-98); Monocytes # 0.8 10^3/uL (0.2-0.9); Monocytes % 10.7 %; Neutrophils % 61.2 %; Nucleated Red Blood Cells % 0 %; Platelet Count 198 10^3/cmm (157-399); Red Blood Count 3.16 10^6/uL (3.85-5.65); Red Cell Distribution Width 12.7 % (12.1-15.1); White Blood Count 7.84 10^3/uL (3.29-11.43)
[2025-05-14] MEDS: HYDROmorphone 0.5 MG/0.5 ML INJ 1 MG IVP (02:10)
[2025-05-14] MEDS: ondansetron 2 mg/ML SDV 2 mL 4 MG IVP (02:12)
[2025-05-14] MEDS: dexamethasone 10 mg/mL INJ IVP (02:13)
[2025-05-14 02:25] LABS: Alanine Aminotransferase 36 U/L (0-33); Albumin Level 3.4 g/dL (3.5-5.2); Alkaline Phosphatase 49 U/L (35-105); Aspartate Amino Transferase 24 U/L (0-32); Blood Urea Nitrogen 9 mg/dL (8-23); Carbon Dioxide 30 mmol/L (22-29); Chloride 102 mmol/L (98-107); Creatinine Clr Calc Pharmacy 42.0412; Globulin 2.2 g/dL (1.3-4.6); Glucose 101 mg/dL (65-115); Osmolality Calculated 291 mOsm/kg (285-295); Sodium 141 mmol/L (136-145); Total Bilirubin 0.2 mg/dL (0.15-1.2); Total Protein 5.6 g/dL (6.6-8.7)
[2025-05-14 02:31] VITALS: BP 176/93; PULSE 89; RESP 16; O2SAT 98
[2025-05-14 04:07] VITALS: BP 197/97; PULSE 90; RESP 16; O2SAT 99
== END 2025-05-14 04:12 | disposition home or self-care (01) ==
PROVIDERS: Emergency Provider Emergency Medicine; PCP Family Medicine
DX: M54.9 Dorsalgia, unspecified (principal); R91.1 Solitary pulmonary nodule; E11.9 Type 2 diabetes mellitus without complications; I10 Essential (primary) hypertension
CPT/HCPCS: 36415; 71250; 74176; 80053; 85025; 96374; 96375; 99285; J1100; J1171; J2405

== ENCOUNTER 2025-05-15 07:03 | Outpatient (CLI) | payer MEDICARE, OTHER, SELFPAY ==
--- NOTE | 2025-05-15 07:15 | CT_ITS ---
WS: [id number] CT HEAD WITH AND WITHOUT CONTRAST HISTORY: R41.82 - Altered mental status, unspecified TECHNIQUE: Noncontrast 3.0 mm axial images obtained from the vertex to the skull base. Additional imaging performed at 3.0 mm axial images status post IV contrast. Bone and soft tissue windows are reviewed. All CT scans at [facility] use at least one of these dose optimization techniques: automated exposure control; mA and/or kV adjustment per patient size (includes targeted exams where dose is matched to clinical indication); or iterative reconstruction. CONTRAST: Omnipaque 350; 100 mL IV. DLP: 2029.75 mGy.cm COMPARISON: CT head 09/19/2024 No acute intracranial hemorrhage, edema or midline shift. Mild to moderate atrophy and small vessel disease. No prior large infarct. Small lacunar infarct along the LEFT external capsule. Ventricles are normal size. No midline shift or mass effect. No intracranial mass. No vascular malformation. Atherosclerotic plaque in the distal vertebral arteries but no occlusion. Moderate plaque at the carotid arteries in the cavernous sinus. Greater than 50% stenosis but no occlusion. Mild narrowing of the middle cerebral arteries no occlusion. No aneurysms are identified. Dural venous sinuses are normally enhancing. Paranasal sinuses as visualized: Clear. Mastoid air cells: Clear. Calvarium and scalp: Intact. CT/CT head wo/w con [id number] IMPRESSION: 1. No acute intracranial hemorrhage or edema. 2. Mild to moderate cerebral atrophy and small vessel disease. No interval jose juan nge since 09/19/2024. 3. Moderate atherosclerotic plaque in the distal vertebral arteries and the in tracranial carotid arteries. Stenosis estimated at greater than 50% although no t totally occluded. 4. No enhancing masses or vascular malformations.
== END 2025-05-15 07:04 | disposition home or self-care (01) ==
PROVIDERS: PCP Family Medicine; Visit Provider Family Medicine
DX: R41.82 Altered mental status, unspecified (principal); R29.6 Repeated falls; I65.23 Occlusion and stenosis of bilateral carotid arteries; I67.2 Cerebral atherosclerosis; I67.89 Other cerebrovascular disease; G31.9 Degenerative disease of nervous system, unspecified
CPT/HCPCS: 70470

== ENCOUNTER → 2025-05-20 08:30 | Outpatient (BNVA) | payer MEDICARE, OTHER, SELFPAY | PROVIDERS: PCP Family Medicine; Visit Provider Orthopaedic Surgery | DX: M25.561 Pain in right knee (principal); M54.9 Dorsalgia, unspecified; M48.062 Spinal stenosis, lumbar region with neurogenic claudication; M43.16 Spondylolisthesis, lumbar region; M51.16 Intervertebral disc disorders with radiculopathy, lumbar region | CPT/HCPCS: 99213 ==

== ENCOUNTER 2025-05-23 14:09 | Outpatient (CLI) | payer MEDICARE, OTHER, SELFPAY ==
--- NOTE | 2025-05-23 14:30 | MR_ITS ---
WS: [id number] MRI LUMBAR SPINE NONCONTRAST TECHNIQUE: Sagittal T1, T2 and STIR imaging. Axial T1 and T2 imaging. CLINICAL INFORMATION: lumbar pain COMPARISON: MRI 06/11/2024 FINDINGS: Mild lumbar curve. No acute compression. Pedicle screw fixation L4-5. Slight retrolisthesis L2 on L3 and L3 on L4. L1-L2: Mild disc bulging. Narrowing of the RIGHT subarticular recess. Mild facet arthropathy. Mild RIGHT foraminal narrowing. L2-L3: Slight retrolisthesis. Mild disc bulging with narrowing of the LEFT greater than RIGHT subarticular recess. Moderate central canal stenosis. Impingement on traversing LEFT L3 nerve root. Moderate facet arthropathy. Mild RIGHT greater than LEFT foraminal narrowing. L3-L4: Slight retrolisthesis. Central disc protrusion with severe central canal stenosis. Moderate facet arthropathy. Moderate LEFT foraminal narrowing. Small far LEFT 6 mm synovial cyst does not affect the exiting nerve root. Moderate LEFT and mild RIGHT foraminal narrowing. L4-L5: Laminectomy defects. Pedicle screw fixation. Foramen are patent. Spinal canal is patent. L5-S1: Pedicle screw fixation. Disc osteophyte ridging. Moderate facet arthropathy. Mild LEFT foraminal narrowing. RIGHT foramen is patent. Visualized pelvic bony structures: Normal. Paravertebral soft tissues: Normal. Small RIGHT renal cyst. MR/MR lumbar spine wo con* [id number] IMPRESSION: 1. Severe central canal stenosis L3-4 appears stable compared to previous. The re may be a new LEFT hemilaminectomy at this level but severe thecal sac stenos is is persistent 2. Moderate central canal stenosis L2-3 with impingement on the LEFT subarticu lar recess appears stable 3. Narrowing of the RIGHT L1-2 subarticular recess. This is stable compared to previous. 4. Pedicle screw fixation L4-L5 and L5-S1 appears stable with spinal canal dec ompression. No recurrent stenosis at these levels. 5. Moderate LEFT L3-4 foraminal narrowing similar to previous.
== END 2025-05-23 14:10 | disposition home or self-care (01) ==
PROVIDERS: PCP Family Medicine; Visit Provider Orthopaedic Surgery
DX: M48.062 Spinal stenosis, lumbar region with neurogenic claudication (principal); M43.16 Spondylolisthesis, lumbar region; M51.16 Intervertebral disc disorders with radiculopathy, lumbar region
CPT/HCPCS: 72148

== ENCOUNTER 2025-05-25 21:13 | Emergency (ER) | payer MEDICARE, OTHER, SELFPAY ==
[2025-05-25 21:15] VITALS: BP 163/91; PULSE 87; RESP 18; TEMP 36.4; O2SAT 97; BMI 25.6
--- OUTSIDE RECORDS SUMMARY | 2025-05-25 21:19 | XMS_ITS | Clinical Summary ---
Author Organization [facility] de Address [address] [place] [address] Phone Care Team Providers Care Manager Talent Name Role Phone Ann Marie Kim MD Primary Care Provider [phone] Allergies No known active allergies Medications hydrALAZINE (APRESOLINE) 25 mg tablet TAKE 1 TABLET BY MOUTH FOUR TIMES DAILY NEEDED FOR HIGH BLOOD PRESSURE 2 Active nitroglycerin ER 2.5 mg capsule,extende d release Take 2.5 mg by mouth Continuous as needed. Active predniSONE (DELTASONE) 20 mg tablet TAKE 1 TO 2 TABLETS BY MOUTH EVERY DAY FOR 3-7 DAYS NEEDED FOR arthritis flare or joint pain flare 3 Active ALPRAZolam (XANAX) 0.5 mg tablet Four Times Daily 3 Active aspirin 1 mg/mL Suspension daily. 2 Active cloNIDine HCL (CATAPRES) 0.3 mg tablet Three Times Daily 3 Active leflunomide (ARAVA) 20 mg Tablet Take 20 mg by mouth. Pt hasn't started yet due to it states not to take if getting the flu shot Active labetaloL (NORMODYNE) 200 mg tablet Take 100 mg by mouth 3 times daily. 4 Active verapamiL (CALAN SR) 120 mg Sustained Release tablet Take 1 Tablet by mouth 2 times daily. 4 Active memantine (NAMENDA) 10 mg Tablet Take 10 mg by mouth 2 times daily. 4 Active NAPROXEN SODIUM ORAL Take by mouth. Activ e metoclopramide HCl (REGLAN) 5 mg tablet Take 0.5 Tablets (2.5 mg) by mouth 4 times daily before meals and at bedtime. 120 Tablet 3 4 Active lubiprostone (AMITIZA) 24 mcg Capsule take 1 capsule BY MOUTH TWICE DAILY with meals 60 Capsule 2 4 Active omeprazole (PriLOSEC) 20 mg Capsule, Delayed Release(E.C.) take 1 capsule BY MOUTH EVERY DAY 30 Capsule 2 5 Active Active Problems No known active problems Encounters Date Type Department Care Team Description 05/14/2025 External Device Data [facility] ABSTRACTION Provider, Abstract 04/17/2025 External Device Data [facility]STRACTION Provider, Abstract 04/17/2025 External Device Data [facility]STRACTION Provider, Abstract 04/16/2025 External Device Data [facility]STRACTION Provider, Abstract 03/18/2025 Refill [facility] [address] Nicole Ocasio PA from Last 3 Months Family History Medical History Relation Name Comments Colon Cancer Neg Hx Social History Tobacco Use Types Packs/Day Years Used Date Smoking Tobacco: Never Smokeless Tobacco: Never Tobacco Cessation:Counseling Given: Not Answered Alcohol Use Standard Drinks/Week Comments Never 0 (1 standard drink = 0.6 oz pur e alcohol) Feeling Safe Answer Date Recorded Are you in a relationship wi th someone who hurts you emotionally and/or physically? 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 Gender Identity Not on file Sexual Orientation Not on file Last Filed Vital Signs Vital Sign Reading Time Taken Comments Blood Pressure 154/85 10/14/2024 9:30 AM RELATIONSHIP CONSULTANT Pulse 73 10/14/2024 9:30 AM RELATIONSHIP CONSULTANT Temperature - - Respiratory Rate 18 10/14/2024 9:30 AM RELATIONSHIP CONSULTANT Oxygen Saturation 95% 10/14/2024 9:30 AM RELATIONSHIP CONSULTANT Inhaled Oxygen Concentration - - Weight 70.7 kg (155 lb 12.8 oz) 024 12:37 PM CDT Height 167.6 cm (5' 6 ) 07/31/2024 12:3 7 PM CDT Body Mass Index 25.15 07/31/2024 12:37 PM CDT Plan of Treatment Health Maintenance Due Date Last Done Comments DIABETES ANNUAL FOOT EXAM 1967 DIABETES ANNUAL RETINAL EXAM 1967 DIABETES HBA1C Q 6 MONTHS 1967 DIABETES MICROALBUMIN ANNUAL SCREEN 1967 LDL CHOLESTEROL ANNUAL 1967 DTAP/TDAP/TD VACCINES (1 - Tdap) 02/01/1968 PNEUMOCOCCAL VACCINE 50+ YEA RS (1 of 2 - PCV) 02/01/1968 ZOSTER VACCINE (1 of 2) 1999 OSTEOPOROSIS SCREENING 2014 RSV VACCINE (60+ or ) (1 - 1-dose 75+ series) 02/01/2024 INFLUENZA VACCINE (#1) 2024 09/20/2023, 2019 COLORECTAL SCREENING 03/03/2028 03/03/2023, 03/03/20 23 Procedures Procedure Name Priority Date/Time Associated Diagnosis Comments COLONOSCOPY REPORT 03/03/2023 11 :37 AM CDT from Last 3 Months or Most Recently Relevant to Health Maintenance Results * COLONOSCOPY REPORT (03/03/2023 11:37 AM CDT) Narrative Procedure Note Neo Nagy MD - 03/03/2023 11:36 AM CDT [facility] Patient Name: Holly Diez Procedure Date: 03/03/2023 Date of : 1950 Admit Type: Outpatient Age: 73 Attending MD: Neo Nagy MD, Procedure: Colonoscopy Indications: Weight loss, abdominal pain, black tarry stool, personal history of polyps Providers: Neo Nagy MD Referring MD: Ann Marie Kim MD Medicines: Monitored Anesthesia Care Complications: No immediate complications. Procedure: After I obtained informed consent, the scope was passed under direct vision. Throughout the procedure, the patient's blood pressure, pulse, and oxygen saturations were monitored continuously. The Colonoscope was introduced through the anus and advanced to the terminal ileum. The quality of the bowel preparation was adequate. Estimated Blood Loss: Estimated blood loss was minimal. Findings: Non-bleeding internal hemorrhoids were found. The hemorrhoids were Grade I (internal hemorrhoids that do not prolapse). Multiple small and large-mouthed diverticula were found in the sigmoid colon and descending colon. Two sessile polyps were found in the cecum. The polyps were 5 to 7 mm in size. These polyps were removed with a cold snare. Resection and retrieval were complete. The terminal ileum appeared normal. Impression: - Non-bleeding internal hemorrhoids. - Diverticulosis in the sigmoid colon and in the descending colon. - Two 5 to 7 mm polyps in the cecum, removed with a cold snare. Resected and retrieved. - The examined portion of the ileum was normal. Recommendation: - Await pathology results. - Repeat colonoscopy in 5 years for surveillance. Neo Nagy MD 03/03/2023 11:36:40 AM Number of Addenda: 0 Note Initiated On: 03/03/2023 11:02 AM Scope Withdrawal Time 0 hours 8 minutes 52 seconds Scope In: 11:17:18 AM Scope Out: 11:31:46 AM [address] [place], [place] Neo Nagy MD GI PROCEDURE ORDERABLES F inal Result from Last 3 Months or Most Recently Relevant to Health Maintenance Insurance MEDICARE PART A [place] [id number] Advance Directives For more information, please contact: [phone] * Full Code (Latest Code Status on File) Date Activated Date Inactivated Comments 03/03/2023 10:13 AM 03/03/2023 2:17 PM Care Teams Manager Talent Relationship Specialty Start Date End Date Ann Marie Kim MD [address] [facility] [address] [place] [id number] PCP - General Family Practice 02/02/23
--- OUTSIDE RECORDS SUMMARY | 2025-05-25 21:19 | XMS_ITS | Encounter Summary ---
Author Organization [employer] Address [address] [place] [address] Care Team Providers Care Director Of Materials Management Name Role Phone Ann Marie Kim MD Primary Care Provider [phone] Encounter Details Date Type Department Care Team (Late st Contact Info) Description 07/03/2024 Lab Requisition [facility] [id number] [place] [address] Nicholas Rodriguez MD [address] [facility] [address] [place] [address] Social History Tobacco Use Types Packs/Day Years Used Date Smoking Tobacco: Never Smokeless Tobacco: Never Alcohol Use Standard Drinks/Week Comments Never 0 (1 standard drink = 0.6 oz pur e alcohol) Feeling Safe Answer Date Recorded Are you in a relationship wi th someone who hurts you emotionally and/or physically? 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 Gender Identity Not on file Sexual Orientation Not on file documented as of this encounter Plan of Treatment Not on file documented as of this encounter Procedures Procedure Name Priority Date/Time Associated Diagnosis Comments REFERENCE LAB PROCESSING FEE Routine 07/03/2024 10:40 AM CDT documented in this encounter Results * REFERENCE LAB PROCESSING FEE (07/03/2024 10:40 AM CDT) REFERENCE LAB SENDOUT Completed 07/03/2024 11:08 AM CDT [facility] [email or web address] Other, specify BLOOD SPECIMEN / Unknown Collection / Unknown 07/03/2024 10:40 AM CDT 07/03/2024 11:08 AM CDT us Nicholas Rodriguez MD CHEMISTRY ORDERABLES Final Re sult [facility] [email or web address] [facility] CLIA # [id number] [facility] [address] documented in this encounter Visit Diagnoses Not on filedocumented in this encounter Care Teams Director Of Materials Management Relationship Specialty Start Date End Date Ann Marie Kim MD [address] [facility] [address] [place] [phone] PCP - General Family Practice 02/02/23 documented as of this encounter
[2025-05-25 21:44] VITALS: BP 175/103; PULSE 89; O2SAT 98
--- NOTE | 2025-05-25 21:51 | XRR_ITS ---
PROCEDURE INFORMATION: Exam: XR Lumbosacral Spine Exam date and time: 05/25/2025 10:12 PM Age: 75 years old Clinical indication: Pain and injury or trauma; Blunt trauma (contusions or hematomas); Prior surgery; Surgery date: 6+ months; Surgery type: Lumbar fusion. Hysterectomy; C/O low back pain with radiation to both lower extremities. Sustained a fall yesterday. ; Additional info: Fall 05/24 TECHNIQUE: Imaging protocol: Radiologic exam of the lumbosacral spine. Views: 2 or 3 views. COMPARISON: CT abdomen pelvis wo con [id number] 05/02/2025 9:04 PM FINDINGS: Bones/joints: Postsurgical changes related to L4-L5 posterior fusion. The hardware appears intact. Multilevel degenerative disc and spondylotic changes. Facet degenerative changes of the lower lumbar spine with varying degrees of neural foraminal narrowing. Otherwise preserved lumbar vertebral body heights. Soft tissues: Unremarkable. Vasculature: Abdominal aorta atherosclerosis. XR/XR lumbar spine 2-3V* [id number] IMPRESSION: As above.
--- NOTE | 2025-05-25 22:06 | W.ED.BACK ---
HPI - Back Pain/Injury General: Chief Complaint: Back Pain/Injury Stated Complaint: Nerve Pain Time Seen by Provider: 05/25/25 21:23 History of Present Illness: Patient is a 75-year-old female presents to the emergency room with low back pain, radiating to bilateral legs. She has a history of previous lumbar decompression, and just followed up with her orthopedist, as well as had an MRI on 05/23. Patient relates she is taking her narcotics as prescribed, however they do not seem to be helping. She was reaching over in her shower, slipped, and fell backwards on 05/24. Her pain is to the right of low back. She denies any urinary incontinence or retention. She does not have any groin numbness. She denies any fever. Associated symptoms: Deny abdominal pain, chills, fever(s), nausea or vomiting Related Data Home Medications ?Medication ?Instructions ?Recorded ?Confirmed clonidine HCl 0.3 mg tablet 0.3 mg PO TID 05/03/25 05/20/25 estradiol 0.01% (0.1 mg/gram) See Rx Instructions .Route .COMPLEX 05/03/25 05/20/25 vaginal cream hydralazine 25 mg tablet 25 mg PO QID 05/03/25 05/20/25 hydrocodone 5 mg-acetaminophen 325 1 - 2 tab PO .Q4-6H PRN Pain 05/03/25 05/20/25 mg tablet multivitamin 1 tab PO DAILY 05/03/25 05/20/25 naproxen sodium 220 mg tablet 220 mg PO BID PRN Pain 05/03/25 05/20/25 (Aleve) Previous Rx's ?Medication ?Instructions ?Recorded nitroglycerin 0.4 mg sublingual 0.4 mg sublingual Q5M PRN chest 09/14/22 tablet pain #25 tabs alprazolam 0.5 mg tablet 0.5 mg PO QID #120 tabs 11/25/24 prednisone 5 mg tablet 5 mg PO DAILY PRN pain flare #30 12/10/24 tabs leflunomide 20 mg tablet 20 mg PO DAILY #90 tabs 03/18/25 tramadol 50 mg tablet 50 mg PO Q8H PRN pain 30 days #90 04/07/25 tabs pantoprazole 40 mg tablet,delayed 40 mg PO DAILY 30 days #30 tabs 05/05/25 release labetalol 200 mg tablet 200 mg PO Q12H #270 tabs 05/12/25 lactulose 10 gram/15 mL oral 20 g (30 mL) PO BID #1,200 mL 05/12/25 solution verapamil 120 mg tablet,extended See Rx Instructions .Route 05/13/25 release .COMPLEX #180 tabs cyclobenzaprine 10 mg tablet 10 mg PO Q8H PRN muscle spasm #20 05/14/25 tabs hydrocodone 5 mg-acetaminophen 325 1 tab PO Q8H PRN pain 30 days #60 05/22/25 mg tablet tabs cyclobenzaprine 10 mg tablet 10 mg PO TID PRN muscle spasm #20 05/25/25 tabs methylprednisolone 4 mg tablets in See Rx Instructions PO .COMPLEX 05/26/25 a dose pack (Medrol (Lam)) #21 ea Allergies Allergy/AdvReac Type Severity Reaction Status Date / Time sulfasalazine Allergy Unknown ADR-Nausea Verified 05/25/25 21:21 plastics Allergy ALGY-Rash Uncoded 05/25/25 21:21 Review of Systems Const: Denies: fever(s) or chills Eyes: Denies: change in vision or blurry vision ENMT: Denies: throat pain or mouth pain Card: Denies: chest pain or palpitations Resp: Denies: dyspnea or non-productive cough GI: Denies: abdominal pain, nausea or vomiting : Denies: flank pain or difficulty voiding Musc: Reports: back pain, extremity pain, joint pain and limited range of motion; Denies: extremity swelling Skin/Breast: Denies: rash or pruritus Neuro: Denies: headache(s) or numbness in extremities PFSH ED PFSH: Medical History Immunization counseling High risk medication use Inflammatory arthritis Eczema History of colon polyps Irritable bowel syndrome with both constipation and diarrhea Thoracic spine pain Essential hypertension Anxiety Diabetes Lumbar disc disease with radiculopathy Surgical History History of colonoscopy (03/23/21) 2015: Colon polyps 2020: Mild diverticulosis History of cholecystectomy History of dilation and curettage History of total hysterectomy Family History Father Parkinson disease Cancer Mother Cancer Social History Smoking and tobacco/nicotine status: never used tobacco/nicotine Second hand smoke exposure: No Alcohol intake: never Substance/Drug Use: never Physical Exam Const: COMMON NORMALS: no acute distress, average body habitus and patient oriented x3 HENMT: COMMON NORMALS: normocephalic and atraumatic HEAD & SCALP: normocephalic and atraumatic Neck/C-Spine: COMMON NORMALS: full ROM and no lymphadenopathy Lymph: LYMPHATIC: no lymphadenopathy noted Chest: COMMONS NORMALS: normal inspection of the chest and normal palpation of entire chest wall Resp: COMMON NORMALS: normal respiratory effort and clear to auscultation bilaterally AUSCULTATION: clear to auscultation bilaterally Cardio: COMMON NORMALS: regular rate and regular rhythm RATE: regular rate RHYTHM: regular rhythm GI: COMMON NORMALS: Normal to inspection, nondistended, normoactive bowel sounds present, Soft to palpation and non-tender PALPATION: Yes Soft to palpation : COMMON NORMALS: Yes no CVA tenderness BLADDER/KIDNEY EXAM: Yes no CVA tenderness Back/Pelvis: COMMON NORMALS: no CVA tenderness THORACIC SPINE/UPPER BACK: Yes normal to inspection LUMBAR SPINE/LOWER BACK: Yes normal to inspection, Yes ROM limited (due to pain), Yes lumbar spinal tenderness, Yes paraspinal muscle tenderness (L3/4) Lumbar paraspinal muscle tenderness: right and Yes straight leg raise negative bilaterally PELVIS: Yes buttocks normal Extremity: RIGHT LOWER EXTREMITY: Yes knee joint Right knee: Yes inspection (normal), Yes palpation, Yes ROM (decreased due to pain) and Yes special tests Right knee special tests: Anterior drawer sign: Negative, Posterior Alexandro test: Negative, Valgus stress test: Negative and Varus stress test: Negative LEFT LOWER EXTREMITY: Yes knee joint Left knee: Yes inspection (normal), Yes ROM (decreased due to pain) and Yes special tests Left knee special tests: Anterior drawer sign: Negative, Anterior Alexandro test: Negative and Posterior Alexandro test: Negative Neuro: COMMON NORMALS: patient oriented x3 Course Reevaluation(s): Reevaluation #1: Improved after oxycodone and Lyrica Vital Signs: Vital signs: Vital Signs Temperature 97.5 F L 05/25/25 21:15 Pulse Rate 89 05/25/25 21:44 Respiratory Rate 18 05/25/25 22:56 Blood Pressure 175/103 05/25/25 21:44 Pulse Oximetry 98 05/25/25 21:44 Oxygen Delivery Me thod Room Air 05/25/25 21:44 MDM - Back Pain/Injury Medical Decision Making Patient is a 75-year-old female with previous hardware from lumbar surgery that presents due to acute on chronic low back pain. Patient states she had a fall in the bathroom, which caused increased pain, however continues to have pain. She was seen here the middle of April, and followed up with her orthopedist. MRI was conducted on this past Monday, however radiology report is pending. After her MRI, she says she had a fall in the bathroom. There are no acute findings on x-ray. Patient has postsurgical changes related to posterior fusion L4-L5. Patient does not have cauda equina, numbness or tingling in her groin, incontinence of urine or feces. Plan is for follow-up with primary orthopedist regarding her back, and bilateral knee pain that is radiating from the back, according to patient. Will place patient on Medrol Dosepak, and muscle relaxer which she stated worked the last time she was here middle of April. Labs Radiology Impressions Lumbar Spine X-Ray 05/25/25 21:51 IMPRESSION: As above. Postsurgical changes related to L4-L5 posterior fusion. The hardware appears intact. Multilevel degenerative disc and spondylotic changes. Facet degenerative changes of the lower lumbar spine with varying degrees of neural foraminal narrowing. Otherwise preserved lumbar vertebral body heights. All radiology interpretation(s) finalized by discharge Discharge Plan Discharge Patient Disposition: Home Clinical Impression: Back pain at L4-L5 level, Spondylolisthesis at L4-L5 level Condition: Stable Prescriptions: New cyclobenzaprine 10 mg tablet 10 mg PO TID PRN (Reason: muscle spasm) Qty: 20 0RF methylprednisolone [Medrol (Lam)] 4 mg tablets,dose pack See Rx Instructions .ROUTE .COMPLEX Qty: 21 0RF Rx Instructions: for 6 days No Action leflunomide 20 mg tablet 20 mg PO DAILY Qty: 90 1RF tramadol 50 mg tablet 50 mg PO Q8H PRN (Reason: pain) 30 Days Qty: 90 1RF prednisone 5 mg tablet 5 mg PO DAILY PRN (Reason: pain flare) Qty: 30 1RF labetalol 200 mg tablet 200 mg PO Q12H Qty: 270 1RF lactulose 10 gram/15 mL solution 20 g PO BID Qty: 1200 1RF nitroglycerin 0.4 mg tablet, sublingual 0.4 mg SUBLINGUAL Q5M PRN (Reason: chest pain) Qty: 25 2RF Rx Instructions: do not exceed 3 doses per episode alprazolam 0.5 mg tablet 0.5 mg PO QID Qty: 120 5RF verapamil 120 mg tablet extended release See Rx Instructions .ROUTE .COMPLEX Qty: 180 2RF Dose Instruction: TAKE ONE TABLET BY MOUTH TWICE DAILY Rx Instructions: TAKE ONE TABLET BY MOUTH TWICE DAILY hydrocodone-acetaminophen 5-325 mg tablet 1 tab PO Q8H PRN (Reason: pain) 30 Days Qty: 60 0RF multivitamin Tablet 1 tab PO DAILY naproxen sodium [Aleve] 220 mg Tablet 220 mg PO BID PRN (Reason: Pain) estradiol 0.01 % (0.1 mg/gram) cream See Rx Instructions .ROUTE .COMPLEX Rx Instructions: pply DIRECTED DAILY TO INSIDE of VAGINA. hydrocodone-acetaminophen 5-325 mg tablet 1 - 2 tab PO .Q4-6H PRN (Reason: Pain) clonidine HCl 0.3 mg tablet 0.3 mg PO TID hydralazine 25 mg tablet 25 mg PO QID pantoprazole 40 mg Tablet,Delayed Release (Dr/Ec) 40 mg PO DAILY 30 Days Qty: 30 0RF cyclobenzaprine 10 mg tablet 10 mg PO Q8H PRN (Reason: muscle spasm) Qty: 20 0RF Discharge Orders: Discharge ED (Routine); Ordered 05/26/25 Ordered By: Mala Snyder Referrals: Ann Marie Kim MD [Primary Care Provider, Family Practice] Discharge Diet: Usual diet Discharge Activity: Use walker/crutches as instructed Patient Instructions: Low Back Strain (ED), Opioid Safety, Pain Management, Patient Portal & Joel Instructions Activity Restrictions/Additional Instructions: Utilize safety devices for walking. May utilize a back brace while waiting to return to your doctor You may ice this area. Add Lidoderm patches as needed. Call Dr. Ibarra's office in the morning to schedule a follow-up as soon as possible Caution on muscle relaxers. Cut in half to avoid oversedation. Return to ED with worsening pain, incontinence, numbness in groin, fever Print Language: Guinean Coding Level of Care Code ED Assistant Librarian for Crystal Urban
[2025-05-25 22:56] VITALS: RESP 18
[2025-05-25] MEDS: oxyCODONE 5 mg IR Tab/Cap 10 MG PO (22:56)
[2025-05-25] MEDS: pregabalin 75 mg Capsule PO (22:57)
[2025-05-26] MEDS: orphenadrine 30 mg/mL Inj 2 mL 60 MG IM (00:18)
[2025-05-26] MEDS: hyDRALAzine 25 mg Tablet PO (00:18)
[2025-05-26 01:00] VITALS: BP 190/130; PULSE 84; O2SAT 98
== END 2025-05-26 01:02 | disposition home or self-care (01) ==
PROVIDERS: Emergency Provider Physician Assistant; PCP Family Medicine
DX: M54.50 Low back pain, unspecified (principal); M43.16 Spondylolisthesis, lumbar region; E11.9 Type 2 diabetes mellitus without complications; I10 Essential (primary) hypertension
CPT/HCPCS: 72100; 96372; 99284; J2360; J9999

== ENCOUNTER 2025-05-27 08:46 | Emergency (ER) | payer MEDICARE, OTHER, SELFPAY ==
[2025-05-27 08:47] VITALS: BP 154/94; PULSE 91; RESP 18; TEMP 36.6; O2SAT 97; BMI 25.6
--- NOTE | 2025-05-27 08:47 | CTR_ITS ---
PROCEDURE INFORMATION: Exam: CT Head Without Contrast Exam date and time: 05/27/2025 8:59 AM Age: 75 years old Clinical indication: Injury or trauma; Fall; Blunt trauma (contusions or hematomas); Without loss of consciousness TECHNIQUE: Imaging protocol: Computed tomography of the head without contrast. Radiation optimization: All CT scans at this facility use at least one of these dose optimization techniques: automated exposure control; mA and/or kV adjustment per patient size (includes targeted exams where dose is matched to clinical indication); or iterative reconstruction. COMPARISON: CT head wo/w con [id number] 05/15/2025 7:41 AM RADIATION DOSE METRICS: Total DLP (mGy-cm): 1170.7 FINDINGS: Brain: Mild, diffuse atrophy of the brain.There is ill-defined, fairly symmetric low-density within the cerebral deep white matter bilaterally which is likely the sequela of chronic ischemic change due to small vessel disease. No CT evidence of mass effect, intracranial hemorrhage, or acute infarct. Cerebral ventricles: No ventriculomegaly. Paranasal sinuses: Visualized sinuses are unremarkable. No fluid levels. Mastoid air cells: Visualized mastoid air cells are well aerated. Auditory system: Clear middle ear cavities bilaterally. Bones: Unremarkable. No acute fracture. Soft tissues: Otherwise, unremarkable. CT/CT head wo con* [id number] IMPRESSION: No acute findings.
--- NOTE | 2025-05-27 08:47 | CTR_ITS ---
PROCEDURE INFORMATION: Exam: CT Cervical Spine Without Contrast Exam date and time: 05/27/2025 8:59 AM Age: 75 years old Clinical indication: Injury or trauma; Fall; Blunt trauma TECHNIQUE: Imaging protocol: Computed tomography of the cervical spine without contrast. Radiation optimization: All CT scans at this facility use at least one of these dose optimization techniques: automated exposure control; mA and/or kV adjustment per patient size (includes targeted exams where dose is matched to clinical indication); or iterative reconstruction. COMPARISON: MR cervical spine wo/w [id number] 11/30/2023 9:40 AM RADIATION DOSE METRICS: Total DLP (mGy-cm): 199.8 FINDINGS: Bones: 2 mm anterolisthesis of C4 on C5. Moderate C5-C6 and C6-C7 degenerative disc disease. Mild left C2-C3 and C7-T1 facet osteoarthritis. Mild right C3-C4 and C4-C5 facet osteoarthritis. 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 Mild curvature convex to the left is believed to be positional. No fracture or dislocation. Otherwise, unremarkable. Lungs: Lung apices are normal. Soft tissues: Otherwise, unremarkable. CT/CT cervical spin wo con* [id number] IMPRESSION: No acute findings.
--- NOTE | 2025-05-27 08:48 | ED_ITS ---
HPI - Fall 2 General: Chief Complaint: Fall Stated Complaint: Fall ( MOB) Time Seen by Provider: 05/27/25 08:46 History of Present Illness: 75-year-old female [facility] after a ground-level mechanical fall in which she stumbled she did hit her head. No loss consciousness no vomiting she has some mild neck discomfort. No other pain or discomfort in any other extremities. Associated symptoms-after fall: Denies abdominal pain, chest pain or neck pain Related Data Home Medications ?Medication ?Instructions ?Recorded ?Confirmed clonidine HCl 0.3 mg tablet 0.3 mg PO TID 05/03/2512/21 estradiol 0.01% (0.1 mg/gram) See Rx Instructions .Rou te .COMPLEX 05/03/25 05/27/25 vaginal cream hydralazine 25 mg tablet 25 mg PO QID 05/03/25 multivitamin 1 tab PO DAILY 05/03/25 0712/21 naproxen sodium 220 mg tablet 220 mg PO BID PRN Pain 0 05/03/25 05/27/25 (Norma) Previous Rx's ?Medication ?Instructions ?Recorded nitroglycerin 0.4 mg sublingual 0.4 mg sublingual Q5M PRN chest 09/14/22 tablet pain #25 tabs prednisone 5 mg tablet 5 mg PO DAILY PRN pain flare #30 12/10/24 tabs leflunomide 20 mg tablet 20 mg PO DAILY #90 tabs 02/26 01/21 tramadol 50 mg tablet 50 mg PO Q8H PRN pain 30 day s #90 04/07/25 tabs pantoprazole 40 mg tablet,delayed 40 mg PO DAILY 30 da ys #30 tabs 05/05/25 release labetalol 200 mg tablet 200 mg PO Q12H #270 tabs lactulose 10 gram/15 mL oral 20 g (30 mL) PO BID #1,20 0 mL 05/12/25 solution verapamil 120 mg tablet,extended See Rx Instructions . Route 05/13/25 release .COMPLEX #180 tabs cyclobenzaprine 10 mg tablet 10 mg PO Q8H PRN muscle s pasm #20 05/14/25 tabs hydrocodone 5 mg-acetaminophen 325 1 tab PO Q8H PRN pa in 30 days #60 05/22/25 mg tablet tabs cyclobenzaprine 10 mg tablet 10 mg PO TID PRN muscle s pasm #20 05/25/25 tabs alprazolam 0.5 mg tablet 0.5 mg PO QID #120 tabs 04/29 methylprednisolone 4 mg tablets in See Rx Instructions PO .COMPLEX 05/26/25 a dose pack (Medrol (Lam)) #21 ea oxycodone 5 mg tablet 5 mg PO Q4H pain 30 days #18 0 tabs 05/27/25 Allergies Allergy/AdvReac Type Severity Reaction Status Date / Time sulfasalazine Allergy Unknown ADR-Nausea Verified 05/25/25 21:21 plastics Allergy ALGY-Rash Uncoded 05/25/25 21:21 Review of Systems 2 Const: Denies: fever(s) or chills Card: Denies: chest pain Resp: Denies: dyspnea GI: Denies: abdominal pain : Denies: dysuria, urinary frequency or urinary urgency Musc: Denies: neck pain or back pain Skin/Breast: Denies: rash PFSH ED 2 PFSH: Medical History Immunization counseling High risk medication use Inflammatory arthritis Eczema History of colon polyps Irritable bowel syndrome with both constipation and diarrhea Thoracic spine pain Essential hypertension Anxiety Diabetes Lumbar disc disease with radiculopathy Surgical History History of colonoscopy (03/23/21) 2015: Colon polyps 2020: Mild diverticulosis History of cholecystectomy History of dilation and curettage History of total hysterectomy Family History Father Parkinson disease Cancer Mother Cancer Social History Smoking and tobacco/nicotine status: former use of tobacco/nicotine Second hand smoke exposure: No Alcohol intake: never Substance/Drug Use: never Physical Exam 2 Const: COMMON NORMALS: no acute distress GENERAL APPEARANCE: cooperative and comfortable ORIENTATION/CONSCIOUSNESS: Yes awake, Yes oriented to person, Yes oriented to place and Yes oriented to time HENMT: COMMON NORMALS: normocephalic, atraumatic and hearing grossly normal bilaterally HEAD & SCALP: normocephalic and atraumatic Resp: COMMON NORMALS: normal respiratory effort, No retractions, No use of accessory muscles and clear to auscultation bilaterally AUSCULTATION: clear to auscultation bilaterally Cardio: COMMON NORMALS: regular rate, regular rhythm and No murmurs present (Cardio) RATE: regular rate RHYTHM: regular rhythm GI: COMMON NORMALS: Soft to palpation and No hepatosplenomegaly present A USCULTATION: Yes normoactive bowel sounds PALPATION: Yes Soft to palpation, No Tenderness to palpation present (GI), No Guarding due to palpation present (GI) and Yes No hepatosplenomegaly present Extremity: COMMON NORMALS: normal to inspection, capillary refill normal, no clubbing, cyanosis or edema, no calf tenderness and no pedal edema OTHER: Superficial abrasion on the 3rd and 4th knuckles on the right hand no deformities health sciences program coordinator strength normal no pain with palpation no crepitus Neuro: SENSORIUM/ORIENTATION: Yes oriented to person, Yes oriented to place and Yes oriented to time Skin: COMMON NORMALS: no rashes or lesions noted GENERAL SKIN EXAM: no rashes or lesions noted Course 2 Vital Signs: Vital signs: Vital Signs Temperature 97.9 F 05/27/25 08:47 Pulse Rate 87 05/27/25 10:32 Respiratory Rate 18 05/27/25 08:47 Blood Pressure 138/91 05/27/25 10:32 Pulse Oximetry 97 05/27/25 10:32 Oxygen Delivery Me thod Room Air 05/27/25 08:47 MDM - Fall Medical Decision Making Exam unremarkable CT head and neck negative patient ambulatory that difficulty. We have contacted the Ortho clinic she was there for a follow-up on her MRI they will still be able to see her should be discharged from here and brought directly to orthopedic clinic. Medical Records I reviewed the patient's medical records. Lab Data I reviewed the patient's lab results. 05/27/25 12:14 05/27/25 12:14 Radiology Impressions Cervical Spine CT 05/27/25 08:47 IMPRESSION: No acute findings. Head CT 05/27/25 08:47 IMPRESSION: No acute findings. Laboratory Results WBC 7.31 10^3/uL (3.29-11.43) 05/27/25 12:14 RBC 3.14 10^6/uL (3.85-5.65) L 05/27/25 12:14 Hgb 9.90 g/dL (11.27-16.99) L 05/27/25 12:14 Hct 31.4 % (36-47) L 05/27/25 12:14 MCV 100.0 fl (85-98) H 05/27/25 12:14 MCH 31.5 pg (27-33) 05/27/25 12:14 MCHC 31.5 g/dL (30-55) 05/27/25 12:14 RDW 12.4 % (12.1-15.1) 05/27/25 12:14 Plt Count 162 10^3/cmm (157-399) 05/27/25 12:14 MPV 9.6 fL (7.4-10.4) 05/27/25 12:14 Neut % (Auto) 87.8 % 05/27/25 12:14 Lymph % (Auto) 6.3 % 05/27/25 12:14 [place] % (Auto) 4.7 % 05/27/25 12:14 Eos % (Auto) 0.1 % 05/27/25 12:14 Baso % (Auto) 0.8 % 05/27/25 12:14 Neut # (Auto) 6.42 10^3/uL (1.8-7.7) 05/27/25 12:14 Lymph # (Auto) 0.5 10^3/uL (0.8-4.8) L 05/27/25 12:14 [place] # (Auto) 0.3 10^3/uL (0.2-0.9) 05/27/25 12:14 Eos # (Auto) 0.0 10^3/uL (0.0-0.8) 05/27/25 12:14 Baso # (Auto) 0.1 10^3/uL (0.0-0.1) 05/27/25 12:14 Nucleated RBC % (auto) 0 % 05/27/25 12:14 Nucleated RBCs # 0.0 /100WBC 05/27/25 12:14 Sodium 141 mmol/L (136-145) 05/27/25 12:14 Potassium 3.9 mmol/L (3.5-5.1) 05/27/25 12:14 Chloride 101 mmol/L (98-107) 05/27/25 12:14 Carbon Dioxide 27 mmol/L (22-29) 05/27/25 12:14 Anion Gap 16.9 (5-19) 05/27/25 12:14 BUN 26 mg/dL (8-23) H 05/27/25 12:14 Creatinine 1.1 mg/dL (0.5-0.9) H 05/27/25 12:14 GFR Calculation Not Reportable 05/27/25 12:14 Glucose 115 mg/dL (65-115) 05/27/25 12:14 Estimat Average Glucose 85 05/27/25 12:14 Hemoglobin A1c 4.6 % (4.0-6.0) 05/27/25 12:14 Calculated Osmolality 298 mOsm/kg (285-295) H 05/27/25 12:14 Calcium 9.1 mg/dL (8.5-10.5) 05/27/25 12:14 Total Bilirubin 0.2 mg/dL (0.15-1.2) 05/27/25 12:14 AST 18 U/L (0-32) 05/27/25 12:14 ALT 17 U/L (0-33) 05/27/25 12:14 Alkaline Phosphatase 43 U/L (35-105) 05/27/25 12:14 Total Protein 5.8 g/dL (6.6-8.7) L 05/27/25 12:14 Albumin 3.4 g/dL (3.5-5.2) L 05/27/25 12:14 Globulin 2.4 g/dL (1.3-4.6) 05/27/25 12:14 All radiology interpretation(s) finalized by discharge Discharge Plan Discharge Patient Disposition: Home Clinical Impression: Fall, Abrasion, Lumbar spinal stenosis Condition: Stable Prescriptions: No Action leflunomide 20 mg tablet 20 mg PO DAILY Qty: 90 1RF tramadol 50 mg tablet 50 mg PO Q8H PRN (Reason: pain) 30 Days Qty: 90 1RF oxycodone 5 mg tablet 5 mg PO Q4H 30 Days Qty: 180 0RF prednisone 5 mg tablet 5 mg PO DAILY PRN (Reason: pain flare) Qty: 30 1RF labetalol 200 mg tablet 200 mg PO Q12H Qty: 270 1RF lactulose 10 gram/15 mL solution 20 g PO BID Qty: 1200 1RF nitroglycerin 0.4 mg tablet, sublingual 0.4 mg SUBLINGUAL Q5M PRN (Reason: chest pain) Qty: 25 2RF Rx Instructions: do not exceed 3 doses per episode verapamil 120 mg tablet extended release See Rx Instructions .ROUTE .COMPLEX Qty: 180 2RF Dose Instruction: TAKE ONE TABLET BY MOUTH TWICE DAILY Rx Instructions: TAKE ONE TABLET BY MOUTH TWICE DAILY hydrocodone-acetaminophen 5-325 mg tablet 1 tab PO Q8H PRN (Reason: pain) 30 Days Qty: 60 0RF alprazolam 0.5 mg tablet 0.5 mg PO QID Qty: 120 5RF multivitamin Tablet 1 tab PO DAILY naproxen sodium [Aleve] 220 mg Tablet 220 mg PO BID PRN (Reason: Pain) estradiol 0.01 % (0.1 mg/gram) cream See Rx Instructions .ROUTE .COMPLEX Rx Instructions: pply DIRECTED DAILY TO INSIDE of VAGINA. clonidine HCl 0.3 mg tablet 0.3 mg PO TID hydralazine 25 mg tablet 25 mg PO QID pantoprazole 40 mg Tablet,Delayed Release (Dr/Ec) 40 mg PO DAILY 30 Days Qty: 30 0RF cyclobenzaprine 10 mg tablet 10 mg PO TID PRN (Reason: muscle spasm) Qty: 20 0RF methylprednisolone [Medrol (Lam)] 4 mg tablets,dose pack See Rx Instructions .ROUTE .COMPLEX Qty: 21 0RF Rx Instructions: for 6 days cyclobenzaprine 10 mg tablet 10 mg PO Q8H PRN (Reason: muscle spasm) Qty: 20 0RF Discharge Orders: Discharge ED (Routine); Ordered 05/27/25 Ordered By: Venkata Johnson Referrals: Ann Marie Kim MD [Primary Care Provider, Family Practice] Discharge Diet: Usual diet Discharge Activity: Increase activity as tolerated Patient Instructions: Opioid Safety, Pain Management, Patient Portal & Joel Instructions Activity Restrictions/Additional Instructions: Thank you for choosing [facility] for your healthcare needs today. It is very important that you follow up as instructed or that you return to the Emergency Department should you have concerns or if your condition changes or worsens in any way. You were seen in the emergency room after a fall. Recommend you follow-up with orthopedics as planned today. CT of your head and your neck were negative for any fractures. Print Language: Sri [place]an Coding Level of Care Code ED Outsole Handler for Crystal Urban
--- OUTSIDE RECORDS SUMMARY | 2025-05-27 08:59 | XMS_ITS | Encounter Summary ---
Author Organization [employer] Address 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 Gender Identity Not on file Sexual Orientation [...] LAB SENDOUT Completed 07/03/2024 11:08 AM CDT [facility] [employer] [facility] Other, specify BLOOD SPECIMEN / Unknown Collection / Unknown 07/03/2024 10:40 AM CDT 07/03/2024 11:08 AM CDT us Nicholas Rodriguez MD CHEMISTRY ORDERABLES Final Re sult [facility] [employer] [facility] CLIA # [id number] [facility] [address] [address] documented in this encounter Visit Diagnoses Not on filedocumented in this encounter Care Teams Preschool Assistant Teacher Relationship Specialty Start Date End Date Ann Marie Kim MD [address] [facility] [address] [place] [phone] PCP - General Family Practice 02/02/23 documented as of this encounter
--- OUTSIDE RECORDS SUMMARY | 2025-05-27 08:59 | XMS_ITS | Clinical Summary ---
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 Gender Identity Not on file Sexual Orientation Not on file Last Filed Vital Signs Vital Sign Reading Time Taken Comments Blood Pressure 154/85 10/14/2024 9:30 AM LIGHTING FIXTURE INSTALLER Pulse 73 10/14/2024 9:30 AM LIGHTING FIXTURE INSTALLER Temperature - - Respiratory Rate 18 10/14/2024 9:30 AM LIGHTING FIXTURE INSTALLER Oxygen Saturation 95% 10/14/2024 9:30 AM LIGHTING FIXTURE INSTALLER Inhaled Oxygen Concentration - - Weight 70.7 [...] Nagy MD - 03/03/2023 11:36 AM CDT [facility] GI Patient Name: Holly Diez Procedure Date: [...] 11:17:18 AM Scope Out: 11:31:46 AM [address] [place] [place] [place] Neo Nagy MD GI PROCEDURE ORDERABLES F inal Result from Last 3 Months or Most Recently Relevant to Health Maintenance Insurance MEDICARE PART A AND B [place] [id number] Advance Directives For more information, please contact: [phone] * Full Code (Latest Code Status on File) Date Activated Date Inactivated Comments 03/03/2023 10:13 AM 03/03/2023 2:17 PM Care Teams Retail Route Supervisor Relationship Specialty Start Date End Date Ann Marie Kim MD [address] [facility] [address] [place] [phone] PCP - General Family Practice 02/02/23
--- NOTE | 2025-05-27 09:37 | ECG_ITS ---
[facility] Test Date: 2025-05-27 Pat Name: Holly Diez Department: Room: Gender: Female Director Medicaid: : 1950 Requested By: Venkata Art Order Number: [id number] Yo MD: Ranjit Block M.D. Measurements Intervals [place] Rate: 81 P: 48 CO: 157 QRS: -6 QRSD: 93 T: 65 QT: 388 QTc: 452 Interpretive Statements SINUS RHYTHM INFERIOR MYOCARDIAL INFARCTION , PROBABLY OLD [40+ ms Q WAVE AND/OR ST/T ABNORMALITY IN II/aVF] Compared to ECG 03/17/2025 14:58:18 Sinus arrhythmia no longer present Myocardial infarct finding still present Electronically Signed On 05-29-2025 09:05:20 CDT by Ranjit Block M.D. [id number] [id number]
[2025-05-27 09:41] LABS: Hematocrit 29.2 % (36-47); Hemoglobin 9.20 g/dL (11.27-16.99); Mean Corpuscular HGB Conc 31.5 g/dL (30-55); Mean Corpuscular Hemoglobin 31.7 pg (27-33); Mean Corpuscular Volume 100.7 fl (85-98); Nucleated Red Blood Cells % 0 %; Platelet Count 142 10^3/cmm (157-399); Red Blood Count 2.90 10^6/uL (3.85-5.65); White Blood Count 7.05 10^3/uL (3.29-11.43)
[2025-05-27 09:56] LABS: Alanine Aminotransferase 14 U/L (0-33); Albumin Level 3.0 g/dL (3.5-5.2); Alkaline Phosphatase 38 U/L (35-105); Anion Gap 14.5 (5-19); Aspartate Amino Transferase 16 U/L (0-32); Blood Urea Nitrogen 30 mg/dL (8-23); Calcium 8.8 mg/dL (8.5-10.5); Carbon Dioxide 25 mmol/L (22-29); Chloride 102 mmol/L (98-107); Creatinine Clr Calc Pharmacy 38.0946; Globulin 2.0 g/dL (1.3-4.6); Glucose 182 mg/dL (65-115); Osmolality Calculated 297 mOsm/kg (285-295); Potassium 3.5 mmol/L (3.5-5.1); Sodium 138 mmol/L (136-145); Total Protein 5.0 g/dL (6.6-8.7)
[2025-05-27] MEDS: tetanus-dipt-pertussis 0.5 mL SDV IM (10:12)
[2025-05-27 10:32] VITALS: BP 138/91; PULSE 87; O2SAT 97
[2025-05-27 12:28] LABS: Hematocrit 31.4 % (36-47); Hemoglobin 9.90 g/dL (11.27-16.99); Mean Corpuscular HGB Conc 31.5 g/dL (30-55); Mean Corpuscular Hemoglobin 31.5 pg (27-33); Mean Corpuscular Volume 100.0 fl (85-98); Nucleated Red Blood Cells % 0 %; Platelet Count 162 10^3/cmm (157-399); Red Blood Count 3.14 10^6/uL (3.85-5.65); White Blood Count 7.31 10^3/uL (3.29-11.43)
[2025-05-27 12:39] LABS: Estmated Average Glucose 85; Hemoglobin A1C 4.6 % (4.0-6.0)
[2025-05-27 12:47] LABS: Alanine Aminotransferase 17 U/L (0-33); Albumin Level 3.4 g/dL (3.5-5.2); Alkaline Phosphatase 43 U/L (35-105); Anion Gap 16.9 (5-19); Aspartate Amino Transferase 18 U/L (0-32); Blood Urea Nitrogen 26 mg/dL (8-23); Calcium 9.1 mg/dL (8.5-10.5); Carbon Dioxide 27 mmol/L (22-29); Chloride 101 mmol/L (98-107); Creatinine Clr Calc Pharmacy 38.0946; Globulin 2.4 g/dL (1.3-4.6); Glucose 115 mg/dL (65-115); Osmolality Calculated 298 mOsm/kg (285-295); Potassium 3.9 mmol/L (3.5-5.1); Sodium 141 mmol/L (136-145); Total Protein 5.8 g/dL (6.6-8.7)
[2025-05-27 14:18] LABS: Glucose Urine UA Negative (Normal); Nitrate Urine Negative (Negative); Specific Gravity, Urine 1.017 (1.005-1.030)
[2025-05-27 14:23] LABS: Add Urine Microscopic? YES
== END 2025-05-27 10:36 | disposition home or self-care (01) ==
PROVIDERS: Orthopaedic Surgery; Emergency Provider Family Medicine; PCP Family Medicine
DX: M54.50 Low back pain, unspecified (principal); Z09 Encounter for follow-up examination after completed treatment for conditions other than malignant neoplasm; M48.061 Spinal stenosis, lumbar region without neurogenic claudication; Z98.890 Other specified postprocedural states; M47.816 Spondylosis without myelopathy or radiculopathy, lumbar region; M48.062 Spinal stenosis, lumbar region with neurogenic claudication; Z98.1 Arthrodesis status; M51.16 Intervertebral disc disorders with radiculopathy, lumbar region; M54.2 Cervicalgia; S60.511A Abrasion of right hand, initial encounter; W19.XXXA Unspecified fall, initial encounter
CPT/HCPCS: 36415; 70450; 72100; 72125; 80053; 81001; 83036; 85025; 90715; 93005; 99214; 99284

== ENCOUNTER 2025-06-01 20:47 | Inpatient (IN) | payer MEDICARE, OTHER, SELFPAY ==
--- OUTSIDE RECORDS SUMMARY | 2025-06-01 20:53 | XMS_ITS | Encounter Summary ---
Author Organization [employer] Address 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 Gender Identity Not on file Sexual Orientation [...] LAB SENDOUT Completed 07/03/2024 11:08 AM CDT [facility] Other, specify BLOOD SPECIMEN / Unknown Collection / Unknown 07/03/2024 10:40 AM CDT 07/03/2024 11:08 AM CDT us Nicholas Rodriguez MD CHEMISTRY ORDERABLES Final Re sult [facility] CLIA # [id number] [facility] [address] documented in this encounter Visit Diagnoses Not on filedocumented in this encounter Care Teams Glove Pairer Relationship Specialty Start Date End Date Ann Marie Kim MD [address] [facility] [address] [place] [phone] PCP - General Family Practice 02/02/23 documented as of this encounter
--- OUTSIDE RECORDS SUMMARY | 2025-06-01 20:53 | XMS_ITS | Clinical Summary ---
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 Gender Identity Not on file Sexual Orientation Not on file Last Filed Vital Signs Vital Sign Reading Time Taken Comments Blood Pressure 154/85 10/14/2024 9:30 AM PRODUCTION MACHINE TENDER Pulse 73 10/14/2024 9:30 AM PRODUCTION MACHINE TENDER Temperature - - Respiratory Rate 18 10/14/2024 9:30 AM PRODUCTION MACHINE TENDER Oxygen Saturation 95% 10/14/2024 9:30 AM PRODUCTION MACHINE TENDER Inhaled Oxygen Concentration - - Weight 70.7 [...] 1-dose 75+ series) 02/01/2024 INFLUENZA VACCINE (#1) 2025 09/20/2023, 2019 COLORECTAL SCREENING 03/03/2028 03/03/2023, 03/03/20 23 Procedures Procedure Name Priority Date/Time Associated Diagnosis Comments COLONOSCOPY REPORT 03/03/2023 11 :37 AM CDT from Last 3 Months or Most Recently Relevant to Health Maintenance Results * COLONOSCOPY REPORT (03/03/2023 11:37 AM CDT) Narrative Procedure Note Neo Nagy MD - 03/03/2023 11:36 AM CDT [facility] GI Patient Name: Holly Diez Procedure Date: [...] 11:17:18 AM Scope Out: 11:31:46 AM [address] [place] Neo Nagy MD GI PROCEDURE ORDERABLES F inal Result from Last 3 Months or Most Recently Relevant to Health Maintenance Insurance MEDICARE PART A AND B [place] [id number] Advance Directives For more information, please contact: [phone] * Full Code (Latest Code Status on File) Date Activated Date Inactivated Comments 03/03/2023 10:13 AM 03/03/2023 2:17 PM Care Teams High School Math Teacher Relationship Specialty Start Date End Date Ann Marie Kim MD [address] [facility] [address] [place] [phone] PCP - General Family Practice 02/02/23
[2025-06-01 21:21] VITALS: BP 180/104; PULSE 94; RESP 18; TEMP 36.5; O2SAT 97
[2025-06-01 23:01] VITALS: BP 216/119; PULSE 91; RESP 18; O2SAT 92
--- NOTE | 2025-06-01 23:29 | ECG_ITS ---
[facility] Test Date: 2025-06-01 Pat Name: Holly Diez Department: Room: Gender: Female Extension Educator: : 1950 Requested By: Brady Ruffin Order Number: [id number] Reading MD: Measurements Intervals [place] Rate: 86 P: 54 MD: 156 QRS: 19 QRSD: 92 T: 72 QT: 368 QTc: 442 Interpretive Statements SINUS RHYTHM WITH FREQUENT SUPRAVENTRICULAR PREMATURE COMPLEXES NONSPECIFIC ST & T-WAVE ABNORMALITY ABNORMAL RHYTHM ECG Compared to ECG 05/27/2025 09:37:30 T-wave abnormality now present Myocardial infarct finding no longer present [id number] [id number]
[2025-06-01 23:56] VITALS: BP 219/97; PULSE 87; RESP 17; O2SAT 95
[2025-06-01 23:57] VITALS: RESP 18
[2025-06-01] MEDS: orphenadrine 30 mg/mL Inj 2 mL 60 MG IVP (23:57)
[2025-06-01] MEDS: ondansetron 2 mg/ML SDV 2 mL 4 MG IVP (23:57)
[2025-06-01] MEDS: morphine 4 mg/mL SDV 1 mL IVP (23:57)
[2025-06-01] MEDS: labetalol 5 mg/mL SDV 20mL 20 MG IVP (23:58)
[2025-06-02] VITALS (30 sets, daily range): BP systolic 124–215; BP diastolic 53–129; PULSE 87–128; RESP 14–24; O2SAT 90–97; BMI 25.7
--- NOTE | 2025-06-02 01:13 | ED_ITS ---
HPI - Back Pain/Injury 2 General: Chief Complaint: Back Pain/Injury Stated Complaint: Pain in back going down R knee Time Seen by Provider: 06/01/25 22:51 History of Present Illness: 75-year-old female patient. She present s with 2 complaints. The first is that of radicular right-sided lower back pain that is chronic. She is experienced a worsening of her pain. She was prescribed oxycodone by her spine surgeon last week, and has taken them without much relief. Her says that she has also been confused, more so for the last 3 days. He does not know if it is her pain medication or not causing the confusion. She has not had a fever. She does not usually require oxygen. No vomiting or diarrhea. No cough. She has not complained of a headache. She does have a history of difficult to treat hypertension. Related Data Home Medications ?Medication ?Instructions ?Recorded ?Confirmed clonidine HCl 0.3 mg tablet 0.3 mg PO TID 05/03/2501/21 hydralazine 25 mg tablet 25 mg PO QID 05/03/25 multivitamin 1 tab PO DAILY 05/03/2501/21 naproxen sodium 220 mg tablet 220 mg PO BID PRN Pain 0 05/03/25 05/28/25 (Norma) Previous Rx's ?Medication ?Instructions ?Recorded nitroglycerin 0.4 mg sublingual 0.4 mg sublingual Q5M PRN chest 09/14/22 tablet pain #25 tabs leflunomide 20 mg tablet 20 mg PO DAILY #90 tabs 02/26 01/21 tramadol 50 mg tablet 50 mg PO Q8H PRN pain 30 day s #90 04/07/25 tabs pantoprazole 40 mg tablet,delayed 40 mg PO DAILY 30 da ys #30 tabs 05/05/25 release labetalol 200 mg tablet 200 mg PO Q12H #270 tabs verapamil 120 mg tablet,extended See Rx Instructions . Route 05/13/25 release .COMPLEX #180 tabs hydrocodone 5 mg-acetaminophen 325 1 tab PO Q8H PRN pa in 30 days #60 05/22/25 mg tablet tabs cyclobenzaprine 10 mg tablet 10 mg PO TID PRN muscle s pasm #20 05/25/25 tabs alprazolam 0.5 mg tablet 0.5 mg PO QID #120 tabs 04/29 methylprednisolone 4 mg tablets in See Rx Instructions PO .COMPLEX 05/26/25 a dose pack (Medrol (Lam)) #21 ea oxycodone 5 mg tablet 5 mg PO Q4H pain 30 days #18 0 tabs 05/27/25 Allergies Allergy/AdvReac Type Severity Reaction Status Date / Time sulfasalazine Allergy Unknown ADR-Nausea Verified 06/01/25 21:24 plastics Allergy ALGY-Rash Uncoded 06/01/25 21:24 PFS ED 2 PFSH: Medical History Immunization counseling High risk medication use Inflammatory arthritis Eczema History of colon polyps Irritable bowel syndrome with both constipation and diarrhea Thoracic spine pain Essential hypertension Anxiety Diabetes Lumbar disc disease with radiculopathy Surgical History History of colonoscopy (03/23/21) 2015: Colon polyps 2020: Mild diverticulosis History of cholecystectomy History of dilation and curettage History of total hysterectomy Family History Father Parkinson disease Cancer Mother Cancer Social History Smoking and tobacco/nicotine status: never used tobacco/nicotine Second hand smoke exposure: No Alcohol intake: never Substance/Drug Use: never Physical Exam 2 Const: GENERAL APPEARANCE: cooperative, ill appearing and frail appearing O RIENTATION/CONSCIOUSNESS: Yes awake, Yes oriented to person and Yes confused HENMT: COMMON NORMALS: normocephalic, atraumatic and Normal external nose present HEAD & SCALP: normocephalic and atraumatic FACE & SINUS: normal facial exam and face symmetric NOSE: Normal external nose present Eye: COMMON NORMALS: Equal, round and reactive pupils present and EOMs intact bilaterally PUPIL: Yes Equal, round and reactive pupils present Neck/C-Spine: GENERAL: Yes trachea midline Chest: CHEST: Yes Symmetrical chest wall rise Resp: COMMON NORMALS: normal respiratory effort, No retractions, No use of accessory muscles and clear to auscultation bilaterally AUSCULTATION: clear to auscultation bilaterally Cardio: COMMON NORMALS: regular rate and regular rhythm RATE: regular rate RHYTHM: regular rhythm GI: COMMON NORMALS: Normal to inspection, nondistended, normoactive bowel sounds present Extremity: COMMON NORMALS: no pedal edema Neuro: ROBYN COMA SCALE: document GCS findings [place] coma scale eye opening: Spontaneous [place] coma scale verbal response: Confused Robyn coma scale motor response: Obey commands [place] coma scale total score: 14 S ENSORIUM/ORIENTATION: Yes oriented to person SPEECH: abnormal speech S ENSORY EXAM: Yes extremities (intact) Psych: ATTITUDE: Yes calm ACTIVITY/MOTOR BEHAVIOR: Yes psychomotor slowing SPEECH: Yes minimal MOOD & AFFECT: Yes Flat affect present Skin: COMMON NORMALS: no rashes or lesions noted GENERAL SKIN EXAM: no rashes or lesions noted Course 2 Vital Signs: Vital signs: Vital Signs Temperature 97.7 F 06/01/25 21:21 Pulse Rate 94 06/02/25 04:45 Respiratory Rate 17 06/02/25 04:45 Blood Pressure 178/97 06/02/25 04:45 Pulse Oximetry 96 06/02/25 04:45 Oxygen Delivery Me thod Room Air 06/02/25 04:45 Oxygen Flow Rate 2 06/02/25 00:09 MDM - Back Pain/Injury Medical Decision Making Patient was given a small dose of morphine and Norflex for pain, which seems improved. She remains however confused. She talks about stage coaches, seeing things on the ceiling, etc. She is unstable on her feet. Her blood pressure was quite high, in the 220s systolic at 1 point. It remained above 190 systolic despite 2 doses of IV labetalol, and 1 dose of IV enalaprilat. Because of this, she is placed on a nicardipine drip. Blood pressure fell to 157 systolic on nicardipine drip. She is still confused. Head CT is negative for acute change. Chest x-ray is negative for acute change. Her creatinine is 1.3. Her hemoglobin is 10. Her CRP is normal. Her BNP is only 480. Lactic acid is 1.7. I cannot prove that this is not hypertensive encephalopathy with the mental status changes that she has had. She will be admitted to the hospital. Will attempt to wean off of nicardipine. She is due for labetalol, verapamil, and hydralazine this morning which were given in the ER. The hospitalist is aware, and has seen the patient. Labs 06/02/25 02:08 06/02/25 02:08 Radiology Impressions Chest X-Ray 06/02/25 01:42 IMPRESSION: 1. No acute cardiopulmonary process. 2. Incidental/nonacute findings are listed in the report. Head CT 06/02/25 01:42 IMPRESSION: 1. No acute abnormality of the brain. 2. Stable mild atrophy of the brain parenchyma. 3. Stable mild chronic white matter microangiopathic change. 4. Incidental/nonacute findings are listed in the report. Laboratory Results WBC 10.74 10^3/uL (3.29-11.43) 06/02/25 02:08 RBC 3.16 10^6/uL (3.85-5.65) L 06/02/25 02:08 Hgb 10.00 g/dL (11.27-16.99) L 06/02/25 02:08 Hct 32.1 % (36-47) L 06/02/25 02:08 MCV 101.6 fl (85-98) H 06/02/25 02:08 MCH 31.6 pg (27-33) 06/02/25 02:08 MCHC 31.2 g/dL (30-55) 06/02/25 02:08 RDW 12.5 % (12.1-15.1) 06/02/25 02:08 Plt Count 183 10^3/cmm (157-399) 06/02/25 02:08 MPV 9.5 fL (7.4-10.4) 06/02/25 02:08 Neut % (Auto) 81.9 % 06/02/25 02:08 Lymph % (Auto) 9.1 % 06/02/25 02:08 [place] % (Auto) 6.1 % 06/02/25 02:08 Eos % (Auto) 1.7 % 06/02/25 02:08 Baso % (Auto) 0.8 % 06/02/25 02:08 Neut # (Auto) 8.79 10^3/uL (1.8-7.7) H 06/02/25 02:08 Lymph # (Auto) 1.0 10^3/uL (0.8-4.8) 06/02/25 02:08 [place] # (Auto) 0.7 10^3/uL (0.2-0.9) 06/02/25 02:08 Eos # (Auto) 0.2 10^3/uL (0.0-0.8) 06/02/25 02:08 Baso # (Auto) 0.1 10^3/uL (0.0-0.1) 06/02/25 02:08 Nucleated RBC % (auto) 0 % 06/02/25 02:08 Nucleated RBCs # 0.0 /100WBC 06/02/25 02:08 Sodium 144 mmol/L (136-145) 06/02/25 02:08 Potassium 3.8 mmol/L (3.5-5.1) 06/02/25 02:08 Chloride 104 mmol/L (98-107) 06/02/25 02:08 Carbon Dioxide 29 mmol/L (22-29) 06/02/25 02:08 Anion Gap 14.8 (5-19) 06/02/25 02:08 BUN 30 mg/dL (8-23) H 06/02/25 02:08 Creatinine 1.3 mg/dL (0.5-0.9) H 06/02/25 02:08 GFR Calculation Not Reportable 06/02/25 02:08 Glucose 105 mg/dL (65-115) 06/02/25 02:08 Calculated Osmolality 305 mOsm/kg (285-295) H 06/02/25 02:08 Lactic Acid 1.7 mmol/L (0.5-2.2) 06/02/25 02:08 Calcium 9.0 mg/dL (8.5-10.5) 06/02/25 02:08 Total Bilirubin 0.3 mg/dL (0.15-1.2) 06/02/25 02:08 AST 17 U/L (0-32) 06/02/25 02:08 ALT 17 U/L (0-33) 06/02/25 02:08 Alkaline Phosphatase 53 U/L (35-105) 06/02/25 02:08 C-Reactive Protein 3.1 mg/L (0.0-4.9) 06/02/25 02:08 NT-Pro-B Natriuret Pep 481 pg/mL (0-450) H 06/02/25 02:08 Total Protein 6.1 g/dL (6.6-8.7) L 06/02/25 02:08 Albumin 3.7 g/dL (3.5-5.2) 06/02/25 02:08 Globulin 2.4 g/dL (1.3-4.6) 06/02/25 02:08 All radiology interpretation(s) finalized by discharge Critical Care Time 2 Critical Care Time: Critical Care Time: Yes Total Critical Care Time: 35 Attestation: This case had a high probability of a clinically significant, sudden, or life threatening deterioration of this patient's condition which required my full and direct attention, intervention and personal management. 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
--- NOTE | 2025-06-02 01:42 | XRR_ITS ---
PROCEDURE INFORMATION: Exam: XR Chest Exam date and time: 06/02/2025 1:48 AM Age: 75 years old Clinical indication: Prior surgery; Surgery date: 6+ months; Surgery type: Gb; Hypertensive. ; Additional info: Confusion, HTN TECHNIQUE: Imaging protocol: Radiologic exam of the chest. Views: 1 view. COMPARISON[place] [id number] 05/14/2025 2:24 AM FINDINGS: Lungs: Stable calcified granuloma in the right lower lobe. No focal consolidation. No pulmonary edema. Pleural spaces: No pleural effusion. No pneumothorax. Heart/Mediastinum: Stable moderate enlargement of the cardiac silhouette. Mediastinal contours are unremarkable. Vasculature: Stable vascular calcifications in the aorta. Stable tortuosity of the aorta. Bones/joints: Unremarkable for age. XR/XR chest 1V portable [id number] IMPRESSION: 1. No acute cardiopulmonary process. 2. Incidental/nonacute findings are listed in the report.
--- NOTE | 2025-06-02 01:42 | CTR_ITS ---
PROCEDURE INFORMATION: Exam: CT Head Without Contrast Exam date and time: 06/02/2025 1:53 AM Age: 75 years old Clinical indication: Altered mental status/memory loss; Confusion with hypertension; Additional info: Confusion, HTN TECHNIQUE: Imaging protocol: Computed tomography of the head without contrast. Sagittal and coronal reformatted images were also reviewed. Radiation optimization: All CT scans at this facility use at least one of these dose optimization techniques: automated exposure control; mA and/or kV adjustment per patient size (includes targeted exams where dose is matched to clinical indication); or iterative reconstruction. COMPARISON: CT head wo con* [id number] 05/27/2025 8:59 AM RADIATION DOSE METRICS: Total DLP (mGy-cm): 1020.7 FINDINGS: Brain: No acute intracranial hemorrhage. No acute infarct. No intra-axial or extra-axial masses. Lara-white matter differentiation is preserved. No cerebral edema. No extra-axial fluid collections. No midline shift. No evidence for Chiari 1 malformation. Stable mild atrophy of the brain parenchyma. Stable mildly decreased attenuation in the deep white matter, consistent with mild chronic microangiopathic change. Cerebral ventricles: No hydrocephalus. Paranasal sinuses: Visualized paranasal sinuses are clear. Mastoid air cells: Mastoid air cells are clear bilaterally. Orbital cavities: No acute abnormality in the visualized orbits. Bones: Unremarkable. No acute fracture. Soft tissues: The extracranial soft tissues are unremarkable. Vasculature: Stable moderate atherosclerotic calcifications in the visualized arteries. CT/CT head wo con* [id number] IMPRESSION: 1. No acute abnormality of the brain. 2. Stable mild atrophy of the brain parenchyma. 3. Stable mild chronic white matter microangiopathic change. 4. Incidental/nonacute findings are listed in the report.
--- NOTE | 2025-06-02 02:14 | PC.NURSE ---
pt has been up out of bed wheeling around er by family member. pat asked to sit back in bed. upon returning to bed patients blood drawn , normal saline bolus started and manual blood pressure performed. pt AOx2
[2025-06-02 02:16] LABS: Hematocrit 32.1 % (36-47); Hemoglobin 10.00 g/dL (11.27-16.99); Mean Corpuscular HGB Conc 31.2 g/dL (30-55); Mean Corpuscular Hemoglobin 31.6 pg (27-33); Mean Corpuscular Volume 101.6 fl (85-98); Nucleated Red Blood Cells % 0 %; Platelet Count 183 10^3/cmm (157-399); Red Blood Count 3.16 10^6/uL (3.85-5.65); White Blood Count 10.74 10^3/uL (3.29-11.43)
[2025-06-02 02:39] LABS: Lactic Sepsis W/Reflex 1.7 mmol/L (0.5-2.2)
[2025-06-02] MEDS: nicardipine 20 MG/200 ML PREMIX 50 MG IV (02:40)
[2025-06-02 02:48] LABS: Alanine Aminotransferase 17 U/L (0-33); Albumin Level 3.7 g/dL (3.5-5.2); Alkaline Phosphatase 53 U/L (35-105); Anion Gap 14.8 (5-19); Aspartate Amino Transferase 17 U/L (0-32); Blood Urea Nitrogen 30 mg/dL (8-23); Calcium 9.0 mg/dL (8.5-10.5); Carbon Dioxide 29 mmol/L (22-29); Chloride 104 mmol/L (98-107); Creatinine Clr Calc Pharmacy 32.3394; Globulin 2.4 g/dL (1.3-4.6); Glucose 105 mg/dL (65-115); NT Pro B Type Natriuretic Pept 481 pg/mL (0-450); Osmolality Calculated 305 mOsm/kg (285-295); Potassium 3.8 mmol/L (3.5-5.1); Sodium 144 mmol/L (136-145); Total Protein 6.1 g/dL (6.6-8.7)
--- NOTE | 2025-06-02 04:44 | PM.HP ---
Providers/Chief Complaint Admitting Physician: Patient seen after 12 midnight Primary Care Provider: Ann Marie Kim MD Chief Complaint: Pain in back going down R knee History of Present Illness Holly Diez is a 75 year old female with medical history significant for lumbar spine stenosis awaiting for upcoming surgery for this. Patient presented to the emergency room because she had pain status post fall to the back and aggravated this pain. Imaging did not show any acute process on the back. At presentation the blood pressure was noted to be 226/1 20s multiple oral and IV antihypertensive were given by the attending physician in the emergency room patient blood pressure was still up requiring initiation of Cardene drip. Blood pressure controlled and the drip stopped in the emergency room upon my evaluation of the patient. Patient originally was routed to go to ICU. Will follow through with blood pressure level and initiate further home medication orally for patient to be downgraded to stepdown unit Patient is observation for 23-hour stay for further optimize back pain and monitor blood pressure overnight Patient will be ready to go for oncoming surgery with the spine doctor Patient cannot take her own blood pressure medication unless the sits there and watch her take it else she will take the medicines at the wrong time. Patient need home health for clinical visit by the nurse to help with administration of medications Review of Systems Narrative: System review upon tenogram reviewed was noted to be musculoskeletal pain and cardiovascular for blood pressure. Otherwise system review were unremarkable. Medications/Allergies Home Medications ?Medication ?Instructions ?Recorded ?Confirmed ?Last Taken ?Type nitroglycerin 0.4 mg sublingual 0.4 mg sublingual Q5M PRN chest 09/14/22 05/28/25 03/17/25 Rx tablet pain #25 tabs leflunomide 20 mg tablet 20 mg PO DAILY #90 tabs 03/18/25 05/28/25 05/01/25 Rx tramadol 50 mg tablet 50 mg PO Q8H PRN pain 30 days #90 04/07/25 05/28/25 05/01/25 Rx tabs clonidine HCl 0.3 mg tablet 0.3 mg PO TID 05/03/25 05/28/25 05/01/25 History hydralazine 25 mg tablet 25 mg PO QID 05/03/25 05/28/25 05/01/25 History multivitamin 1 tab PO DAILY 05/03/25 05/28/25 05/01/25 History naproxen sodium 220 mg tablet 220 mg PO BID PRN Pain 05/03/25 05/28/25 Unknown History (Aleve) pantoprazole 40 mg tablet,delayed 40 mg PO DAILY 30 days #30 tabs 05/05/25 05/28/25 Unknown Rx release labetalol 200 mg tablet 200 mg PO Q12H #270 tabs 05/12/25 05/28/25 Unknown Rx verapamil 120 mg tablet,extended See Rx Instructions .Route 05/13/25 05/28/25 Unknown Rx release .COMPLEX #180 tabs hydrocodone 5 mg-acetaminophen 325 1 tab PO Q8H PRN pain 30 days #60 05/22/25 05/27/25 Unknown Rx mg tablet tabs cyclobenzaprine 10 mg tablet 10 mg PO TID PRN muscle spasm #20 05/25/25 05/28/25 Unknown Rx tabs alprazolam 0.5 mg tablet 0.5 mg PO QID #120 tabs 05/26/25 05/28/25 Unknown Rx methylprednisolone 4 mg tablets in See Rx Instructions PO .COMPLEX 05/26/25 05/28/25 Unknown Rx a dose pack (Medrol (Lam)) #21 ea oxycodone 5 mg tablet 5 mg PO Q4H pain 30 days #180 tabs 05/27/25 05/28/25 Unknown Rx Allergies Allergy/AdvReac Type Severity Reaction Status Date / Time sulfasalazine Allergy Unknown ADR-Nausea Verified 06/01/25 21:24 plastics Allergy ALGY-Rash Uncoded 06/01/25 21:24 PFSH Acute PFSH: Medical History Immunization counseling High risk medication use Inflammatory arthritis Eczema History of colon polyps Irritable bowel syndrome with both constipation and diarrhea Thoracic spine pain Essential hypertension Anxiety Diabetes Lumbar disc disease with radiculopathy Surgical History History of colonoscopy (03/23/21) 2015: Colon polyps 2020: Mild diverticulosis History of cholecystectomy History of dilation and curettage History of total hysterectomy Family History Father Parkinson disease Cancer Mother Cancer Social History Smoking and tobacco/nicotine status: never used tobacco/nicotine Second hand smoke exposure: No Alcohol intake: never Substance/Drug Use: never Vitals/I&O/Wt Last Vital Signs Temp 97.7 F 06/01/25 21:21 Pulse 88 06/02/25 02:40 Resp 17 06/02/25 02:40 BP 196/117 06/02/25 02:40 Pulse Ox 93 06/02/25 02:40 O2 Del Method Room Air 06/02/25 02:40 O2 Flow Rate 2 06/02/25 00:09 Weight last 48 hrs Weight 63.957 kg Physical Exam Narrative: Currently patient is relaxed in bed in no much apparent distress HEENT normocephalic/atraumatic neck neck is supple cardiovascular heart rate is regular lungs are pretty much clear abdomen soft nontender nondistended unremarkable. Back with subjective pain status post fall Extremities are intact no edema has good pulses neurology no focality lab studies and imaging studies. - Patient with JESSICA BUN 30 creatinine 1.3 - Chest x-ray unremarkable for any acute process CT of the head unremarkable for any bleed, Data 06/02/25 02:08 06/02/25 02:08 A&P Assessment and plan (1) Lumbar spinal stenosis: Patient is with acute on chronic pain secondary to fall - Patient has upcoming surgery for the spinal stenosis - Patient continue pain management as per home regimen - This is a 23-hour observation for the high blood pressure and pain control (2) Encephalopathy, hypertensive: Patient seen somewhat confused likely encephalopathy from hypertension Seem to be doing fairly okay upon my evaluation on consultation but tired with lethargy (3) Fall: This post a mechanical fall on the back - Leading to exacerbation of chronic pain with no fractures - Continue to monitor (4) Diabetes: Keep patient euglycemic, continue to treat and optimize (5) Back pain at L4-L5 level: This is the location of the spinal stenosis - Patient is going to be going for spinal repair surgery not this hospitalization - say spine surgery will be soon and had been scheduled (6) Nausea and vomiting: Reactive nausea vomiting from extreme high blood pressure - Patient responded to Zofran - Nausea resolved (7) Acute renal failure: Patient is with JESSICA Cautious with any normal saline infusion because of patient blood pressure May have a trial after the blood pressure is well under control - Patient is dehydrated Plan GI and DVT prophylaxis in place PDMP PDMP Reviewed: Last Reviewed 06/02/25 05:19 by Brigid Blackburn MD Attestations Medical Necessity Statement*: Patient with presentation of back pain then had a finding of extreme high blood pressure and this had to be optimized and this is only appropriate for 23-hour observation Coding Level of Care Code 39006 Diagnoses Lumbar spinal stenosis M48.061 Encephalopathy, hypertensive I67.4 Fall W19.XXXA Type 2 diabetes mellitus without complication, without long-term current use of insulin E11.9 Diabetes mellitus type: type 2 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
[2025-06-02] MEDS: heparin 5,000 unit/mL INJ 1 mL 5000 UNIT SUBCUT ×2 (06:28→15:46)
[2025-06-02 06:46] LABS: Hematocrit 27.7 % (36-47); Hemoglobin 8.80 g/dL (11.27-16.99); Mean Corpuscular HGB Conc 31.8 g/dL (30-55); Mean Corpuscular Hemoglobin 32.1 pg (27-33); Mean Corpuscular Volume 101.1 fl (85-98); Nucleated Red Blood Cells % 0 %; Platelet Count 142 10^3/cmm (157-399); Red Blood Count 2.74 10^6/uL (3.85-5.65); White Blood Count 7.19 10^3/uL (3.29-11.43)
[2025-06-02 07:04] LABS: Alanine Aminotransferase 17 U/L (0-33); Albumin Level 3.2 g/dL (3.5-5.2); Alkaline Phosphatase 44 U/L (35-105); Anion Gap 14.4 (5-19); Aspartate Amino Transferase 16 U/L (0-32); Blood Urea Nitrogen 28 mg/dL (8-23); Calcium 8.0 mg/dL (8.5-10.5); Carbon Dioxide 23 mmol/L (22-29); Chloride 105 mmol/L (98-107); Creatinine Clr Calc Pharmacy 42.0412; Globulin 2.0 g/dL (1.3-4.6); Glucose 149 mg/dL (65-115); Magnesium 1.8 mg/dL (1.7-2.3); Osmolality Calculated 296 mOsm/kg (285-295); Potassium 3.4 mmol/L (3.5-5.1); Sodium 139 mmol/L (136-145); Total Protein 5.2 g/dL (6.6-8.7)
[2025-06-02 07:23] LABS: Estmated Average Glucose 85; Hemoglobin A1C 4.6 % (4.0-6.0)
[2025-06-02] MEDS: verapamil ER 240 mg Tablet 120 MG PO (09:06)
--- NOTE | 2025-06-02 13:05 | PC.PHAR ---
Phoned [facility] and spoke to Pharmacist . Pharmacist gave me all active Rx they had on file .
[2025-06-02] MEDS: morphine 4 mg/mL SDV 1 mL 2 MG IVP (14:50)
[2025-06-02] MEDS: oxyCODONE 5 mg IR Tab/Cap PO ×2 (15:46→20:38)
[2025-06-02 15:52] LABS: Glucose Urine UA Negative (Normal); Nitrate Urine Negative (Negative); Specific Gravity, Urine 1.013 (1.005-1.030)
[2025-06-02 15:55] LABS: Add Urine Microscopic? YES
--- NOTE | 2025-06-02 16:10 | P.PN_ITS ---
Subjective 2 Subjective: She is feeling well bit better in terms of pain. She is not currently dizzy. She reports intermittent dizziness with standing or walking, intermittent falls with loss of consciousness. Vitals/I&O/Wt Last Vital Signs Temp 97.7 F 06/01/25 21:21 Pulse 97 06/02/25 16:05 Resp 16 06/02/25 16:05 BP 175/120 06/02/25 16:05 Pulse Ox 97 06/02/25 16:05 O2 Del Method Room Air 06/02/25 07:37 O2 Flow Rate 2 06/02/25 00:09 06/02/25 06/02/25 06/02/25 06:59 14:59 22:59 Intake Total 111.250 / 457.859 3260.000 / 1035.000 Balance 111.250 / 941.621 4065.000 / 1035.000 Weight last 48 hrs Weight 63.957 kg Physical Exam 2 Narrative: Accompanied by her Const: COMMON NORMALS: patient oriented x3 and alert GENERAL APPEARANCE: c ooperative ORIENTATION/CONSCIOUSNESS: Yes awake HENMT: COMMON NORMALS: oropharynx normal Neck/C-Spine: COMMON NORMALS: no JVD Resp: COMMON NORMALS: normal respiratory effort and clear to auscultation bilaterally AUSCULTATION: clear to auscultation bilaterally Cardio: COMMON NORMALS: no JVD, regular rhythm, S1 normal heart sound present, S2 normal heart sound present and No murmurs present (Cardio) RHYTHM: regular rhythm HEART SOUNDS: S1 normal heart sound present and S2 normal heart sound present GI: COMMON NORMALS: Normal to inspection, nondistended, normoactive bowel sounds present, Soft to palpation and non-tender PALPATION: Yes Soft to palpation Extremity: COMMON NORMALS: no joint enlargement and no pedal edema Neuro: COMMON NORMALS: patient oriented x3 and moves all extremities S ENSORIUM/ORIENTATION: Yes alert Skin: COMMON NORMALS: no rashes or lesions noted GENERAL SKIN EXAM: no rashes or lesions noted Data 06/02/25 06:40 06/02/25 06:40 A&P Assessment and plan (1) Fall: Intermittent falls accompanied by loss of consciousness. Intermittent dizziness with standing or walking. Denies vertigo. Does have leg weakness, balance issues with spinal stenosis. However, possible syncopal episodes unexplained as per discussion with her and her as well as with orthopedic surgeon. Requesting additional assessment with orthostatic blood pressures, echocardiogram, carotid duplex, discussed with her consideration of cardiac nurse practitioner for after discharge. Monitor telemetry while in the hospital. Reviewed head CT. (2) Encephalopathy, hypertensive: Blood pressure with overall improvement compared to admission. Weaning of nicardipine drip. Resumed home medications. Reassess blood pressures. Monitor for risk of hypotension with therapeutic escalation. Encephalopathy improving/resolving. She is awake and alert, answering appropriately. Although some of the history is filled in by her . (3) Lumbar spinal stenosis: She was planned for surgery on Monday with orthospine surgery. Underwent PCP clearance for the procedure. However, now ended up in the hospital. As per discussion with her it is difficult to say whether she may be able to still undergo surgery on Monday. Needs additional assessment and optimization of blood pressure control as per discussion. Patient is with acute on chronic pain secondary to fall - Patient has upcoming surgery for the spinal stenosis - Patient continue pain management as per home regimen - This is a 23-hour observation for the high blood pressure and pain control (4) Diabetes: Monitor POC glucose. Continue sliding scale insulin. (5) Back pain at L4-L5 level: This is the location of the spinal stenosis - Patient is going to be going for spinal repair surgery not this hospitalization - say spine surgery will be soon and had been scheduled (6) Nausea and vomiting: Reactive nausea vomiting from extreme high blood pressure - Patient responded to Zofran - Nausea resolved Reviewed chest x-ray. (7) Acute renal failure: JESSICA noted with improvement, creatinine down to 1, BUN 28. Oral intake is tolerating. At home takes naproxen. Stop naproxen, would avoid NSAIDs. Plan GI and DVT prophylaxis in place PDMP PDMP Reviewed: Not Reviewed Attestations 2 Medical Necessity Statement*: Continue admission for assessment management of hypertensive urgency, syncopal episodes with falls, spinal stenosis, additional comorbidities as above. 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
--- NOTE | 2025-06-02 16:12 | USCV_ITS ---
Holly Diez Age: 75 Gender: F : 1950 Exam Date: 06/02/2025 20:33 Ordering Phys: Liban Schmidt MD Technologist: JAYESH Exam Location: [facility] [place] Indication: syncopal episodes BP: 175 / 120 HR: 90 Rhythm: Atrial fibrillation Technical Quality: Adequate MEASUREMENTS (Male / Female) Normal Values 2D ECHO LV Diastolic Diameter PLAX 4.1 cm 4.2 - 5.9 / 3.9 - 5.3 cm IVS Diastolic Thickness 1.4 cm 0.6 - 1.0 / 0.6 - 0.9 cm IVS Systolic Thickness 1.6 cm LVPW Diastolic Thickness 1.2 cm 0.6 - 1.0 / 0.6 - 0.9 cm LVPW Systolic Thickness 1.8 cm LVOT Diameter 1.9 cm LV Ejection Fraction 2D Teich 67.3 % LV Ejection Fraction MOD 4C 65.8 % LV Ejection Fraction MOD 2C 71.8 % LV Ejection Fraction 2C AL 75.9 % LA Diameter 2.7 cm Aorta at Sinotubular Diameter 2.9 cm IVC Diameter 1.6 cm M-MODE LA Ao Ratio MM 1.0 AV Cusp Separation MM 1.3 cm DOPPLER AV Peak Velocity 121.0 cm/s LVOT Peak Velocity 77.0 cm/s AV Area Cont Eq vti 2.0 cm squared AV Area Cont Eq pk 1.8 cm squared MV Peak Velocity 101.0 cm/s MV Area PHT 8.2 cm squared Mitral E to A Ratio 0.0 TV Peak E Velocity 55.0 cm/s PV Peak Velocity 86.0 cm/s FINDINGS Left Ventricle Mild to moderate concentric left ventricular hypertrophy. Normal LV size and ejection fraction of 67%.no regional wall motion abnormalities. Grade I/IV diastolic dysfunction (abnormal relaxation filling pattern), normal to mildly elevated filling pressures. Right Ventricle The right ventricle is normal in size and function. Right Atrium The right atrium is normal in size. Left Atrium Mildly increased left atrial size. Mitral Valve No gross abnormalities noted Aortic Valve Thickened aortic valve. Tricuspid Valve No gross abnormalities noted Pulmonic Valve Mild pulmonary valve regurgitation. Pericardium No pericardial effusion. Aorta Normal aortic annulus size. IVC Inferior vena cava not visualized. CONCLUSIONS Mild to moderate concentric left ventricular hypertrophy. Normal LV size and ejection fraction of 67%.no regional wall motion abnormalities. Grade I/IV diastolic dysfunction (abnormal relaxation filling pattern), normal to mildly elevated filling pressures. Mildly increased left atrial size. Thickened aortic valve. Mild pulmonary valve regurgitation. No pericardial effusion. No similar previous studies are available for comparison Dr Shona Hamilton MD [facility] (Electronically Signed) Final Date: 02 June 2025 21:48 S
--- NOTE | 2025-06-02 16:12 | USCV_ITS ---
Rg Holly Age: 75 Gender: F : 1950 Exam Date: 06/02/2025 16:53 Ordering Phys: Liban Schmidt MD Technologist: USR [place] [facility] [place]: syncope Risk Factors: Previous Vascular Surgery: Right Brachial BP: / Left Brachial BP: / Right Left Velocity (cm/s) Spectral Plaque Velocity (cm/s) Spectral Plaque Syst/Diast Broadening Syst/Diast Broadening 47.10/ 12.30 Prox CCA 61.90 / 14.50 53.40/ 13.60 Mid CCA 64.00 / 19.70 52.20/ 14.70 Distal CCA 59.80 / 19.70 74.00/ 21.00 Prox ICA 53.90 / 16.60 70.60/ 19.20 Mid ICA 48.20 / 14.20 44.50/ 15.60 Distal ICA 42.10 / 15.40 59.80 ECA 68.20 1.40 ICA/CCA 0.90 Antegrade Vertebral Antegrade 56.00/ 17.90 cm/s 51.00/ 12.10 cm/s Tri Subclavian Bi 84.10 123.3 0 CONCLUSIONS Right ICA stenosis <50%. Mild atheromatous plaque right carotid bulb/ICA. Left ICA stenosis <50%. Mild atheromatous plaque left carotid bulb/ICA. Normal antegrade Doppler flow noted in the right vertebral artery. Normal antegrade Doppler flow noted in the left vertebral artery. Larry Roach MD (Electronically Signed) Final Date: 03 June 2025 10:12 S
[2025-06-02 16:38] LABS: Hematocrit 27.8 % (36-47); Retic Production Index 1.53
[2025-06-02 16:48] LABS: Ferritin 200 ng/mL (15-150); Iron 70 ug/dL (37-145); Total Iron Binding Capacity 221 mcg/dl; Unsaturated Iron Binding 151 ug/dL (112-347)
[2025-06-02 17:05] LABS: Vitamin B12 294 pg/mL (232-1245)
[2025-06-03] VITALS (14 sets, daily range): BP systolic 112–184; BP diastolic 70–124; PULSE 70–100; RESP 14–20; TEMP 36.7–37; O2SAT 95–97
[2025-06-03 02:46] LABS: Hematocrit 27.7 % (36-47); Hemoglobin 8.90 g/dL (11.27-16.99); Mean Corpuscular HGB Conc 32.1 g/dL (30-55); Mean Corpuscular Hemoglobin 32.5 pg (27-33); Mean Corpuscular Volume 101.1 fl (85-98); Nucleated Red Blood Cells % 0 %; Platelet Count 168 10^3/cmm (157-399); Red Blood Count 2.74 10^6/uL (3.85-5.65); White Blood Count 7.13 10^3/uL (3.29-11.43)
[2025-06-03 03:15] LABS: Blood Urea Nitrogen 25 mg/dL (8-23); Calcium 8.4 mg/dL (8.5-10.5); Carbon Dioxide 26 mmol/L (22-29); Chloride 105 mmol/L (98-107); Creatinine Clr Calc Pharmacy 46.7125; Glucose 143 mg/dL (65-115); Osmolality Calculated 299 mOsm/kg (285-295); Sodium 141 mmol/L (136-145)
[2025-06-03 03:17] LABS: Anion Gap 13.3 (5-19); Potassium 3.3 mmol/L (3.5-5.1)
[2025-06-03] MEDS: oxyCODONE 5 mg IR Tab/Cap PO ×5 (03:55→21:34)
[2025-06-03] MEDS: heparin 5,000 unit/mL INJ 1 mL 5000 UNIT SUBCUT ×2 (03:55→17:11)
--- OUTSIDE RECORDS SUMMARY | 2025-06-03 07:56 | XMS_ITS | Clinical Summary ---
Author Organization [employer] de Address [address] [place] [address] Phone Care Team Providers Care Laborer General Name Role Phone Ann Marie Kim MD Primary Care Provider [phone] Allergies No known active allergies Medications hydrALAZINE [...] Data STL ABSTRACTION Provider, Abstract 03/18/2025 Refill [facility] [address] Nicole Ocasio PA from Last [...] on file Legal Sex Female 12:31 AM VP ANALYSIS Gender Identity Not on file Sexual Orientation Not on file Last Filed Vital Signs Vital Sign Reading Time Taken Comments Blood Pressure 154/85 10/14/2024 9:30 AM VP ANALYSIS Pulse 73 10/14/2024 9:30 AM VP ANALYSIS Temperature - - Respiratory Rate 18 10/14/2024 9:30 AM VP ANALYSIS Oxygen Saturation 95% 10/14/2024 9:30 AM VP ANALYSIS Inhaled Oxygen Concentration - - Weight 70.7 [...] Nagy MD - 03/03/2023 11:36 AM CDT [facility] GI Patient Name: Holly Diez Procedure [...] 11:17:18 AM Scope Out: 11:31:46 AM [address] [place], [place] Neo Nagy MD GI PROCEDURE ORDERABLES F inal Result from Last 3 Months or Most Recently Relevant to Health Maintenance Insurance MEDICARE PART A AND B [place] [id number] Advance Directives For more information, please contact: [phone] * Full Code (Latest Code Status on File) Date Activated Date Inactivated Comments 03/03/2023 10:13 AM 03/03/2023 2:17 PM Care Teams Laborer General Relationship Specialty Start Date End Date Ann Marie Kim MD [address] [facility] [address] [place] [id number] PCP - General Family Practice 02/02/23
--- OUTSIDE RECORDS SUMMARY | 2025-06-03 07:56 | XMS_ITS | Encounter Summary ---
Author Organization [employer] Address 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 Other, specify BLOOD SPECIMEN / Unknown Collection / Unknown 07/03/2024 10:40 AM CDT 07/03/2024 11:08 AM CDT us Nicholas Rodriguez MD CHEMISTRY ORDERABLES Final Re sult [facility] CLIA # [id number] [facility] [address] [address] documented in this encounter Visit Diagnoses Not on filedocumented in this encounter Care Teams Insurance Verification Specialist Relationship Specialty Start Date End Date Ann Marie Kim MD [address] [facility] [address] [place] [id number] PCP - General Family Practice 02/02/23 documented as of this encounter
[2025-06-03] MEDS: verapamil ER 240 mg Tablet 120 MG PO (09:08)
--- NOTE | 2025-06-03 10:17 | PC.CHAP ---
Pastoral Care Encounter/Spiritual Assessment Type of Contact [] Declined airline customer service agent visit [] Patient/Family/Request visit [] Outpatient visit [] Follow-up visit [] Physician referral [] Code/Alert [] Routine visit [] Staff referral [] Actively dying [] Patient sleeping [] Family support [] [] Out of room [] Palliative care [] [x] Receiving care in room [] Pre-surgical visit [] Trauma [] Long length of stay [] ICU visit [] Other: Relational/Emotional Strength [] Patient feels connected with others/family/visitors/staff [] Distress [] Loneliness/isolation [] Abandonment Spirituality of Patient [] Person of Nicole [] Attends Orthodoxy of their Nicole [] Believes in Prayer [] Reads Bible or Rastafari materials [] There are Spiritual issues to be addressed Hard Hat Diver Interventions [] Prayer [] Active listening [] Non-anxious presence [] Spiritual/emotional support [] Crisis/trauma care [] Spiritual counseling [] Bereavement support [] Provided bereavement packet [] Provided Bible/devotional materials [] Provided toy/stuffed animal, coloring book to patient or family member [] Provided Communion [] Anointing/[place] [] Salvation [] Completed spiritual assessment [] Other: Impact on Illness or Injury [] Angry [] Fearful [] Anxious [] Often cries [] Exhaustion [] Unable to work [] Unable to attend jewish [] Unable to walk/stand [] Unable to read [] Unable to drive [] Unable to eat/drink [] Unable to sleep [] Unable to be with family [] Patient intubated [] Other: Summary Time spent with patient
--- NOTE | 2025-06-03 11:21 | PM.CONSULT ---
Providers/Reason For Consult Consulting Physician/Specialty*: Hospitalist Reason for Consult*: Back pain Attending Physician: Liban Schmidt Primary Care Provider: Ann Marie Kim MD History of Present Illness History of Present Illness Holly Diez is a 75 year old female recently seen in the clinic discussed doing extension above her fusion and decompression. However she has a hemoglobin of 8.6 is having blood pressure issues as well. Review of Systems Const: Denies: fever(s) or chills Card: Denies: chest pain Resp: Denies: dyspnea GI: Denies: abdominal pain : Denies: dysuria, urinary frequency or urinary urgency Musc: Denies: neck pain or back pain Skin/Breast: Denies: rash Medications/Allergies Home Medications ?Medication ?Instructions ?Recorded ?Confirmed ?Last Taken ?Type nitroglycerin 0.4 mg sublingual 0.4 mg sublingual Q5M PRN chest 09/14/22 06/02/25 03/17/25 Rx tablet pain #25 tabs leflunomide 20 mg tablet 20 mg PO DAILY #90 tabs 03/18/25 06/02/25 06/01/25 08:00 Rx tramadol 50 mg tablet 50 mg PO Q8H PRN pain 30 days #90 04/07/25 06/02/25 06/01/25 12:00 Rx tabs clonidine HCl 0.3 mg tablet 0.3 mg PO TID 05/03/25 06/02/25 06/01/25 History hydralazine 25 mg tablet 25 mg PO QID 05/03/25 06/02/25 06/01/25 14:00 History multivitamin 1 tab PO DAILY 05/03/25 06/02/25 06/01/25 08:00 History naproxen sodium 220 mg tablet 220 mg PO BID PRN Pain 05/03/25 06/02/25 06/01/25 History (Aleve) pantoprazole 40 mg tablet,delayed 40 mg PO DAILY 30 days #30 tabs 05/05/25 06/02/25 06/01/25 Rx release labetalol 200 mg tablet 200 mg PO Q12H #270 tabs 05/12/25 06/02/25 06/01/25 08:00 Rx verapamil 120 mg tablet,extended See Rx Instructions .Route 05/13/25 06/02/2525 08:00 Rx release .COMPLEX #180 tabs hydrocodone 5 mg-acetaminophen 325 1 tab PO Q8H PRN pain 30 days #60 05/22/25 06/02/25 Unknown Rx mg tablet tabs cyclobenzaprine 10 mg tablet 10 mg PO TID PRN muscle spasm #20 05/25/25 06/02/25 Unknown Rx tabs alprazolam 0.5 mg tablet 0.5 mg PO QID #120 tabs 05/26/25 06/02/25 06/01/25 15:00 Rx methylprednisolone 4 mg tablets in See Rx Instructions PO .COMPLEX 05/26/25 06/02/25 06/01/25 08:00 Rx a dose pack (Medrol (Lam)) #21 ea oxycodone 5 mg tablet 5 mg PO Q4H pain 30 days #180 tabs 05/27/25 06/02/25 06/01/25 Rx Allergies Allergy/AdvReac Type Severity Reaction Status Date / Time sulfasalazine Allergy Unknown ADR-Nausea Verified 06/01/25 21:24 plastics Allergy ALGY-Rash Uncoded 06/01/25 21:24 Current Medications Generic Name Dose Route Start Last Admin Trade Name Freq PRN Reason Stop Dose Admin Alprazolam 0.5 mg 06/02/25 17:00 06/03/25 09:10 Alprazolam 0.5 Mg Tablet PO 0.5 mg QID LLOYD Administration Clonidine HCl 0.3 mg 06/02/25 21:00 06/03/25 09:07 Clonidine 0.1 Mg Tablet PO 0.3 mg TID LLOYD Administration Docusate Sodium 100 mg 06/02/25 09:00 06/03/25 09:11 Docusate Sodium 100 Mg Capsule PO 100 mg BID LLOYD Administration Heparin Sodium (Porcine) 5,000 unit 06/02/25 04:30 06/03/25 03:55 Heparin 5,000 Unit/Ml Inj 1 Ml SUBCUT 5,000 unit Q12H LLOYD Administration Nicardipine/Sodium Chloride 20 mg in 200 mls @ 0 mls/hr 06/02/25 02:15 06/02/25 18:36 Cardene IV Infused .Q0M LLOYD Titration Protocol Per Protocol Insulin Human Lispro 0 unit 06/02/25 08:00 06/03/25 07:34 Insulin Lispro 100 Unit/1 Ml SUBCUT Not Given WM&BEDTIME LLOYD Protocol Labetalol HCl 200 mg 06/02/25 15:30 06/03/25 03:55 Labetalol 200 Mg Tablet PO 200 mg Q12H LLOYD Administration Morphine Sulfate 2 mg 06/02/25 04:23 06/02/25 14:50 Morphine 4 Mg/Ml Sdv 1 Ml IVP 2 mg Q4H PRN Administration SEVERE PAIN Pantoprazole Sodium 40 mg 06/02/25 09:00 06/03/25 09:[address] 40 Mg Tablet PO 40 mg DAILY LLOYD Administration Senna 17.2 mg 06/02/25 21:00 06/02/25 20:38 Sennosides 8.6 Mg Tablet PO 17.2 mg BEDTIME LLOYD Administration Verapamil HCl 120 mg 06/02/25 09:00 06/03/25 09:08 Verapamil Er 240 Mg Tablet PO 120 mg DAILY LLOYD Administration PFSH Acute PFSH: Medical History (Updated 06/03/25 @ 00:00 by KERLINE Watters) Immunization counseling High risk medication use Inflammatory arthritis Eczema History of colon polyps Irritable bowel syndrome with both constipation and diarrhea Thoracic spine pain Essential hypertension Anxiety Diabetes Lumbar disc disease with radiculopathy Surgical History History of colonoscopy (03/23/21) 2015: Colon polyps 2020: Mild diverticulosis History of cholecystectomy History of dilation and curettage History of total hysterectomy Family History Father Parkinson disease Cancer Mother Cancer Social History Smoking and tobacco/nicotine status: never used tobacco/nicotine Second hand smoke exposure: No Alcohol intake: never Substance/Drug Use: never Vitals/I&O/Wt Last Vital Signs Temp 98.0 F 06/03/25 08:00 Pulse 85 06/03/25 09:48 Resp 20 H 06/03/25 09:09 BP 164/90 06/03/25 10:49 Pulse Ox 97 06/03/25 08:00 O2 Del Method Room Air 06/02/25 07:37 O2 Flow Rate 2 06/02/25 00:09 0706/03/25 06/03/25 22:59 06:59 14:59 Intake Total 533.75 / 1568.750 120 / 1688.750 480 / 480 Balance 533.75 / 1568.750 120 / 1688.750 480 / 480 Weight last 48 hrs Weight 141 lb Weight 141 lb Weight 141 lb Physical Exam Narrative: Alert and oriented x 3 Head is normocephalic atraumatic Respirations are intact Currently they are working on sitting at the side of been checking her blood pressure. Data 06/03/25 02:05 06/03/25 02:05 A&P Assessment and plan 1. Lumbar disc disease with radiculopathy: Consider possible surgery tomorrow if she can be optimized. PDMP PDMP Reviewed: Not Reviewed Coding Level of Care Code Acute Code for Chg Fwd Diagnoses Lumbar disc disease with radiculopathy M51.16
--- NOTE | 2025-06-03 19:54 | P.PN_ITS ---
Subjective 2 Subjective: She denies any new symptoms. No chest pain or pressure. No trouble breathing. So far without syncopal episodes. Her chronic pain has been bothering her. Vitals/I&O/Wt Last Vital Signs Temp 98.0 F 06/03/25 08:00 Pulse 83 06/03/25 16:00 Resp 16 06/03/25 17:11 BP 148/89 06/03/25 16:00 Pulse Ox 95 06/03/25 16:00 O2 Del Method Room Air 06/02/25 07:37 O2 Flow Rate 2 06/02/25 00:09 06/03/25 06/03/25 06/03/25 06:59 14:59 22:59 Intake Total 120 / 1688.750 720 / 720 Balance 120 / 1688.750 720 / 720 Weight last 48 hrs Weight 63.957 kg Weight 63.957 kg Weight 63.957 kg Physical Exam 2 Narrative: Accompanied by her on the first visit. Const: COMMON NORMALS: patient oriented x3 and alert GENERAL APPEARANCE: c ooperative ORIENTATION/CONSCIOUSNESS: Yes awake HENMT: COMMON NORMALS: oropharynx normal Neck/C-Spine: COMMON NORMALS: no JVD Resp: COMMON NORMALS: normal respiratory effort and clear to auscultation bilaterally AUSCULTATION: clear to auscultation bilaterally Cardio: COMMON NORMALS: no JVD, regular rhythm, S1 normal heart sound present, S2 normal heart sound present and No murmurs present (Cardio) RHYTHM: regular rhythm HEART SOUNDS: S1 normal heart sound present and S2 normal heart sound present GI: COMMON NORMALS: Normal to inspection, nondistended, normoactive bowel sounds present, Soft to palpation and non-tender PALPATION: Yes Soft to palpation Extremity: COMMON NORMALS: no joint enlargement and no pedal edema Neuro: COMMON NORMALS: patient oriented x3 and moves all extremities S ENSORIUM/ORIENTATION: Yes alert Skin: COMMON NORMALS: no rashes or lesions noted GENERAL SKIN EXAM: no rashes or lesions noted Data 06/03/25 02:05 06/03/25 02:05 A&P Assessment and plan 1. Fall: Reviewed carotid duplex, echocardiogram, orthostatics. Without noted arrhythmia. Orthostatics are found to be significantly positive. Likely contributing to her episodes of blacking out with falls. Will need to maintain orthostatic precautions. If blood pressure remains well-controlled consider midodrine although as previously discussed with her we will risk supine hypertension. Intermittent falls accompanied by loss of consciousness. Intermittent dizziness with standing or walking. Denies vertigo. Does have leg weakness, balance issues with spinal stenosis. However, possible syncopal episodes had been unexplained. 2. Encephalopathy, hypertensive: Hypertension with improvement, blood pressure 148/89. Overall blood pressures are doing significantly better today. She is awake and alert, responding appropriately, without any encephalopathy. 3. Lumbar spinal stenosis: Reviewed vitals, blood pressures with improved, reviewed echocardiogram, carotid Doppler, discussed with her. Per discussion with orthopedic surgery may proceed to surgery tomorrow as per prior plans. She is in agreement. N.p.o. after midnight. She was planned for surgery on Monday with orthospine surgery. Underwent PCP clearance for the procedure. However, now ended up in the hospital. As per discussion with her it is difficult to say whether she may be able to still undergo surgery on Monday. Needs additional assessment and optimization of blood pressure control as per discussion. Acetaminophen as needed, oxycodone as needed for moderate pain, IV morphine as needed for severe pain. Patient is with acute on chronic pain secondary to fall - Patient has upcoming surgery for the spinal stenosis - Patient continue pain management as per home regimen 4. Type 2 diabetes mellitus without complication, without long-term current use of insulin: Monitor POC glucose. Continue sliding scale insulin. 5. Back pain at L4-L5 level: This is the location of the spinal stenosis - Patient is going to be going for spinal repair surgery not this hospitalization - say spine surgery will be soon and had been scheduled 6. Nausea and vomiting: Resolved. 7. Acute renal failure: Reviewed chemistry. JESSICA noted resolving. BUN 25, creatinine 0.9. Noted mild hypokalemia, requested replacement. Reassess chemistry. Oral intake is tolerating. At home takes naproxen. Stop naproxen, would avoid NSAIDs. Plan: Anemia: Reviewed blood counts, anemia noted but stable, 8.9 hemoglobin, macrocytic, reviewed iron studies, without iron deficiency, reviewed B12, folic acid, normal, check MMA. GI and DVT prophylaxis in place PDMP PDMP Reviewed: Not Reviewed Attestations 2 Medical Necessity Statement*: Admission of over 2 midnights for management of spinal stenosis, further assessment management of syncopal episodes with significant orthostasis, falls, optimization of blood pressure control. 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
--- NOTE | 2025-06-03 22:41 | PC.NURSE ---
Contacted Doctor tushar about holding the patients 0.3mg dose of clonidine due to two blood pressures within normal limits, the fist one was 112/73, and the second was 120/70. Physician said to hold.
[2025-06-04] VITALS (10 sets, daily range): BP systolic 117–174; BP diastolic 72–102; PULSE 74–102; RESP 16–22; TEMP 36.2–36.7; O2SAT 93–98
[2025-06-04] MEDS: oxyCODONE 5 mg IR Tab/Cap PO ×4 (01:48→14:30)
[2025-06-04 02:48] LABS: Hematocrit 27.8 % (36-47); Hemoglobin 8.70 g/dL (11.27-16.99); Mean Corpuscular HGB Conc 31.3 g/dL (30-55); Mean Corpuscular Hemoglobin 31.5 pg (27-33); Mean Corpuscular Volume 100.7 fl (85-98); Nucleated Red Blood Cells % 0 %; Platelet Count 128 10^3/cmm (157-399); Red Blood Count 2.76 10^6/uL (3.85-5.65); White Blood Count 5.33 10^3/uL (3.29-11.43)
[2025-06-04 03:06] LABS: Anion Gap 12.4 (5-19); Blood Urea Nitrogen 25 mg/dL (8-23); Calcium 8.4 mg/dL (8.5-10.5); Carbon Dioxide 27 mmol/L (22-29); Chloride 109 mmol/L (98-107); Creatinine Clr Calc Pharmacy 42.0412; Glucose 100 mg/dL (65-115); Osmolality Calculated 304 mOsm/kg (285-295); Potassium 3.4 mmol/L (3.5-5.1); Sodium 145 mmol/L (136-145)
[2025-06-04] MEDS: verapamil ER 240 mg Tablet 120 MG PO (08:11)
--- NOTE | 2025-06-04 11:17 | PC.NURSE ---
Patient taken to OR via stretcher and OR personnel. Spouse at side. No distress observed.
--- NOTE | 2025-06-04 12:08 | ANES.PREANE2 ---
Pre-Anesthetic Assessment Height/Weight: Height 1.57 m Weight 66.281 kg Temp Pulse Resp BP Pulse Ox O2 Del Method O2 Flow Rate 97.2 F L 95 17 174/83 96 Room Air 2 06/04/25 11:17 06/04/25 11:17 06/04/25 11:17 06/04/25 11:17 06/04/25 11:17 06/04/25 07:48 06/02/25 00:09 Operation Date: 06/04/25 13:25 Proposed Procedures p Posterior Lumbar Interbody Fusion(Not Applicable) - Aguila Ibarra, DO Familial anesthetic complications: None Was Beta Meron taken within 24 hours: N/A Was Clonidine taken within 24 hours: N/A Last intake: > 8 hrs Social No alcohol and No tobacco Exam alert, oriented x 3, clear to auscultation bilaterally and regular rate & rhythm Airway Mallampati: Class II Dentition: full CV/HEM Hypertension JESSICA GI Gastroesophageal Reflux Disease Metabolic Diabetes Mellitus and Morbid Obesity Neuropsych HTN encephalopathy Anesthetic Plan ASA status: 3 Anesthesia: General Risk of > 500 ml blood loss (7ml/kg in children): No Medications/Allergies Home Medications ?Medication ?Instructions ?Recorded ?Confirmed ?Last Taken ?Type nitroglycerin 0.4 mg sublingual 0.4 mg sublingual Q5M PRN chest 09/14/22 06/02/25 03/17/25 Rx tablet pain #25 tabs leflunomide 20 mg tablet 20 mg PO DAILY #90 tabs 03/18/25 06/02/25 06/01/25 08:00 Rx tramadol 50 mg tablet 50 mg PO Q8H PRN pain 30 days #90 04/07/25 06/02/25 06/01/25 12:00 Rx tabs clonidine HCl 0.3 mg tablet 0.3 mg PO TID 05/03/25 06/02/25 06/01/25 History hydralazine 25 mg tablet 25 mg PO QID 05/03/25 06/02/25 06/01/25 14:00 History multivitamin 1 tab PO DAILY 05/03/25 06/02/25 06/01/25 08:00 History naproxen sodium 220 mg tablet 220 mg PO BID PRN Pain 05/03/25 06/02/25 06/01/25 History (Aleve) pantoprazole 40 mg tablet,delayed 40 mg PO DAILY 30 days #30 tabs 05/05/25 06/02/25 06/01/25 Rx release labetalol 200 mg tablet 200 mg PO Q12H #270 tabs 05/12/25 06/02/25 06/01/25 08:00 Rx verapamil 120 mg tablet,extended See Rx Instructions .Route 05/13/25 06/02/25 06/01/25 08:00 Rx release .COMPLEX #180 tabs hydrocodone 5 mg-acetaminophen 325 1 tab PO Q8H PRN pain 30 days #60 05/22/25 06/02/25 Unknown Rx mg tablet tabs cyclobenzaprine 10 mg tablet 10 mg PO TID PRN muscle spasm #20 05/25/25 06/02/25 Unknown Rx tabs alprazolam 0.5 mg tablet 0.5 mg PO QID #120 tabs 05/26/25 06/02/25 06/01/25 15:00 Rx methylprednisolone 4 mg tablets in See Rx Instructions PO .COMPLEX 05/26/25 06/02/25 06/01/25 08:00 Rx a dose pack (Medrol (Lam)) #21 ea oxycodone 5 mg tablet 5 mg PO Q4H pain 30 days #180 tabs 05/27/25 06/02/25 06/01/25 Rx Allergies Allergy/AdvReac Type Severity Reaction Status Date / Time sulfasalazine Allergy Unknown ADR-Nausea Verified 06/01/25 21:24 plastics Allergy ALGY-Rash Uncoded 06/01/25 21:24 Current Medications Generic Name Dose Route Start Last Admin Trade Name Saad PRN Reason Stop Dose Admin Alprazolam 0.5 mg 06/02/25 17:00 06/04/25 08:11 Alprazolam 0.5 Mg Tablet PO 0.5 mg On Hold: 06/04/25 11:17 QID LLOYD Administration Comment: Order held by Process Transfer Clonidine HCl 0.3 mg 06/02/25 21:00 06/04/25 08:12 Clonidine 0.1 Mg Tablet PO 0.3 mg On Hold: 06/04/25 11:17 TID LLOYD Administration Comment: Order held by Process Transfer Docusate Sodium 100 mg 06/02/25 09:00 06/04/25 08:12 Docusate Sodium 100 Mg Capsule PO 100 mg On Hold: 06/04/25 11:17 BID LLOYD Administration Comment: Order held by Process Transfer Heparin Sodium (Porcine) 5,000 unit 06/02/25 04:30 06/04/25 04:26 Heparin 5,000 Unit/Ml Inj 1 Ml SUBCUT Not Given On Hold: 06/04/25 11:17 Q12H LLOYD Comment: Order held by Process Transfer Insulin Human Lispro 0 unit 06/02/25 08:00 06/04/25 06:56 Insulin Lispro 100 Unit/1 Ml SUBCUT Not Given On Hold: 06/04/25 11:17 WM&BEDTIME LLOYD Comment: Order held by Process Protocol Transfer Labetalol HCl 200 mg 06/02/25 15:30 06/04/25 04:26 Labetalol 200 Mg Tablet PO 200 mg On Hold: 06/04/25 11:17 Q12H LLOYD Administration Comment: Order held by Process Transfer Morphine Sulfate 2 mg 06/02/25 04:23 06/02/25 14:50 Morphine 4 Mg/Ml Sdv 1 Ml IVP 2 mg On Hold: 06/04/25 11:17 Q4H PRN Administration Comment: Order held by Process SEVERE PAIN Transfer Oxycodone HCl 5 mg 06/03/25 13:00 06/04/25 08:12 Oxycodone 5 Mg Ir Tab/Cap PO 5 mg On Hold: 06/04/25 11:17 Q4H LLOYD Administration Comment: Order held by Process Transfer Pantoprazole Sodium 40 mg 06/02/25 09:00 06/04/25 08:[address] 40 Mg Tablet PO 40 mg On Hold: 06/04/25 11:17 DAILY LLOYD Administration Comment: Order held by Process Transfer Senna 17.2 mg 06/02/25 21:00 06/03/25 21:34 Sennosides 8.6 Mg Tablet PO Not Given On Hold: 06/04/25 11:17 BEDTIME LLOYD Comment: Order held by Process Transfer Verapamil HCl 120 mg 06/02/25 09:00 06/04/25 08:11 Verapamil Er 240 Mg Tablet PO 120 mg On Hold: 06/04/25 11:17 DAILY LLOYD Administration Comment: Order held by Process Transfer [facility] Anesthesia Medical History (Updated 06/04/25 @ 00:00 by KERLINE Watters) Immunization counseling High risk medication use Inflammatory arthritis Eczema History of colon polyps Irritable bowel syndrome with both constipation and diarrhea Thoracic spine pain Essential hypertension Anxiety Diabetes Lumbar disc disease with radiculopathy Surgical History History of colonoscopy (03/23/21) 2015: Colon polyps 2020: Mild diverticulosis History of cholecystectomy History of dilation and curettage History of total hysterectomy Family History Father Parkinson disease Cancer Mother Cancer Social History Smoking and tobacco/nicotine status: never used tobacco/nicotine Second hand smoke exposure: No Alcohol intake: never Substance/Drug Use: never Data Anesthesia 06/04/25 02:24 06/04/25 02:24 Short CBC 06/02/25 06/03/25 06/04/25 Range/Units 06:40 02:05 02:24 WBC 7.13 5.33 (3.29-11.43) 10^3/uL Hgb 8.90 L 8.70 L (11.27-16.99) g/dL Hct 27.8 L 27.7 L 27.8 L (36-47) % MCV 101.1 H 100.7 H (85-98) fl Plt Count 168 128 L (157-399) 10^3/cmm Neut % (Auto) 76.4 60.9 % Neut # (Auto) 5.45 3.24 (1.8-7.7) 10^3/uL BMP 06/03/25 06/04/25 02:05 02:24 Sodium 141 145 Potassium 3.3 L 3.4 L Chloride 105 109 H Carbon Dioxide 26 27 BUN 25 H 25 H Creatinine 0.9 1.0 H Glucose 143 H 100 Calcium 8.4 L 8.4 L Urine 06/02/25 Range/Units 15:25 Urine Color Yellow (Yellow) Urine Appearance Clear (CLEAR) Urine pH 8.0 A (5-7) Ur Specific [place] 1.013 (1.005-1.030) Urine Protein Trace A (Negative) Urine Glucose (UA) Negative (Normal) Urine Ketones Negative (Negative) Urine Nitrate Negative (Negative) Urine Bilirubin Negative (Negative) Ur Leukocyte Esterase Negative (Negative) Urine RBC 0-2 (0-2) /hpf Urine WBC 0-5 (0-5) /hpf Cardiac Studies: Echocardiogram 06/02/25 Sestamibi Stress Test (Cardiology) 08/26/20
--- NOTE | 2025-06-04 12:08 | PM.PN ---
Subjective Subjective: Hospital course, labs appreciated. Patient laying comfortably in bed. Blood pressure is better but still elevated. Seen with at bedside. Patient denies any nausea, vomiting, headache, dizziness. Overnight no acute events. Vitals/I&O/Wt Last Vital Signs Temp 97.2 F L 06/04/25 11:17 Pulse 95 06/04/25 11:17 Resp 17 06/04/25 11:17 BP 174/83 06/04/25 11:17 Pulse Ox 96 06/04/25 11:17 O2 Del Method Room Air 06/04/25 07:48 O2 Flow Rate 2 06/02/25 00:09 Weight last 48 hrs Weight 66.281 kg Weight 63.957 kg Weight 63.957 kg Physical Exam Narrative: Accompanied by her on the first visit. Const: COMMON NORMALS: patient oriented x3 and alert GENERAL APPEARANCE: cooperative ORIENTATION/CONSCIOUSNESS: Yes awake HENMT: COMMON NORMALS: oropharynx normal Neck/C-Spine: COMMON NORMALS: no JVD Resp: COMMON NORMALS: normal respiratory effort and clear to auscultation bilaterally AUSCULTATION: clear to auscultation bilaterally Cardio: COMMON NORMALS: no JVD, regular rhythm, S1 normal heart sound present, S2 normal heart sound present and No murmurs present (Cardio) RHYTHM: regular rhythm HEART SOUNDS: S1 normal heart sound present and S2 normal heart sound present GI: COMMON NORMALS: Normal to inspection, nondistended, normoactive bowel sounds present, Soft to palpation and non-tender PALPATION: Yes Soft to palpation Extremity: COMMON NORMALS: no joint enlargement and no pedal edema Neuro: COMMON NORMALS: patient oriented x3 and moves all extremities SENSORIUM/ORIENTATION: Yes alert Skin: COMMON NORMALS: no rashes or lesions noted GENERAL SKIN EXAM: no rashes or lesions noted Data 06/04/25 02:24 06/04/25 02:24 A&P Assessment and plan 1. Orthostatic hypotension: Repeat orthostatic blood pressure checks every shift. If needed will start patient on compression stockings. IV fluid at 75 cc/h for now. Will hold off on adding midodrine given elevated blood pressures. 2. Uncontrolled hypertension: Goal blood pressure less than 140/90 mmHg. Blood pressure is elevated. Patient does have positive orthostatics. Most likely cause for dizziness and syncope at home. For now continue with home dose of clonidine 0.3 mg 3 times daily, labetalol 200 mg twice daily, verapamil 120 mg oral daily. Will continue to monitor blood pressures. For now will avoid uptitrating medications given positive orthostatics. 3. Fall: Most likely in setting of elevated blood pressures with positive orthostatics. Carotid Doppler negative for acute abnormality. Intermittent falls accompanied by loss of consciousness. Intermittent dizziness with standing or walking. Denies vertigo. Does have leg weakness, balance issues with spinal stenosis. However, possible syncopal episodes had been unexplained. 4. Lumbar spinal stenosis: She was planned for surgery on Monday with orthospine surgery. Underwent PCP clearance for the procedure. Appreciate orthopedic recommendations. Plan for OR today. Currently NPO. Acetaminophen as needed, oxycodone as needed for moderate pain, IV morphine as needed for breakthrough pain. 5. Type 2 diabetes mellitus without complication, without long-term current use of insulin: A1c of 4.6. Hypoglycemia protocol. 6. Back pain at L4-L5 level: As above. 7. Nausea and vomiting: Resolved. 8. Encephalopathy, hypertensive: Resolved. 9. Acute renal failure: Medical reconciliation done for nephrotoxic drugs. Currently creatinine 1, 3.4 potassium. Monitor BMP daily. NS at 75 cc/h for now as patient is NPO. Plan: Anemia: Reviewed blood counts, anemia noted but stable, 8.9 hemoglobin, macrocytic, reviewed iron studies, without iron deficiency, reviewed B12, folic acid, normal, check MMA. Heparin 5000 every 12 hourly for DVT prophylaxis Protonix for PUD prophylaxis Full code NPO. Will start on cardiac diet postoperatively once okay with surgical team PDMP PDMP Reviewed: Not Reviewed Attestations Medical Necessity Statement*: Requires further hospitalization for management of elevated uncontrolled hypertension with orthostatic hypotension, syncope, lumbar radiculopathy requiring surgical correction Diagnoses Orthostatic hypotension I95.1 Uncontrolled hypertension I10 Fall W19.XXXA Lumbar spinal stenosis M48.061 Type 2 diabetes mellitus without complication, without long-term current use of insulin E11.9 Diabetes mellitus type: type 2 Diabetes mellitus ocean transportation intermediary insulin use: without ocean transportation intermediary use Diabetes mellitus complication status: without complication Back pain at L4-L5 level M54.50 Nausea and vomiting R11.2 Encephalopathy, hypertensive I67.4 Acute renal failure N17.9
--- NOTE | 2025-06-04 12:25 | SUR.PREOP ---
1220 Dr. Ibarra here and instructed patient and that surgery is cancelled for today due to low platelet count, patient and brought back to [facility] room 111-2 and her nurse Xiomy in pts room
--- NOTE | 2025-06-04 12:37 | SUR.PREOP ---
1220 Dr. Ibarra here and informed patient and spouse that her surgery is cancelled for today due to her low platelet count,patient and spouse brought back to [facility] room 111-2,both verbalized understanding
--- NOTE | 2025-06-04 12:43 | P.PN_ITS ---
Subjective 2 Subjective: Surgery was canceled today due to patient's platelets and hemoglobin trending down. Her surgery would have some blood loss at this point be concerned about her hemoglobin again too low. Vitals/I&O/Wt Last Vital Signs Temp 97.2 F L 06/04/25 11:17 Pulse 95 06/04/25 11:17 Resp 17 06/04/25 11:17 BP 174/83 06/04/25 11:17 Pulse Ox 96 06/04/25 11:17 O2 Del Method Room Air 06/04/25 07:48 O2 Flow Rate 2 06/02/25 00:09 Weight last 48 hrs Weight 146 lb 2 oz Weight 141 lb Weight 141 lb Physical Exam 2 Narrative: Saw patient in the preop area before surgery. Data 06/04/25 02:24 06/04/25 02:24 A&P Assessment and plan 1. Lumbar stenosis with neurogenic claudication: Patient is continue to be in pain would like to see hemoglobin platelets is elevated and will continue to follow-up. PDMP PDMP Reviewed: Not Reviewed Attestations 2 Medical Necessity Statement*: Per primary service Coding Level of Care Code Acute Code for g Fwd Diagnoses Lumbar stenosis with neurogenic claudication M48.062
--- NOTE | 2025-06-04 12:55 | PC.NURSE ---
patient received from surgery. Surgery cancelled due to low platelets. Patient and spouse both are very confused and upset. Informed Dr Ibarra and Dr Diaz. Dr Ibarra into see patient presently. Dr Diaz spoke with spouse in the regan. Will continue to monitor.
--- NOTE | 2025-06-04 13:24 | P.DS_ITS ---
Discharge Providers Date of Admission: 06/03/25 10:30 Date of Discharge: June 04, 2025 Attending Provider at Admission: Brigid Blackburn MD Attending Provider at Discharge: Primo Diaz MD Primary Care Provider: Ann Marie Kim MD Diagnoses at Discharge Discharge Diagnosis 1. Lumbar stenosis with neurogenic claudication: Reason for Visit Reason for Visit: Pain in back going down R knee Brief History: History as per HPI: Holly Diez is a 75 year old female with medical history significant for lumb ar spine stenosis awaiting for upcoming surgery for this. Patient presented to the emergency room because she had pain status post fall to the back and aggravated this pain. Imaging did not show any acute process on the back. At presentation the blood pressure was noted to be 226/1 20s multiple oral and IV antihypertensive were given by the attending physician in the emergency room patient blood pressure was still up requiring initiation of Cardene drip. Blood pressure controlled and the drip stopped in the emergency room upon my evaluation of the patient. Patient originally was routed to go to ICU. Will follow through with blood pressure level and initiate further home medication orally for patient to be downgraded to stepdown unit Patient is observation for 23-hour stay for further optimize back pain and monitor blood pressure overnight Patient will be ready to go for oncoming surgery with the spine doctor Patient cannot take her own blood pressure medication unless the sits there and watch her take it else she will take the medicines at the wrong time. Patient need home health for clinical visit by the nurse to help with administration of medications Hospital Course Hospital Course Patient was admitted to the hospital further evaluation and management of recurrent episode of syncope/fall and encephalopathy in setting of uncontrolled hypertension and hypertensive urgency. At first she required nicardipine drip for hypertensive urgency. Later she was transition to her oral antihypertensive and her blood pressure slightly improved. She had further workup done for syncope and she was found to have orthostatic positive blood pressures with blood pressures falling down to 128 from 170 mmHg. She was started on compression stockings after IV fluid resuscitation and her orthostatic hypotension improved. Patient is due for lumbar surgery as an outpatient with Dr. Ibarra in June. Dr. Ibarra was consulted and plan was patient to undergo surgery on 06/04 though it was deferred due to platelet count of 1 28,000. Patient has been advised to follow-up as an outpatient and have surgery on her previously scheduled date. She is to continue taking her antihypertensive as before along with 25 mg hydralazine as needed for a systolic of more than 160 mmHg. She is to follow-up with her primary care provider within next 2 weeks for further adjustment of antihypertensive with her blood pressure diary. She should also have repeat CBC for further monitoring of her platelet count with her PCP. Physical Exam Narrative: Accompanied by her on. Const: COMMON NORMALS: patient oriented x3 and alert GENERAL APPEARANCE: cooperative ORIENTATION/CONSCIOUSNESS: Yes awake HENMT: COMMON NORMALS: oropharynx normal Neck/C-Spine: COMMON NORMALS: no JVD Resp: COMMON NORMALS: normal respiratory effort and clear to auscultation bilaterally AUSCULTATION: clear to auscultation bilaterally Cardio: COMMON NORMALS: no JVD, regular rhythm, S1 normal heart sound present, S2 normal heart sound present and No murmurs present (Cardio) RHYTHM: regular rhythm HEART SOUNDS: S1 normal heart sound present and S2 normal heart sound present GI: COMMON NORMALS: Normal to inspection, nondistended, normoactive bowel sounds present, Soft to palpation and non-tender PALPATION: Yes Soft to p alpation Extremity: COMMON NORMALS: no joint enlargement and no pedal edema Neuro: COMMON NORMALS: patient oriented x3 and moves all extremities SENSORIUM/ORIENTATION: Yes alert Skin: COMMON NORMALS: no rashes or lesions noted GENERAL SKIN EXAM: no rashes or lesions noted Discharge Data Studies Completed and Pending Completed Studies During Hospitalization Category Date Time Status CT head wo con* [id number] Stat Cat Scan 06/02/25 01:42 Completed XR chest 1V portable [id number] Stat Exams 06/02/25 01:42 Completed CV carotid duplex BI* [id number] Routine Ultrasound 06/02/25 16:12 Completed CV. echo complete* [id number] Routine Ultrasound 06/02/25 16:12 Completed Pending at discharge Category Date Time Status Complete Blood Count w/Auto AM LABS Lab 06/05/25 04:00 Ordered Comprehensive Metabolic Panel AM LABS Lab 06/05/25 04:00 Ordered Methylmalonic Acid Routine Lab 06/03/25 07:39 Received Occult Blood Stool [Immunochemical Fecal OCB] Routine Lab 06/02/25 16:18 Uncollected Radiology Impressions Chest X-Ray 06/02/25 01:42 IMPRESSION: 1. No acute cardiopulmonary process. 2. Incidental/nonacute findings are listed in the report. Head CT 06/02/25 01:42 IMPRESSION: 1. No acute abnormality of the brain. 2. Stable mild atrophy of the brain parenchyma. 3. Stable mild chronic white matter microangiopathic change. 4. Incidental/nonacute findings are listed in the report. Laboratory Results WBC 5.33 10^3/uL (3.29-11.43) 06/04/25 02:24 RBC 2.76 10^6/uL (3.85-5.65) L 06/04/25 02:24 Hgb 8.70 g/dL (11.27-16.99) L 06/04/25 02:24 Hct 27.8 % (36-47) L 06/04/25 02:24 MCV 100.7 fl (85-98) H 06/04/25 02:24 MCH 31.5 pg (27-33) 06/04/25 02:24 MCHC 31.3 g/dL (30-55) 06/04/25 02:24 RDW 12.5 % (12.1-15.1) 06/04/25 02:24 Plt Count 128 10^3/cmm (157-399) L 06/04/25 02:24 MPV 9.6 fL (7.4-10.4) 06/04/25 02:24 Neut % (Auto) 60.9 % 06/04/25 02:24 Lymph % (Auto) 25.1 % 06/04/25 02:24 [place] % (Auto) 10.1 % 06/04/25 02:24 Eos % (Auto) 2.6 % 06/04/25 02:24 Baso % (Auto) 0.9 % 06/04/25 02:24 Reticulocyte % (Auto) 2.2 % (0.5-2.0) H 06/02/25 06:40 Neut # (Auto) 3.24 10^3/uL (1.8-7.7) 06/04/25 02:24 Lymph # (Auto) 1.3 10^3/uL (0.8-4.8) 06/04/25 02:24 [place] # (Auto) 0.5 10^3/uL (0.2-0.9) 06/04/25 02:24 Eos # (Auto) 0.1 10^3/uL (0.0-0.8) 06/04/25 02:24 Baso # (Auto) 0.1 10^3/uL (0.0-0.1) 06/04/25 02:24 Nucleated RBC % (auto) 0 % 06/04/25 02:24 Nucleated RBCs # 0.0 /100WBC 06/04/25 02:24 Retic Production Index 1.53 06/02/25 06:40 Sodium 145 mmol/L (136-145) 06/04/25 02:24 Potassium 3.4 mmol/L (3.5-5.1) L 06/04/25 02:24 Chloride 109 mmol/L (98-107) H 06/04/25 02:24 Carbon Dioxide 27 mmol/L (22-29) 06/04/25 02:24 Anion Gap 12.4 (5-19) 06/04/25 02:24 BUN 25 mg/dL (8-23) H 06/04/25 02:24 Creatinine 1.0 mg/dL (0.5-0.9) H 06/04/25 02:24 GFR Calculation Not Reportable 06/04/25 02:24 Glucose 100 mg/dL (65-115) 06/04/25 02:24 POC Glucose 98 mg/dL (70-110) 06/04/25 11:23 Estimat Average Glucose 85 06/02/25 06:40 Hemoglobin A1c 4.6 % (4.0-6.0) 06/02/25 06:40 Calculated Osmolality 304 mOsm/kg (285-295) H 06/04/25 02:24 Lactic Acid 1.7 mmol/L (0.5-2.2) 06/02/25 02:08 Calcium 8.4 mg/dL (8.5-10.5) L 06/04/25 02:24 Phosphorus 2.1 mg/dL (2.5-4.5) L 06/02/25 06:40 Magnesium 1.8 mg/dL (1.7-2.3) 06/02/25 06:40 Iron 70 ug/dL (37-145) 06/02/25 06:40 TIBC 221 mcg/dl 06/02/25 06:40 % Saturation 31.6 % (20-50) 06/02/25 06:40 Unsat Iron Binding 151 ug/dL (112-347) 06/02/25 06:40 Ferritin 200 ng/mL (15-150) H 06/02/25 06:40 Total Bilirubin 0.3 mg/dL (0.15-1.2) 06/02/25 06:40 AST 16 U/L (0-32) 06/02/25 06:40 ALT 17 U/L (0-33) 06/02/25 06:40 Alkaline Phosphatase 44 U/L (35-105) 06/02/25 06:40 C-Reactive Protein 3.1 mg/L (0.0-4.9) 06/02/25 02:08 NT-Pro-B Natriuret Pep 481 pg/mL (0-450) H 06/02/25 02:08 Total Protein 5.2 g/dL (6.6-8.7) L 06/02/25 06:40 Albumin 3.2 g/dL (3.5-5.2) L 06/02/25 06:40 Globulin 2.0 g/dL (1.3-4.6) 06/02/25 06:40 Vitamin B12 294 pg/mL (232-1245) 06/02/25 06:40 Folate 15.9 ng/mL (4.8-37.3) 06/02/25 06:40 Urine Color Yellow (Yellow) 06/02/25 15:25 Urine Appearance Clear (CLEAR) 06/02/25 15:25 Urine pH 8.0 (5-7) A 06/02/25 15:25 Ur Specific [place] 1.013 (1.005-1.030) 06/02/25 15:25 Urine Protein Trace (Negative) A 06/02/25 15:25 Urine Glucose (UA) Negative (Normal) 06/02/25 15:25 Urine Ketones Negative (Negative) 06/02/25 15:25 Urine Blood Negative (Negative) 06/02/25 15:25 Urine Nitrate Negative (Negative) 06/02/25 15:25 Urine Bilirubin Negative (Negative) 06/02/25 15:25 Urine Urobilinogen 0.2 mg/dL (Negative) 06/02/25 15:25 Ur Leukocyte Esterase Negative (Negative) 06/02/25 15:25 Urine RBC 0-2 /hpf (0-2) 06/02/25 15:25 Urine WBC 0-5 /hpf (0-5) 06/02/25 15:25 Ur Squamous Epith Cells 0-5 /hpf (0-5) 06/02/25 15:25 Amorphous Sediment Not Reportable 06/02/25 15:25 Urine Bacteria None seen /hpf (NONE) 06/02/25 15:25 Hyaline Casts 1.21 /lpf 06/02/25 15:25 Blood Type A Positive 06/04/25 11:20 Rho(D) Type Rh positive 06/04/25 11:20 Antibody Screen Negative 06/04/25 11:20 Vitals Last Vital Signs Temp 97.2 F L 06/04/25 11:17 Pulse 84 06/04/25 13:08 Resp 17 06/04/25 11:17 BP 141/82 06/04/25 13:08 Pulse Ox 96 06/04/25 11:17 O2 Del Method Room Air 06/04/25 07:48 O2 Flow Rate 2 06/02/25 00:09 Discharge Plan Discharge Patient Disposition: Home Health Service Condition: Stable Prescriptions: New hydralazine 25 mg tablet 25 mg PO BID PRN (Reason: Systolic blood pressure of more than 160 mmHg) Qty: 10 0RF Continued leflunomide 20 mg tablet 20 mg PO DAILY Qty: 90 1RF tramadol 50 mg tablet 50 mg PO Q8H PRN (Reason: pain) 30 Days Qty: 90 1RF oxycodone 5 mg tablet 5 mg PO Q4H 30 Days Qty: 180 0RF labetalol 200 mg tablet 200 mg PO Q12H Qty: 270 1RF nitroglycerin 0.4 mg tablet, sublingual 0.4 mg SUBLINGUAL Q5M PRN (Reason: chest pain) Qty: 25 2RF Rx Instructions: do not exceed 3 doses per episode verapamil 120 mg tablet extended release See Rx Instructions .ROUTE .COMPLEX Qty: 180 2RF Dose Instruction: TAKE ONE TABLET BY MOUTH TWICE DAILY Rx Instructions: TAKE ONE TABLET BY MOUTH TWICE DAILY hydrocodone-acetaminophen 5-325 mg tablet 1 tab PO Q8H PRN (Reason: pain) 30 Days Qty: 60 0RF alprazolam 0.5 mg tablet 0.5 mg PO QID Qty: 120 5RF multivitamin Tablet 1 tab PO DAILY naproxen sodium [Aleve] 220 mg Tablet 220 mg PO BID PRN (Reason: Pain) clonidine HCl 0.3 mg tablet 0.3 mg PO TID hydralazine 25 mg tablet 25 mg PO QID pantoprazole 40 mg Tablet,Delayed Release (Dr/Ec) 40 mg PO DAILY 30 Days Qty: 30 0RF cyclobenzaprine 10 mg tablet 10 mg PO TID PRN (Reason: muscle spasm) Qty: 20 0RF methylprednisolone [Medrol (Lam)] 4 mg tablets,dose pack See Rx Instructions .ROUTE .COMPLEX Qty: 21 0RF Rx Instructions: for 6 days Referrals: [facility] [Outside] Ann Marie Kim MD [Primary Care Provider, Family Practice] - 7-10 days Discharge Diet: Cardiac Discharge Activity: Resume usual activity and Increase activity as tolerated Patient Instructions: Acute Wound Care (DC), Opioid Safety, Post Anesthesia Care, Patient Portal & Joel Instructions Activity Restrictions/Additional Instructions: Please check your blood pressure daily at home maintain a blood pressure diary. Goal systolic blood pressure of less than 160 mmHg. Follow-up with the primary care provider over the next 1 week for further adjustment of antihypertensive with your blood pressure diary. For now continue all your antihypertensives as before. Take hydralazine 25 mg twice daily as needed for systolic blood pressure more than 160 mmHg. Please make sure to change her position from laying to sitting to standing gradually to avoid fall or syncope. Please continue to wear compression stockings are discussed in detail. Have a repeat CBC with a primary care provider in next 1 week. Discharge Attestations Time Spent in Discharge Care*: greater than 30 min Status at Discharge: Cognitive status at discharge: cognitively intact , Behavioral status at discharge: cooperative , Quality Metrics Clinical Quality Measures [ No reported AMI, CVA or VTE this stay] Coding Level of Care Code Acute Code for Chg Fwd Diagnoses Lumbar stenosis with neurogenic claudication M48.062
--- NOTE | 2025-06-04 14:44 | PC.NURSE ---
Patient discharged to home. Instruction provided regarding low platelets, new medications and follow up needs. Patient and spouse verbalized complete understanding. Patient expressed importance of need to monitor labs via PCP. Patient taken by wheelchair to private vehicle with spouse at side. Scheduled medications administered prior to discharge.
== END 2025-06-04 14:47 | disposition home health service (06) | DRG 305 ==
LOC: ER 06-02 04:33 → ER IP 06-02 07:17 → CSU 06-03 04:35 → ER IP 06-03 07:54
PROVIDERS: Internal Medicine; Admitting Provider Internal Medicine; Emergency Provider Emergency Medicine; PCP Family Medicine; Visit Provider Student in an Organized Health Care Education/Training Program
DX: I16.0 Hypertensive urgency (principal); N17.9 Acute kidney failure, unspecified; I67.4 Hypertensive encephalopathy; M48.062 Spinal stenosis, lumbar region with neurogenic claudication; I10 Essential (primary) hypertension; E11.9 Type 2 diabetes mellitus without complications; I95.1 Orthostatic hypotension; D64.9 Anemia, unspecified; E87.6 Hypokalemia; Z91.81 History of falling; F41.9 Anxiety disorder, unspecified
CPT/HCPCS: 36415; 36416; 70450; 71045; 80048; 80053; 81001; 82607; 82728; 82746; 82962; 83036; 83540; 83550; 83605; 83735; 83880; 83921; 84100; 85014; 85025; 85045; 86140; 86850; 86900; 93005; 93010; 93306; 93880; 96365; 96372; 96375; 96376; 97110; 97161; 99285; G0378; J1100; J1644; J2270; J2360; J2404; J2405; J2704; J3010; J3490; J7030; J9999

== ENCOUNTER → 2025-06-09 14:01 | Outpatient (BNVA) | payer MEDICARE, OTHER, SELFPAY | PROVIDERS: PCP Family Medicine; Visit Provider Family Medicine | DX: I10 Essential (primary) hypertension (principal); D69.6 Thrombocytopenia, unspecified | CPT/HCPCS: 80048; 85025 ==

== ENCOUNTER 2025-06-11 13:06 | Emergency (ER) | payer MEDICARE, OTHER, SELFPAY ==
--- OUTSIDE RECORDS SUMMARY | 2025-05-13 23:59 | XMS_ITS | Continuity of Care Document ---
Author Name [facility] Address [address] [place] [address] Organization [facility] Care Team Providers Care Section Hand Helper Name Role Phone [facility] Unavailable Unavailable Problems Problem Status Onset [...] Comments Source lubiprostone Assertion Drug allergy Active [facility] sulfaSALAzine Assertion Drug allergy Active [facility] Results Order Name Results Value Reference Range Date Interpretation Comments Source URINALYSIS UA NITRITE Negative *NA* (04/15/25 12:00 PM) 04/15 17:00 :00 WEB USER EXPERIENCE STRATEGIST [facility] URINALYSIS SPECIFIC GRAVITY 1.032 1.001 - 1.029 04/15 17:00 [facility] Yellow *NA* (04/15/25 12:00 PM) 04/15 17:00 :00 [facility] URINALYSIS UA LEUKOCYTES Negative /Hpf 04/15 17:00 :00 [facility] URINALYSIS UA BLOOD Negative mg/dL 04/15 17:00 :00 [facility] URINALYSIS CLARITY Clear *NA* (04/15/25 12:00 PM) 04/15 [facility]:00 [facility] UA PH 6.0 *NA* (04/15/25 12:00 PM) 5.0 - 8.0 04/15 17:00 :00 [facility] URINALYSIS UA GLUCOSE Negative mg/dL 04/15 17:00 :00 [facility] URINALYSIS UA PROTEIN 30 mg/dL 04/15 17:00 :00 [facility] URINALYSIS BILIRUBIN Negative mg/dL 04/15 17:00 :00 [facility] URINALYSIS UA UROBILINOGEN 2 mg/dL 04/15 17:00 :00 [facility] URINALYSIS UA KETONES Negative mg/dL 04/15 17:00 :00 [facility] URINALYSIS UA Bacteria None /Hpf 04/15 17:00 :00 [facility] URINALYSIS UA Epithelial Cells 0-10 /lpf 0 - 10 04/15 17:00 :00 [facility] URINALYSIS UA Hyaline Casts 0-5 /lpf 0 - 5 04/15 17:00 :00 [facility] URINALYSIS RBC 0-5 /Hpf 0 - 5 04/15 17:00 :00 [facility] URINALYSIS UA Mucous Present /lpf 04/15 17:00 :00 [facility] WEB USER EXPERIENCE STRATEGIST [facility] URINALYSIS WBC 0-5 /Hpf 0 - 5 04/15 17:00 :00 WEB USER EXPERIENCE STRATEGIST [facility] Culture UrineX No Growth At Two Days 04/15 17:00 :00 WEB USER EXPERIENCE STRATEGIST [facility] CT Thorax w/ Contrast CT Thorax w/ Contrast CT Scan/CT Angio Accession # Exam Date/Time Procedure Ordering Provider [id number] 02/13/2025 10:[address] Thorax w/ [...] Signed on: 02/17/25 06:13 02/13 10:08 :25 [facility] CT Abdomen and Pelvis w/ Contrast CT Abdomen and Pelvis w/ Contrast CT Scan/CT Angio Accession # Exam Date/Time Procedure Ordering Provider [id number] 02/13/2025 10:[address] Abdomen and [...] Signed on: 02/17/25 06:13 02/13 10:08 :25 [facility] Consultation Notes Results Value Date Source Gastroenterology [...] her encourages her to eat. She saw WEB USER EXPERIENCE STRATEGIST yesterday and bladder surgery was recommended, awaiting [...] Note; Erendira Cano 03/05/2025 13:03 CDT</span> dd:tagtextentityid= [id number] orig-text= General/Constitutional:Litzy ngeinappetiteno.Chillsno.Fatigueno.Fe verno.LightheadednessnoSweatsnoDizzin essno.Otherconcernsnone.Respiratory:S hortnessofbreathnoCoughnoOtherconcern snone.Gastrointestinal:HeartburnnoNau [...] available. Follow-up in clinic in May with WEB USER EXPERIENCE STRATEGIST appointment. Reviewed Linzess dosing and risk/benefit when [...] Results Visit Information Attending Physician: Erendira Ramon [facility] Visit Date: 04/16/2025 04/16/2025 [facility] [place] General Clinic Note Assessment/Pl an Patient is [...] bladder. In the patients over 65 (elderly) mcfp use may increase the risk of dementia [...] Digitally signed:: This note was transcribed using [employer] Speech Recognition software. As a result, it [...] since age of 24 MAMMOGRAM : 2024 [facility] repeat sending for records PELVIC ULTRASOUND- [...] age of 69. Patient is remote from BUS PERSON exam and it has been since her hysterectomy she is up-to-date on her mammogram she had it completed at [place]. Colonoscopy was completed on 03-03-2023 she found [...] tender no discolorations noted ANUS: visually normal. BUS PERSON Procedure Details BUS PERSON Additional Details Menstrual History Last Menstrual Periodtotal vaginal hysterectomy Age at [id number] Contraception Current ContraceptionSurgically Sterile Sexually Transmitted Infections [...] Tobacco - Denies Tobacco Use Family History [place] - myocardial infarction: Sister (Dx at 70). [...] asked to cough and then a 5 yi pediatric non-bulb catheter was placed into the [...] you do, please call the office at [phone]. We will go over the results and [...] any difficulty swallowing, last EGD 10/20 in [place] showed mild gastropathy. She has had gastric emptying study in the past, cannot recall results. She states that she was once prescribed lubiprostone and sulfasalazine, did not help and had side effects. She reports ongoing fatigue as well as left breast pain and sees her PCP next week. Previous colonoscopy 02/2023 in [place] showed 2 polyps and diverticulosis. Repeat recommended [...] patient and due to potential diagnosis at [facility]. Educational handout provided. 2. Unintentional weight loss [...] Results Visit Information Attending Physician: Erendira Ramon LEAD CUSTOMER SERVICE REPRESENTATIVE Visit Date: 03/05/2025 03/05/2025 Gastroenterology IM Clinic Note Chief Complaint Patient is referred here today by Dr.Druery Kim(per pt. request). Patient has GERD,IBS with constipation ,wt. loss,hx of colon polyps. Patient thinks she had a colonoscopy /upper GI last July at [facility]. History of Present Illness Ms. Diez is [...] EGD was bout 3-4 months ago at [facility] in [place]. She says she was told she had gastritis. She denies any antacids were started. She was tried on amitiza, but this made her sick to her stomach. 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 Problem List/Past Medical History Procedure/Surgical History Medications [...] Source Heart Rate 69 bpm 03/05/2025 18:07:00 [facility] SpO2 97 % 03/05/2025 18:07:00 [facility] Height (cm) 157.48 cm 03/05/2025 18:07:00 [facility] SBP NIBP 92 mm[Hg] 03/05/2025 18:07:00 [facility] DBP NIBP 60 mm[Hg] 03/05/2025 18:07:00 [facility] Weight (kg) 66.2 kg 03/05/2025 18:07:00 [facility] BSA Asher 1.67 03/05/2025 18:07:00 [facility] BMI 26.7 kg/m2 03/05/2025 18:07:00 [facility] Encounters Location Location Details Encounter Type Encounter Number Reason For Visit Attending Provider ADM Date DC Date Status Source [facility] Between Visit [id number] 01/13 14:25 :34 01/14 05:59 :59 [facility] Clinic [id number] Kem Elizabeth 01/27 21:44 :41 01/28 05:59 :59 [facility] Outpatient [id number] Kem Elizabeth 02/13 12:28 :32 02/14 04:59 :59 [facility] Digestive [facility] Clinic [id number] Erendira Ramon 03/05 18:03 :34 03/06 04:59 :59 [facility] Between Visit [id number] 04/15 12:53 :48 04/16 04:59 :59 [facility] Clinic [id number] Sheela Gilmorejacinta 04/15 15:00 :38 04/16 04:59 :59 WEB USER EXPERIENCE STRATEGIST [facility] OBGYN Between Visit [id number] 04/15 20:02 :45 04/16 04:59 :59 WEB USER EXPERIENCE STRATEGIST [facility] Care [id number] Erendira Pradhanhunter 04/16 18:51 :36 04/17 04:59 :59 [facility] Between Visit [id number] 04/22 15:57 :24 04/23 04:59 :59 [facility] Between Visit [id number] 05/13 16:17 :35 05/14 04:59 :59 [facility] Procedures Procedure Code Date Perfomer Comments Source CT abdomen and pelvis 02/13/2025 05:00[facility] 10/14/2024 06:00:00 [facility] Sciatic nerve surgery [facility] lumbar fusion, L3-L4 [facility] Cholecystectomy; [id number] [facility] Complete hysterectomy [facility] Social History Social History Date Source No data available for this section 05/14/2025 [facility] No data available for this section 04/23/2025 [facility] No data available for this section 04/17/2025 [facility] No data available for this section 04/16/2025 WEB USER EXPERIENCE STRATEGIST [facility] No data available for this section 03/06/2025 [facility] No data available for this section 02/14/2025 [facility] No data available for this section 01/28/2025 [facility]
[2025-06-11] VITALS (7 sets, daily range): BP systolic 94–179; BP diastolic 61–114; PULSE 74–100; RESP 16–21; TEMP 36.6; O2SAT 95–98; BMI 25.7
--- NOTE | 2025-06-11 13:21 | XRR_ITS ---
PROCEDURE INFORMATION: Exam: XR Chest Exam date and time: 06/11/2025 1:30 PM Age: 75 years old Clinical indication: Shortness of breath; Weakness and confusion; Additional info: SOB TECHNIQUE: Imaging protocol: Radiologic exam of the chest. Views: 1 view. COMPARISON: CR (CHEST, ) 06/02/2025 1:48 AM FINDINGS: Lungs: Unremarkable. No consolidation. Pleural spaces: Unremarkable. No pleural effusion. No pneumothorax. Heart/Mediastinum: Unremarkable. No cardiomegaly. Bones/joints: Unremarkable. XR/XR chest 1V portable [id number] IMPRESSION: No acute findings.
--- NOTE | 2025-06-11 13:30 | ED_ITS ---
HPI - Weakness 2 General: Chief complaint: Weakness Stated complaint: weak/confused Time Seen by Provider: 06/11/25 13:20 History of Present Illness: 75-year-old female patient presents to [facility] emergency department complaining of increased weakness. Patient was recently discharged from the hospital with supposed to have back surgery but her platelets were too low so patient was started on heparin her and sent home. Has been states she is just progressively worsened since her hospital discharge. Patient complains of chest pain and shortness of breath abdominal pain and weak all over. Patient denies any urinary symptoms patient denies any fever. Related Data Home Medications ?Medication ?Instructions ?Recorded ?Confirmed clonidine HCl 0.3 mg tablet 0.3 mg PO TID 05/03/25 multivitamin 1 tab PO DAILY 05/03/2505/27 naproxen sodium 220 mg tablet 220 mg PO BID PRN Pain 0 05/03/25 06/11/25 (Aleve) cyclobenzaprine 10 mg tablet 10 mg PO TID PRN Spasms 0 06/11/25 06/11/25 estradiol 0.01% (0.1 mg/gram) See Rx Instructions .Rou te .COMPLEX 06/11/25 06/11/25 vaginal cream lactulose 10 gram/15 mL oral 30 ml PO BID 06/11/25 solution oxycodone 5 mg tablet 5 mg PO Q4H PRN pain 5 06/11/25 pantoprazole 40 mg tablet,delayed 40 mg PO DAILY PRN a macho refluxd 06/11/25 06/11/25 release verapamil 120 mg tablet,extended 120 mg PO BID 5 06/11/25 release Previous Rx's ?Medication ?Instructions ?Recorded nitroglycerin 0.4 mg sublingual 0.4 mg sublingual Q5M PRN chest 09/14/22 tablet pain #25 tabs leflunomide 20 mg tablet 20 mg PO DAILY #90 tabs 02/26 01/21 tramadol 50 mg tablet 50 mg PO Q8H PRN pain 30 day s #90 04/07/25 tabs labetalol 200 mg tablet 200 mg PO Q12H #270 tabs hydrocodone 5 mg-acetaminophen 325 1 tab PO Q8H PRN pa in 30 days #60 05/22/25 mg tablet tabs alprazolam 0.5 mg tablet 0.5 mg PO QID #120 tabs 04/29 hydralazine 25 mg tablet 25 mg PO BID PRN Systolic bl ood 06/04/25 pressure of more than 160 mmHg #10 tabs Allergies Allergy/AdvReac Type Severity Reaction Status Date / Time sulfasalazine Allergy Unknown ADR-Nausea Verified 06/11/25 13:17 plastics Allergy ALGY-Rash Uncoded 06/09/25 13:17 Review of Systems 2 General: Reports: 10 or more systems reviewed and unremarkable except in HPI and below PFSH ED 2 PFSH: Medical History Thrombocytopenia 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 Immunization counseling High risk medication use Inflammatory arthritis Eczema History of colon polyps Irritable bowel syndrome with both constipation and diarrhea Thoracic spine pain Essential hypertension Anxiety Diabetes Lumbar disc disease with radiculopathy Surgical History Status post lumbar spinal fusion History of colonoscopy (03/23/21) 2015: Colon polyps 2020: Mild diverticulosis History of cholecystectomy History of dilation and curettage History of total hysterectomy Family History Father Parkinson disease Cancer Mother Cancer Social History (Updated 06/11/25 @ 19:10 by Larry Urena MD) Smoking and tobacco/nicotine status: never used tobacco/nicotine Second hand smoke exposure: No Alcohol intake: never Substance/Drug Use: never Additional social history: Patient is accompanied by her Quinn she was DNR status as discussed today on 06/11/2025 with oYan Urena MD. 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 Marital status: Physical Exam 2 Const: COMMON NORMALS: no acute distress, patient oriented x3, alert and well nourished GENERAL APPEARANCE: cooperative, comfortable, well kempt and well developed ORIENTATION/CONSCIOUSNESS: Yes awake, Yes oriented to person, Yes oriented to place and Yes oriented to time HENMT: COMMON NORMALS: normocephalic, atraumatic, hearing grossly normal bilaterally, external ears normal, EAC's normal, TM's normal bilaterally, Normal external nose present, Normal nasal mucous membranes and turbinates present and moist oral mucous membranes HEAD & SCALP: normal to inspection, normocephalic and atraumatic FACE & SINUS: normal facial exam, sinuses nontender and face symmetric NOSE: Normal external nose present, Normal nares present, Normal nasal mucous membranes and turbinates present, No nasal discharge present and Abnormal external nose present EXTERNAL EAR: Yes external ears normal and Yes mastoids normal EXTERNAL AUDITORY CANAL: EAC's normal TYMPANIC MEMBRANE: T M's normal bilaterally MOUTH: Normal oral and palatal mucosa present, lip normal, tongue normal and Normal salivary glands and ducts present THROAT: p osterior oropharynx normal, tonsils normal and uvula midline Eye: COMMON NORMALS: Equal, round and reactive pupils present, EOMs intact bilaterally, conjunctivae normal, no scleral icterus and no papilledema G ENERAL EYE: appearance normal, both eyes and all related structures EYELID: e yelids normal CONJUNCTIVA: Yes conjunctivae normal CORNEA: Yes corneas normal PUPIL: Yes Equal, round and reactive pupils present DIRECT OPHTHALMOSCOPY: Yes no papilledema Neck/C-Spine: COMMON NORMALS: full ROM, no lymphadenopathy, supple, no meningeal signs, no JVD and Thyroid normal GENERAL: Yes normal visual inspection and Yes trachea midline THYROID: Thyroid normal CERVICAL SPINE: Yes cervical ROM normal Lymph: LYMPHATIC: no lymphadenopathy noted and no lymphedema noted Chest: COMMONS NORMALS: normal inspection of the chest and normal palpation of entire chest wall Resp: COMMON NORMALS: normal respiratory effort, No retractions, No use of accessory muscles and clear to auscultation bilaterally EFFORT & INSPECTION: Yes able to speak in complete sentences and Yes symmetric chest movement A USCULTATION: clear to auscultation bilaterally Cardio: COMMON NORMALS: no JVD, regular rate and regular rhythm RATE: r egular rate RHYTHM: regular rhythm GI: COMMON NORMALS: Normal to inspection, nondistended, normoactive bowel sounds present, Soft to palpation, non-tender, No hepatosplenomegaly present, no masses and no bruits INSPECTION: Yes normal to inspection AUSCULTATION: Y es normoactive bowel sounds PALPATION: Yes Soft to palpation and Yes No hepatosplenomegaly present PERCUSSION: normal to percussion RECTAL EXAM: d eferred : COMMON NORMALS: Yes no CVA tenderness, Yes normal appearance of the vagina, Yes normal appearance of the cervix, Yes No adnexal tenderness and Yes no masses BLADDER/KIDNEY EXAM: Yes no CVA tenderness Back/Pelvis: COMMON NORMALS: no CVA tenderness, thoracic and lumbar spine normal to inspection, no thoracic nor lumbar tenderness and thoraco-lumbar ROM normal THORACIC SPINE/UPPER BACK: Yes normal to inspection LUMBAR SPINE/LOWER BACK: Yes normal to inspection Extremity: COMMON NORMALS: normal to inspection, full ROM and capillary refill normal GENERAL: Yes normal exam except as noted Neuro: COMMON NORMALS: patient oriented x3, CN's II-XII intact bilaterally, moves all extremities, no focal motor deficits and no sensory deficits noted SENSORIUM/ORIENTATION: Yes alert, Yes oriented to person, Yes oriented to place and Yes oriented to time MENINGEAL SIGNS: Yes no meningeal signs CRANIAL NERVES: Yes CN normal except as noted SPEECH: speech normal Psych: COMMON NORMALS: mental status grossly normal, Normal thought process present, cooperative, normal affect, speech normal, activity/motor behavior normal, denies hallucinations, denies homicidal ideation and denies suicidal ideation APPEARANCE: Yes grossly normal and Yes well kempt ATTITUDE: Yes calm ACTIVITY/MOTOR BEHAVIOR: Yes appropriate eye contact SPEECH: Yes normal speech THOUGHT PROCESS: Normal thought process present THOUGHT CONTENT: Yes Normal thought content present ATTENTION/CONCENTRATION: Yes attention grossly intact MEMORY/COGNITION: Yes memory grossly intact I NSIGHT: Good insight present (Psych) JUDGEMENT: Good judgement present (Psych) Skin: COMMON NORMALS: no rashes or lesions noted, no wounds, turgor normal, no jaundice, no petechiae and no mottling GENERAL SKIN EXAM: no rashes or lesions noted and turgor normal Course 2 Vital Signs: Vital signs: Vital Signs Temperature 97.9 F 06/11/25 13:11 Pulse Rate 74 06/11/25 18:49 Respiratory Rate 21 H 06/11/25 18:00 Blood Pressure 170/92 06/11/25 18:49 Pulse Oximetry 98 06/11/25 18:49 Oxygen Delivery Me thod Room Air 06/11/25 18:00 MDM - Weakness Medical Decision Making 75-year-old female patient presents to the emergency department complaining of increased weakness. Patient was recently discharged from the hospital with supposed to have back surgery but her platelets were too low so patient was started on heparin her and sent home. Has been states she is just progressively worsened since her hospital discharge. Patient complains of chest pain and shortness of breath abdominal pain and weak all over. Patient denies any urinary symptoms patient denies any fever. Given patient's presenting complaint recent hospitalization blood pressure of 94/61 and pulse rate of 100 I will go ahead and work her up as a septic patient at this time. I will start fluids however I will be conservative with fluids given patient's age and shortness of breath until I verify that patient is not volume overloaded. Labs do not reveal any concerning findings CT shows hepatomegaly with dilated intrahepatic bile duct bilirubin is normal no other emergent findings on CT. is concerned about patient's weakness and states that he cannot help her at home admission was offered and patient and would like patient to be admitted. I spoke to Dr. Ayanna Urena has agreed to admit patient at this time. Dr. Urena came and spoke with patient and and patient has decided she would like to go home and follow-up on an outpatient basis Lab Data 06/11/25 14:09 06/11/25 14:24 Radiology Impressions Chest X-Ray 06/11/25 13:21 IMPRESSION: No acute findings. Abdomen/Pelvis CT 06/11/25 14:44 IMPRESSION: 1. Hepatomegaly with dilated intrahepatic bile ducts. 2. Status post cholecystectomy 3. A few small bilateral benign renal cysts 4. Sigmoid colon diverticulosis 5. 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 Calcified granulomas in the gluteal regions. 7. Thin atrophic pancreas Laboratory Results WBC 5.71 10^3/uL (3.29-11.43) 06/11/25 14:09 RBC 2.95 10^6/uL (3.85-5.65) L 06/11/25 14:09 Hgb 9.30 g/dL (11.27-16.99) L 06/11/25 14:09 Hct 31.3 % (36-47) L 06/11/25 14:09 MCV 106.1 fl (85-98) H 06/11/25 14:09 MCH 31.5 pg (27-33) 06/11/25 14:09 MCHC 29.7 g/dL (30-55) L 06/11/25 14:09 RDW 12.4 % (12.1-15.1) 06/11/25 14:09 Plt Count 71 10^3/cmm (157-399) L 06/11/25 14:09 MPV 10.2 fL (7.4-10.4) 06/11/25 14:09 Neut % (Auto) 72.2 % 06/11/25 14:09 Lymph % (Auto) 13.8 % 06/11/25 14:09 [place] % (Auto) 10.0 % 06/11/25 14:09 Eos % (Auto) 1.8 % 06/11/25 14:09 Baso % (Auto) 1.8 % 06/11/25 14:09 Neut # (Auto) 4.13 10^3/uL (1.8-7.7) 06/11/25 14:09 Lymph # (Auto) 0.8 10^3/uL (0.8-4.8) 06/11/25 14:09 [place] # (Auto) 0.6 10^3/uL (0.2-0.9) 06/11/25 14:09 Eos # (Auto) 0.1 10^3/uL (0.0-0.8) 06/11/25 14:09 Baso # (Auto) 0.1 10^3/uL (0.0-0.1) 06/11/25 14:09 Nucleated RBC % (auto) 0 % 06/11/25 14:09 Nucleated RBCs # 0.0 /100WBC 06/11/25 14:09 Sodium 141 mmol/L (136-145) 06/11/25 14:24 Potassium 3.6 mmol/L (3.5-5.1) 06/11/25 14:24 Chloride 103 mmol/L (98-107) 06/11/25 14:24 Carbon Dioxide 27 mmol/L (22-29) 06/11/25 14:24 Anion Gap 14.6 (5-19) 06/11/25 14:24 BUN 23 mg/dL (8-23) 06/11/25 14:24 Creatinine 1.0 mg/dL (0.5-0.9) H 06/11/25 14:24 GFR Calculation Not Reportable 06/11/25 14:24 Glucose 92 mg/dL (65-115) 06/11/25 14:24 Calculated Osmolality 295 mOsm/kg (285-295) 06/11/25 14:24 Lactic Acid 1.2 mmol/L (0.5-2.2) 06/11/25 14:09 Calcium 8.8 mg/dL (8.5-10.5) 06/11/25 14:24 Phosphorus 2.7 mg/dL (2.5-4.5) 06/11/25 16:25 Magnesium 1.8 mg/dL (1.7-2.3) 06/11/25 16:25 Total Bilirubin 0.2 mg/dL (0.15-1.2) 06/11/25 14:24 AST 14 U/L (0-32) 06/11/25 14:24 ALT 16 U/L (0-33) 06/11/25 14:24 Alkaline Phosphatase 55 U/L (35-105) 06/11/25 14:24 Troponin T Baseline 35 ng/L (0-10) H 06/11/25 14:09 Troponin T 120 Minute 35.62 ng/L (0-10) H 06/11/25 15:59 Delta Troponin T 0.62 ABS# (0-10) 06/11/25 15:59 NT-Pro-B Natriuret Pep 357 pg/mL (0-450) 06/11/25 14:24 Total Protein 5.1 g/dL (6.6-8.7) L 06/11/25 14:24 Albumin 3.0 g/dL (3.5-5.2) L 06/11/25 14:24 Globulin 2.1 g/dL (1.3-4.6) 06/11/25 14:24 Urine Color Yellow (Yellow) 06/11/25 14:10 Urine Appearance Clear (CLEAR) 06/11/25 14:10 Urine pH 5.5 (5-7) 06/11/25 14:10 Ur Specific [place] 1.030 (1.005-1.030) 06/11/25 14:10 Urine Protein 1+ (Negative) A 06/11/25 14:10 Urine Glucose (UA) Negative (Normal) 06/11/25 14:10 Urine Ketones Trace (Negative) 06/11/25 14:10 Urine Blood Negative (Negative) 06/11/25 14:10 Urine Nitrate Negative (Negative) 06/11/25 14:10 Urine Bilirubin Negative (Negative) 06/11/25 14:10 Urine Urobilinogen 1.0 mg/dL (Negative) 06/11/25 14:10 Ur Leukocyte Esterase Negative (Negative) 06/11/25 14:10 Urine RBC 0-2 /hpf (0-2) 06/11/25 14:10 Urine WBC 0-5 /hpf (0-5) 06/11/25 14:10 Ur Squamous Epith Cells 0-5 /hpf (0-5) 06/11/25 14:10 Amorphous Sediment Not Reportable 06/11/25 14:10 Urine Bacteria None seen /hpf (NONE) 06/11/25 14:10 Hyaline Casts 12.38 /lpf 06/11/25 14:10 All radiology interpretation(s) finalized by discharge Discharge Plan Discharge Patient Disposition: Home Clinical Impression: Generalized weakness Condition: Stable Prescriptions: No Action leflunomide 20 mg tablet 20 mg PO DAILY Qty: 90 1RF tramadol 50 mg tablet 50 mg PO Q8H PRN (Reason: pain) 30 Days Qty: 90 1RF labetalol 200 mg tablet 200 mg PO Q12H Qty: 270 1RF nitroglycerin 0.4 mg tablet, sublingual 0.4 mg SUBLINGUAL Q5M PRN (Reason: chest pain) Qty: 25 2RF Rx Instructions: do not exceed 3 doses per episode hydrocodone-acetaminophen 5-325 mg tablet 1 tab PO Q8H PRN (Reason: pain) 30 Days Qty: 60 0RF alprazolam 0.5 mg tablet 0.5 mg PO QID Qty: 120 5RF multivitamin Tablet 1 tab PO DAILY naproxen sodium [Aleve] 220 mg Tablet 220 mg PO BID PRN (Reason: Pain) clonidine HCl 0.3 mg tablet 0.3 mg PO TID hydralazine 25 mg tablet 25 mg PO BID PRN (Reason: Systolic blood pressure of more than 160 mmHg) Qty: 10 0RF cyclobenzaprine 10 mg tablet 10 mg PO TID PRN (Reason: Spasms) pantoprazole 40 mg tablet,delayed release (DR/EC) 40 mg PO DAILY PRN (Reason: acid refluxd) estradiol 0.01 % (0.1 mg/gram) cream See Rx Instructions .ROUTE .COMPLEX Rx Instructions: Apply DIRECTED DAILY TO INSIDE of VAGINA daily. lactulose 10 gram/15 mL solution 30 ml PO BID verapamil 120 mg tablet extended release 120 mg PO BID oxycodone 5 mg tablet 5 mg PO Q4H PRN (Reason: pain) Discharge Orders: Discharge ED (Routine); Ordered 06/11/25 Ordered By: Radha Vera Referrals: Ann Marie Kim MD [Primary Care Provider, [facility]] Discharge Diet: Advance as tolerated Discharge Activity: Increase activity as tolerated Patient Instructions: Opioid Safety, Pain Management, Patient Portal & Joel Instructions Activity Restrictions/Additional Instructions: Please return to ER with any worsening of symptoms or concerns Follow up with PCP Print Language: Arabic Coding Level of Care Code ED Nurse Aide for Crystal Urban
--- NOTE | 2025-06-11 13:47 | ECG_ITS ---
[facility] Pat Name: Holly Diez Department: Room: Gender: Female Digital Operations Analyst: : 1950 Requested By: Radha Vera Order Number: [id number] MD: Shona Hamilton M.D. Measurements Intervals [place] Rate: 95 P: 33 [place]: 142 QRS: 2 QRSD: 90 T: 57 QT: 356 QTc: 449 Interpretive Statements SINUS RHYTHM MINIMAL VOLTAGE CRITERIA FOR LVH, CONSIDER NORMAL VARIANT [MEETS CRITERIA IN ONE OF: R(aVL), S(V1), R(V5), R(V5/V6)+S(V1)] NONSPECIFIC ST & T-WAVE ABNORMALITY Compared to ECG 06/01/2025 23:29:15 No significant changes Electronically Signed On 06-11-2025 16:40:51 CDT by Shona Hamilton M.D. [email or web address]
[2025-06-11 14:23] LABS: Glucose Urine UA Negative (Normal); Nitrate Urine Negative (Negative); Specific Gravity, Urine 1.030 (1.005-1.030)
[2025-06-11 14:25] LABS: Add Urine Microscopic? YES
[2025-06-11 14:28] LABS: Hematocrit 31.3 % (36-47); Hemoglobin 9.30 g/dL (11.27-16.99); Mean Corpuscular HGB Conc 29.7 g/dL (30-55); Mean Corpuscular Hemoglobin 31.5 pg (27-33); Mean Corpuscular Volume 106.1 fl (85-98); Nucleated Red Blood Cells % 0 %; Platelet Count 71 10^3/cmm (157-399); Red Blood Count 2.95 10^6/uL (3.85-5.65); White Blood Count 5.71 10^3/uL (3.29-11.43)
[2025-06-11 14:41] LABS: Lactic Sepsis W/Reflex 1.2 mmol/L (0.5-2.2)
--- NOTE | 2025-06-11 14:44 | CTR_ITS ---
PROCEDURE INFORMATION: Exam: CT Abdomen And Pelvis With Contrast Exam date and time: 06/11/2025 2:59 PM Age: 75 years old Clinical indication: Abdominal pain; Generalized; Prior surgery; Surgery date: 6+ months; Surgery type: Gb, hyst; Additional info: Abd pain TECHNIQUE: Imaging protocol: Computed tomography of the abdomen and pelvis with contrast. Radiation optimization: All CT scans at this facility use at least one of these dose optimization techniques: automated exposure control; mA and/or kV adjustment per patient size (includes targeted exams where dose is matched to clinical indication); or iterative reconstruction. Contrast material: OMNI 350; Contrast volume: 100 ml; Contrast route: INTRAVENOUS (IV); COMPARISON: CT abdomen pelvis wo con [id number] 05/02/2025 9:04 PM RADIATION DOSE METRICS: Total DLP (mGy-cm): 476.29 FINDINGS: Liver: Hepatomegaly the liver span is 18.6 cm. There are dilated intrahepatic bile ducts present. No mass. Gallbladder and biliary ducts: Status post cholecystectomy. Pancreas: Thin and atrophic. No ductal dilation. Spleen: Normal. No splenomegaly. Adrenal glands: Normal. No mass. Kidneys and ureters: A few small bilateral benign renal cysts.. No hydronephrosis. Stomach and bowel: There is diverticulosis of the sigmoid colon without evidence of diverticulitis. No obstruction. No mucosal thickening. Appendix: No evidence of appendicitis. Intraperitoneal space: Unremarkable. No free air. No significant fluid collection. Vasculature: Unremarkable. No abdominal aortic aneurysm. Lymph nodes: Unremarkable. No enlarged lymph nodes. Urinary bladder: Unremarkable as visualized. Reproductive: Unremarkable as visualized. Bones/joints: Severe osteoarthritis of the spine. There is orthopedic hardware present in the lower lumbar spine at the L 4 L5 level No acute fracture. Soft tissues: Calcified granulomas in the bilateral gluteal soft tissues. CT/CT abdomen pelvis w con* [id number] IMPRESSION: 1. Hepatomegaly with dilated intrahepatic bile ducts. 2. Status post cholecystectomy 3. A few small bilateral benign renal cysts 4. Sigmoid colon diverticulosis 5. 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 Calcified granulomas in the gluteal regions. 7. Thin atrophic pancreas
[2025-06-11 14:50] LABS: Troponin(5th) Baseline 35 ng/L (0-10)
[2025-06-11 14:59] LABS: Alanine Aminotransferase 16 U/L (0-33); Albumin Level 3.0 g/dL (3.5-5.2); Alkaline Phosphatase 55 U/L (35-105); Anion Gap 14.6 (5-19); Aspartate Amino Transferase 14 U/L (0-32); Blood Urea Nitrogen 23 mg/dL (8-23); Calcium 8.8 mg/dL (8.5-10.5); Carbon Dioxide 27 mmol/L (22-29); Chloride 103 mmol/L (98-107); Creatinine Clr Calc Pharmacy 42.0412; Globulin 2.1 g/dL (1.3-4.6); Glucose 92 mg/dL (65-115); Magnesium 1.7 mg/dL (1.7-2.3); NT Pro B Type Natriuretic Pept 357 pg/mL (0-450); Osmolality Calculated 295 mOsm/kg (285-295); Potassium 3.6 mmol/L (3.5-5.1); Sodium 141 mmol/L (136-145); Total Protein 5.1 g/dL (6.6-8.7)
[2025-06-11] MEDS: iohexol 350 mg/mL 500 mL Btl (per mL) IV (15:01)
[2025-06-11 16:40] LABS: Troponin 5 2HR 35.62 ng/L (0-10); Troponin 5 2HR Delta 0.62 ABS# (0-10)
[2025-06-11] MEDS: lactulose oral liq 20 gm/30 mL UDC PO (17:28)
[2025-06-11] MEDS: oxyCODONE 5 mg IR Tab/Cap PO (17:35)
[2025-06-11 17:40] LABS: Magnesium 1.8 mg/dL (1.7-2.3)
--- NOTE | 2025-06-11 19:04 | PM.CONSULT ---
Providers/Reason For Consult Consulting Physician/Specialty*: Yoan Urena MD hospitalist Reason for Consult*: Weakness and inability to walk Primary Care Provider: Ann Marie Kim MD History of Present Illness History of Present Illness Holly Diez is a 75 year old female with history of spinal stenosis and past fusion of L4-5 was intending to have additional fusion at levels L3-4 and possibly 2 3 as well but she with thrombocytopenic. Surgery has been delayed. has been unable to take care of her at home because she cannot walk. He states that she is generally weak as well. wanted patient to be admitted to the hospital. She is using a lift chair at home and sleeps in the lift chair. tells me that their primary care doctor had also suggested similar to me that leflunomide is causing the thrombocytopenia and it should be stopped. Additionally he stopped Flexeril and hydralazine due to orthostatic hypotension and weakness. We discussed that I think these are good ideas. tells me that home health physical therapy came by and help to get the patient in the car today. I discussed with him that in the hospital we could do an observation stay and get her some therapy for a day and some exercises but she would not qualify for inpatient hospitalization or retirement facility. Patient was wanting to go home and decided that it would be better to just take her home and do outpatient therapy stop the leflunomide and move forward with the surgery Review of Systems Narrative: General 40 to 45 pound weight loss not eating much no fevers chills night sweats CV no chest pain palpitations or edema Respiratory no shortness of breath cough wheezing GI no nausea vomiting diarrhea she does have constipation and has bowel movements every second day [employer] no vaginal bleeding or discharge no dysuria hematuria Neuro no seizures or strokes Hematologic negative for bleeding or bruising she is on leflunomide which can cause pancytopenia and is a immunosuppressed Malignancy history negative Medications/Allergies Home Medications ?Medication ?Instructions ?Recorded ?Confirmed ?Last Taken ?Type nitroglycerin 0.4 mg sublingual 0.4 mg sublingual Q5M PRN chest 09/14/22 06/13/25 03/17/25 Rx tablet pain #25 tabs leflunomide 20 mg tablet 20 mg PO DAILY #90 tabs 03/18/25 06/13/25 06/11/25 Rx tramadol 50 mg tablet 50 mg PO Q8H PRN pain 30 days #90 04/07/25 06/13/25 06/01/25 12:00 Rx tabs clonidine HCl 0.3 mg tablet 0.3 mg PO TID 05/03/25 06/13/25 06/11/25 History multivitamin 1 tab PO DAILY 05/03/25 06/13/25 06/11/25 History naproxen sodium 220 mg tablet 220 mg PO BID PRN Pain 05/03/25 06/13/25 06/01/25 History (Aleve) labetalol 200 mg tablet 200 mg PO Q12H #270 tabs 05/12/25 06/13/25 06/11/25 Rx hydrocodone 5 mg-acetaminophen 325 1 tab PO Q8H PRN pain 30 days #60 05/22/25 06/13/25 Unknown Rx mg tablet tabs alprazolam 0.5 mg tablet 0.5 mg PO QID #120 tabs 05/26/25 06/13/25 06/11/25 Rx hydralazine 25 mg tablet 25 mg PO BID PRN Systolic blood 06/04/25 06/13/25 Unknown Rx pressure of more than 160 mmHg #10 tabs cyclobenzaprine 10 mg tablet 10 mg PO TID PRN Spasms 06/11/25 06/13/25 Unknown History estradiol 0.01% (0.1 mg/gram) See Rx Instructions .Route .COMPLEX 06/11/25 06/13/25 06/10/25 History vaginal cream lactulose 10 gram/15 mL oral 30 ml PO BID 06/11/25 06/13/25 06/11/25 History solution pantoprazole 40 mg tablet,delayed 40 mg PO DAILY PRN acid refluxd 06/11/25 06/13/25 Unknown History release verapamil 120 mg tablet,extended 120 mg PO BID 06/11/25 06/13/25 06/11/25 History release oxycodone 5 mg tablet 5 mg PO Q4H PRN pain 7 days #42 06/12/25 06/13/25 Unknown Rx tabs Allergies Allergy/AdvReac Type Severity Reaction Status Date / Time sulfasalazine Allergy Unknown ADR-Nausea Verified 06/13/25 07:12 plastics Allergy ALGY-Rash Uncoded 06/13/25 07:12 PFSH Acute PFSH: Medical History Thrombocytopenia 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 Immunization counseling High risk medication use Inflammatory arthritis Eczema History of colon polyps Irritable bowel syndrome with both constipation and diarrhea Thoracic spine pain Essential hypertension Anxiety Diabetes Lumbar disc disease with radiculopathy Surgical History Status post lumbar spinal fusion History of colonoscopy (03/23/21) 2015: Colon polyps 2020: Mild diverticulosis History of cholecystectomy History of dilation and curettage History of total hysterectomy Family History Father Parkinson disease Cancer Mother Cancer Social History Smoking and tobacco/nicotine status: never used tobacco/nicotine Second hand smoke exposure: No Alcohol intake: never Substance/Drug Use: never Additional social history: Patient is accompanied by her Quinn she was DNR status as discussed today on 06/11/2025 with Yoan Urena MD. 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 Marital status: Vitals/I&O/Wt Last Vital Signs Temp 97.9 F 06/11/25 13:11 Pulse 74 06/11/25 18:49 Resp 21 H 06/11/25 18:00 BP 170/92 06/11/25 18:49 Pulse Ox 98 06/11/25 18:49 O2 Del Method Room Air 06/11/25 18:00 06/11/25 06/11/25 06/11/25 06:59 14:59 22:59 Intake Total 500 / 500 Balance 500 / 500 Weight last 48 hrs Weight 63.957 kg Physical Exam Narrative: General well-developed well-nourished female Central obesity but only minimally overweight overall CV regular rate and rhythm Lungs clear to auscultation bilaterally Abdomen positive bowel sounds soft obese nontender Calves no tenderness cords or pitting edema Motor strength she is able to raise both hands up above her head easily. With her legs she can raise her left leg but right leg is weaker but she can get it off the bed. Flexion extension of the ankles 5/5 bilaterally hamstring muscles left side 5 - right side 4+ Data 06/11/25 14:09 06/11/25 14:24 Micro: Microbiology 06/11/25 13:50 Blood Culture - Preliminary Blood SPECIMEN COLLECTED 06/11/25 14:09 Blood Culture - Preliminary Blood SPECIMEN COLLECTED A&P Assessment and plan 1. Lumbar spinal stenosis: Appears to be primarily leg weakness. Hold leflunomide continue with therapy pending recovery of her platelet function and proceed with surgery with Dr. Ibarra. 2. Generalized weakness: Patient's ability to sit forward for lung exam raise arms flex and extend her ankles is well-preserved. She has lost weight which is potentially concerning but workup would not be inpatient. Follow-up with primary care PDMP PDMP Reviewed: Not Reviewed Coding Level of Care Code 26175 Diagnoses Lumbar spinal stenosis M48.061 Generalized weakness R53.1 Time Spent (min) 45
== END 2025-06-11 18:51 | disposition home or self-care (01) ==
PROVIDERS: Internal Medicine; Emergency Provider Registered Nurse; PCP Family Medicine
DX: R53.1 Weakness (principal); I10 Essential (primary) hypertension
CPT/HCPCS: 36415; 71045; 74177; 80053; 81001; 83605; 83735; 83880; 84100; 84484; 85025; 87040; 93005; 96360; 96361; 99285; J7040; J9999

== ENCOUNTER → 2025-06-13 08:16 | Outpatient (BNVA) | payer MEDICARE, OTHER, SELFPAY | PROVIDERS: PCP Family Medicine; Visit Provider Specialist | DX: M17.12 Unilateral primary osteoarthritis, left knee (principal) | CPT/HCPCS: 20610; J1100; J2795; J3301; J9999 ==

== ENCOUNTER 2025-06-13 19:15 | Inpatient (IN) | payer MEDICARE, OTHER, SELFPAY ==
--- OUTSIDE RECORDS SUMMARY | 2025-05-13 23:59 | XMS_ITS | Continuity of Care Document ---
Author Name [facility] Address [address] [place] [address] Organization [facility] Care Team Providers Care Photoengraving Apprentice Name Role Phone [facility] Unavailable Unavailable Problems Problem Status Onset [...] Comments Source lubiprostone Assertion Drug allergy Active [facility] sulfaSALAzine Assertion Drug allergy Active [facility] Results Order Name Results Value Reference Range Date Interpretation Comments Source URINALYSIS UA NITRITE Negative *NA* (04/15/25 12:00 PM) 04/15 17:00 :00 MAMMOGRAPHY SUPERVISOR [facility] URINALYSIS SPECIFIC GRAVITY 1.032 1.001 - 1.029 04/15 17:00 :[facility] COLOR Yellow *NA* (04/15/25 12:00 PM) 04/15 17:00 :00 [facility] URINALYSIS UA LEUKOCYTES Negative /Hpf 04/15 17:00 :00 [facility] URINALYSIS UA BLOOD Negative mg/dL 04/15 17:00 :00 [facility] URINALYSIS CLARITY Clear *NA* (04/15/25 12:00 PM) 04/15 17:00 :00 [facility] UA PH 6.0 *NA* (04/15/25 12:00 PM) 5.0 - 8.0 04/15 17:00 :00 [facility] URINALYSIS UA GLUCOSE Negative mg/dL 04/15 17:00 :00 [facility] URINALYSIS UA PROTEIN 30 mg/dL 04/15 17:00 :00 [facility] URINALYSIS BILIRUBIN Negative mg/dL 04/15 17:00 :00 [facility] URINALYSIS UA UROBILINOGEN 2 mg/dL 04/15 17:00 :00 [facility] URINALYSIS UA KETONES Negative mg/dL 04/15 17:00 :00 [facility] URINALYSIS UA Bacteria None /Hpf 04/15 17:00 :00 [facility] URINALYSIS UA Epithelial Cells 0-10 /lpf 0 - 10 04/15 17:00 :00 [facility] URINALYSIS UA Hyaline Casts 0-5 /lpf 0 - 5 04/15 17:00 :00 [facility] URINALYSIS RBC 0-5 /Hpf 0 - 5 04/15 17:00 :00 [facility] URINALYSIS UA Mucous Present /lpf 04/15 17:00 :00 [facility]MIE MAMMOGRAPHY SUPERVISOR [facility] URINALYSIS WBC 0-5 /Hpf 0 - 5 04/15 17:00 :00 MAMMOGRAPHY SUPERVISOR [facility] Culture UrineX No Growth At Two Days 04/15 17:00 :00 MAMMOGRAPHY SUPERVISOR [facility] CT Thorax w/ Contrast CT Thorax w/ Contrast CT Scan/CT Angio Accession # Exam Date/Time Procedure Ordering Provider [id number] 02/13/2025 10:[address] Thorax w/ [...] Signed on: 02/17/25 06:13 02/13 10:08 :[address] [facility] [address] Abdomen and Pelvis w/ Contrast CT Abdomen and Pelvis w/ Contrast CT Scan/CT Angio Accession # Exam Date/Time Procedure Ordering Provider [id number] 02/13/2025 10:[address] Abdomen and [...] Signed on: 02/17/25 06:13 02/13 10:08 :25 [facility] Consultation Notes Results Value Date Source [...] her encourages her to eat. She saw MAMMOGRAPHY SUPERVISOR yesterday and bladder surgery was recommended, awaiting [...] Note; Erendira Cano 03/05/2025 13:03 CDT</span> dd:tagtextentityid= [id number] orig-text= General/Constitutional:Litzy ngeinappetiteno.Chillsno.Fatigueno.Fe verno.LightheadednessnoSweatsnoDizzin essno.Otherconcernsnone.Respiratory:S hortnessofbreathnoCoughnoOtherconcern snone.Gastrointestinal:HeartburnnoNau [...] available. Follow-up in clinic in May with MAMMOGRAPHY SUPERVISOR appointment. Reviewed Linzess dosing and risk/benefit when [...] Results Visit Information Attending Physician: Erendira Ramon [facility] Visit Date: 04/16/2025 04/16/2025 EQUALIZING SAW OPERATOR General Clinic Note Assessment/Pl an Patient is [...] bladder. In the patients over 65 (elderly) jail use may increase the risk of dementia [...] Digitally signed:: This note was transcribed using Wrapp Speech Recognition software. As a result, it [...] since age of 24 MAMMOGRAM : 2024 [facility] repeat sending for records PELVIC ULTRASOUND- [...] age of 69. Patient is remote from COMPANY DOCTOR exam and it has been since her hysterectomy she is up-to-date on her mammogram she had it completed at [place]. Colonoscopy was completed on 03-03-2023 she found [...] tender no discolorations noted ANUS: visually normal. COMPANY DOCTOR Procedure Details COMPANY DOCTOR Additional Details Menstrual History Last Menstrual Periodtotal vaginal hysterectomy Age at [id number] Contraception Current ContraceptionSurgically Sterile Sexually Transmitted Infections [...] Tobacco - Denies Tobacco Use Family History [place] - myocardial infarction: Sister (Dx at 70). [...] asked to cough and then a 5 japanese pediatric non-bulb catheter was placed into the [...] you do, please call the office at [phone]. We will go over the results and [...] any difficulty swallowing, last EGD 10/20 in [place] showed mild gastropathy. She has had gastric emptying study in the past, cannot recall results. She states that she was once prescribed lubiprostone and sulfasalazine, did not help and had side effects. She reports ongoing fatigue as well as left breast pain and sees her PCP next week. Previous colonoscopy 02/2023 in [place] showed 2 polyps and diverticulosis. Repeat recommended [...] patient and due to potential diagnosis at [facility]. Educational handout provided. 2. Unintentional weight loss [...] Results Visit Information Attending Physician: Erendira Ramon PATHOLOGIST ASSISTANT Visit Date: 03/05/2025 03/05/2025 Gastroenterology IM Clinic Note Chief Complaint Patient is referred here today by Dr.Druery Kim(per pt. request). Patient has GERD,IBS with constipation ,wt. loss,hx of colon polyps. Patient thinks she had a colonoscopy /upper GI last July at [facility]. History of Present Illness Ms. Diez [...] EGD was bout 3-4 months ago at [facility] in [place]. She says she was told she had gastritis. She denies any antacids were started. She was tried on amitiza, but this made her sick to her stomach. 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 Problem List/Past Medical History Procedure/Surgical History Medications [...] Source Heart Rate 69 bpm 03/05/2025 18:07:00 [facility] SpO2 97 % 03/05/2025 18:07:00 [facility] Height (cm) 157.48 cm 03/05/2025 18:07:00 [facility] SBP NIBP 92 mm[Hg] 03/05/2025 18:07:00 [facility] DBP NIBP 60 mm[Hg] 03/05/2025 18:07:00 [facility] Weight (kg) 66.2 kg 03/05/2025 18:07:00 [facility] BSA Asher 1.67 03/05/2025 18:07:00 [facility] BMI 26.7 kg/m2 03/05/2025 18:07:00 [facility] Encounters Location Location Details Encounter Type Encounter Number Reason For Visit Attending Provider ADM Date DC Date Status Source [facility] Between Visit [id number] 01/13 14:25 :34 01/14 05:59 :59 [facility] [id number] Kem Elizabeth 01/27 21:44 :41 01/28 05:59 :59 [facility] Outpatient [id number] Kem Elizabeth 02/13 12:28 :32 02/14 04:59 :59 [facility] Digestive [facility] Clinic [id number] Erendira Ramon 03/05 18:03 :34 03/06 04:59 :59 [facility] Between Visit [id number] 04/15 12:53 :48 04/16 04:59 :59 [facility] OBGYN Clinic [id number] Sheela Gilmorejacinta 04/15 15:00 :38 04/16 04:59 :59 MAMMOGRAPHY SUPERVISOR [facility] OBGYN Between Visit [id number] 04/15 20:02 :45 04/16 04:59 :59 MAMMOGRAPHY SUPERVISOR [facility] Care [id number] Erendira Pradhanhunter 04/16 18:51 :36 04/17 04:59 :59 [facility] Between Visit [id number] 04/22 15:57 :24 04/23 04:59 :59 [facility] Between Visit [id number] 05/13 16:17 :35 05/14 04:59 :59 [facility] Procedures Procedure Code Date Perfomer Comments Source CT abdomen and pelvis 02/13/2025 05:00:00 [facility] 00:00:00 [facility] 10/14/2024 06:00:00 [facility] Sciatic nerve surgery [facility] lumbar fusion, L3-L4 [facility] Cholecystectomy; [id number] [facility] Complete hysterectomy Digestive [facility] Social History Social History Date Source No data available for this section 05/14/2025 [facility] No data available for this section 04/23/2025 [facility] No data available for this section 04/17/2025 [facility] No data available for this section 04/16/2025 MAMMOGRAPHY SUPERVISOR [facility] No data available for this section 03/06/2025 SAM[facility]E [facility] No data available for this section 02/14/2025 SAMMIE [facility] No data available for this section 01/28/2025 [facility]
[2025-06-13 19:16] VITALS: BP 205/114; PULSE 126; RESP 16; TEMP 36.8; O2SAT 96; BMI 23.0
--- OUTSIDE RECORDS SUMMARY | 2025-06-13 19:21 | XMS_ITS | Encounter Summary ---
Author Organization [facility] Address [address] [place] [address] Care Team Providers Care Oracle Bpm Developer Name Role Phone Ann Marie Kim MD Primary Care Provider [phone] Encounter Details Date Type Department Care Team (Late st Contact Info) Description 06/11/2025 External Device Data [facility]STRACTION Provider, Abstract NO ADDRESS ON FILE Social History Tobacco Use Types Packs/Day Years Used Date Smoking Tobacco: Never Smokeless Tobacco: Never Alcohol Use Standard Drinks/Week Comments Never 0 (1 standard drink = 0.6 oz pur e alcohol) Comments No Sex and Gender Information Value Date Recorded Sex Assigned at Not on file 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
--- OUTSIDE RECORDS SUMMARY | 2025-06-13 19:21 | XMS_ITS | Encounter Summary ---
Author Organization [facility] Address [address] [place] [address] Care Team Providers Care Supervisor Border Department Name Role Phone Ann Marie Kim MD Primary Care Provider [phone] Encounter Details Date Type Department Care Team (Late st Contact Info) Description 07/03/2024 Lab Requisition [facility] Services [id number] [place] [phone] Nicholas Rodriguez MD [address] [facility] [address] [place] [address] Social History Tobacco Use Types Packs/Day Years Used Date Smoking Tobacco: Never Smokeless Tobacco: Never Alcohol Use Standard Drinks/Week Comments Never 0 (1 standard drink = 0.6 oz pur e alcohol) Comments No Sex and Gender Information Value Date Recorded Sex Assigned at Not on file 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 Gender Identity Not on file Sexual Orientation Not on file documented as of this encounter Plan of Treatment Not on file documented as of this encounter Procedures Procedure Name Priority Date/Time Associated Diagnosis Comments REFERENCE LAB PROCESSING FEE Routine 07/03/2024 10:40 AM CDT documented in this encounter Results * REFERENCE LAB PROCESSING FEE (07/03/2024 10:40 AM CDT) [facility] REFERENCE LAB SENDOUT Completed 07/03/2024 11:08 AM CDT [facility] Other, specify BLOOD SPECIMEN / Unknown Collection / Unknown 07/03/2024 10:40 AM CDT 07/03/2024 11:08 AM CDT us Nicholas Rodriguez MD CHEMISTRY ORDERABLES Final Re sult [facility] CLIA # [id number] [facility] [address] documented in this encounter Visit Diagnoses Not on filedocumented in this encounter Care Teams Supervisor Border Department Relationship Specialty Start Date End Date Ann Marie Kim MD [address] [phone] PCP - General Family Practice 02/02/23 documented as of this encounter
--- OUTSIDE RECORDS SUMMARY | 2025-06-13 19:21 | XMS_ITS | Clinical Summary ---
Author Organization [facility] de Address [address] [place] [address] Phone Care Team Providers Care Secondary History Teacher Name Role Phone Ann Marie Kim MD Primary Care Provider [phone] Allergies No known active allergies Medications hydrALAZINE [...] Encounters Date Type Department Care Team Description 06/11/2025 External Device Data [facility] ABSTRACTION Provider, Abstract 05/14/2025 External Device Data [facility] ABSTRACTION Provider, Abstract 04/17/2025 External Device Data [facility] ABSTRACTION Provider, Abstract 04/17/2025 External Device Data [facility] ABSTRACTION Provider, Abstract 04/16/2025 External Device Data [facility] ABSTRACTION Provider, Abstract 03/18/2025 [facility] Gastroenter[facility] [phone] Nicole Ocasio PA from Last [...] on file 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 Female 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 Gender Identity Not on file Sexual Orientation Not on file Last Filed Vital Signs Vital Sign Reading Time Taken Comments Blood Pressure 154/85 10/14/2024 9:30 AM BOTTOM CAGER Pulse 73 10/14/2024 9:30 AM BOTTOM CAGER Temperature - - Respiratory Rate 18 10/14/2024 9:30 AM BOTTOM CAGER Oxygen Saturation 95% 10/14/2024 9:30 AM BOTTOM CAGER Inhaled Oxygen Concentration - - Weight 70.7 [...] Nagy MD - 03/03/2023 11:36 AM CDT [facility] GI Patient Name: Holly Diez Procedure [...] 11:17:18 AM Scope Out: 11:31:46 AM [address] [place], [place] Neo Nagy MD GI PROCEDURE ORDERABLES F inal Result from Last 3 Months or Most Recently Relevant to Health Maintenance Insurance MEDICARE PART A AND B [place] [employer] [place] [id number] Advance Directives For more information, please contact: [phone] * Full Code (Latest Code Status on File) Date Activated Date Inactivated Comments 03/03/2023 10:13 AM 03/03/2023 2:17 PM Care Teams Secondary History Teacher Relationship Specialty Start Date End Date Ann Marie Kim MD [address] [phone] PCP - General Family Practice 02/02/23
--- NOTE | 2025-06-13 19:27 | CTR_ITS ---
PROCEDURE INFORMATION: Exam: CT Head Without Contrast Exam date and time: 06/13/2025 7:41 PM Age: 75 years old Clinical indication: Altered mental status/memory loss; EMS arrival for AMS. Patient hypertensive and tachycardic. Reported multiple falls in the last two weeks. ; Additional info: AMS, possible falls TECHNIQUE: Imaging protocol: Computed tomography of the head without contrast. Radiation optimization: All CT scans at this facility use at least one of these dose optimization techniques: automated exposure control; mA and/or kV adjustment per patient size (includes targeted exams where dose is matched to clinical indication); or iterative reconstruction. COMPARISON: CT head wo con* [id number] 06/02/2025 1:53 AM RADIATION DOSE METRICS: Total DLP (mGy-cm): 1850.18 FINDINGS: Brain: Allowing for motion artifact, no acute infarction, hemorrhage, mass, or extra-axial fluid collection is identified. No midline shift. Chronic white matter microangiopathy and generalized atrophy. Cerebral ventricles: No hydrocephalus. Paranasal sinuses: Paranasal sinuses are grossly clear. Mastoid air cells: Mastoid air cells are grossly clear. Bones: Calvarium appears intact. Soft tissues: Unremarkable. CT/CT head wo con* [id number] IMPRESSION: No acute intracranial abnormality.
--- NOTE | 2025-06-13 19:27 | CTR_ITS ---
PROCEDURE INFORMATION: Exam: CT Chest With Contrast; Diagnostic Exam date and time: 06/13/2025 7:46 PM Age: 75 years old Clinical indication: Injury or trauma; Generalized; Blunt trauma (contusions or hematomas); Prior surgery; Surgery date: 6+ months; Surgery type: Gb. Lumbar fusion. Hysterectomy. EMS arrival for AMS. Patient hypertensive and tachycardic. Reported multiple falls in the last two weeks. ; Additional info: Falls, confusion, apparent pain but very poor historian, , intermittently complains of abd pain TECHNIQUE: Imaging protocol: Diagnostic computed tomography of the chest with contrast. Radiation optimization: All CT scans at this facility use at least one of these dose optimization techniques: automated exposure control; mA and/or kV adjustment per patient size (includes targeted exams where dose is matched to clinical indication); or iterative reconstruction. Contrast material: OMNI 350; Contrast volume: 100 ml; Contrast route: INTRAVENOUS (IV); COMPARISON: [place] [id number] 05/14/2025 2:24 AM RADIATION DOSE METRICS: Total DLP (mGy-cm): 1103.51 FINDINGS: Lungs: See Lymph nodes finding. Pleural spaces: Unremarkable. No pneumothorax. No pleural effusion. Heart: Unremarkable. No cardiomegaly. No pericardial effusion. Coronary arteries: Severe calcified coronary artery disease. Lymph nodes: Calcified right hilar nodes and/or mediastinal nodes and/or lung granulomas consistent with old granulomatous disease. Vasculature: Calcification of the thoracic aorta and/or great vessels consistent with atherosclerotic vessel disease. Bones/joints: Unremarkable. No acute fracture. Soft tissues: Unremarkable. PROCEDURE INFORMATION: Exam: CT Abdomen And Pelvis With Contrast Exam date and time: 06/13/2025 7:46 PM Age: 75 years old Clinical indication: Injury or trauma; Generalized; Blunt trauma (contusions or hematomas); Prior surgery; Surgery date: 6+ months; Surgery type: Gb. Lumbar fusion. Hysterectomy. EMS arrival for AMS. Patient hypertensive and tachycardic. Reported multiple falls in the last two weeks. ; Additional info: Falls, confusion, apparent pain but very poor historian, , intermittently complains of abd pain TECHNIQUE: Imaging protocol: Computed tomography of the abdomen and pelvis with contrast. Radiation optimization: All CT scans at this facility use at least one of these dose optimization techniques: automated exposure control; mA and/or kV adjustment per patient size (includes targeted exams where dose is matched to clinical indication); or iterative reconstruction. Contrast material: OMNI 350; Contrast volume: 100 ml; Contrast route: INTRAVENOUS (IV); COMPARISON: CT abdomen pelvis w con* [id number] 06/11/2025 2:59 PM RADIATION DOSE METRICS: Total DLP (mGy-cm): 1103.51 FINDINGS: Liver: Normal. No mass. Gallbladder and biliary ducts: Stable cholecystectomy. Dilatation of the intra-and extrahepatic biliary tree which can be normal following cholecystectomy. Pancreas: Normal. No ductal dilation. Spleen: Normal. No splenomegaly. Adrenal glands: Normal. No mass. Kidneys and ureters: Multiple left renal hypodensities with the largest measuring < 1.0 cm, too small to further characterize. Stomach and bowel: Unremarkable. No obstruction. No mucosal thickening. Appendix: No evidence of appendicitis. Intraperitoneal space: Unremarkable. No free air. No significant fluid collection. Vasculature: Unremarkable. No abdominal aortic aneurysm. Lymph nodes: Unremarkable. No enlarged lymph nodes. Urinary bladder: Unremarkable as visualized. Reproductive: Status post hysterectomy. Bones/joints: Unremarkable. No acute fracture. Soft tissues: Unremarkable. Other findings: Stable postoperative changes over the lumbar spine with metallic fixation and metallic artifact. CT/CT chest abdpel w/*[id number] IMPRESSION: No acute findings. IMPRESSION: No acute findings. COMMENTS: Consistent with the [employer]'s Incidental Findings Committee white paper (J Am Yoana Radiol 2018): Any incidental renal lesion less than 1 cm or classified as too small to characterize, or any incidental cystic renal lesion characterized as simple-appearing, is likely benign. No follow-up imaging is recommended for these lesions per consensus recommendations based on imaging criteria.
--- NOTE | 2025-06-13 19:27 | CTR_ITS ---
PROCEDURE INFORMATION: Exam: CT Cervical Spine Without Contrast Exam date and time: 06/13/2025 7:44 PM Age: 75 years old Clinical indication: Injury or trauma; Blunt trauma; EMS arrival for AMS. Patient hypertensive and tachycardic. Reported multiple falls in the last two weeks. ; Additional info: Falls, poor historian TECHNIQUE: Imaging protocol: Computed tomography of the cervical spine without contrast. Radiation optimization: All CT scans at this facility use at least one of these dose optimization techniques: automated exposure control; mA and/or kV adjustment per patient size (includes targeted exams where dose is matched to clinical indication); or iterative reconstruction. COMPARISON: CT cervical spin wo con* [id number] 05/27/2025 8:59 AM RADIATION DOSE METRICS: Total DLP (mGy-cm): 245.77 FINDINGS: Bones: No acute fracture. Normal lordosis. Multilevel degenerative change, including anterior osteophytosis and dorsal spondylosis greatest at C5-C6 and C6-C7.. No severe spinal canal stenosis. Multilevel facet arthropathy bilaterally. Lungs: Lung apices are unremarkable. Soft tissues: Unremarkable. CT/CT cervical spin wo con* [id number] IMPRESSION: No acute cervical spine fracture.
--- NOTE | 2025-06-13 19:27 | ECG_ITS ---
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 Measurements Intervals [place] Rate: 122 P: 89 TN: 160 QRS: 22 QRSD: 82 T: 52 QT: 316 QTc: 451 Interpretive Statements SINUS TACHYCARDIA POSSIBLE ANTERIOR MYOCARDIAL INFARCTION , PROBABLY OLD [30 ms Q WAVE IN V3/V4, OR R < 0.2 mV IN V4] ABNORMAL RHYTHM ECG Compared to ECG 06/11/2025 13:47:14 Myocardial infarct finding now present Sinus rhythm no longer present T-wave abnormality no longer present Electronically Signed On 06-14-2025 00:15:53 CDT by Shona Hamilton M.D. [email or web address]
[2025-06-13] MEDS: iohexol 350 mg/mL 500 mL Btl (per mL) IV (19:43)
[2025-06-13 19:44] LABS: Hematocrit 29.5 % (36-47); Hemoglobin 9.70 g/dL (11.27-16.99); Mean Corpuscular HGB Conc 32.9 g/dL (30-55); Mean Corpuscular Hemoglobin 31.5 pg (27-33); Mean Corpuscular Volume 95.8 fl (85-98); Nucleated Red Blood Cells % 0 %; Platelet Count 148 10^3/cmm (157-399); Red Blood Count 3.08 10^6/uL (3.85-5.65); White Blood Count 3.84 10^3/uL (3.29-11.43)
[2025-06-13 19:57] LABS: INR 0.93 (0.8-1.2); Prothrombin Time 13.20 SECONDS (12.1-14.9)
[2025-06-13 19:58] LABS: Partial Thromboplastin Time 22.5 SECONDS (23.9-36.7)
[2025-06-13 20:06] LABS: Lactic Sepsis W/Reflex 0.9 mmol/L (0.5-2.2)
[2025-06-13 20:14] VITALS: BP 205/121
[2025-06-13 20:16] LABS: Alanine Aminotransferase 22 U/L (0-33); Albumin Level 3.6 g/dL (3.5-5.2); Alkaline Phosphatase 71 U/L (35-105); Anion Gap 19.2 (5-19); Aspartate Amino Transferase 23 U/L (0-32); Blood Urea Nitrogen 28 mg/dL (8-23); Calcium 9.1 mg/dL (8.5-10.5); Carbon Dioxide 21 mmol/L (22-29); Chloride 102 mmol/L (98-107); Creatinine Clr Calc Pharmacy 46.1953; Globulin 2.9 g/dL (1.3-4.6); Glucose 161 mg/dL (65-115); Lipase 10 U/L (13-60); Osmolality Calculated 295 mOsm/kg (285-295); Potassium 4.2 mmol/L (3.5-5.1); Sodium 138 mmol/L (136-145); Total Protein 6.5 g/dL (6.6-8.7)
[2025-06-13 20:21] VITALS: PULSE 121; RESP 12; O2SAT 96
[2025-06-13] MEDS: morphine 4 mg/mL SDV 1 mL IVP (20:37)
[2025-06-13 20:46] LABS: Glucose Urine UA Negative (Normal); Nitrate Urine Negative (Negative)
[2025-06-13 20:53] LABS: Specific Gravity, Urine 1.054 (1.005-1.030)
[2025-06-13 20:58] LABS: Troponin(5th) Baseline 31 ng/L (0-10)
[2025-06-13 21:03] LABS: UA Slide Review UA Slide Review Perf
[2025-06-13 22:09] VITALS: BP 172/95; PULSE 103; O2SAT 93
[2025-06-13 22:09] LABS: Troponin 5 2HR 27.19 ng/L (0-10)
[2025-06-13 22:10] LABS: Troponin 5 2HR Delta -3.81 ABS# (0-10)
[2025-06-13 23:15] VITALS: BP 163/93; PULSE 99; O2SAT 92
[2025-06-14] VITALS (140 sets, daily range): BP systolic 104–206; BP diastolic 59–127; PULSE 83–135; RESP 11–29; TEMP 36.7; O2SAT 91–99; BMI 25.7
[2025-06-14] MEDS: morphine 4 mg/mL SDV 1 mL IVP ×2 (00:27→03:55)
[2025-06-14 02:07] LABS: Troponin 5 6HR 28.20 ng/L (0-10)
[2025-06-14 02:09] LABS: Troponin 5 6HR Delta -2.80 ng/L (0-12)
--- NOTE | 2025-06-14 04:12 | W.ED.AMS ---
Documented by User: John Espinoza MD 06/14/25 05:47 HPI - Altered Mental Status General: Chief Complaint: Altered Mental Status Stated Complaint: AMS, HTN Time Seen by Provider: 06/13/25 19:23 History of Present Illness: 75 y/o female with reported history of kidney and liver failure was brought in by EMS from home for three weeks of progressive confusion. Nursing triage notes and initial interview reveal intermittent right arm and right upper abdominal pain, headaches, dysuria with burning, and episodes of elevated BP (156 mmHg noted). Patient endorses burning with urination when directly questioned. She reports multiple falls (three to four) of unclear timing, including at least one head strike. Patient lives with her ; his arrival to the ED is uncertain. Medication adherence at home is affirmed but specific drugs are not recalled. Related Data Home Medications ?Medication ?Instructions ?Recorded ?Confirmed clonidine HCl 0.3 mg tablet 0.3 mg PO TID 05/03/25 06/13/25 multivitamin 1 tab PO DAILY 05/03/25 06/13/25 naproxen sodium 220 mg tablet 220 mg PO BID PRN Pain 05/03/25 06/13/25 (Aleve) cyclobenzaprine 10 mg tablet 10 mg PO TID PRN Spasms 06/11/25 06/13/25 estradiol 0.01% (0.1 mg/gram) See Rx Instructions .Route .COMPLEX 06/11/25 06/13/25 vaginal cream lactulose 10 gram/15 mL oral 30 ml PO BID 06/11/25 06/13/25 solution pantoprazole 40 mg tablet,delayed 40 mg PO DAILY PRN acid refluxd 06/11/25 06/13/25 release verapamil 120 mg tablet,extended 120 mg PO BID 06/11/25 06/13/25 release Previous Rx's ?Medication ?Instructions ?Recorded nitroglycerin 0.4 mg sublingual 0.4 mg sublingual Q5M PRN chest 09/14/22 tablet pain #25 tabs leflunomide 20 mg tablet 20 mg PO DAILY #90 tabs 03/18/25 tramadol 50 mg tablet 50 mg PO Q8H PRN pain 30 days #90 04/07/25 tabs labetalol 200 mg tablet 200 mg PO Q12H #270 tabs 05/12/25 hydrocodone 5 mg-acetaminophen 325 1 tab PO Q8H PRN pain 30 days #60 05/22/25 mg tablet tabs alprazolam 0.5 mg tablet 0.5 mg PO QID #120 tabs 05/26/25 hydralazine 25 mg tablet 25 mg PO BID PRN Systolic blood 06/04/25 pressure of more than 160 mmHg #10 tabs oxycodone 5 mg tablet 5 mg PO Q4H PRN pain 7 days #42 06/12/25 tabs Allergies Allergy/AdvReac Type Severity Reaction Status Date / Time sulfasalazine Allergy Unknown ADR-Nausea Verified 06/13/25 07:12 plastics Allergy ALGY-Rash Uncoded 06/13/25 07:12 PFSH ED PFSH: Medical History Thrombocytopenia 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 Immunization counseling High risk medication use Inflammatory arthritis Eczema History of colon polyps Irritable bowel syndrome with both constipation and diarrhea Thoracic spine pain Essential hypertension Anxiety Diabetes Lumbar disc disease with radiculopathy Surgical History Status post lumbar spinal fusion History of colonoscopy (03/23/21) 2015: Colon polyps 2020: Mild diverticulosis History of cholecystectomy History of dilation and curettage History of total hysterectomy Family History Father Parkinson disease Cancer Mother Cancer Social History Smoking and tobacco/nicotine status: never used tobacco/nicotine Second hand smoke exposure: No Alcohol intake: never Substance/Drug Use: never Additional social history: Patient is accompanied by her Quinn she was DNR status as discussed today on 06/11/2025 with Yoan Urena MD. 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 Marital status: Physical Exam Const: OTHER: Moderate distress due to pain HENMT: COMMON NORMALS: normocephalic and atraumatic HEAD & SCALP: normocephalic and atraumatic Eye: COMMON NORMALS: Equal, round and reactive pupils present, EOMs intact bilaterally and no scleral icterus PUPIL: Yes Equal, round and reactive pupils present Resp: COMMON NORMALS: normal respiratory effort and No retractions Cardio: OTHER: tachycardic, regular rhythm GI: COMMON NORMALS: Normal to inspection, nondistended, normoactive bowel sounds present, Soft to palpation and non-tender PALPATION: Yes Soft to palpation Neuro: OTHER: Encephalopathic, very poor historian, not answering questions readily, no obvious lateralizing deficits, full range of motion of the neck with no apparent increase in pain. Psych: OTHER: anxious Skin: COMMON NORMALS: no rashes or lesions noted GENERAL SKIN EXAM: no rashes or lesions noted Urinary Catheter Management: Vega: Cath Placed During This Visit: yes Urinary Catheter Date of Insertion: 06/14/25 Urinary Catheter Time of Insertion: 04:12 Course Vital Signs: Vital signs: Vital Signs Temperature 98.2 F 06/13/25 19:16 Pulse Rate 105 H 06/14/25 06:56 Respiratory Rate 17 06/14/25 06:56 Blood Pressure 151/92 06/14/25 06:56 Pulse Oximetry 95 06/14/25 06:56 Oxygen Delivery Me thod Room Air 06/14/25 05:36 MDM - Altered Mental Status Medical Decision Making in summary, patient is a very poor historian due to suspected encephalopathy. Review of the chart shows that she has been admitted for the same in the past. She became more hypertensive and tachycardic prompting increased doses of pain medication and also Cardene drip to be started. CT head shows no acute. CT chest abdomen pelvis shows nothing acute. Labs are unremarkable. I am uncertain of the etiology of her encephalopathy but do not suspect meningitis, metabolic encephalopathy, or other infectious etiology. Pertinent details of the case were shared with the oncoming emergency physician as she will likely require intensive care admission but the nighttime hospitalist was unable to see her given time constraints Lab Data 06/13/25 19:38 06/13/25 19:38 Radiology Impressions Cervical Spine CT 06/13/25 19:27 IMPRESSION: No acute cervical spine fracture. Chest/Abdomen/Pelvis CT 06/13/25 19:27 IMPRESSION: No acute findings. IMPRESSION: No acute findings. COMMENTS: Consistent with the [employer]'s Incidental Findings Committee white paper (J Am Yoana Radiol 2018): Any incidental renal lesion less than 1 cm or classified as too small to characterize, or any incidental cystic renal lesion characterized as simple-appearing, is likely benign. No follow-up imaging is recommended for these lesions per consensus recommendations based on imaging criteria. Head CT 06/13/25 19:27 IMPRESSION: No acute intracranial abnormality. Laboratory Results WBC 3.84 10^3/uL (3.29-11.43) 06/13/25 19:38 RBC 3.08 10^6/uL (3.85-5.65) L 06/13/25 19:38 Hgb 9.70 g/dL (11.27-16.99) L 06/13/25 19:38 Hct 29.5 % (36-47) L 06/13/25 19:38 MCV 95.8 fl (85-98) 06/13/25 19:38 MCH 31.5 pg (27-33) 06/13/25 19:38 MCHC 32.9 g/dL (30-55) 06/13/25 19:38 RDW 12.3 % (12.1-15.1) 06/13/25 19:38 Plt Count 148 10^3/cmm (157-399) L 06/13/25 19:38 MPV 9.1 fL (7.4-10.4) 06/13/25 19:38 Neut % (Auto) 88.3 % 06/13/25 19:38 Lymph % (Auto) 8.3 % 06/13/25 19:38 Pershing % (Auto) 2.3 % 06/13/25 19:38 Eos % (Auto) 0.0 % 06/13/25 19:38 Baso % (Auto) 0.8 % 06/13/25 19:38 Neut # (Auto) 3.39 10^3/uL (1.8-7.7) 06/13/25 19:38 Lymph # (Auto) 0.3 10^3/uL (0.8-4.8) L 06/13/25 19:38 Pershing # (Auto) 0.1 10^3/uL (0.2-0.9) L 06/13/25 19:38 Eos # (Auto) 0.0 10^3/uL (0.0-0.8) 06/13/25 19:38 Baso # (Auto) 0.0 10^3/uL (0.0-0.1) 06/13/25 19:38 Nucleated RBC % (auto) 0 % 06/13/25 19:38 Nucleated RBCs # 0.0 /100WBC 06/13/25 19:38 PT 13.20 SECONDS (12.1-14.9) 06/13/25 19:38 INR 0.93 (0.8-1.2) 06/13/25 19:38 APTT 22.5 SECONDS (23.9-36.7) L 06/13/25 19:38 Sodium 138 mmol/L (136-145) 06/13/25 19:38 Potassium 4.2 mmol/L (3.5-5.1) 06/13/25 19:38 Chloride 102 mmol/L (98-107) 06/13/25 19:38 Carbon Dioxide 21 mmol/L (22-29) L 06/13/25 19:38 Anion Gap 19.2 (5-19) H 06/13/25 19:38 BUN 28 mg/dL (8-23) H 06/13/25 19:38 Creatinine 0.9 mg/dL (0.5-0.9) 06/13/25 19:38 GFR Calculation Not Reportable 06/13/25 19:38 Glucose 161 mg/dL (65-115) H 06/13/25 19:38 Calculated Osmolality 295 mOsm/kg (285-295) 06/13/25 19:38 Lactic Acid 0.9 mmol/L (0.5-2.2) 06/13/25 19:38 Calcium 9.1 mg/dL (8.5-10.5) 06/13/25 19:38 Total Bilirubin 0.2 mg/dL (0.15-1.2) 06/13/25 19:38 AST 23 U/L (0-32) 06/13/25 19:38 ALT 22 U/L (0-33) 06/13/25 19:38 Alkaline Phosphatase 71 U/L (35-105) 06/13/25 19:38 Troponin T Baseline 31 ng/L (0-10) H 06/13/25 19:38 Troponin T 120 Minute 27.19 ng/L (0-10) H 06/13/25 21:45 Delta Troponin T -3.81 ABS# (0-10) L 06/13/25 21:45 Troponin T Hi Sens 6Hr 28.20 ng/L (0-10) H 06/14/25 01:31 Troponin T Hi Sens 6Hr Delta -2.80 ng/L (0-12) L 06/14/25 01:31 Total Protein 6.5 g/dL (6.6-8.7) L 06/13/25 19:38 Albumin 3.6 g/dL (3.5-5.2) 06/13/25 19:38 Globulin 2.9 g/dL (1.3-4.6) 06/13/25 19:38 Lipase 10 U/L (13-60) L 06/13/25 19:38 Urine Color Yellow (Yellow) 06/13/25 20:35 Urine Appearance Clear (CLEAR) 06/13/25 20:35 Urine pH 5.5 (5-7) 06/13/25 20:35 Ur Specific New Era 1.054 (1.005-1.030) H 06/13/25 20:35 Urine Protein 1+ (Negative) A 06/13/25 20:35 Urine Glucose (UA) Negative (Normal) 06/13/25 20:35 Urine Ketones 2+ (Negative) H 06/13/25 20:35 Urine Blood Negative (Negative) 06/13/25 20:35 Urine Nitrate Negative (Negative) 06/13/25 20:35 Urine Bilirubin Negative (Negative) 06/13/25 20:35 Urine Urobilinogen 1.0 mg/dL (Negative) 06/13/25 20:35 Ur Leukocyte Esterase Negative (Negative) 06/13/25 20:35 Urine RBC 0-2 /hpf (0-2) 06/13/25 20:35 Urine WBC 0-5 /hpf (0-5) 06/13/25 20:35 Ur Squamous Epith Cells 0-5 /hpf (0-5) 06/13/25 20:35 Amorphous Sediment Not Reportable 06/13/25 20:35 Urine Bacteria None seen /hpf (NONE) 06/13/25 20:35 Hyaline Casts 13.22 /lpf 06/13/25 20:35 EKG Data EKG 1: Interpretation: Time?1957?sinus tachycardia, rate of 122, no ST segment elevation or depression, no T wave inversions, QTc = 388 Discharge Plan Discharge Patient Disposition: Admitted As Inpatient Clinical Impression: Acute encephalopathy, Essential hypertension, Diabetes Condition: Fair Sign Out Sign Out Data: Patient Sign Out occurred on 06/14/25 at 06:43. Patient's care was discussed, and care was transferred from John Espinoza MD to Venkata Johnson DO. Coding Level of Care Code ED Ski Top Trimmer for [facility] Documented by User: Venkata Johnson DO 06/14/25 08:04 HPI - Altered Mental Status General: Chief Complaint: Altered Mental Status Stated Complaint: AMS, HTN Time Seen by Provider: 06/13/25 19:23 Related Data Home Medications ?Medication ?Instructions ?Recorded ?Confirmed clonidine HCl 0.3 mg tablet 0.3 mg PO TID 05/03/25 06/13/25 multivitamin 1 tab PO DAILY 05/03/25 06/13/25 naproxen sodium 220 mg tablet 220 mg PO BID PRN Pain 05/03/25 06/13/25 (Aleve) cyclobenzaprine 10 mg tablet 10 mg PO TID PRN Spasms 06/11/25 06/13/25 estradiol 0.01% (0.1 mg/gram) See Rx Instructions .Route .COMPLEX 06/11/25 06/13/25 vaginal cream lactulose 10 gram/15 mL oral 30 ml PO BID 06/11/25 06/13/25 solution pantoprazole 40 mg tablet,delayed 40 mg PO DAILY PRN acid refluxd 06/11/25 06/13/25 release verapamil 120 mg tablet,extended 120 mg PO BID 06/11/25 06/13/25 release Previous Rx's ?Medication ?Instructions ?Recorded nitroglycerin 0.4 mg sublingual 0.4 mg sublingual Q5M PRN chest 09/14/22 tablet pain #25 tabs leflunomide 20 mg tablet 20 mg PO DAILY #90 tabs 03/18/25 tramadol 50 mg tablet 50 mg PO Q8H PRN pain 30 days #90 04/07/25 tabs labetalol 200 mg tablet 200 mg PO Q12H #270 tabs 05/12/25 hydrocodone 5 mg-acetaminophen 325 1 tab PO Q8H PRN pain 30 days #60 05/22/25 mg tablet tabs alprazolam 0.5 mg tablet 0.5 mg PO QID #120 tabs 05/26/25 hydralazine 25 mg tablet 25 mg PO BID PRN Systolic blood 06/04/25 pressure of more than 160 mmHg #10 tabs oxycodone 5 mg tablet 5 mg PO Q4H PRN pain 7 days #42 06/12/25 tabs Allergies Allergy/AdvReac Type Severity Reaction Status Date / Time sulfasalazine Allergy Unknown ADR-Nausea Verified 06/13/25 07:12 plastics Allergy ALGY-Rash Uncoded 06/13/25 07:12 PFSH ED PFSH: Medical History Thrombocytopenia 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 Immunization counseling High risk medication use Inflammatory arthritis Eczema History of colon polyps Irritable bowel syndrome with both constipation and diarrhea Thoracic spine pain Essential hypertension Anxiety Diabetes Lumbar disc disease with radiculopathy Surgical History Status post lumbar spinal fusion History of colonoscopy (03/23/21) 2015: Colon polyps 2020: Mild diverticulosis History of cholecystectomy History of dilation and curettage History of total hysterectomy Family History Father Parkinson disease Cancer Mother Cancer Social History Smoking and tobacco/nicotine status: never used tobacco/nicotine Second hand smoke exposure: No Alcohol intake: never Substance/Drug Use: never Additional social history: Patient is accompanied by her Quinn she was DNR status as discussed today on 06/11/2025 with Yoan Urena MD. 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 Review of the chart shows that she has been admitted for the same in the past. She became more hypertensive and tachycardic prompting increased doses of pain medication and also Cardene drip to be started. CT head shows no acute. CT chest abdomen pelvis shows nothing acute. Labs are unremarkable. I am uncertain of the etiology of her encephalopathy but do not suspect meningitis, metabolic encephalopathy, or other infectious etiology. Pertinent details of the case were shared with the oncoming emergency physician as she will likely require intensive care admission but the nighttime hospitalist was unable to see her given time constraints Patient care assumed at change of shift. She is difficult to arouse encephalopathic. Discussed with nighttime physician. Will admit. Orders written for hospitalist admission. Dr. Espinoza had previously discussed with the nighttime hospitalist and they have handed off to one of the daytime hospitalist Lab Data 06/13/25 19:38 06/13/25 19:38 Radiology Impressions Cervical Spine CT 06/13/25 19:27 IMPRESSION: No acute cervical spine fracture. Chest/Abdomen/Pelvis CT 06/13/25 19:27 IMPRESSION: No acute findings. IMPRESSION: No acute findings. COMMENTS: Consistent with the [employer]'s Incidental Findings Committee white paper (J Am Yoana Radiol 2018): Any incidental renal lesion less than 1 cm or classified as too small to characterize, or any incidental cystic renal lesion characterized as simple-appearing, is likely benign. No follow-up imaging is recommended for these lesions per consensus recommendations based on imaging criteria. Head CT 06/13/25 19:27 IMPRESSION: No acute intracranial abnormality. Laboratory Results WBC 3.84 10^3/uL (3.29-11.43) 06/13/25 19:38 RBC 3.08 10^6/uL (3.85-5.65) L 06/13/25 19:38 Hgb 9.70 g/dL (11.27-16.99) L 06/13/25 19:38 Hct 29.5 % (36-47) L 06/13/25 19:38 MCV 95.8 fl (85-98) 06/13/25 19:38 MCH 31.5 pg (27-33) 06/13/25 19:38 MCHC 32.9 g/dL (30-55) 06/13/25 19:38 RDW 12.3 % (12.1-15.1) 06/13/25 19:38 Plt Count 148 10^3/cmm (157-399) L 06/13/25 19:38 MPV 9.1 fL (7.4-10.4) 06/13/25 19:38 Neut % (Auto) 88.3 % 06/13/25 19:38 Lymph % (Auto) 8.3 % 06/13/25 19:38 Pershing % (Auto) 2.3 % 06/13/25 19:38 Eos % (Auto) 0.0 % 06/13/25 19:38 Baso % (Auto) 0.8 % 06/13/25 19:38 Neut # (Auto) 3.39 10^3/uL (1.8-7.7) 06/13/25 19:38 Lymph # (Auto) 0.3 10^3/uL (0.8-4.8) L 06/13/25 19:38 Pershing # (Auto) 0.1 10^3/uL (0.2-0.9) L 06/13/25 19:38 Eos # (Auto) 0.0 10^3/uL (0.0-0.8) 06/13/25 19:38 Baso # (Auto) 0.0 10^3/uL (0.0-0.1) 06/13/25 19: Nucleated RBC % (auto) 0 % 06/13/25 19: Nucleated RBCs # 0.0 /100WBC 06/13/25 19:38 PT 13.20 SECONDS (12.1-14.9) 06/13/25 19:38 INR 0.93 (0.8-1.2) 06/13/25 19:38 APTT 22.5 SECONDS (23.9-36.7) L 06/13/25 19:38 Sodium 138 mmol/L (136-145) 06/13/25 19:38 Potassium 4.2 mmol/L (3.5-5.1) 06/13/25 19:38 Chloride 102 mmol/L (98-107) 06/13/25 19:38 Carbon Dioxide 21 mmol/L (22-29) L 06/13/25 19:38 Anion Gap 19.2 (5-19) H 06/13/25 19:38 BUN 28 mg/dL (8-23) H 06/13/25 19:38 Creatinine 0.9 mg/dL (0.5-0.9) 06/13/25 19:38 GFR Calculation Not Reportable 06/13/25 19:38 Glucose 161 mg/dL (65-115) H 06/13/25 19:38 Calculated Osmolality 295 mOsm/kg (285-295) 06/13/25 19:38 Lactic Acid 0.9 mmol/L (0.5-2.2) 06/13/25 19:38 Calcium 9.1 mg/dL (8.5-10.5) 06/13/25 19:38 Total Bilirubin 0.2 mg/dL (0.15-1.2) 06/13/25 19:38 AST 23 U/L (0-32) 06/13/25 19:38 ALT 22 U/L (0-33) 06/13/25 19:38 Alkaline Phosphatase 71 U/L (35-105) 06/13/25 19:38 Troponin T Baseline 31 ng/L (0-10) H 06/13/25 19:38 Troponin T 120 Minute 27.19 ng/L (0-10) H 06/13/25 21:45 Delta Troponin T -3.81 ABS# (0-10) L 06/13/25 21:45 Troponin T Hi Sens 6Hr 28.20 ng/L (0-10) H 06/14/25 01:31 Troponin T Hi Sens 6Hr Delta -2.80 ng/L (0-12) L 06/14/25 01:31 Total Protein 6.5 g/dL (6.6-8.7) L 06/13/25 19:38 Albumin 3.6 g/dL (3.5-5.2) 06/13/25 19:38 Globulin 2.9 g/dL (1.3-4.6) 06/13/25 19:38 Lipase 10 U/L (13-60) L 06/13/25 19:38 Urine Color Yellow (Yellow) 06/13/25 20:35 Urine Appearance Clear (CLEAR) 06/13/25 20:35 Urine pH 5.5 (5-7) 06/13/25 20:35 Ur Specific New Era 1.054 (1.005-1.030) H 06/13/25 20:35 Urine Protein 1+ (Negative) A 06/13/25 20:35 Urine Glucose (UA) Negative (Normal) 06/13/25 20:35 Urine Ketones 2+ (Negative) H 06/13/25 20:35 Urine Blood Negative (Negative) 06/13/25 20:35 Urine Nitrate Negative (Negative) 06/13/25 20:35 Urine Bilirubin Negative (Negative) 06/13/25 20:35 Urine Urobilinogen 1.0 mg/dL (Negative) 06/13/25 20:35 Ur Leukocyte Esterase Negative (Negative) 06/13/25 20:35 Urine RBC 0-2 /hpf (0-2) 06/13/25 20:35 Urine WBC 0-5 /hpf (0-5) 06/13/25 20:35 Ur Squamous Epith Cells 0-5 /hpf (0-5) 06/13/25 20:35 Amorphous Sediment Not Reportable 06/13/25 20:35 Urine Bacteria None seen /hpf (NONE) 06/13/25 20:35 Hyaline Casts 13.22 /lpf 06/13/25 20:35 All radiology interpretation(s) finalized by discharge Discharge Plan Discharge Patient Disposition: Admitted As Inpatient Clinical Impression: Acute encephalopathy, Essential hypertension, Diabetes Condition: Fair Sign Out Sign Out Data: Patient Sign Out occurred on 06/14/25 at 06:43. Patient's care was discussed, and care was transferred from John Espinoza MD to Venkata Johnson DO. Coding Level of Care Code ED Ski Top Trimmer for [facility]
[2025-06-14] MEDS: LORazepam 1 MG/0.5 ML injection IVP ×3 (04:15→20:33)
[2025-06-14] MEDS: HYDROmorphone 0.5 MG/0.5 ML INJ 1 MG IVP (04:38)
[2025-06-14] MEDS: nicardipine 20 MG/200 ML PREMIX 25 MG IV (04:50)
--- NOTE | 2025-06-14 07:07 | PM.HP ---
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 During the ED stay the patient was markedly hypertensive (blood pressure up to 205/121 mmHg) and received a nicardipine drip, clonidine, morphine (?12 mg total), 1mg hydromorphone, and Ativan for pain and agitation. Orthostatic hypotension was suspected as a contributing factor. Current vitals show BP 151/92 mmHg, HR 105, temperature 98.2 ?F, SpO? 95 % on room air. Laboratory data reveal WBC normal, hemoglobin 9.7 g/dL, platelets improved to 148 K (from 71 K on 06/11), INR 0.93, basic metabolic panel within normal limits aside from glucose 161 mg/dL, and unremarkable urinalysis. Head CT, CT chest/abdomen/pelvis, and cervical spine CT showed no acute findings. On exam, the patient is somnolent, awakens briefly to voice, follows a few simple commands, but is confused and unable to provide a detailed history. Blood cultures have been drawn to exclude infection. The plan is to resume home antihypertensive medications, use hydralazine 25 mg PRN for systolic BP > 160 mmHg, continue orthostatic precautions, and arrange outpatient follow-up for planned lumbar surgery once clinical status and platelet count improve. Medication-related encephalopathy is also being considered. Review of Systems General: Reports: ROS unobtainable due to mental status Medications/Allergies Home Medications ?Medication ?Instructions ?Recorded ?Confirmed ?Last Taken ?Type nitroglycerin 0.4 mg sublingual 0.4 mg sublingual Q5M PRN chest 09/14/22 06/13/25 03/17/25 Rx tablet pain #25 tabs leflunomide 20 mg tablet 20 mg PO DAILY #90 tabs 03/18/25 06/13/25 06/11/25 Rx tramadol 50 mg tablet 50 mg PO Q8H PRN pain 30 days #90 04/07/25 06/13/25 06/01/25 12:00 Rx tabs clonidine HCl 0.3 mg tablet 0.3 mg PO TID 05/03/25 06/13/25 06/11/25 History multivitamin 1 tab PO DAILY 05/03/25 06/13/25 06/11/25 History naproxen sodium 220 mg tablet 220 mg PO BID PRN Pain 05/03/25 06/13/25 06/01/25 History (Aleve) labetalol 200 mg tablet 200 mg PO Q12H #270 tabs 05/12/25 06/13/25 06/11/25 Rx hydrocodone 5 mg-acetaminophen 325 1 tab PO Q8H PRN pain 30 days #60 05/22/25 06/13/25 Unknown Rx mg tablet tabs alprazolam 0.5 mg tablet 0.5 mg PO QID #120 tabs 05/26/25 06/13/25 06/11/25 Rx hydralazine 25 mg tablet 25 mg PO BID PRN Systolic blood 06/04/25 06/13/25 Unknown Rx pressure of more than 160 mmHg #10 tabs cyclobenzaprine 10 mg tablet 10 mg PO TID PRN Spasms 06/11/25 06/13/25 Unknown History estradiol 0.01% (0.1 mg/gram) See Rx Instructions .Route .COMPLEX 06/11/25 06/13/25 06/10/25 History vaginal cream lactulose 10 gram/15 mL oral 30 ml PO BID 06/11/25 06/13/25 06/11/25 History solution pantoprazole 40 mg tablet,delayed 40 mg PO DAILY PRN acid refluxd 06/11/25 06/13/25 Unknown History release verapamil 120 mg tablet,extended 120 mg PO BID 06/11/25 06/13/25 06/11/25 History release oxycodone 5 mg tablet 5 mg PO Q4H PRN pain 7 days #42 06/12/25 06/13/25 Unknown Rx tabs Allergies Allergy/AdvReac Type Severity Reaction Status Date / Time sulfasalazine Allergy Unknown ADR-Nausea Verified 06/13/25 07:12 plastics Allergy ALGY-Rash Uncoded 06/13/25 07:12 PFSH Acute PFSH: Medical History Thrombocytopenia 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 Immunization counseling High risk medication use Inflammatory arthritis Eczema History of colon polyps Irritable bowel syndrome with both constipation and diarrhea Thoracic spine pain Essential hypertension Anxiety Diabetes Lumbar disc disease with radiculopathy Surgical History Status post lumbar spinal fusion History of colonoscopy (03/23/21) 2015: Colon polyps 2020: Mild diverticulosis History of cholecystectomy History of dilation and curettage History of total hysterectomy Family History Father Parkinson disease Cancer Mother Cancer Social History Smoking and tobacco/nicotine status: never used tobacco/nicotine Second hand smoke exposure: No Alcohol intake: never Substance/Drug Use: never Additional social history: Patient is accompanied by her Quinn she was DNR status as discussed today on 06/11/2025 with Yoan Urena MD. 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 Marital status: Vitals/I&O/Wt Last Vital Signs Temp 98.2 F 06/13/25 19:16 Pulse 105 H 06/14/25 06:56 Resp 17 06/14/25 06:56 BP 151/92 06/14/25 06:56 Pulse Ox 95 06/14/25 06:56 O2 Del Method Room Air 06/14/25 05:36 06/13/25 06/14/25 06/14/25 22:59 06:59 14:59 Intake Total 510.417 / 510.417 Balance 510.417 / 510.417 Weight last 48 hrs Weight 58.967 kg Physical Exam Const: ORIENTATION/CONSCIOUSNESS: Yes confused and Yes lethargic HENMT: COMMON NORMALS: oropharynx normal Neck/C-Spine: COMMON NORMALS: no JVD Resp: COMMON NORMALS: normal respiratory effort and clear to auscultation bilaterally AUSCULTATION: clear to auscultation bilaterally Cardio: COMMON NORMALS: no JVD, regular rhythm, S1 normal heart sound present, S2 normal heart sound present and No murmurs present (Cardio) RHYTHM: regular rhythm HEART SOUNDS: S1 normal heart sound present and S2 normal heart sound present GI: COMMON NORMALS: Normal to inspection, nondistended, normoactive bowel sounds present, Soft to palpation and non-tender PALPATION: Yes Soft to palpation Extremity: COMMON NORMALS: no joint enlargement and no pedal edema Neuro: COMMON NORMALS: moves all extremities Skin: COMMON NORMALS: no rashes or lesions noted GENERAL SKIN EXAM: no rashes or lesions noted Urinary Catheter Management: Vega: Cath Placed During This Visit: yes Urinary Catheter Date of Insertion: 06/14/25 Urinary Catheter Time of Insertion: 04:12 Data 06/13/25 19:38 06/13/25 19:38 Micro: Microbiology 06/13/25 20:17 Blood Culture - Preliminary Blood SPECIMEN COLLECTED 06/13/25 20:20 Blood Culture - Preliminary Blood SPECIMEN COLLECTED A&P Assessment and plan 1. Hypertensive urgency: Severe hypertension up to 205/121 mmHg with associated confusion/lethargy; treated in ED with nicardipine drip and clonidine; currently 151/92 mmHg. - Resume home antihypertensive regimen (names/doses to be confirmed). - Hydralazine 25 mg PO PRN for systolic BP > 160 mmHg. - Monitor blood pressure closely. Monitor for risk of hypotension with antihypertensives. - Consider medication-related encephalopathy. 2. Acute encephalopathy: Hypertensive encephalopathy with severe elevation of blood pressure. It is unclear whether she had been receiving as needed medications in addition to her usual regimen. Currently she is unaccompanied, she is also encephalopathic and appears in addition following opioid and Ativan, although she is protecting her airway. Previously also on Medrol Dosepak, consideration of possible encephalopathy secondary to steroid. Reviewed vitals, CBC, INR, CMP, troponin, lipase, UA, CT head, CT chest abdomen pelvis, CT cervical spine, ED provider note, prior discharge note, discussed with ED provider. At current time given she is somnolent after receiving opioids, benzodiazepine, with severe hypertension requiring nicardipine initially, initial admission to intensive care unit. Continue open with additional blood pressure control. Blood cultures have been collected. Follow-up. Requested to confirm home medications, please review once available for any changes. Consider other medications contributing to encephalopathy including cyclobenzaprine, tramadol. N.p.o. for now. Hold further opioids, benzodiazepines or other potentially altering medications until she is more alert. IV hydration for now, monitor for risk of fluid overload. Plan: Orthostatic hypotension : Suspected contributor to syncopal event; patient labeled as severely orthostatic during hospitalization. - Continue strict orthostatic precautions (slow position changes, compression, hydration). - Consider midodrine (to be reviewed once fully evaluated). Thrombocytopenia : Platelets improved from 71 K to 148 K; likely contributed to postponement of planned lumbar surgery. - Trend platelet counts daily. -Obtain peripheral smear. With anemia, obtain LDH, haptoglobin. - Defer lumbar surgery until platelet count stabilizes at acceptable level. Chronic lumbar spinal stenosis with radiculopathy and back pain : Chronic issue; outpatient surgery had been planned but deferred due to thrombocytopenia and current acute illness. Patient and declined SNF during last admission. - Arrange outpatient follow-up with spine surgery once medical condition and platelet count improve. Drug-induced lupus erythematosus : Chronic condition attributed to hydralazine use. Type 2 diabetes mellitus : Known history; current glucose 161 mg/dL. Inflammatory arthritis : Chronic condition; no acute issues noted today. Anxiety disorder : Chronic; no acute management changes discussed. Follow-up : Need for continued outpatient care after stabilization. - Coordinate outpatient follow-up appointments for hypertension management and spine surgery evaluation. - Ensure medication reconciliation with /family to confirm home regimen. PDMP PDMP Reviewed: Not Reviewed Attestations Medical Necessity Statement*: Admission over 2 midnights anticipated for assessment and management of hypertensive urgency with poorly controlled hypertension, altered mental status, acute encephalopathy, hypertensive encephalopathy, possible contributing medication related or other encephalopathy. Diagnoses Hypertensive urgency I16.0 Acute encephalopathy G93.40
[2025-06-14 09:17] LABS: LAB Peripheral Smear Sent for Review
[2025-06-14] MEDS: nicardipine 20 MG/200 ML PREMIX 50 MG IV (10:40)
--- NOTE | 2025-06-14 10:45 | PC.NURSE ---
Patient refused lovenox stating, the last time she was admitted and you gave her that shot, her platelets got really low and it was a big mess. Dr. Woodward notified of this and verbal order received to DC lovenox order.
[2025-06-14 10:48] LABS: Procalcitonin 0.19 ng/mL (0-0.5)
[2025-06-14 10:49] LABS: Thyroid Stimulating Hormone 0.37 uIU/mL (0.27-4.20)
[2025-06-14 11:00] LABS: Alanine Aminotransferase 18 U/L (0-33); Albumin Level 3.2 g/dL (3.5-5.2); Alkaline Phosphatase 62 U/L (35-105); Anion Gap 20.9 (5-19); Aspartate Amino Transferase 18 U/L (0-32); Blood Urea Nitrogen 28 mg/dL (8-23); Calcium 8.6 mg/dL (8.5-10.5); Carbon Dioxide 20 mmol/L (22-29); Chloride 104 mmol/L (98-107); Creatinine Clr Calc Pharmacy 54.5402; Globulin 2.6 g/dL (1.3-4.6); Glucose 114 mg/dL (65-115); Osmolality Calculated 298 mOsm/kg (285-295); Potassium 3.9 mmol/L (3.5-5.1); Sodium 141 mmol/L (136-145); Total Protein 5.8 g/dL (6.6-8.7)
[2025-06-14 11:37] LABS: Hematocrit 28.9 % (36-47); Hemoglobin 9.20 g/dL (11.27-16.99); Mean Corpuscular HGB Conc 31.8 g/dL (30-55); Mean Corpuscular Hemoglobin 31.1 pg (27-33); Mean Corpuscular Volume 97.6 fl (85-98); Nucleated Red Blood Cells % 0 %; Platelet Count 210 10^3/cmm (157-399); Red Blood Count 2.96 10^6/uL (3.85-5.65); White Blood Count 8.87 10^3/uL (3.29-11.43)
--- NOTE | 2025-06-14 12:19 | PC.NURSE ---
Upon arrival to ICU 6, sub-conjunctival hemorrhage present. Patients states this is the reason he originally brought her to the hospital.
[2025-06-14 12:28] LABS: Slide Review Slide Review Perform
--- NOTE | 2025-06-14 12:44 | MRR_ITS ---
PROCEDURE INFORMATION: Exam: MR Head Without Contrast Exam date and time: 06/14/2025 2:15 PM Age: 75 years old Clinical indication: Altered mental status/memory loss; Confusion or disorientation; Additional info: AMS TECHNIQUE: Imaging protocol: Magnetic resonance imaging of the head without contrast. COMPARISON: CT head wo con* [id number] 06/13/2025 7:41 PM FINDINGS: Brain: Hippocampi appear symmetric in size and signal intensity without evidence of mesial temporal sclerosis. There are areas of increased FLAIR signal in the cerebral white matter, consistent with microvascular disease. Diffusion images are normal. No evidence of acute infarction. No evidence of acute intracranial hemorrhage. No extra-axial fluid collections. There is no evidence of mass-effect or midline shift. Flow voids of [place] and major cerebral vascular structures appear intact. Cerebral ventricles: Ventricles and cerebrospinal fluid spaces are normal in size and configuration for the patient's age. Bones: No evidence of acute osseous abnormality. Craniocervical junction appears unremarkable, with normal position of cerebellar tonsils and no evidence of Chiari I malformation. Paranasal sinuses: Unremarkable as visualized. No acute sinusitis. Mastoid air cells: No significant mastoid effusion. Orbital cavities: There have been bilateral intraocular lens replacements likely related to cataract surgery. Soft tissues: Unremarkable as visualized. Other findings: No acute or chronic hemorrhage. MR/MR head wo con* [id number] IMPRESSION: Changes of aging. No acute infarct, acute hemorrhage, or evidence of mass.
--- NOTE | 2025-06-14 13:35 | PC.NURSE ---
Patients , Quinn, stated he would not be able to spend the night to redirect patient from pulling IV or attempting to get out of bed. Dr. Woodward contacted via voalte for 1:1 sitter order.
--- NOTE | 2025-06-14 13:37 | P.PN_ITS ---
Subjective 2 Subjective: Patient was seen this morning, is at bedside she is alert to person, not to place, not to time, does not follow commands, she has a blank stare, pupils are equal round reactive to light, she moves bilateral upper lower extremities, she looks towards her , tells me that this mentation is new for her, does not appear to be in acute distress, Vitals/I&O/Wt Last Vital Signs Temp 98.2 F 06/13/25 19:16 Pulse 107 H 06/14/25 12:35 Resp 15 06/14/25 12:35 BP 149/79 06/14/25 12:35 Pulse Ox 96 06/14/25 12:35 O2 Del Method Room Air 06/14/25 12:35 06/13/25 06/14/25 06/14/25 22:59 06:59 14:59 Intake Total 510.417 / 510.417 237.917 / 237.917 Balance 510.417 / 510.417 237.917 / 237.917 Weight last 48 hrs Weight 65.771 kg Weight 58.967 kg Physical Exam 2 Const: COMMON NORMALS: no acute distress EXAM LIMITATIONS: altered mental status ORIENTATION/CONSCIOUSNESS: Yes awake, Yes oriented to person and Yes confused; not oriented to place and not oriented to time Eye: COMMON NORMALS: Equal, round and reactive pupils present PUPIL: Yes Equal, round and reactive pupils present Resp: COMMON NORMALS: normal respiratory effort, No retractions, No use of accessory muscles and clear to auscultation bilaterally AUSCULTATION: clear to auscultation bilaterally Cardio: COMMON NORMALS: regular rate, regular rhythm, S1 normal heart sound present and S2 normal heart sound present RATE: regular rate RHYTHM: r egular rhythm HEART SOUNDS: S1 normal heart sound present and S2 normal heart sound present GI: COMMON NORMALS: Normal to inspection, nondistended, normoactive bowel sounds present, Soft to palpation and non-tender PALPATION: Yes Soft to palpation Extremity: COMMON NORMALS: no pedal edema Neuro: COMMON NORMALS: moves all extremities SENSORIUM/ORIENTATION: Yes oriented to person, No oriented to place and No oriented to time Urinary Catheter Management: Vega: Cath Placed During This Visit: yes Reason for Continuing Indwelling Catheter: Accurate Measurement of Urinary Output in Critically Ill Patients Urinary Catheter Date of Insertion: 06/14/25 Urinary Catheter Time of Insertion: 04:12 Data 06/14/25 10:46 06/14/25 09:35 Micro: Microbiology 06/13/25 20:17 Blood Culture - Preliminary Blood SPECIMEN COLLECTED 06/13/25 20:20 Blood Culture - Preliminary Blood SPECIMEN COLLECTED A&P Assessment and plan 1. Hypertensive urgency: 2. Acute encephalopathy: Plan: Acute encephalopathy - Possible press syndrome with the patient's hypertensive urgency - CT head no acute findings - UA within normal limits - CT chest no acute infection - CT abdomen no acute infection - No significant inflammatory marker elevation -Possible polypharmacy, patient is on close alarm, oxycodone, tramadol at home -Possible encephalopathy associate with steroids Plan -Currently on a Cardene drip - Resume p.o. clonidine -Follow-up blood cultures -Follow inflammatory markers - Neurochecks - NIH stroke scale - Aspiration precautions - Keep n.p.o. Hypertensive urgency - Continue Cardene drip - Continue clonidine - Add lisinopril Orthostatic hypotension : Monitor Thrombocytopenia : - Monitor thrombocytopenia Chronic lumbar spinal stenosis with radiculopathy and back pain : - Monitor Drug-induced lupus erythematosus : -Chronic condition attributed to hydralazine use -Avoid use of hydralazine Type 2 diabetes mellitus : Low-dose sliding scale Inflammatory arthritis : Monitor Anxiety disorder : Hold Xanax monitor mentation Left eye, corneal abrasion, conjunctival injection, monitor PDMP PDMP Reviewed: Last Reviewed 06/14/25 15:58 by Michele Woodward MD Attestations 2 Medical Necessity Statement*: Patient requires hospitalization for acute encephalopathy Diagnoses Hypertensive urgency I16.0 Acute encephalopathy G93.40
--- NOTE | 2025-06-14 15:49 | PC.NURSE ---
Dr. Woodward contacted via telephone, Pharmacy is unable to provide Verapamil SR 120mg.
--- NOTE | 2025-06-14 22:10 | PC.NURSE ---
Physician informed of patient being completely altered and unable to take PO meds.
[2025-06-15] VITALS (63 sets, daily range): BP systolic 117–179; BP diastolic 67–132; PULSE 81–131; RESP 13–27; TEMP 36.7–36.8; O2SAT 94–100
[2025-06-15] MEDS: nicardipine 20 MG/200 ML PREMIX 25 MG IV (00:51)
[2025-06-15 04:18] LABS: Hematocrit 26.9 % (36-47); Hemoglobin 8.70 g/dL (11.27-16.99); Mean Corpuscular HGB Conc 32.3 g/dL (30-55); Mean Corpuscular Hemoglobin 31.4 pg (27-33); Mean Corpuscular Volume 97.1 fl (85-98); Nucleated Red Blood Cells % 0 %; Platelet Count 181 10^3/cmm (157-399); Red Blood Count 2.77 10^6/uL (3.85-5.65); White Blood Count 10.04 10^3/uL (3.29-11.43)
[2025-06-15 04:43] LABS: Anion Gap 15.0 (5-19); Blood Urea Nitrogen 28 mg/dL (8-23); Calcium 8.5 mg/dL (8.5-10.5); Carbon Dioxide 22 mmol/L (22-29); Chloride 107 mmol/L (98-107); Creatinine Clr Calc Pharmacy 54.5402; Glucose 102 mg/dL (65-115); Osmolality Calculated 296 mOsm/kg (285-295); Potassium 4.0 mmol/L (3.5-5.1); Sodium 140 mmol/L (136-145)
--- NOTE | 2025-06-15 05:49 | PC.NURSE ---
When patient became more arousable. patient then began crying and yelling hystericallly. Patient trying to pull out IV's and climb from bed while still disoriented at high risk of falling. Tried to comfort and soothe patient and deescalate. Attempt failed. Patient given haloperidol to calm.
[2025-06-15] MEDS: morphine 4 mg/mL SDV 1 mL 2 MG IVP (06:28)
--- NOTE | 2025-06-15 06:28 | XRR_ITS ---
PROCEDURE INFORMATION: Exam: XR Abdomen Exam date and time: 06/15/2025 8:52 AM Age: 75 years old Clinical indication: Abdominal pain; Prior surgery; Surgery date: 6+ months; Surgery type: Lumbar fusion, gb, hysterectomy; Additional info: Abdo pain TECHNIQUE: Imaging protocol: Radiologic exam of the abdomen. Views: 2 Views. Upright and supine views. COMPARISON: CT abdomen pelvis w con* [id number] 06/11/2025 2:59 PM FINDINGS: Gastrointestinal tract: Normal. No bowel dilation. Intraperitoneal space: Normal. No free air. Bones/joints: There are postoperative changes involving the lumbar spine. XR/XR acute abdomen series [id number] IMPRESSION: No acute findings.
[2025-06-15] MEDS: LORazepam 1 MG/0.5 ML injection IVP (07:37)
--- NOTE | 2025-06-15 12:16 | P.PN_ITS ---
Subjective 2 Subjective: Patient was seen this morning, she is alert oriented x 3, she follows all commands, denies any chest pain, no palpitations, no shortness of breath, no nausea, no vomiting, no headache, no blurry vision, is at bedside, she does complain of lower back pain, there is plans on doing surgery for lumbar fusion, Vitals/I&O/Wt Last Vital Signs Temp 98.1 F 06/15/25 09:30 Pulse 92 06/15/25 09:30 Resp 14 06/15/25 09:30 BP 117/67 06/15/25 09:00 Pulse Ox 100 06/15/25 09:30 O2 Del Method Room Air 06/15/25 09:30 06/14/25 06/15/25 06/15/25 22:59 06:59 14:59 Intake Total 0 / 237.917 40.833 / 278.750 200 / 200 Output Total 800 / 800 600 / 1400 Balance -800 / -562.083 -559.167 / -1121.250 200 / 200 Weight last 48 hrs Weight 63 kg Weight 63 kg Weight 65.771 kg Weight 58.967 kg Physical Exam 2 Const: COMMON NORMALS: no acute distress and patient oriented x3 Resp: COMMON NORMALS: normal respiratory effort, No retractions, No use of accessory muscles and clear to auscultation bilaterally AUSCULTATION: clear to auscultation bilaterally Cardio: COMMON NORMALS: regular rate, regular rhythm, S1 normal heart sound present and S2 normal heart sound present RATE: regular rate RHYTHM: r egular rhythm HEART SOUNDS: S1 normal heart sound present and S2 normal heart sound present GI: COMMON NORMALS: Normal to inspection, nondistended, normoactive bowel sounds present and non-tender Extremity: COMMON NORMALS: no pedal edema Neuro: COMMON NORMALS: patient oriented x3, CN's II-XII intact bilaterally and moves all extremities Psych: COMMON NORMALS: mental status grossly normal Urinary Catheter Management: Vega: Cath Placed During This Visit: yes Reason for Continuing Indwelling Catheter: Accurate Measurement of Urinary Output in Critically Ill Patients Urinary Catheter Date of Insertion: 06/14/25 Urinary Catheter Time of Insertion: 04:12 Data 06/15/25 03:50 06/15/25 03:50 Micro: Microbiology 06/13/25 20:17 Blood Culture - Preliminary Blood NEGATIVE TO DATE 06/13/25 20:20 Blood Culture - Preliminary Blood NEGATIVE TO DATE A&P Assessment and plan 1. Hypertensive urgency: 2. Acute encephalopathy: Plan: Acute encephalopathy - Possible press syndrome with the patient's hypertensive urgency - CT head no acute findings - UA within normal limits - CT chest no acute infection - CT abdomen no acute infection - No significant inflammatory marker elevation -Possible polypharmacy, patient is on close alarm, oxycodone, tramadol at home -Possible encephalopathy associate with steroids - MRI within normal limits Plan -Currently on a Cardene drip, will wean off today - Resume p.o. clonidine -Follow-up blood cultures -Follow inflammatory markers - Neurochecks - NIH stroke scale - Aspiration precautions - Advance diet as tolerated Hypertensive urgency - Continue Cardene drip, wean off - Continue clonidine - Add lisinopril Orthostatic hypotension : Monitor Thrombocytopenia : - Monitor thrombocytopenia Chronic lumbar spinal stenosis with radiculopathy and back pain : - Monitor Drug-induced lupus erythematosus : -Chronic condition attributed to hydralazine use -Avoid use of hydralazine Type 2 diabetes mellitus : Low-dose sliding scale Inflammatory arthritis : Monitor Anxiety disorder : Hold Xanax monitor mentation Left eye, corneal abrasion, conjunctival injection, monitor PDMP PDMP Reviewed: Last Reviewed 06/14/25 15:58 by Michele Woodward MD Attestations 2 Medical Necessity Statement*: Patient requires hospitalization for acute encephalopathy, moved out of ICU to medical floors Diagnoses Hypertensive urgency I16.0 Acute encephalopathy G93.40
[2025-06-16] VITALS (77 sets, daily range): BP systolic 110–200; BP diastolic 68–149; PULSE 69–104; RESP 12–30; TEMP 36.1–36.7; O2SAT 97–100; BMI 24.0
[2025-06-16] MEDS: haloperidol inj 5 mg/mL INJ 1 mL 1 MG IM (00:08)
[2025-06-16] MEDS: valproic acid inj 250 MG in sodium chloride 0.9% 50 ML 55 MG IV (02:03)
[2025-06-16] MEDS: dexmedeTOMIDine 0.9 % NaCL 400 MCG/100 ML PREMIX IV (03:37)
--- NOTE | 2025-06-16 05:33 | PC.NURSE ---
NIH: unable to assess, patient too confused.
[2025-06-16] MEDS: nicardipine 20 MG/200 ML PREMIX 25 MG IV (06:13)
[2025-06-16] MEDS: haloperidol inj 5 mg/mL INJ 1 mL 2 MG IM ×2 (06:46→06:47)
--- NOTE | 2025-06-16 06:52 | PC.NURSE ---
Agitation: Patient's agitation and confusion continued to worsen throughout the night with screaming and attempting to get out of bed, Dr. Diaz was informed of the patient's status and gave telephone orders to give 1mg IM haldol and start precedex if needed. Haldol had no effect on patient's impulsiveness, Dr. Schmidt was contacted in hopes of only starting precedex as a last resort, valproic acid infusion was ordered. This also did not have any effect on the patient. Precedex was started. Patient continued to scream for help, attempt to get out of bed, and make threats to staff, patient and was also very hypertensive. Dr. Schmidt gave telephone orders to give 2mg haldol IM ONCE, start the nicardipene gtt low dose, and give scheduled 0900 labetalol early.
--- NOTE | 2025-06-16 08:07 | PC.SOCIAL ---
IMM Update Pg. 2 of IMM updated and reviewed with patient, who verbalized understanding. Copy provided.
[2025-06-16] MEDS: dexmedeTOMIDine 0.9 % NaCL 400 MCG/100 ML PREMIX 9.45 MCG IV (09:53)
[2025-06-16 12:54] LABS: Hematocrit 27.8 % (36-47); Hemoglobin 9.10 g/dL (11.27-16.99); Mean Corpuscular HGB Conc 32.7 g/dL (30-55); Mean Corpuscular Hemoglobin 31.8 pg (27-33); Mean Corpuscular Volume 97.2 fl (85-98); Nucleated Red Blood Cells % 0 %; Platelet Count 183 10^3/cmm (157-399); Red Blood Count 2.86 10^6/uL (3.85-5.65); White Blood Count 7.71 10^3/uL (3.29-11.43)
[2025-06-16 13:19] LABS: Anion Gap 17.6 (5-19); Blood Urea Nitrogen 18 mg/dL (8-23); Calcium 8.7 mg/dL (8.5-10.5); Carbon Dioxide 20 mmol/L (22-29); Chloride 107 mmol/L (98-107); Creatinine Clr Calc Pharmacy 52.9267; Glucose 123 mg/dL (65-115); Osmolality Calculated 295 mOsm/kg (285-295); Potassium 3.6 mmol/L (3.5-5.1); Sodium 141 mmol/L (136-145)
--- NOTE | 2025-06-16 17:20 | P.PN_ITS ---
Subjective 2 Subjective: Patient was seen this morning, currently alert to person, not to place, not to time she is actively hallucinating during our conversations, she had episodes of hallucination and agitation during the night requiring Haldol, Depakote, is at bedside I cannot discern any facial droop, no slurring of her words, she moves bilateral upper lower extremities Vitals/I&O/Wt Last Vital Signs Temp 97.0 F L 06/16/25 12:45 Pulse 76 06/16/25 14:00 Resp 15 06/16/25 12:45 BP 172/93 06/16/25 15:19 Pulse Ox 99 06/16/25 12:45 O2 Del Method Room Air 06/16/25 12:45 06/16/25 06/16/25 06/16/25 06:59 14:59 22:59 Intake Total 102.191 / 1059.691 376.019 / 376.019 Output Total 1300 / 2800 1900 / 1900 Balance -1197.809 / -1740.309 -1523.981 / -1523.981 Weight last 48 hrs Weight 61.5 kg Weight 63 kg Weight 63 kg Physical Exam 2 Const: COMMON NORMALS: no acute distress ORIENTATION/CONSCIOUSNESS: Yes awake, Yes oriented to person and Yes confused; not oriented to place and not oriented to time Resp: COMMON NORMALS: normal respiratory effort, No retractions, No use of accessory muscles and clear to auscultation bilaterally AUSCULTATION: clear to auscultation bilaterally Cardio: COMMON NORMALS: regular rate, regular rhythm, S1 normal heart sound present and S2 normal heart sound present RATE: regular rate RHYTHM: r egular rhythm HEART SOUNDS: S1 normal heart sound present and S2 normal heart sound present GI: COMMON NORMALS: Normal to inspection, nondistended, normoactive bowel sounds present and non-tender Extremity: COMMON NORMALS: no pedal edema Neuro: SENSORIUM/ORIENTATION: Yes oriented to person, No oriented to place and No oriented to time Psych: COMMON NORMALS: mental status grossly normal Urinary Catheter Management: Vega: Cath Placed During This Visit: yes Reason for Continuing Indwelling Catheter: Accurate Measurement of Urinary Output in Critically Ill Patients Urinary Catheter Date of Insertion: 06/14/25 Urinary Catheter Time of Insertion: 04:12 Data 06/16/25 12:21 06/16/25 12:21 A&P Assessment and plan 1. Hypertensive urgency: 2. Acute encephalopathy: Plan: Acute encephalopathy - Possible press syndrome with the patient's hypertensive urgency - CT head no acute findings - UA within normal limits - CT chest no acute infection - CT abdomen no acute infection - No significant inflammatory marker elevation -Possible polypharmacy, patient is on close alarm, oxycodone, tramadol at home -Possible encephalopathy associate with steroids - MRI within normal limits -She had a hospitalization May 03 for acute renal failure, weight loss -Presented again June 01 for a fall, lumbar spinal stenosis, had thrombocytopenia -Had another ER visit June 13 for weakness - She is chronically on leflunomide for inflammatory arthritis -Carotid artery ultrasound within normal limits Plan - Was placed on Cardene drip overnight, wean off Cardene drip today - Resume p.o. 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
[2025-06-16 17:59] LABS: Glucose Urine UA Negative (Normal); Nitrate Urine Negative (Negative); Specific Gravity, Urine 1.011 (1.005-1.030)
[2025-06-16 18:01] LABS: Add Urine Microscopic? YES
--- NOTE | 2025-06-16 18:26 | PC.NURSE ---
SHift SUmmary: Up to a chair for most of the day. Attempted to wean off of precedex, got down to 0.3mcg, but eventually had to increase back up to 0.9mcg due to agitation and aggression. Amlodipine and abilify added. Mental state: Oriented to self only, occasionally place. Frequently crying. Fixated on horses which she hasn't owned for 20 years. Has had two aggressive outbursts where she tried to kick staff. Ambulated patient approximately 15 feet, but this was difficult due to her lack of cooperation. Moved to ICU room 7 for a better outside view, hoping to better orient her to day/night cycle.
[2025-06-16] MEDS: dexmedeTOMIDine 0.9 % NaCL 400 MCG/100 ML PREMIX 12.6 MCG IV (19:16)
[2025-06-16 19:39] LABS: Ammonia 18 umol/L (11-51); Ferritin 286 ng/mL (15-150); Iron 63 ug/dL (37-145)
[2025-06-16 19:45] LABS: Procalcitonin 0.21 ng/mL (0-0.5)
[2025-06-16] MEDS: haloperidol inj 5 mg/mL INJ 1 mL IM (22:35)
[2025-06-16] MEDS: LORazepam 1 MG/0.5 ML injection IVP (23:25)
[2025-06-17] VITALS (92 sets, daily range): BP systolic 104–187; BP diastolic 56–146; PULSE 67–166; RESP 13–27; TEMP 36–36.9; O2SAT 90–100
[2025-06-17] MEDS: dexmedeTOMIDine 0.9 % NaCL 400 MCG/100 ML PREMIX 15.75 MCG IV (01:53)
--- NOTE | 2025-06-17 05:15 | PC.NURSE ---
Received approval from Dr Peterson to hold patient's 0200 PO xanax. Patient currently not alert enough to take pills safely.
[2025-06-17 05:54] LABS: Hematocrit 32.2 % (36-47); Hemoglobin 10.70 g/dL (11.27-16.99); Mean Corpuscular HGB Conc 33.2 g/dL (30-55); Mean Corpuscular Hemoglobin 31.8 pg (27-33); Mean Corpuscular Volume 95.8 fl (85-98); Nucleated Red Blood Cells % 0 %; Platelet Count 198 10^3/cmm (157-399); Red Blood Count 3.36 10^6/uL (3.85-5.65); White Blood Count 7.52 10^3/uL (3.29-11.43)
[2025-06-17 06:09] LABS: Anion Gap 18.5 (5-19); Blood Urea Nitrogen 16 mg/dL (8-23); Calcium 9.2 mg/dL (8.5-10.5); Carbon Dioxide 22 mmol/L (22-29); Chloride 104 mmol/L (98-107); Creatinine Clr Calc Pharmacy 52.1413; Glucose 102 mg/dL (65-115); Osmolality Calculated 293 mOsm/kg (285-295); Potassium 3.5 mmol/L (3.5-5.1); Sodium 141 mmol/L (136-145)
[2025-06-17] MEDS: hyDRALAzine 20 mg/mL INJ 1 mL 10 MG IVP ×2 (06:35→12:41)
[2025-06-17] MEDS: LORazepam 1 MG/0.5 ML injection IVP ×4 (07:28→13:06)
[2025-06-17] MEDS: haloperidol inj 5 mg/mL INJ 1 mL 1 MG IM (07:48)
[2025-06-17 08:54] LABS: Magnesium 2.1 mg/dL (1.7-2.3)
--- NOTE | 2025-06-17 09:52 | PC.OT ---
OT orders received and chart reviewed. OT evaluation attempted though RN requesting to hold at this time as patient has be agitated and is now resting. Will attempt evaluation at a later time.
--- NOTE | 2025-06-17 09:55 | ECG_ITS ---
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 Measurements Intervals [place] Rate: 120 P: 85 [place]: 134 QRS: 42 QRSD: 80 T: 65 QT: 312 QTc: 441 Interpretive Statements SINUS TACHYCARDIA MINIMAL VOLTAGE CRITERIA FOR LVH, CONSIDER NORMAL VARIANT [MEETS CRITERIA IN ONE OF: R(aVL), S(V1), R(V5), R(V5/V6)+S(V1)] MODERATE ST DEPRESSION [0.05+ mV ST DEPRESSION] Compared to ECG 06/13/2025 19:58:46 Possible myocardial infarct finding no longer present Electronically Signed On 06-21-2025 14:58:28 CDT by Danay [id number] [id number]
--- NOTE | 2025-06-17 12:53 | USCV_ITS ---
Holly Diez Age: 75 Gender: F : 1950 Exam Date: 06/17/2025 18:32 Ordering Phys: Michele Woodward MD Technologist: JAYESH Exam Location: [facility] – [place] Indication: nstemi, renal failure, liver failure, unresponsive in ICU-7 BP: 179 / 95 HR: 88 Rhythm: Sinus Technical Quality: Adequate MEASUREMENTS (Male / Female) Normal Values 2D ECHO LV Diastolic Diameter PLAX 3.8 cm 4.2 - 5.9 / 3.9 - 5.3 cm IVS Diastolic Thickness 1.3 cm 0.6 - 1.0 / 0.6 - 0.9 cm IVS Systolic Thickness 1.7 cm LVPW Diastolic Thickness 1.2 cm 0.6 - 1.0 / 0.6 - 0.9 cm LVPW Systolic Thickness 1.7 cm LVOT Diameter 1.9 cm LV Ejection Fraction 2D Teich 60.3 % LV Ejection Fraction MOD 4C 61.7 % LV Ejection Fraction MOD 2C 51.1 % LV Ejection Fraction 2C AL 51.1 % LA Diameter 2.4 cm Aorta at Sinotubular Diameter 2.7 cm IVC Diameter 0.9 cm M-MODE LA Ao Ratio MM 0.8 AV Cusp Separation MM 0.9 cm DOPPLER AV Peak Velocity 124.0 cm/s LVOT Peak Velocity 74.0 cm/s AV Area Cont Eq vti 1.5 cm squared AV Area Cont Eq pk 1.6 cm squared MV Peak Velocity 105.0 cm/s MV Area PHT 4.0 cm squared Mitral E to A Ratio 0.7 TV Peak E Velocity 44.0 cm/s FINDINGS Left Ventricle Left ventricle is normal in size. LV systolic function is normal with EF of 55 to 60%. No regional wall motion abnormalities are seen. Grade 1 diastolic dysfunction. Right Ventricle The right ventricle is normal in size and function. Right Atrium The right atrium is normal in size. Left Atrium The left atrium is normal in size. Mitral Valve Grossly normal. Mild mitral regurgitation Aortic Valve Aortic valve is thickened. No significant stenosis. Trace aortic regurgitation. Tricuspid Valve Insufficient TR jet to calculate RVSP Pulmonic Valve Not well-visualized Pericardium Grossly normal Aorta Grossly normal IVC The inferior vena cava appears normal. CONCLUSIONS LV systolic function is normal with EF 55 to 60%. Grade 1 diastolic dysfunction. Mild mitral regurgitation. Trace aortic regurgitation. Ranjit Block MD (Electronically Signed) Final Date: 19 June 2025 09:33 S
--- NOTE | 2025-06-17 13:11 | ECG_ITS ---
[facility] Test Date: 2025-06-17 Pat Name: Holly Diez Department: Room: ICU07 Gender: Female Manager Skilled: : 1950 Requested By: Michele Woodward Order Number: [id number] Yo MD: Ranjit Block M.D. Measurements Intervals [place] Rate: 125 P: 79 [place]: 134 QRS: 50 QRSD: 81 T: 63 QT: 312 QTc: 450 Interpretive Statements SINUS TACHYCARDIA WITH OCCASIONAL ECTOPIC PREMATURE COMPLEXES MODERATE VOLTAGE CRITERIA FOR LVH, CONSIDER NORMAL VARIANT [MEETS CRITERIA IN ONE OF: R(aVL), S(V1), R(V5), R(V5/V6)+S(V1)] MODERATE ST DEPRESSION [0.05+ mV ST DEPRESSION] Compared to ECG 06/17/2025 09:55:06 No significant changes Electronically Signed On 06-19-2025 09:04:59 CDT by Ranjit Block M.D. [email or web address] [id number]
--- NOTE | 2025-06-17 14:54 | PC.SLP ---
ROLL TENDER attempted follow-up with patient, however, patient is quite agitated and confused. ROLL TENDER will follow-up patient when the patient is able to participate in treatment.
[2025-06-17] MEDS: dexmedeTOMIDine 0.9 % NaCL 400 MCG/100 ML PREMIX 12.6 MCG IV (15:09)
[2025-06-17 15:35] LABS: Troponin(5th) Baseline 31 ng/L (0-10)
--- NOTE | 2025-06-17 16:12 | ECG_ITS ---
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 Measurements Intervals [place] Rate: 104 P: 83 [place]: 138 QRS: 41 QRSD: 85 T: 62 QT: 346 QTc: 455 Interpretive Statements SINUS TACHYCARDIA POSSIBLE LEFT ATRIAL ENLARGEMENT [-0.1mV P-WAVE IN V1/V2] MINIMAL ST DEPRESSION [0.025+ mV ST DEPRESSION] ABNORMAL RHYTHM ECG Compared to ECG 06/17/2025 13:11:43 No significant changes Electronically Signed On 06-21-2025 15:10:23 CDT by Danay [id number] [id number]
[2025-06-17] MEDS: dextrose 5%-sod chloride 0.9% 1,000 ML 125 ML IV (17:31)
--- NOTE | 2025-06-17 17:38 | P.PN_ITS ---
Subjective 2 Subjective: - Overnight events noted - Patient received Haldol, Ativan, 20 mg of Geodon without improvement of her mentation - Remains agitated this morning -Yesterday she received Depakote, with A bilify without improvement of her mentation - This morning she has received Ativan, and Abilify without improvement in her mentation - She is alert to person, not to place, time is diffusely encephalopathic, agitated, yelling out in the ICU - Her Precedex drip is also maximized - tells me that she has these ep isodes at home, that are difficult to control - Discussed monitoring her QTc interval, we will take her off the Abilify and try Zyprexa -Patient had episodes of nonsustained V. tach, no hemodynamic compromise, with episodes of sinus tachycardia discussed goals of care with , Holly is DNR/DNI, started amiodarone drip - Will consult neurology, and psychiatry -Consulted case with neurology -Consulted case with psychiatry -Discussed risk of benefits of trying Zy prexa with - Discussed risk benefits, with , he voiced understanding, all questions are, agreed to proceed - Discussed her goals of care, w negro Barrera to be DNR/DNI, discussed risks and benefits, he voiced understanding, all questions answered, agreed to proceed -Discussed risk of QTc prolongation, ris k of tachyarrhythmia, however she remains quite agitated, agrees to proceed - Reexamined multiple times throughout t he morning into the afternoon she is more calm with benzodiazepines potentially withdrawing from her Xanax which she takes regularly, - I increased her Ativan to 1 mg every 4 hours - This afternoon nursing staff tells me that she is a bit more oriented, but still having episode of agitation, discussed giving her her home Xanax, trying Zyprexa 10 mg IM every 12 hours - Will start IV fluids, recheck CMP Vitals/I&O/Wt Last Vital Signs Temp 98.4 F 06/17/25 16:00 Pulse 101 H 06/17/25 16:45 Resp 16 06/17/25 16:45 BP 179/95 06/17/25 16:45 Pulse Ox 96 06/17/25 16:45 O2 Del Method Room Air 06/16/25 17:30 06/17/25 06/17/25 06/17/25 06:59 14:59 22:59 Intake Total 88.475 / 569.634 68.755 / 68.755 183.871 / 252.626 Output Total 1650 / 3900 Balance -1561.525 / -3330.366 68.755 / 68.755 183.871 / 252.626 Weight last 48 hrs Weight 59.421 kg Weight 61.5 kg Physical Exam 2 Const: COMMON NORMALS: no acute distress ORIENTATION/CONSCIOUSNESS: Yes awake, Yes oriented to person and Yes confused; not oriented to place and not oriented to time Resp: COMMON NORMALS: normal respiratory effort, No retractions, No use of accessory muscles and clear to auscultation bilaterally AUSCULTATION: clear to auscultation bilaterally Cardio: COMMON NORMALS: regular rate, regular rhythm, S1 normal heart sound present and S2 normal heart sound present RATE: regular rate RHYTHM: r egular rhythm HEART SOUNDS: S1 normal heart sound present and S2 normal heart sound present GI: COMMON NORMALS: Normal to inspection, nondistended, normoactive bowel sounds present and non-tender Extremity: COMMON NORMALS: no pedal edema Neuro: SENSORIUM/ORIENTATION: Yes oriented to person, No oriented to place and No oriented to time Urinary Catheter Management: Vega: Cath Placed During This Visit: yes Reason for Continuing Indwelling Catheter: Accurate Measurement of Urinary Output in Critically Ill Patients Urinary Catheter Date of Insertion: 06/14/25 Urinary Catheter Time of Insertion: 04:12 Data 06/17/25 05:47 06/17/25 05:47 A&P Assessment and plan 1. Hypertensive urgency: 2. Acute encephalopathy: 3. NSVT (nonsustained ventricular tachycardia): Plan: Acute encephalopathy -Now with persistent encephalopathy and agitation - Initially concern for possible press syndrome with the patient's hypertensive urgency, however blood pressures have improved - CT head no acute findings - UA within normal limits - CT chest no acute infection - CT abdomen no acute infection - No significant inflammatory marker elevation -Possible underlying dementia as etiology -Possible withdrawal from Xanax -Possible encephalopathy associate with steroids - MRI within normal limits -She had a hospitalization May 03 for acute renal failure, weight loss -Presented again June 01 for a fall, lumbar spinal stenosis, had thrombocytopenia -Had another ER visit June 13 for weakness - She is chronically on leflunomide for inflammatory arthritis -Carotid artery ultrasound within normal limits Plan - Was placed on Cardene drip overnight, continue p.o. blood pressure medications - Resume p.o. clonidine -Follow-up blood cultures -Follow inflammatory markers - Neurochecks - NIH stroke scale - Aspiration precautions - Advance diet as tolerated - Continue home Xanax - Continue Ativan -Will try Zyprexa 10 mg IV every 12 hours - Haldol as needed Nonsustained V. tach - Amiodarone drip - Magnesium levels within normal limits, TSH within normal limits Hypertensive urgency - Continue Cardene drip, wean off - Continue clonidine - Continue p.o. 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 -Avoid use of hydralazine Type 2 diabetes mellitus : Low-dose sliding scale Inflammatory arthritis : Monitor Anxiety disorder : Resume Xanax Left eye, corneal abrasion, conjunctival injection, monitor Plan for today manage agitation, with Ativan, for home Xanax, try Zyprexa, consulted neurology, consulted psychiatry PDMP PDMP Reviewed: Last Reviewed 06/14/25 15:58 by Michele Woodward MD Attestations 2 Medical Necessity Statement*: Patient requires hospitalization for acute encephalopathy, agitation Diagnoses Hypertensive urgency I16.0 Acute encephalopathy G93.40 NSVT (nonsustained ventricular tachycardia) I47.29
[2025-06-17] MEDS: water for injection-sterile 10 ML 100 ML (17:40)
[2025-06-17 19:06] LABS: Troponin 5 2HR 29.77 ng/L (0-10)
[2025-06-17 19:07] LABS: Troponin 5 2HR Delta -1.23 ABS# (0-10)
[2025-06-17 19:35] LABS: Alanine Aminotransferase 17 U/L (0-33); Albumin Level 3.3 g/dL (3.5-5.2); Alkaline Phosphatase 61 U/L (35-105); Aspartate Amino Transferase 19 U/L (0-32); Blood Urea Nitrogen 20 mg/dL (8-23); Calcium 8.9 mg/dL (8.5-10.5); Carbon Dioxide 20 mmol/L (22-29); Chloride 102 mmol/L (98-107); Creatinine Clr Calc Pharmacy 52.1413; Globulin 2.4 g/dL (1.3-4.6); Glucose 132 mg/dL (65-115); Osmolality Calculated 294 mOsm/kg (285-295); Sodium 140 mmol/L (136-145); Total Protein 5.7 g/dL (6.6-8.7)
[2025-06-17 19:37] LABS: Anion Gap 21.3 (5-19); Potassium 3.3 mmol/L (3.5-5.1)
--- NOTE | 2025-06-17 19:49 | ECG_ITS ---
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 Measurements Intervals [place] Rate: 95 P: 87 [place]: 145 QRS: 14 QRSD: 84 T: 53 QT: 367 QTc: 462 Interpretive Statements SINUS RHYTHM WITH FREQUENT SUPRAVENTRICULAR PREMATURE COMPLEXES NONSPECIFIC ST & T-WAVE ABNORMALITY ABNORMAL RHYTHM ECG Compared to ECG 06/17/2025 16:12:00 Sinus tachycardia no longer present Electronically Signed On 06-21-2025 14:59:02 CDT by Danay [id number] [id number]
--- NOTE | 2025-06-17 20:19 | PC.NURSE ---
Patient has 2000 PO meds, Xanax, Labetalol and Clonidine due but is not alert and oriented and did not feel it was safe to admin them PO. Provider notified and given orders to nonadmin medications due at 1999.
[2025-06-17] MEDS: dexmedeTOMIDine 0.9 % NaCL 400 MCG/100 ML PREMIX 18.9 MCG IV (21:50)
[2025-06-17 22:03] LABS: Troponin 5 6HR 28.89 ng/L (0-10)
[2025-06-17 22:04] LABS: Troponin 5 6HR Delta -2.11 ng/L (0-12)
[2025-06-18] VITALS (136 sets, daily range): BP systolic 72–195; BP diastolic 48–136; PULSE 61–132; RESP 12–34; TEMP 36.3–36.8; O2SAT 93–100
[2025-06-18] MEDS: dexmedeTOMIDine 0.9 % NaCL 400 MCG/100 ML PREMIX 18.9 MCG IV (02:51)
--- NOTE | 2025-06-18 02:53 | PC.NURSE ---
Addendum entered by NURY Tamayo 06/18/25 03:42: Shortly after this patient became very agitated and was yelling help loudly as she had the previous night and attempting to get out of bed. She became very hypertensive as well. Ativan administered. Original Note: Patient not as agitated currently but is hallucinating. Stating she sees a bridge and asking how deep the water is, as well as asking if there is a hole up there to get out because she has horses to take care of.
[2025-06-18] MEDS: LORazepam 1 MG/0.5 ML injection IVP (03:28)
--- NOTE | 2025-06-18 05:31 | PC.NURSE ---
Patient very agitated when lab made morning rounds. Requested they come back after administration of Zyprexa had taken effect.
[2025-06-18] MEDS: dextrose 5%-sod chloride 0.9% 1,000 ML 125 ML IV ×3 (05:44→22:18)
[2025-06-18] MEDS: dexmedeTOMIDine 0.9 % NaCL 400 MCG/100 ML PREMIX 17.33 MCG IV ×2 (08:55→15:15)
[2025-06-18 09:30] LABS: Hematocrit 30.1 % (36-47); Hemoglobin 9.60 g/dL (11.27-16.99); Mean Corpuscular HGB Conc 31.9 g/dL (30-55); Mean Corpuscular Hemoglobin 30.7 pg (27-33); Mean Corpuscular Volume 96.2 fl (85-98); Nucleated Red Blood Cells % 0 %; Platelet Count 181 10^3/cmm (157-399); Red Blood Count 3.13 10^6/uL (3.85-5.65); White Blood Count 5.61 10^3/uL (3.29-11.43)
[2025-06-18 09:47] LABS: Anion Gap 15.8 (5-19); Blood Urea Nitrogen 15 mg/dL (8-23); Calcium 8.5 mg/dL (8.5-10.5); Carbon Dioxide 23 mmol/L (22-29); Chloride 104 mmol/L (98-107); Creatinine Clr Calc Pharmacy 52.4839; Glucose 134 mg/dL (65-115); Osmolality Calculated 293 mOsm/kg (285-295); Sodium 140 mmol/L (136-145)
[2025-06-18 09:51] LABS: Potassium 2.8 mmol/L (3.5-5.1)
--- NOTE | 2025-06-18 09:55 | PC.NURSE ---
Critical lab called to Dr. Woodward received orders for IV k-rider, orders placed. See MAR.
--- NOTE | 2025-06-18 09:57 | PC.SOCIAL ---
IMM Updated Updated pt on IMM. No questions voiced. Provided pt a copy. Initialed, dated, & timed copy in chart.
[2025-06-18] MEDS: lidocaine 1% 5 ML in potassium chloride premix 100 ML 26.25 ML IV (10:14)
[2025-06-18] MEDS: morphine 4 mg/mL SDV 1 mL 2 MG IVP (11:37)
--- NOTE | 2025-06-18 13:12 | P.PN_ITS ---
Subjective 2 Subjective: Patient was seen this morning, is at bedside she is on amiodarone drip, Precedex drip she is more alert this morning, she can follow some commands but at times continues to have diffuse encephalopathy less agitation, she tolerated Zyprexa, discussed continue Zyprexa, continue Ativan, continue her home Xanax and ask, weaning her off amiodarone drip, encouraging p.o. intake Vitals/I&O/Wt Last Vital Signs Temp 98.2 F 06/18/25 08:30 Pulse 85 06/18/25 12:30 Resp 22 H 06/18/25 12:30 BP 148/85 06/18/25 12:30 Pulse Ox 98 06/18/25 12:30 O2 Del Method Room Air 06/16/25 17:30 06/17/25 06/18/25 06/18/25 22:59 06:59 14:59 Intake Total 293.871 / 362.626 473.762 / 836.388 123.722 / 123.722 Output Total 300 / 300 400 / 700 Balance -6.129 / 62.626 73.762 / 136.388 123.722 / 123.722 Weight last 48 hrs Weight 60.328 kg Weight 60.328 kg Weight 59.421 kg Physical Exam 2 Const: COMMON NORMALS: no acute distress ORIENTATION/CONSCIOUSNESS: Yes awake, Yes oriented to person and Yes oriented to place; not oriented to time Resp: COMMON NORMALS: normal respiratory effort, No retractions, No use of accessory muscles and clear to auscultation bilaterally AUSCULTATION: clear to auscultation bilaterally Cardio: COMMON NORMALS: regular rate, regular rhythm, S1 normal heart sound present and S2 normal heart sound present RATE: regular rate RHYTHM: r egular rhythm HEART SOUNDS: S1 normal heart sound present and S2 normal heart sound present GI: COMMON NORMALS: Normal to inspection, nondistended, normoactive bowel sounds present and non-tender Extremity: COMMON NORMALS: no pedal edema Neuro: SENSORIUM/ORIENTATION: Yes oriented to person, Yes oriented to place and No oriented to time Psych: COMMON NORMALS: mental status grossly normal Urinary Catheter Management: Vega: Cath Placed During This Visit: yes Reason for Continuing Indwelling Catheter: Accurate Measurement of Urinary Output in Critically Ill Patients Urinary Catheter Date of Insertion: 06/14/25 Urinary Catheter Time of Insertion: 04:12 Data 06/18/25 09:18 06/18/25 09:18 A&P Assessment and plan 1. Hypertensive urgency: 2. Acute encephalopathy: 3. NSVT (nonsustained ventricular tachycardia): Plan: Acute encephalopathy -Now with persistent encephalopathy and agitation - Initially concern for possible press syndrome with the patient's hypertensive urgency, however blood pressures have improved - CT head no acute findings - UA within normal limits - CT chest no acute infection - CT abdomen no acute infection - No significant inflammatory marker elevation -Possible underlying dementia as etiology -Possible withdrawal from Xanax -Possible encephalopathy associate with steroids - MRI within normal limits -She had a hospitalization May 03 for acute renal failure, weight loss -Presented again June 01 for a fall, lumbar spinal stenosis, had thrombocytopenia -Had another ER visit June 13 for weakness - She is chronically on leflunomide for inflammatory arthritis -Carotid artery ultrasound within normal limits Plan - Was placed on Cardene drip overnight, continue p.o. blood pressure medications - Resume p.o. clonidine -Follow-up blood cultures -Follow inflammatory markers - Neurochecks - NIH stroke scale - Aspiration precautions - Advance diet as tolerated - Continue home Xanax - Continue Ativan as needed - Zyprexa 10 mg IV every 12 hours - Haldol as needed Nonsustained V. tach - Amiodarone drip - Magnesium levels within normal limits, TSH within normal limits Hypertensive urgency - Continue Cardene drip, wean off - Continue clonidine - Continue p.o. 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 -Avoid use of hydralazine Type 2 diabetes mellitus : Low-dose sliding scale Inflammatory arthritis : Monitor Anxiety disorder : Resume Xanax Left eye, corneal abrasion, conjunctival injection, monitor Plan for today manage agitation, with Ativan, for home Xanax, Zyprexa, consulted neurology, consulted psychiatry, amiodarone drip, Precedex drip PDMP PDMP Reviewed: Last Reviewed 06/14/25 15:58 by Michele Woodward MD Attestations 2 Medical Necessity Statement*: Patient requires hospitalization for acute encephalopathy, agitation Coding Level of Care Code Acute Code for Chg Fwd Diagnoses Hypertensive urgency I16.0 Acute encephalopathy G93.40 NSVT (nonsustained ventricular tachycardia) I47.29
[2025-06-18] MEDS: dexmedeTOMIDine 0.9 % NaCL 400 MCG/100 ML PREMIX IV (22:34)
--- NOTE | 2025-06-18 23:57 | PC.NURSE ---
2139 patient hypotensive and lethargic. Precedex stopped and Dr. finley called for orders. 500 cc NS bolus ordered
[2025-06-19] VITALS (29 sets, daily range): BP systolic 98–188; BP diastolic 51–149; PULSE 78–166; RESP 12–43; TEMP 36.1–36.7; O2SAT 91–100
[2025-06-19] MEDS: LORazepam 1 MG/0.5 ML injection IVP (03:31)
[2025-06-19] MEDS: morphine 4 mg/mL SDV 1 mL 2 MG IVP ×2 (03:56→12:05)
[2025-06-19 06:41] LABS: Hematocrit 30.3 % (36-47); Hemoglobin 9.70 g/dL (11.27-16.99); Mean Corpuscular HGB Conc 32.0 g/dL (30-55); Mean Corpuscular Hemoglobin 31.4 pg (27-33); Mean Corpuscular Volume 98.1 fl (85-98); Nucleated Red Blood Cells % 0 %; Platelet Count 194 10^3/cmm (157-399); Red Blood Count 3.09 10^6/uL (3.85-5.65); White Blood Count 8.15 10^3/uL (3.29-11.43)
[2025-06-19 06:56] LABS: Anion Gap 15.0 (5-19); Blood Urea Nitrogen 15 mg/dL (8-23); Calcium 8.5 mg/dL (8.5-10.5); Carbon Dioxide 23 mmol/L (22-29); Chloride 106 mmol/L (98-107); Creatinine Clr Calc Pharmacy 53.7517; Glucose 145 mg/dL (65-115); Osmolality Calculated 295 mOsm/kg (285-295); Potassium 3.0 mmol/L (3.5-5.1); Sodium 141 mmol/L (136-145)
--- NOTE | 2025-06-19 11:22 | ECG_ITS ---
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 Measurements Intervals [place] Rate: 122 P: 71 [place]: 162 QRS: 2 QRSD: 89 T: 73 QT: 321 QTc: 459 Interpretive Statements SINUS TACHYCARDIA WITH FREQUENT SUPRAVENTRICULAR PREMATURE COMPLEXES NONSPECIFIC ST & T-WAVE ABNORMALITY ABNORMAL RHYTHM ECG Compared to ECG 06/17/2025 19:49:34 NO CHANGE Electronically Signed On 06-20-2025 18:54:19 CDT by Danay [email or web address] [id number]
--- NOTE | 2025-06-19 14:15 | PICC.NOTE ---
PICC referral made on nights due to poor access. Pt currently has peripheral access. Bedside nurse feels PICC is not needed at this time. Dr. Woodward notified. PICC cancelled.
--- NOTE | 2025-06-19 14:37 | P.PN_ITS ---
Subjective 2 Subjective: Patient was seen this morning, is at bedside she is alert to person, not place, time she can follow some commands but remains diffusely encephalopathic discussed with nursing Sitting up in a chair, resuming her Zyprexa, Xanax, Vitals/I&O/Wt Last Vital Signs Temp 98 F 06/19/25 04:00 Pulse 141 H 06/19/25 10:00 Resp 20 H 06/19/25 12:05 BP 169/136 06/19/25 10:00 Pulse Ox 96 06/19/25 12:05 O2 Del Method Room Air 06/19/25 00:00 06/18/25 06/19/25 06/19/25 22:59 06:59 14:59 Intake Total 2807.917 / 4031.639 12.193 / 4043.832 Output Total 800 / 800 250 / 1050 Balance 2006.917 / 3231.639 -237.807 / 2993.832 Weight last 48 hrs Weight 63.684 kg Weight 60.328 kg Weight 60.328 kg Physical Exam 2 Const: COMMON NORMALS: no acute distress ORIENTATION/CONSCIOUSNESS: Yes awake, Yes oriented to person and Yes confused; not oriented to place and not oriented to time Neck/C-Spine: COMMON NORMALS: no JVD Resp: COMMON NORMALS: normal respiratory effort, No retractions, No use of accessory muscles and clear to auscultation bilaterally AUSCULTATION: clear to auscultation bilaterally Cardio: COMMON NORMALS: no JVD, regular rate, regular rhythm, S1 normal heart sound present and S2 normal heart sound present RATE: regular rate RHYTHM: regular rhythm HEART SOUNDS: S1 normal heart sound present and S2 normal heart sound present GI: COMMON NORMALS: Normal to inspection, nondistended, normoactive bowel sounds present and non-tender Extremity: COMMON NORMALS: no pedal edema Neuro: SENSORIUM/ORIENTATION: Yes oriented to person, No oriented to place and No oriented to time Psych: COMMON NORMALS: mental status grossly normal Urinary Catheter Management: Vega: Cath Placed During This Visit: yes Reason for Continuing Indwelling Catheter: Accurate Measurement of Urinary Output in Critically Ill Patients Urinary Catheter Date of Insertion: 06/14/25 Urinary Catheter Time of Insertion: 04:12 Data 06/19/25 06:27 06/19/25 06:27 Micro: Microbiology 06/13/25 20:17 Blood Culture - Final Blood NO GROWTH AFTER 5 DAYS 06/13/25 20:20 Blood Culture - Final Blood NO GROWTH AFTER 5 DAYS A&P Assessment and plan 1. Hypertensive urgency: 2. Acute encephalopathy: 3. NSVT (nonsustained ventricular tachycardia): Plan: Acute encephalopathy -Now with persistent encephalopathy and agitation - Initially concern for possible press syndrome with the patient's hypertensive urgency, however blood pressures have improved - CT head no acute findings - UA within normal limits - CT chest no acute infection - CT abdomen no acute infection - No significant inflammatory marker elevation -Possible underlying dementia as etiology -Possible withdrawal from Xanax -Possible encephalopathy associate with steroids - MRI within normal limits -She had a hospitalization May 03 for acute renal failure, weight loss -Presented again June 01 for a fall, lumbar spinal stenosis, had thrombocytopenia -Had another ER visit June 13 for weakness - She is chronically on leflunomide for inflammatory arthritis -Carotid artery ultrasound within normal limits Plan - Had tachycardia, hypotensive episode this morning, likely beta-obbbi withdrawal resume labetalol - Resume p.o. clonidine -Follow-up blood cultures, so far no growth -Follow inflammatory markers - Neurochecks - NIH stroke scale - Aspiration precautions - Advance diet as tolerated - Continue home Xanax - Continue Ativan as needed - Zyprexa 10 mg IV every 12 hours - Haldol as needed Nonsustained V. tach, component of labetalol withdrawal - Amiodarone drip, transition to p.o. amiodarone - Magnesium levels within normal limits, TSH within normal limits Hypertensive urgency - Continue Cardene drip, wean off - Continue clonidine - Continue p.o. 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 -Avoid use of hydralazine Type 2 diabetes mellitus : Low-dose sliding scale Inflammatory arthritis : Monitor Anxiety disorder : Resume Xanax Left eye, corneal abrasion, conjunctival injection, monitor Plan for today manage agitation, with Ativan, for home Xanax, Zyprexa, consulted neurology, consulted psychiatry, amiodarone drip, Precedex drip PDMP PDMP Reviewed: Last Reviewed 07/19/25 15:58 by Michele Woodward MD Attestations 2 Medical Necessity Statement*: Patient requires hospitalization for altered mental status Diagnoses Hypertensive urgency I16.0 Acute encephalopathy G93.40 NSVT (nonsustained ventricular tachycardia) I47.29
--- NOTE | 2025-06-19 15:43 | ECG_ITS ---
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 Measurements Intervals [place] Rate: 163 P: 0 IA: 0 QRS: 19 QRSD: 74 T: 74 QT: 244 QTc: 402 Interpretive Statements ATRIAL FIBRILLATION WITH RAPID VENTRICULAR RESPONSE NONSPECIFIC ST & T-WAVE ABNORMALITY Compared to ECG 06/19/2025 11:29:45 Sinus tachycardia no longer present T-wave abnormality still present Electronically Signed On 06-21-2025 08:53:06 CDT by Ranjit Block M.D. [email or web address] [id number]
--- NOTE | 2025-06-19 15:45 | PC.NURSE ---
HR 150s to 160 EKG showed afib rvr, Dr. Woodward gave order to start Amiodarone drip per protocol
[2025-06-19] MEDS: amiodarone 150 MG/100 ML PREMIX 400 MG IV (15:59)
--- NOTE | 2025-06-19 16:11 | XR_ITS ---
WS: [id number] Portable AP upright chest, 06/19/2025 Clinical Data: increased o2 requirement possible aspiration Comparison: Acute abdomen series, 06/15/2025 Findings: No nodules, masses or effusions are seen. The heart is normal. The pulmonary vascularity is not increased. No pneumonia or pneumothorax is seen. The aortic arch and descending thoracic aorta are tortuous. There is a levoscoliosis of the thoracic spine. Monitor leads are on the chest wall. XR/XR chest 1V portable [id number] Impression: Atherosclerosis.
[2025-06-19] MEDS: FUROsemide 10 mg/mL SDV 4mL 40 MG IVP ×2 (16:21→22:40)
--- NOTE | 2025-06-19 16:31 | PC.OT ---
OT SKILLED SESSION ON HOLD PER PHYSICAL THERAPIST HEART RATED ELEVATED INTO 180s BPM.
--- NOTE | 2025-06-19 17:12 | PC.NURSE ---
O2 requirement up to 10L oxymask audible crackles, lethargic replys with a word or 2, Dr. Woodward ordered cxr, npo diet due to aspiration, lasix per jan and advised to continue ordered Zyprexa
[2025-06-19] MEDS: water for injection-sterile 10 ML (17:29)
--- NOTE | 2025-06-19 17:38 | ECG_ITS ---
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 Measurements Intervals [place] Rate: 131 P: 69 MD: 136 QRS: 5 QRSD: 85 T: 72 QT: 346 QTc: 512 Interpretive Statements SINUS TACHYCARDIA ST & T-WAVE ABNORMALITY, possibly ischemia ABNORMAL RHYTHM ECG Compared to ECG 06/19/2025 15:28:38 Atrial fibrillation no longer present Electronically Signed On 06-19-2025 19:14:38 CDT by Danay [email or web address] [id number]
[2025-06-19 17:58] LABS: ABG PCO2 31.1 mmHg (35-45); ABG PH Result 7.49 (7.35-7.45); Arterial Blood Gas Hematocrit 35.6 % (37-47); Blood Gas Allen Test Pos; Blood Gas LPM 15.0 %; Blood Gas Operator Identificat CAK; Blood Gas Sample Site Radial, left; Blood Gas Sample Type Arterial; HCO3 ABG 23.4 mmol/L (22-26); PO2 ABG 74.4 mmHg (80.0-100.0); PO2 FiO2 Ratio Arterial Blood 74
--- NOTE | 2025-06-19 18:05 | CTR_ITS ---
PROCEDURE INFORMATION: Exam: CTA Chest With Contrast Exam date and time: 06/19/2025 7:53 PM Age: 75 years old Clinical indication: Dyspnea; Additional info: SOB TECHNIQUE: Imaging protocol: Computed tomographic angiography of the chest with contrast. Exam focused on the arteries. 3D rendering (Not supervised by radiologist): MIP and/or 3D reconstructed images were created by the technologist. Radiation optimization: All CT scans at this facility use at least one of these dose optimization techniques: automated exposure control; mA and/or kV adjustment per patient size (includes targeted exams where dose is matched to clinical indication); or iterative reconstruction. Contrast material: OMNI 350; Contrast volume: 100 ml; Contrast route: INTRAVENOUS (IV); COMPARISON: CT chest abdpel w/*[id number] 06/13/2025 7:46 PM RADIATION DOSE METRICS: Total DLP (mGy-cm): 339.6 FINDINGS: Pulmonary arteries: Normal. No pulmonary emboli. Aorta: Unremarkable. No aortic aneurysm. No aortic dissection. Lungs: Bilateral lower lobe airspace infiltrates. Emphysematous changes. Pleural spaces: Unremarkable. No pneumothorax. No pleural effusion. Heart: Cardiomegaly. Coronary arteries: Coronary artery atherosclerotic calcification. Lymph nodes: Unremarkable. No enlarged lymph nodes. Bones/joints: Unremarkable. No acute fracture. Soft tissues: Unremarkable. CT/CT angio chest PE protcl [id number] IMPRESSION: 1. Negative for pulmonary embolus. 2. Coronary artery atherosclerotic calcification. 3. Bilateral lower lobe airspace infiltrates. 4. Emphysematous changes. 5. Cardiomegaly. COMMENTS: The presence of pulmonary emphysema on CT is an independent risk factor for lung cancer. In the absence of a history or active diagnosis of lung cancer, it is recommended that this patient with emphysema be evaluated for enrollment in a low dose CT lung cancer screening program.
[2025-06-19] MEDS: methylPREDNISolone sod succ 125 mg/2 mL INJ IVP (18:08)
[2025-06-19] MEDS: piperacillin-tazobactam 3.375 GM in sodium chloride 0.9% (plus) 50 ML IV (18:08)
[2025-06-19 18:58] LABS: Hematocrit 31.7 % (36-47); Hemoglobin 10.70 g/dL (11.27-16.99); Mean Corpuscular HGB Conc 33.8 g/dL (30-55); Mean Corpuscular Hemoglobin 31.3 pg (27-33); Mean Corpuscular Volume 92.7 fl (85-98); Nucleated Red Blood Cells % 0 %; Platelet Count 265 10^3/cmm (157-399); Red Blood Count 3.42 10^6/uL (3.85-5.65); White Blood Count 15.89 10^3/uL (3.29-11.43)
[2025-06-19 19:18] LABS: Troponin(5th) Baseline 48 ng/L (0-10)
[2025-06-19 19:25] LABS: Alanine Aminotransferase 17 U/L (0-33); Albumin Level 3.3 g/dL (3.5-5.2); Alkaline Phosphatase 66 U/L (35-105); Anion Gap 17.9 (5-19); Aspartate Amino Transferase 18 U/L (0-32); Blood Urea Nitrogen 15 mg/dL (8-23); Calcium 8.5 mg/dL (8.5-10.5); Carbon Dioxide 23 mmol/L (22-29); Chloride 101 mmol/L (98-107); Creatinine Clr Calc Pharmacy 53.7517; Globulin 2.4 g/dL (1.3-4.6); Glucose 133 mg/dL (65-115); NT Pro B Type Natriuretic Pept 562 pg/mL (0-450); Osmolality Calculated 291 mOsm/kg (285-295); Sodium 139 mmol/L (136-145); Total Protein 5.7 g/dL (6.6-8.7)
[2025-06-19 19:28] LABS: Potassium 2.9 mmol/L (3.5-5.1)
--- NOTE | 2025-06-19 19:38 | ECG_ITS ---
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 Measurements Intervals [place] Rate: 114 P: 69 GA: 140 QRS: 7 QRSD: 89 T: 66 QT: 337 QTc: 465 Interpretive Statements SINUS TACHYCARDIA WITH OCCASIONAL SUPRAVENTRICULAR PREMATURE COMPLEXES NONSPECIFIC ST & T-WAVE ABNORMALITY ABNORMAL RHYTHM ECG Compared to ECG 06/19/2025 18:00:56 Possible ischemia no longer present T-wave abnormality still present Electronically Signed On 06-21-2025 08:52:04 CDT by Ranjit Block M.D. [id number] [id number]
[2025-06-19] MEDS: iohexol 350 mg/mL 500 mL Btl (per mL) IV (20:02)
[2025-06-19] MEDS: lidocaine 1% 5 ML in potassium chloride premix 100 ML 52.5 ML IV ×2 (20:42→22:41)
[2025-06-19 21:38] LABS: Troponin 5 2HR 52.97 ng/L (0-10); Troponin 5 2HR Delta 4.97 ABS# (0-10)
--- NOTE | 2025-06-19 23:38 | ECG_ITS ---
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 Measurements Intervals [place] Rate: 118 P: 51 [place]: 134 QRS: 11 QRSD: 84 T: 71 QT: 355 QTc: 499 Interpretive Statements SINUS TACHYCARDIA WITH OCCASIONAL SUPRAVENTRICULAR PREMATURE COMPLEXES NONSPECIFIC ST & T-WAVE ABNORMALITY Compared to ECG 06/19/2025 20:16:37 No significant changes Electronically Signed On 06-21-2025 08:51:40 CDT by Ranjit Block M.D. [email or web address] [id number]
[2025-06-20] VITALS (24 sets, daily range): BP systolic 134–170; BP diastolic 93–121; PULSE 115–153; RESP 18–33; TEMP 36.6–36.7; O2SAT 89–98
[2025-06-20] MEDS: lidocaine 1% 5 ML in potassium chloride premix 100 ML 52.5 ML IV ×3 (00:36→10:39)
[2025-06-20 01:50] LABS: Troponin 5 6HR 51.44 ng/L (0-10); Troponin 5 6HR Delta 3.44 ng/L (0-12)
[2025-06-20] MEDS: piperacillin-tazobactam 3.375 GM in sodium chloride 0.9% (plus) 50 ML IV ×2 (02:33→09:02)
[2025-06-20] MEDS: methylPREDNISolone sod succ 40 mg/mL INJ IVP (08:30)
--- NOTE | 2025-06-20 09:19 | PC.SOCIAL ---
IMM Updated Updated pt's on IMM. No questions voiced. Provided pt a copy. Initialed, dated, & timed copy in chart.
[2025-06-20 09:56] LABS: Hematocrit 31.2 % (36-47); Hemoglobin 10.60 g/dL (11.27-16.99); Mean Corpuscular HGB Conc 34.0 g/dL (30-55); Mean Corpuscular Hemoglobin 31.9 pg (27-33); Mean Corpuscular Volume 94.0 fl (85-98); Nucleated Red Blood Cells % 0.1 %; Platelet Count 250 10^3/cmm (157-399); Red Blood Count 3.32 10^6/uL (3.85-5.65); White Blood Count 17.90 10^3/uL (3.29-11.43)
[2025-06-20 10:30] LABS: NT Pro B Type Natriuretic Pept 1884 pg/mL (0-450); Procalcitonin 3.45 ng/mL (0-0.5)
[2025-06-20] MEDS: FUROsemide 10 mg/mL SDV 4mL 40 MG IVP (10:39)
[2025-06-20 10:41] LABS: Alanine Aminotransferase 18 U/L (0-33); Albumin Level 3.1 g/dL (3.5-5.2); Alkaline Phosphatase 69 U/L (35-105); Anion Gap 22.7 (5-19); Aspartate Amino Transferase 21 U/L (0-32); Blood Urea Nitrogen 23 mg/dL (8-23); Calcium 8.7 mg/dL (8.5-10.5); Carbon Dioxide 21 mmol/L (22-29); Chloride 98 mmol/L (98-107); Creatinine Clr Calc Pharmacy 26.6522; Globulin 2.9 g/dL (1.3-4.6); Glucose 173 mg/dL (65-115); Osmolality Calculated 294 mOsm/kg (285-295); Potassium 3.7 mmol/L (3.5-5.1); Sodium 138 mmol/L (136-145); Total Protein 6.0 g/dL (6.6-8.7)
--- NOTE | 2025-06-20 10:46 | PC.SLP ---
Spoke with Abiel regarding if pt is going on comfort care and to call MATERIAL CLERK if DR wants MATERIAL CLERK to attempt feeding/drinking. Aspiration suspected and according to previous MATERIAL CLERK information, the patient has declined.
--- NOTE | 2025-06-20 15:04 | PC.SLP ---
Pt alertness continues to wax/wane. The patient's nurse reported that the patient continues to demonstrate a very wet vocal quality at this time. Will attempt tomorrow if appropriate.
[2025-06-20] MEDS: amiodarone 150 MG/100 ML PREMIX 400 MG IV (15:18)
--- NOTE | 2025-06-20 15:32 | PC.NURSE ---
work of breathing worsening, o2 requirement up, increased audible upper air way crackles. patient Dr. Woodward came to bedside spoke with plan to go to comfort care
--- NOTE | 2025-06-20 16:49 | P.PN_ITS ---
Subjective 2 Subjective: Patient was examined multiple times throughout the morning and into the afternoon - Early in the morning she was seen, hus band is at bedside -Discussed events of yesterday, patient was acute hypoxic respiratory failure, aspiration event, requiring up to 15 L nonrebreather, -Episodes of encephalopathy during the n ight, respiratory failure - Currently in A-fib with RVR on amiodar one drip, heart rates in the 120s - She is hypertensive - She is on 15 L nonrebreather - She has suprasternal retractions, inte rcostal retractions, nasal flaring, tachypnea, and acute respiratory failure - Discussed with at bedside acut e respiratory failure likely from aspiration pneumonia, aspiration pneumonitis, fluid overload -Patient was started on steroids yesterd ay, IV antibiotics, IV diuretics, amiodarone, therapeutic Lovenox -Has developed sepsis - Her blood work this morning seems to s uggest sepsis, and JESSICA from aspiration pneumonia, aspiration pneumonitis, - She has diuresed well overnight, discu ssed CT angiogram findings - Discussed overall goals of care - She remains quite encephalopathic this morning she can follow some commands she is able to squeeze my fingers bilaterally, but is not oriented to person, to place, or to time, remains bedbound - Discussed patient's sepsis, acute hypo xic respiratory failure, A-fib with RVR, aspiration ammonia, aspiration overnight, JESSICA - Discussed medical therapy versus hospi ce - Medical therapy continue medical inter ventions, giving her time continuing steroids, IV antibiotics, amiodarone, watching her oxygen requirements, watching her kidney function - Versus hospice, goal hospice to ease h er pain and ease her suffering allow her to pass quite comfortably - does not want Holly to suffer, but is not ready to make a decision yet, wants to continue medical interventions, - Patient was seen this afternoon, with Dr. Del Rio, Dr. Del Rio also met with patient's - Patient was again seen this afternoon, with patient's at bedside - and Dr. Del Rio, for discussi on that patient likely has Lewy body dementia - She remains diffusely encephalopathic, this evening she is more confused, she is reaching for things on the ceiling, she is yelling out in the ICU, she is currently on 10 L, in acute respiratory failure evidence of acute respiratory distress, remains in A-fib with RVR, heart rates in the 120s to 130s, on amiodarone drip - Discussed overall goals of care - Discussed again with medical i nterventions versus hospice - After discussing risk benefits of all options, patient's voiced understanding, all questions answered, shared decision making, agreed to proceed with hospice - Patient medical interventions were sto pped switch to hospice will moved to medical floors - Discussed with that the goal o f hospice is to ease Holly's since pain is suffering, and respiratory failure, but not to hasten her , we will monitor her closely on hospice Vitals/I&O/Wt Last Vital Signs Temp 98.1 F 06/20/25 04:00 Pulse 115 H 06/20/25 16:00 Resp 25 H 06/20/25 13:00 BP 166/121 06/20/25 15:00 Pulse Ox 94 06/20/25 16:00 O2 Del Method Oxymask 06/20/25 07:58 O2 Flow Rate 10 06/20/25 07:58 06/20/25 06/20/25 06/20/25 06:59 14:59 22:59 Intake Total 371.735 / 1825.860 188.89 / 188.89 136.113 / 325.003 Output Total 1000 / 2200 Balance -628.265 / -374.140 188.89 / 188.89 136.113 / 325.003 Weight last 48 hrs Weight 62.5 kg Weight 62.5 kg Weight 63.684 kg Physical Exam 2 Const: GENERAL APPEARANCE: lethargic ORIENTATION/CONSCIOUSNESS: Yes awake, Yes confused, Yes patient obtunded and Yes lethargic; not oriented to person, not oriented to place and not oriented to time Eye: COMMON NORMALS: Equal, round and reactive pupils present PUPIL: Yes Equal, round and reactive pupils present Resp: AUSCULTATION: crackles and wheezes OTHER: Tachypnea, tachycardia, suprasternal retractions, intercostal retractions, nasal flaring Cardio: COMMON NORMALS: S1 normal heart sound present and S2 normal heart sound present RATE: tachycardic RHYTHM: abnormal rhythm irregularly irregular HEART SOUNDS: S1 normal heart sound present and S2 normal heart sound present GI: COMMON NORMALS: Normal to inspection, nondistended, normoactive bowel sounds present and non-tender Extremity: COMMON NORMALS: no calf tenderness and no pedal edema Neuro: SENSORIUM/ORIENTATION: No oriented to person, No oriented to place, No oriented to time and Yes lethargic Psych: COMMON NORMALS: mental status grossly normal Skin: COMMON NORMALS: turgor normal GENERAL SKIN EXAM: turgor normal Urinary Catheter Management: Vega: Cath Placed During This Visit: yes Reason for Continuing Indwelling Catheter: Accurate Measurement of Urinary Output in Critically Ill Patients Urinary Catheter Date of Insertion: 06/14/25 Urinary Catheter Time of Insertion: 04:12 Quick SOFA Score: Respiratory Rate: 25 Blood Pressure: 166/121 [place] Coma Scale: 12 qSOFA Score: 2 If qSOFA score 2 or greater, continue: PaO2/FiO2 Ratio (mmHg): 74 Blood Pressure Mean: 136 Bilirubin (mg/dl): 0.3 Platelets (x10?/ml): 250 C reatinine (mg/dl): 1.6 SOFA Score: 7 Evaluation: Current stage of sepsis: sepsis Sepsis stage criteria used: [facility] Sep-1 and Sepsis-3 Crystalloid fluids: less than 30 mL/kg crystalloid fluids ordered Blood cultures ordered: Yes Possible source: pulmonary Focused Exam: Vital signs: Pulse Resp BP Pulse Ox O2 Del Method O2 Flow Rate 06/20/25 16:00 115 H 94 06/20/25 15:00 120 H 166/121 93 06/20/25 14:00 126 H 134/114 93 06/20/25 13:00 118 H 25 H 162/116 97 06/20/25 12:00 117 H 26 H 98 06/20/25 11:00 120 H 26 H 145/115 96 06/20/25 10:00 115 H 25 H 95 06/20/25 09:00 115 H 25 H 94 06/20/25 08:00 120 H 24 H 92 06/20/25 07:58 120 H 94 Oxymask 10 06/20/25 07:00 120 H 24 H 96 06/20/25 06:00 123 H 06/20/25 06:00 124 H 18 93 06/20/25 05:00 124 H 32 H 92 Respiratory exam: crackles present and positive wheezes Cardiovascular exam: S1 normal heart sound, S2 normal heart sound, tachycardia and abnormal rhythm Capillary refill: < 3 Seconds Peripheral pulse strength: 2+ Slightly Diminished Peripheral pulse location: Radial and Pedal Skin exam: turgor normal Date exam was performed: 06/20/25 Time exam was performed: 1 6:58 2 Sepsis Screen No Definite Risk 06/14/25, 08:43 Respiratory Rate, (12 - 18) 25 breaths/min H Today, 13:00 Blood Pressure 166/121 mmHg Today, 15:00 [place] Coma Scale Score 12 Today, 16:03 Quick SOFA Score 0 06/14/25, 08:43 SOFA Score: 2 ABG PO2/FiO2 Ratio 74 06/19/25, 17:47 [place] Coma Scale Score 12 Today, 16:03 Blood Pressure Mean 136 mmHg Today, 15:00 Total Bilirubin, (0.15-1.2) 0.3 mg/dL Today, 09:25 Platelet Count, (157-399) 250 10^3/cmm Today, 09:25 Creatinine, (0.5-0.9) 1.6 mg/dL H Today, 09:25 Data 06/20/25 09:25 06/20/25 09:25 A&P Assessment and plan 1. Hypertensive urgency: 2. Acute encephalopathy: 3. NSVT (nonsustained ventricular tachycardia): 4. Acute hypoxic respiratory failure: 5. Aspiration pneumonia: 6. Aspiration pneumonitis: 7. Recurrent aspiration events: 8. Sepsis: 9. Atrial fibrillation with rapid ventricular response: Plan: Proceeding to hospice - With acute hypoxic respiratory failure, second aspiration, aspiration ammonia, aspiration pneumonitis, sepsis, acute respiratory distress syndrome, A-fib with RVR, acute encephalopathy, with JESSICA Acute hypoxic respiratory failure - Secondary to aspiration event - Aspiration pneumonia, aspiration pneumonitis - With sepsis - With acute respiratory distress - With A-fib with RVR -With acute encephalopathy Plan -On IV steroids - On IV Zosyn - Status post 2 doses of Lasix - On amiodarone drip - On up to 15 L nonrebreather -On therapeutic Lovenox Acute kidney injury, creatinine 1.6 likely secondary sepsis Sepsis secondary to aspiration pneumonia Acute encephalopathy, likely second underlying Lewy body dementia -Now with persistent encephalopathy and agitation - Initially concern for possible press syndrome with the patient's hypertensive urgency, however blood pressures have improved - CT head no acute findings - UA within normal limits - CT chest no acute infection - CT abdomen no acute infection - No significant inflammatory marker elevation -Possible underlying dementia as etiology -Possible withdrawal from Xanax -Possible encephalopathy associate with steroids - MRI within normal limits -She had a hospitalization May 03 for acute renal failure, weight loss -Presented again June 01 for a fall, lumbar spinal stenosis, had thrombocytopenia -Had another ER visit June 13 for weakness - She is chronically on leflunomide for inflammatory arthritis -Carotid artery ultrasound within normal limits - Neurochecks - NIH stroke scale - Aspiration precautions - Advance diet as tolerated - Continue home Xanax - Continue Ativan as needed - Zyprexa 10 mg IV every 12 hours - Haldol as needed Nonsustained V. tach, component of labetalol withdrawal - Amiodarone drip, transition to p.o. amiodarone - Magnesium levels within normal limits, TSH within normal limits Hypertensive urgency - Continue Cardene drip, wean off - Continue clonidine - Continue p.o. 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 -Avoid use of hydralazine Type 2 diabetes mellitus : Low-dose sliding scale Inflammatory arthritis : Monitor Anxiety disorder : Resume Xanax Left eye, corneal abrasion, conjunctival injection, monitor Plan for today as above PDMP PDMP Reviewed: Last Reviewed 06/14/25 15:58 by Michele Woodward MD Attestations 2 Medical Necessity Statement*: Patient requires hospitalization for hospice Coding Level of Care Code Critical Care >/= 30 minutes Critical care time (in minutes): 45 The high probability of a clinically significant, sudden or life threatening deterioration, as referenced in this documentation, required my full and direct attention, intervention and personal management. The critical care time shown is in addition to time spent performing any reported separately billable procedures and includes the following: [x] Data and vital sign review and interpretation [x ] Patient assessment, examination and intervention [x] Medication orders and management [x] Patient/Family updates as able [x] Care Coordination and Documentation. Diagnoses Hypertensive urgency I16.0 Acute encephalopathy G93.40 NSVT (nonsustained ventricular tachycardia) I47.29 Acute hypoxic respiratory failure J96.01 Aspiration pneumonia J69.0 Aspiration pneumonitis J69.0 Recurrent aspiration events Sepsis A41.9; R65.20; N17.0 Atrial fibrillation with rapid ventricular response I48.91
[2025-06-20] MEDS: water for injection-sterile 10 ML (17:07)
[2025-06-20] MEDS: atropine 1% op soln 2 mL Btl 3 DROP SUBLINGUAL (17:08)
[2025-06-20 22:59] LABS: Fungitell 1-3-B Glucan Assay 34 pg/mL (<60); Interpretation Negative (Negative)
[2025-06-21] VITALS (25 sets, daily range): PULSE 116–189; RESP 14–28; O2SAT 94–100
[2025-06-21] MEDS: LORazepam 1 MG/0.5 ML injection IVP (01:11)
[2025-06-21] MEDS: morphine 4 mg/mL SDV 1 mL IVP ×4 (05:10→20:42)
--- NOTE | 2025-06-21 12:51 | P.PN_ITS ---
Subjective 2 Subjective: Patient was seen this morning, she is tachypneic, tachycardic, unresponsive, Vitals/I&O/Wt Last Vital Signs Temp 97.9 F 06/20/25 20:00 Pulse 116 H 06/21/25 12:00 Resp 28 H 06/21/25 12:00 BP 141/107 06/20/25 21:00 Pulse Ox 96 06/21/25 12:00 O2 Del Method Nasal Cannula 06/21/25 11:18 O2 Flow Rate 2 06/21/25 11:18 06/20/25 06/21/25 06/21/25 22:59 06:59 14:59 Intake Total 291.113 / 480.003 Output Total 800 / 800 500 / 1300 Balance -508.887 / -319.997 -500 / -819.997 Weight last 48 hrs Weight 62.324 kg Weight 62.324 kg Weight 62.5 kg Weight 62.5 kg Physical Exam 2 Const: COMMON NORMALS: no acute distress GENERAL APPEARANCE: lethargic O RIENTATION/CONSCIOUSNESS: Yes confused, Yes patient obtunded and Yes lethargic; not awake, not oriented to person, not oriented to place and not oriented to time Resp: COMMON NORMALS: normal respiratory effort, No retractions and No use of accessory muscles AUSCULTATION: crackles and wheezes Cardio: COMMON NORMALS: regular rhythm, S1 normal heart sound present and S2 normal heart sound present RATE: tachycardic RHYTHM: regular rhythm H EART SOUNDS: S1 normal heart sound present and S2 normal heart sound present GI: COMMON NORMALS: Normal to inspection, nondistended, normoactive bowel sounds present and non-tender Extremity: COMMON NORMALS: no pedal edema Neuro: SENSORIUM/ORIENTATION: No oriented to person, No oriented to place, No oriented to time and Yes lethargic Psych: COMMON NORMALS: mental status grossly normal Urinary Catheter Management: Vega: Cath Placed During This Visit: yes Reason for Continuing Indwelling Catheter: Accurate Measurement of Urinary Output in Critically Ill Patients Urinary Catheter Date of Insertion: 06/14/25 Urinary Catheter Time of Insertion: 04:12 Data 06/20/25 09:25 06/20/25 09:25 A&P Assessment and plan 1. Hypertensive urgency: 2. Acute encephalopathy: 3. NSVT (nonsustained ventricular tachycardia): 4. Acute hypoxic respiratory failure: 5. Aspiration pneumonia: 6. Aspiration pneumonitis: 7. Recurrent aspiration events: 8. Sepsis: 9. Atrial fibrillation with rapid ventricular response: Plan: Proceeding to hospice - With acute hypoxic respiratory failure, second aspiration, aspiration ammonia, aspiration pneumonitis, sepsis, acute respiratory distress syndrome, A-fib with RVR, acute encephalopathy, with JESSICA Acute hypoxic respiratory failure - Secondary to aspiration event - Aspiration pneumonia, aspiration pneumonitis - With sepsis - With acute respiratory distress - With A-fib with RVR -With acute encephalopathy Plan -On IV steroids - On IV Zosyn - Status post 2 doses of Lasix - On amiodarone drip - On up to 15 L nonrebreather -On therapeutic Lovenox Acute kidney injury, creatinine 1.6 likely secondary sepsis Sepsis secondary to aspiration pneumonia Acute encephalopathy, likely second underlying Lewy body dementia -Now with persistent encephalopathy and agitation - Initially concern for possible press syndrome with the patient's hypertensive urgency, however blood pressures have improved - CT head no acute findings - UA within normal limits - CT chest no acute infection - CT abdomen no acute infection - No significant inflammatory marker elevation -Possible underlying dementia as etiology -Possible withdrawal from Xanax -Possible encephalopathy associate with steroids - MRI within normal limits -She had a hospitalization May 03 for acute renal failure, weight loss -Presented again June 01 for a fall, lumbar spinal stenosis, had thrombocytopenia -Had another ER visit June 13 for weakness - She is chronically on leflunomide for inflammatory arthritis -Carotid artery ultrasound within normal limits - Neurochecks - NIH stroke scale - Aspiration precautions - Advance diet as tolerated - Continue home Xanax - Continue Ativan as needed - Zyprexa 10 mg IV every 12 hours - Haldol as needed Nonsustained V. tach, component of labetalol withdrawal - Amiodarone drip, transition to p.o. amiodarone - Magnesium levels within normal limits, TSH within normal limits Hypertensive urgency - Continue Cardene drip, wean off - Continue clonidine - Continue p.o. 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 -Avoid use of hydralazine Type 2 diabetes mellitus : Low-dose sliding scale Inflammatory arthritis : Monitor Anxiety disorder : Resume Xanax Left eye, corneal abrasion, conjunctival injection, monitor Plan for today as above PDMP PDMP Reviewed: Last Reviewed 06/14/25 15:58 by Michele Woodward MD Attestations 2 Medical Necessity Statement*: Patient requires hospitalization for hospice Diagnoses Hypertensive urgency I16.0 Acute encephalopathy G93.40 NSVT (nonsustained ventricular tachycardia) I47.29 Acute hypoxic respiratory failure J96.01 Aspiration pneumonia J69.0 Aspiration pneumonitis J69.0 Recurrent aspiration events Sepsis A41.9; R65.20; N17.0 Atrial fibrillation with rapid ventricular response I48.91
--- NOTE | 2025-06-21 17:17 | PC.SLP ---
On this date, Speech Therapy was notified that patient is in the process of comfort care. Please contact us if anything changes and our services are needed.
[2025-06-21] MEDS: LORazepam 1 MG/0.5 ML injection 2 MG IVP ×2 (19:02→20:43)
[2025-06-22] VITALS (22 sets, daily range): BP systolic 144–146; BP diastolic 94–98; PULSE 99–153; RESP 14–27; TEMP 36.4; O2SAT 93–99
--- NOTE | 2025-06-22 10:18 | P.PN_ITS ---
Subjective 2 Subjective: Patient was seen this morning, she is sitting up in bed combing her hair, she looks person, not to place, to time, she is having auditory/visual hallucinations, but she is calm, not combative does not appear to be in respiratory distress currently in A-fib with RVR, currently on 2 L, discussed with plan on moving her upstairs, agreeable to continue hospice, continue medical management we will try p.o. medications to get her heart rates were under control, did discuss with overall goal with hospice is to ease her pain and ease her suffering and keep her comfortable, and enjoy the time that he has with her, avoiding aggressive interventions, I think oral medications would be reasonable, discussed risk benefits, of all options, he voiced understanding, all questions answered, agreed to proceed Vitals/I&O/Wt Last Vital Signs Temp 97.5 F L 06/22/25 04:00 Pulse 128 H 06/22/25 09:38 Resp 17 06/22/25 09:00 BP 141/107 06/20/25 21:00 Pulse Ox 95 06/22/25 09:38 O2 Del Method Nasal Cannula 06/22/25 09:38 O2 Flow Rate 2 06/22/25 09:38 06/21/25 06/22/25 06/22/25 22:59 06:59 14:59 Intake Total 250 / 250 Output Total 450 / 450 500 / 950 Balance -450 / -450 -500 / -950 250 / 250 Weight last 48 hrs Weight 62.414 kg Weight 62.324 kg Weight 62.324 kg Physical Exam 2 Const: COMMON NORMALS: no acute distress ORIENTATION/CONSCIOUSNESS: Yes awake, Yes oriented to person and Yes confused; not oriented to place and not oriented to time Resp: COMMON NORMALS: normal respiratory effort, No retractions, No use of accessory muscles and clear to auscultation bilaterally AUSCULTATION: clear to auscultation bilaterally Cardio: COMMON NORMALS: S1 normal heart sound present and S2 normal heart sound present RATE: tachycardic RHYTHM: abnormal rhythm irregularly irregular HEART SOUNDS: S1 normal heart sound present and S2 normal heart sound present GI: COMMON NORMALS: Normal to inspection, nondistended, normoactive bowel sounds present and non-tender Extremity: COMMON NORMALS: no pedal edema Neuro: SENSORIUM/ORIENTATION: Yes oriented to person, No oriented to place and No oriented to time Urinary Catheter Management: Vega: Cath Placed During This Visit: yes Reason for Continuing Indwelling Catheter: Accurate Measurement of Urinary Output in Critically Ill Patients Urinary Catheter Date of Insertion: 06/14/25 Urinary Catheter Time of Insertion: 04:12 Data 06/20/25 09:25 06/20/25 09:25 A&P Assessment and plan 1. Hypertensive urgency: 2. Acute encephalopathy: 3. NSVT (nonsustained ventricular tachycardia): 4. Acute hypoxic respiratory failure: 5. Aspiration pneumonia: 6. Aspiration pneumonitis: 7. Recurrent aspiration events: 8. Sepsis: 9. Atrial fibrillation with rapid ventricular response: Plan: Proceeding to hospice - With acute hypoxic respiratory failure, second aspiration, aspiration ammonia, aspiration pneumonitis, sepsis, acute respiratory distress syndrome, A-fib with RVR, acute encephalopathy, with JESSICA - Moved to medical floors - Continue hospice orders - Continue Xanax 0.5 mg p.o. 4 times daily - Continue Zyprexa 10 mg IM twice daily - Will add on amiodarone 400 mg twice daily, with Metroprolol 25 mg p.o. twice daily - Will add on p.o. antibiotics Acute hypoxic respiratory failure - Secondary to aspiration event - Aspiration pneumonia, aspiration pneumonitis - With sepsis - With acute respiratory distress - With A-fib with RVR -With acute encephalopathy Plan -On IV steroids - On IV Zosyn - Status post 2 doses of Lasix - On amiodarone drip - On up to 15 L nonrebreather -On therapeutic Lovenox Acute kidney injury, creatinine 1.6 likely secondary sepsis Sepsis secondary to aspiration pneumonia Acute encephalopathy, likely second underlying Lewy body dementia -Now with persistent encephalopathy and agitation - Initially concern for possible press syndrome with the patient's hypertensive urgency, however blood pressures have improved - CT head no acute findings - UA within normal limits - CT chest no acute infection - CT abdomen no acute infection - No significant inflammatory marker elevation -Possible underlying dementia as etiology -Possible withdrawal from Xanax -Possible encephalopathy associate with steroids - MRI within normal limits -She had a hospitalization May 03 for acute renal failure, weight loss -Presented again June 01 for a fall, lumbar spinal stenosis, had thrombocytopenia -Had another ER visit June 13 for weakness - She is chronically on leflunomide for inflammatory arthritis -Carotid artery ultrasound within normal limits - Neurochecks - NIH stroke scale - Aspiration precautions - Advance diet as tolerated - Continue home Xanax - Continue Ativan as needed - Zyprexa 10 mg IV every 12 hours - Haldol as needed Nonsustained V. tach, component of labetalol withdrawal - Amiodarone drip, transition to p.o. amiodarone - Magnesium levels within normal limits, TSH within normal limits Hypertensive urgency - Continue Cardene drip, wean off - Continue clonidine - Continue p.o. 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 -Avoid use of hydralazine Type 2 diabetes mellitus : Low-dose sliding scale Inflammatory arthritis : Monitor Anxiety disorder : Resume Xanax Left eye, corneal abrasion, conjunctival injection, monitor Plan for today as above PDMP PDMP Reviewed: Last Reviewed 06/14/25 15:58 by Michele Woodward MD Attestations 2 Medical Necessity Statement*: Patient requires hospitalization for hospice Diagnoses Hypertensive urgency I16.0 Acute encephalopathy G93.40 NSVT (nonsustained ventricular tachycardia) I47.29 Acute hypoxic respiratory failure J96.01 Aspiration pneumonia J69.0 Aspiration pneumonitis J69.0 Recurrent aspiration events Sepsis A41.9; R65.20; N17.0 Atrial fibrillation with rapid ventricular response I48.91
--- NOTE | 2025-06-22 15:06 | PM.CONSULT ---
Providers/Reason For Consult Consulting Physician/Specialty*: Dr. Cynthia Del Rio, Neurology Reason for Consult*: altered mental status Requesting Physician: Dr. Woodward Attending Physician: Michele Woodward MD Primary Care Provider: Ann Marie Kim MD History of Present Illness History of Present Illness I have not seen this 75-year-old woman for a year and a half. Her came to me with a concern that he was demented but as it turned out, he was actually his who was demented and he was worried about it. He took us to some time to sort that out and she did come in to see me twice, in October 2023 and January 2024. 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 Before I started seeing her she developed an apractic gait, shuffling her feet and with poor balance. She went through back surgery several times but it did not help. When I saw her in October 2023 she scored a 22 out of 30 on the Chip cognitive exam which would indicate moderately severe dementia, especially with anterograde memory loss and poor short-term recall. She had diffuse cognitive dysfunction at that time. Her reports that over the course of the last year and a half her memory has progressively deteriorated and she has been having episodes of screaming confusion in the evening. A lot of the time her symptoms are focused on pain, pain in her back or pain in her abdomen and her has tried to do everything he can to make her quality of life better. Back surgery has not helped her balance. She has been hallucinating for several months, sometimes seeing snakes and other animals in the house. She presented to our ER this time for progressive confusion and diffuse complaints including frequent falls. Her just could not take care of her anymore because she was wild and uncontrollable in the evenings. She was markedly hypertensive. There was a wide search for causes with CT scans of the head, chest, abdomen, pelvis and cervical spine without finding an explanation for the patient's progressive confusion. She has been in ICU and Dr. Woodward called me because the patient was wild, screaming and uncontrollable despite Depacon, opioids, benzodiazepines and antipsychotics. She finally became more calm after several doses of Zyprexa. She and her have had a long and happy marriage. She has progressively deteriorated mentally over the last year and a half since I saw her last and in addition to her apractic gait and hallucinations and REM sleep behavior disorder she has also experienced progressive dementia consistent with Lewy body disease. Her was suspicious that that is what what he was dealing with. Review of Systems Narrative: She had an episode of respiratory compromise in the last few days. She probably aspirated. Dr. Nunez's very thorough notes were reviewed. Medications/Allergies Home Medications ?Medication ?Instructions ?Recorded ?Confirmed ?Last Taken ?Type nitroglycerin 0.4 mg sublingual 0.4 mg sublingual Q5M PRN chest 09/14/22 06/14/25 03/17/25 Rx tablet pain #25 tabs leflunomide 20 mg tablet 20 mg PO DAILY #90 tabs 03/18/25 06/14/25 06/11/25 Rx tramadol 50 mg tablet 50 mg PO Q8H PRN pain 30 days #90 04/07/25 06/14/25 06/01/25 12:00 Rx tabs clonidine HCl 0.3 mg tablet 0.3 mg PO TID 05/03/25 06/14/25 06/11/25 History multivitamin 1 tab PO DAILY 05/03/25 06/14/25 06/13/25 08:00 History naproxen sodium 220 mg tablet 220 mg PO BID PRN Pain 05/03/25 06/14/25 06/01/25 History (Aleve) labetalol 200 mg tablet 200 mg PO Q12H #270 tabs 05/12/25 06/14/25 06/13/25 Rx hydrocodone 5 mg-acetaminophen 325 1 tab PO Q8H PRN pain 30 days #60 05/22/25 06/14/25 06/13/25 Rx mg tablet tabs alprazolam 0.5 mg tablet 0.5 mg PO QID #120 tabs 05/26/25 06/14/25 06/13/25 Rx hydralazine 25 mg tablet 25 mg PO BID PRN Systolic blood 06/04/25 06/14/25 Unknown Rx pressure of more than 160 mmHg #10 tabs verapamil 120 mg tablet,extended 120 mg PO BID 06/11/25 06/14/25 06/13/25 08:00 History release oxycodone 5 mg tablet 5 mg PO Q4H PRN pain 7 days #42 06/12/25 06/14/25 Unknown Rx tabs Allergies Allergy/AdvReac Type Severity Reaction Status Date / Time sulfasalazine Allergy Unknown ADR-Nausea Verified 06/13/25 07:12 plastics Allergy ALGY-Rash Uncoded 06/13/25 07:12 Current Medications Generic Name Dose Route Start Last Admin Trade Name Freq PRN Reason Stop Dose Admin Alprazolam 0.5 mg 06/16/25 14:00 06/22/25 13:26 Alprazolam 0.5 Mg Tablet PO Not Given Q6H LLOYD Amiodarone HCl 400 mg 06/22/25 09:00 06/22/25 09:38 Amiodarone 200 Mg Tablet PO 400 mg BID LLOYD Administration Amoxicillin/Clavulanate Potassium 1 tab 06/22/25 10:20 06/22/25 10:48 Amoxicillin-Clav 875-125 Mg Tablet PO 1 tab BID LLOYD Administration Protocol Atropine Sulfate 3 drop 06/20/25 15:36 06/20/25 17:08 Atropine 1% Op Soln 2 Ml Btl SUBLINGUAL 3 drop Q4H PRN Administration Excessive Secretions, Rattling Lorazepam 1 - 2 mg 06/20/25 15:36 06/21/25 01:11 Lorazepam 1 Mg/0.5 Ml Injection IVP 1 mg Q8H PRN Administration Anxiety, Agitation or Restless Lorazepam 2 mg 06/20/25 15:36 06/21/25 20:43 Lorazepam 1 Mg/0.5 Ml Injection IVP 2 mg Q30M PRN Administration SEIZURES Metoprolol Tartrate 25 mg 06/22/25 10:20 06/22/25 10:49 Metoprolol Tartrate 25 Mg Tablet PO 25 mg BID@0900,2100 LLOYD Administration Morphine Sulfate 2 - 10 mg 06/20/25 15:36 06/21/25 20:42 Morphine 4 Mg/Ml Sdv 1 Ml IVP 4 mg Q15M PRN Administration Moderate To Severe Pain or SOB Olanzapine 10 mg 06/20/25 18:00 06/22/25 05:05 Olanzapine 10 Mg Vial IM Not Given Q12H [facility] PFSH Acute PFSH: Medical History (Updated 06/22/25 @ 15:24 by Cynthia Del Rio MD) Sepsis Thrombocytopenia 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 Immunization counseling High risk medication use Inflammatory arthritis Eczema History of colon polyps Irritable bowel syndrome with both constipation and diarrhea Thoracic spine pain Essential hypertension Anxiety Diabetes Lumbar disc disease with radiculopathy Surgical History Status post lumbar spinal fusion History of colonoscopy (03/23/21) 2015: Colon polyps 2020: Mild diverticulosis History of cholecystectomy History of dilation and curettage History of total hysterectomy Family History Father Parkinson disease Cancer Mother Cancer Social History Smoking and tobacco/nicotine status: never used tobacco/nicotine Second hand smoke exposure: No Alcohol intake: never Substance/Drug Use: never Additional social history: Patient is accompanied by her Quinn she was DNR status as discussed today on 06/11/2025 with Yoan Urena MD. 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 She made good eye contact. She said that she recognized me. She could say her name. She could tell me she was in the hospital. She could repeat a simple but not a complex phrase. She could follow simple commands. Her speech was mumbling. Cranial nerves: She responded to threat in both temporal thomas and she could count fingers OU in the temporal thomas, direct and consensual. No extinction. Facial movements bilaterally weak but symmetric. Motor exam revealed weakness in all 4 extremities but she could lift both arms from the bed. Her legs were weak. Sensory: She responded to touch in all 4 extremities Deep tendon reflexes: Toes upgoing bilaterally. HEENT bilateral chemosis in the conjunctiva and injection. Neck was stiff in all directions. Chest: Scattered expiratory rhonchi. Cardiovascular: S1 and S2 normal without murmur or gallop. Abdomen deferred. Extremities: No rash. Urinary Catheter Management: Vega: Cath Placed During This Visit: yes Reason for Continuing Indwelling Catheter: Accurate Measurement of Urinary Output in Critically Ill Patients Urinary Catheter Date of Insertion: 06/14/25 Urinary Catheter Time of Insertion: 04:12 Data 06/20/25 09:25 06/20/25 09:25 A&P Assessment and plan 1. Severe Lewy body dementia with agitation: This patient's history and findings are consistent with advanced Lewy body disease with acute encephalopathy that is multifactorial but partly due to her underlying disease, partly from being in the hospital. It is unlikely that she will be able to return home. Her is in agreement that hospice is appropriate for her at this point. Comfort care is appropriate and since Zyprexa has sooth her agitation I would be in favor of continuing to use Zyprexa. I took time to express my condolences to her who has been an extremely caring provider for her despite the difficulties 2. Acute encephalopathy: PDMP PDMP Reviewed: Not Reviewed Coding Level of Care Code Acute Code for g Fwd Diagnoses Severe Lewy body dementia with agitation G31.83; F02.C11 Dementia severity: severe Acute encephalopathy G93.40
[2025-06-22] MEDS: morphine 4 mg/mL SDV 1 mL IVP (15:39)
[2025-06-22] MEDS: water for injection-sterile 10 ML (18:12)
[2025-06-22] MEDS: LORazepam 1 MG/0.5 ML injection IVP (22:50)
[2025-06-23 00:19] VITALS: BP 144/90; PULSE 98; RESP 17; TEMP 36.4; O2SAT 96
[2025-06-23 03:31] VITALS: BP 142/84; PULSE 98; RESP 17; TEMP 36.8; O2SAT 96
[2025-06-23 20:28] LABS: Aspergillus AG,EIA,Serum NOT DETECTED; Aspergillus Galactomannan Inde <0.50
[2025-06-24 20:30] LABS: Cryptococcal Source SERUM
--- OUTSIDE RECORDS SUMMARY | 2025-08-03 19:00 | XMS_ITS | Clinical Summary ---
Author Organization Unknown Care Team Providers Care Imaging Technologist Name Role Phone ANNA NIEVES, NIVIA Unavailable Unavailable JESS GUERRERO, KORINA Unavailable Unavailable Payers Payer Name Policy Type Policy Number Effective Date Expira tion Date MEDICARE - S - PDGM [id number] Problems Condition Name Condition Details Condition Category [...] 0.5 mg tablet 06-06 00:00: 00 Yes [id number] 1 tablet 4 TIMES DAILY 1 tablet 4 TIMES DAILY (route: oral) Med Classific ation: Central Nervous System Agents clonidine HCl 0.3 mg tablet 06-06 00:00: 00 Yes [id number] 1 tablet 3 TIMES DAILY 1 tablet 3 TIMES DAILY (route: oral) Med Classific ation: Cardiovas cular Therapy Agents hydralazine 25 mg tablet 06-06 00:00: 00 Yes [id number] 1 tablet 4 TIMES DAILY 1 tablet 4 TIMES DAILY (route: oral) Med Classific ation: Cardiovas cular Therapy Agents hydrocodone 5 mg-acetamin ophen 325 mg tablet 06-06 00:00: 00 Yes [id number] 1 tablet EVERY 8 HOURS 1 tablet EVERY 8 HOURS (route: oral) Med Classific ation: Analgesic , Anti-infl ammatory or Antipyret ic labetalol 200 mg tablet 06-06 00:00: 00 Yes [id number] 1 tablet 3 TIMES DAILY 1 tablet 3 TIMES DAILY (route: oral) Med Classific ation: Cardiovas cular Therapy Agents magnesium glycinate gummies 200mg 06-06 00:00: 00 Yes [id number] 1 gummy DAILY 1 gummy DAILY (route: BY MOUTH) Med Classific ation: ELECTROLY KHURRAM/VITAM INS multivitami n tablet 06-06 00:00: 00 Yes [id number] 1 tablet DAILY 1 tablet DAILY (route: oral) Med Classific ation: Electroly te Balance-N utritiona l Products oxycodone 5 mg tablet 06-06 00:00: 00 Yes [id number] 1 tablet EVERY 4 HOURS 1 tablet EVERY 4 HOURS (route: oral) Med Classific ation: Analgesic , Anti-infl ammatory or Antipyret ic tramadol 50 mg tablet 06-06 00:00: 00 Yes [id number] 1 tablet EVERY 8 HOURS 1 tablet EVERY 8 HOURS (route: oral) Med Classific ation: Analgesic , Anti-infl ammatory or Antipyret ic verapamil 120 mg tablet 06-06 00:00: 00 Yes [id number] 2 tablet 2 TIMES DAILY 2 tablet 2 TIMES DAILY (route: oral) Med Classific ation: Cardiovas cular Therapy Agents leflunomide 20 mg tablet 06-06 00:00: 00 Yes [id number] 1 tablet DAILY 1 tablet DAILY (route: [...] HEALTH.] Future Scheduled Test [facility]EPT ORDERS FROM [...] MAINTAIN SITUATIONAL AWARENESS AND WILL NOTIFY CLINICAL SENIOR CORPORATE RECRUITER AND PHYSICIAN/PROVIDER WITH ANY CHANGE IN CONDITION. [code = SKILLED NURSE TO PERFORM ENVIRONMENTAL SAFETY RISK ASSESSMENT AND FALL RISK ASSESSMENT AND PROVIDE INSTRUCTION TO IMPLEMENT ENVIRONMENTAL SAFETY AND FALL PREVENTION STRATEGIES THROUGHOUT THE CERTIFICATION PERIOD. SKILLED NURSE WILL MAINTAIN SITUATIONAL AWARENESS AND WILL NOTIFY CLINICAL SENIOR CORPORATE RECRUITER AND PHYSICIAN/PROVIDER WITH ANY CHANGE IN CONDITION.] [...] CARE WILL BE ESTABLISHED THAT MEETS PATIENT'S FDC NEEDS AND INCLUDES PATIENT GOAL FOR HOME [...] End Date/Time Encounter Type Admission Type Attending [facility] Care Facility Care Department Encounter ID Discharge Date Discharge Status Discharge Condition Discharge Reason Percent Goals Met 2025-06-06 00:00:00 2025-08-04 00:00:00 Outpatient NEW ADMISSION [facility] [id number] 100.00
--- OUTSIDE RECORDS SUMMARY | 2025-08-03 19:00 | XMS_ITS | Clinical Summary ---
Author Organization Unknown Care Team Providers Care Digital Media Strategist Name Role Phone ANNA NIEVES, NIVIA Unavailable Unavailable JESS GUERRERO, KORINA Unavailable Unavailable Payers Payer Name Policy Type Policy Number Effective Date Expira tion Date MEDICARE - S - PDGM [id number] Problems Condition Name Condition Details Condition Category [...] 0.5 mg tablet 06-06 00:00: 00 Yes [id number] 1 tablet 4 TIMES DAILY 1 tablet 4 TIMES DAILY (route: oral) Med Classific ation: Central Nervous System Agents clonidine HCl 0.3 mg tablet 06-06 00:00: 00 Yes [id number] 1 tablet 3 TIMES DAILY 1 tablet 3 TIMES DAILY (route: oral) Med Classific ation: Cardiovas cular Therapy Agents hydralazine 25 mg tablet 06-06 00:00: 00 Yes [id number] 1 tablet 4 TIMES DAILY 1 tablet 4 TIMES DAILY (route: oral) Med Classific ation: Cardiovas cular Therapy Agents hydrocodone 5 mg-acetamin ophen 325 mg tablet 06-06 00:00: 00 Yes [id number] 1 tablet EVERY 8 HOURS 1 tablet EVERY 8 HOURS (route: oral) Med Classific ation: Analgesic , Anti-infl ammatory or Antipyret ic labetalol 200 mg tablet 06-06 00:00: 00 Yes [id number] 1 tablet 3 TIMES DAILY 1 tablet 3 TIMES DAILY (route: oral) Med Classific ation: Cardiovas cular Therapy Agents magnesium glycinate gummies 200mg 06-06 00:00: 00 Yes [id number] 1 gummy DAILY 1 gummy DAILY (route: BY MOUTH) Med Classific ation: ELECTROLY KHURRAM/VITAM INS multivitami n tablet 06-06 00:00: 00 Yes [id number] 1 tablet DAILY 1 tablet DAILY (route: oral) Med Classific ation: Electroly te Balance-N utritiona l Products oxycodone 5 mg tablet 06-06 00:00: 00 Yes [id number] 1 tablet EVERY 4 HOURS 1 tablet EVERY 4 HOURS (route: oral) Med Classific ation: Analgesic , Anti-infl ammatory or Antipyret ic tramadol 50 mg tablet 06-06 00:00: 00 Yes [id number] 1 tablet EVERY 8 HOURS 1 tablet EVERY 8 HOURS (route: oral) Med Classific ation: Analgesic , Anti-infl ammatory or Antipyret ic verapamil 120 mg tablet 06-06 00:00: 00 Yes [id number] 2 tablet 2 TIMES DAILY 2 tablet 2 TIMES DAILY (route: oral) Med Classific ation: Cardiovas cular Therapy Agents leflunomide 20 mg tablet 06-06 00:00: 00 Yes [id number] 1 tablet DAILY 1 tablet DAILY (route: [...] FOR HOME HEALTH.] Future Scheduled Test [facility] FROM [...] MAINTAIN SITUATIONAL AWARENESS AND WILL NOTIFY CLINICAL SEAL DELIVERY VEHICLE TEAM TECHNICIAN AND PHYSICIAN/PROVIDER WITH ANY CHANGE IN CONDITION. [code = SKILLED NURSE TO PERFORM ENVIRONMENTAL SAFETY RISK ASSESSMENT AND FALL RISK ASSESSMENT AND PROVIDE INSTRUCTION TO IMPLEMENT ENVIRONMENTAL SAFETY AND FALL PREVENTION STRATEGIES THROUGHOUT THE CERTIFICATION PERIOD. SKILLED NURSE WILL MAINTAIN SITUATIONAL AWARENESS AND WILL NOTIFY CLINICAL SEAL DELIVERY VEHICLE TEAM TECHNICIAN AND PHYSICIAN/PROVIDER WITH ANY CHANGE IN CONDITION.] [...] End Date/Time Encounter Type Admission Type Attending [facility] Care Department Encounter ID Discharge Date Discharge Status Discharge Condition Discharge Reason Percent Goals Met 2025-06-06 00:00:00 2025-08-04 00:00:00 Outpatient NEW ADMISSION [facility] [id number] 100.00
== END 2025-06-20 14:24 | disposition hospice, inpatient (51) | DRG 304 ==
LOC: ER 06-14 06:43 → ICU 06-14 08:20 → MEDSURG 06-23 07:58
PROVIDERS: Internal Medicine; Student in an Organized Health Care Education/Training Program; Admitting Provider Family Medicine; Emergency Provider Family Medicine; PCP Family Medicine; Visit Provider Family Medicine
DX: I16.0 Hypertensive urgency (principal); J69.0 Pneumonitis due to inhalation of food and vomit; J96.01 Acute respiratory failure with hypoxia; R65.20 Severe sepsis without septic shock; I67.4 Hypertensive encephalopathy; I47.20 Ventricular tachycardia, unspecified; N17.9 Acute kidney failure, unspecified; F02.C11 Dementia in other diseases classified elsewhere, severe, with agitation; I48.91 Unspecified atrial fibrillation; Z66 Do not resuscitate; Z51.5 Encounter for palliative care; S05.02XA Injury of conjunctiva and corneal abrasion without foreign body, left eye, initial encounter; M19.90 Unspecified osteoarthritis, unspecified site; G89.29 Other chronic pain; E11.9 Type 2 diabetes mellitus without complications; L93.2 Other local lupus erythematosus; F41.9 Anxiety disorder, unspecified; I95.1 Orthostatic hypotension; M48.061 Spinal stenosis, lumbar region without neurogenic claudication; I10 Essential (primary) hypertension; M54.16 Radiculopathy, lumbar region; G31.83 Neurocognitive disorder with Lewy bodies; T46.5X5A Adverse effect of other antihypertensive drugs, initial encounter; Z79.899 Other long term (current) drug therapy; Z88.2 Allergy status to sulfonamides; Z86.0100 Personal history of colon polyps, unspecified; Z91.048 Other nonmedicinal substance allergy status; Z90.49 Acquired absence of other specified parts of digestive tract; Z90.710 Acquired absence of both cervix and uterus; Z91.81 History of falling; X58.XXXA Exposure to other specified factors, initial encounter
CPT/HCPCS: 20610; 36415; 36416; 36600; 51701; 51702; 51798; 70450; 70551; 71045; 71260; 71275; 72125; 74022; 74177; 80048; 80053; 80503; 81001; 82140; 82533; 82728; 82803; 82962; 83010; 83540; 83605; 83615; 83690; 83735; 83880; 84100; 84145; 84443; 84484; 85025; 85045; 85610; 85651; 85730; 86140; 86403; 87040; 87305; 87449; 92507; 92523; 92526; 92610; 93005; 93308; 96360; 96361; 96365; 96366; 96372; 96374; 96375; 96376; 97110; 97163; 97167; 97530; 99285; 99291; J0283; J0360; J1100; J1171; J1630; J1650; J1815; J1938; J2060; J2270; J2404; J2543; J2795; J2919; J3301; J3480; J3486; J3490; J7030; J7040; J7042; J9999

== ENCOUNTER 2025-06-20 14:25 | Inpatient (IN) | payer OTHER, MEDICARE, SELFPAY ==
--- OUTSIDE RECORDS SUMMARY | 2025-05-13 23:59 | XMS_ITS | Continuity of Care Document ---
Author Name [facility] Address [address] [place] [address] Organization [facility] Care Team Providers Care Medical Doctor Md Name Role Phone [facility] Unavailable Unavailable Problems Problem Status Onset Date Problem Type Date of Resolution Comme nts Source Polyp of colon (disorder) 04/16/2025 Diagnosis Chronic idiopathic constipation (disorder) 04/16/2025 Diagnosis Abnormal weight loss (finding) 04/15/2025 Diagnosis Incompetence of rectovaginal tissue (finding) 04/15/2025 Diagnosis Herniation of rectum into vagina (disorder) 04/15/2025 Diagnosis Atrophic vaginitis (disorder) 04/15/2025 Diagnosis Pelvic organ finding (finding) 04/15/2025 Diagnosis Family history of malignant neoplasm of ovary (situation) 04/15/2025 Diagnosis Acquired atresia of vagina 04/15/2025 Diagnosis Early satiety (finding) 02/10/2025 Diagnosis Digestive system finding (finding) 02/10/2025 Diagnosis Atrophic vaginitis (disorder) Active Condition Chronic idiopathic constipation (disorder) Active Condition Family history of malignant neoplasm of ovary in first degree relative Active Condition History of - hysterectomy (context-dependent category) Active Condition Herniation of rectum into vagina (disorder) Active Condition Polyp of colon (disorder) Active Condition 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) Active Condition Urge incontinence of urine (finding) Active Condition Vaginal adhesions (disorder) Active Condition Allergies, Adverse Reactions, Alerts Substance Category Reaction Severity Reaction type Status Date Reported Comments Source lubiprostone Assertion Drug allergy Active [facility] sulfaSALAzine Assertion Drug allergy Active [facility] Results Order Name Results Value Reference Range Date Interpretation Comments Source URINALYSIS UA NITRITE Negative *NA* (04/15/25 12:00 PM) 04/15 17:00 :00 HOTEL ENGINE[facility] URINALYSIS SPECIFIC GRAVITY 1.032 1.001 - 1.029 04/15 17:00 :00 [facility] URINALYSIS COLOR Yellow *NA* (04/15/25 12:00 PM) 04/15 17:00 :00 [facility] URINALYSIS UA LEUKOCYTES Negative /Hpf 04/15 17:00 :00 [facility] URINALYSIS UA BLOOD Negative mg/dL 04/15 17:00 :00 [facility] URINALYSIS CLARITY Clear *NA* (04/15/25 12:00 PM) 04/15 [facility]00 [facility] UA PH 6.0 *NA* (04/15/25 12:00 PM) 5.0 - 8.0 04/15 17:00 :00 [facility] URINALYSIS UA GLUCOSE Negative mg/dL 04/15 17:00 :00 [facility] URINALYSIS UA PROTEIN 30 mg/dL 04/15 17:00 :00 [facility] URINALYSIS BILIRUBIN Negative mg/dL 04/15 17:00 :[facility] URINAL[facility] UA UROBILINOGEN 2 mg/dL 04/15 17:00 :00 [facility] URINALYSIS UA KETONES Negative mg/dL 04/15 17:00 :[facility] URINALYSIS UA Bacteria None /Hpf 04/15 17:00 :00 [facility] URINALYSIS UA Epithelial Cells 0-10 /lpf 0 - 10 04/15 17:00 :00 [facility] URINALYSIS UA Hyaline Casts 0-5 /lpf 0 - 5 04/15 17:00 :00 [facility] URINALYSIS RBC 0-5 /Hpf 0 - 5 04/15 17:00 :00 [facility] URINALYSIS UA Mucous Present /lpf 04/15 17:00 :00 [facility] UR[facility]YS[facility] WBC 0-5 /Hpf 0 - 5 04/15 17:00 :[facility] Culture UrineX No Growth At Two Days 04/15 17:00 :00 [facility] CT Thorax w/ Contrast CT Thorax w/ Contrast CT Scan/CT Angio Accession # Exam Date/Time Procedure Ordering Provider [id number] 02/13/2025 10:[address] Thorax w/ Contrast Glenn NIEVES, Kem Sloan Reason For Exam (CT Thorax w/ Contrast) Weight loss Report INDICATION: Weight loss TECHNIQUE: Axial post intravenous and oral contrast enhanced images through the chest, abdomen, and pelvis with sagittal and coronal reformatted imaging is performed. Comparison is made to an exam from 02 February 2023. 70 cc of Omnipaque-35 0 contrast media are given for this examination. FINDINGS: Heart is mildly enlarged. There are calcificatio ns in the left main, anterior descending, and circumflex coronary arteries. No radiological ly significant hilar, mediastinal, or axillary lymphadenopa thy identified. Calcified granuloma in the right lower lobe is noted. There is no infiltrate, effusion, or pneumothorax seen. The airways are patent. The liver, spleen, adrenals, and pancreas have an unremarkable appearance. There are bilateral renal cysts that measure up to 1 cm. Oral contrast is seen throughout the GI tract without obstruction. There is few sigmoid colonic diverticula and mild sigmoid wall thickening seen. No free fluid or free air identified. No radiological ly significant retroperiton eal, pelvic, or inguinal lymphadenopa thy identified. The uterus and gallbladder are absent. Moderate amounts of calcified plaque are seen through the abdominal aorta and its branches. There is moderate narrowing of the proximal celiac, superior mesenteric, and bilateral renal arteries. Transpedicul ar screws and bars fuse L4-5. There are moderate degenerative changes seen throughout the lumbar spine. IMPRESSION: 1. Mild circumferent ial wall thickening of the proximal to mid sigmoid colon with diverticula could be seen with sigmoid diverticular disease, mild colitis, or less likely neoplastic process. 2. Oral contrast is seen throughout the GI tract without obstruction. No free fluid or free air seen. 3. Left coronary artery disease. 4. Simple renal cysts measure up to 10 mm. 5. Status post hysterectomy cholecystect [place]. * * *Final Report* * * Electronical ly Signed by: Gerard Caicedo MD Signed on: 02/17/25 06:13 02/13 10:08 :[address] [facility] [address] Abdomen and Pelvis w/ Contrast CT Abdomen and Pelvis w/ Contrast CT Scan/CT Angio Accession # Exam Date/Time Procedure Ordering Provider [id number] 02/13/2025 10:[address] Abdomen and Pelvis w/ Kem Elizabeth MD Reason For Exam (CT Abdomen and Pelvis w/ Contrast) Weight loss Report INDICATION: Weight loss TECHNIQUE: Axial post intravenous and oral contrast enhanced images through the chest, abdomen, and pelvis with sagittal and coronal reformatted imaging is performed. Comparison is made to an exam from 02 February 2023. 70 cc of Omnipaque-35 0 contrast media are given for this examination. FINDINGS: Heart is mildly enlarged. There are calcificatio ns in the left main, anterior descending, and circumflex coronary arteries. No radiological ly significant hilar, mediastinal, or axillary lymphadenopa thy identified. Calcified granuloma in the right lower lobe is noted. There is no infiltrate, effusion, or pneumothorax seen. The airways are patent. The liver, spleen, adrenals, and pancreas have an unremarkable appearance. There are bilateral renal cysts that measure up to 1 cm. Oral contrast is seen throughout the GI tract without obstruction. There is few sigmoid colonic diverticula and mild sigmoid wall thickening seen. No free fluid or free air identified. No radiological ly significant retroperiton eal, pelvic, or inguinal lymphadenopa thy identified. The uterus and gallbladder are absent. Moderate amounts of calcified plaque are seen through the abdominal aorta and its branches. There is moderate narrowing of the proximal celiac, superior mesenteric, and bilateral renal arteries. Transpedicul ar screws and bars fuse L4-5. There are moderate degenerative changes seen throughout the lumbar spine. IMPRESSION: 1. Mild circumferent ial wall thickening of the proximal to mid sigmoid colon with diverticula could be seen with sigmoid diverticular disease, mild colitis, or less likely neoplastic process. 2. Oral contrast is seen throughout the GI tract without obstruction. No free fluid or free air seen. 3. Left coronary artery disease. 4. Simple renal cysts measure up to 10 mm. 5. Status post hysterectomy cholecystect [place]. * * *Final Report* * * Electronical ly Signed by: Gerard Caicedo MD Signed on: 02/17/25 06:13 02/13 10:08 :25 [facility] Consultation Notes Results Value Date Source Gastroenterology IM Clinic Note Chief Complaint Not taking Linzess, too expensive ($600+) - patient assistance? History of Present Illness Patient is a 75-year-old female here today as a follow-up for weight loss and constipation. She is a patient of Dr. Elizabeth, last seen in clinic on 03/05/2025. Abdomen/pelvis CT was completed on 02/13, showed possible thickening of the sigmoid colon. Dr. Elizabeth requested her previous colonoscopy report and re-evaluation of symptoms at follow-up. At her last visit, Linzess 145mcg was prescribed for her constipation, as MiraLAX didn't seem to be working anymore. Current symptoms: She states that her constipation continues, bowel movements every 2-3 days with the help of laxatives and stool softeners. Linzess was $650 per month and we will attempt coverage through patient assistance. Her previous colonoscopy was in February 2023, indicative of internal hemorrhoids, diverticula, and polyps. Repeat in 5 years recommended. Weight is stable, has gained 5 pounds since her last visit, per her home scale. Her appetite is not great but her encourages her to eat. She saw HOTEL ENGINEER yesterday and bladder surgery was recommended, awaiting follow-up and scheduling. Medications: Senna gummy, Colace. Linzess 145 too expensive. Not taking omeprazole. She denies nausea, vomiting, diarrhea, abdominal pain, or GERD symptoms. No fever, chills, or unintentional weight loss. Visit Type: TELEHEALTH Consent: Verbal consent for this telehealth visit was obtained from patient or guardian prior to beginning this encounter. Risks (tech failure, privacy and security, incomplete examination) and benefits (reduced exposure to infectious disease, convenience) of using a virtual platform were reviewed and addressed prior to beginning this encounter. Patient location at time of service: Home/Other Provider location at time of service: Onsite (Hospital Clinic or Office) Review of Systems Office Visit Note; Erendira Cano 03/05/2025 13:03 CDT</span> dd:tagtextentityid= [id number] orig-text= General/Constitutional:Litzy ngeinappetiteno.Chillsno.Fatigueno.Fe verno.LightheadednessnoSweatsnoDizzin essno.Otherconcernsnone.Respiratory:S hortnessofbreathnoCoughnoOtherconcern snone.Gastrointestinal:HeartburnnoNau seanoVomitingnoAbdominalpainnoChangei nbowelhabitsconstipationOtherconcerns none.Integumentary:RashnoSkinlesion(s )noHealingproblemsnoOtherconcernsnone .Neurologic:HeadachenoOtherconcernsno ne >General/Constitutional: Change in appetite no . Chills no . Fatigue no . Fever no . Lightheadedness no Sweats no Dizziness no . Other concerns none. Respiratory: Shortness of breath no Cough no Other concerns none. Gastrointestinal: Heartburn no Nausea no Vomiting no Abdominal pain no Change in bowel habits constipation Other concerns none. Integumentary: Rash no Skin lesion(s) no Healing problems no Other concerns none. Neurologic: Headache no Other concerns none Physical Exam Vitals and Measurements BP: 152/70 HT: 158 cm WT: 68.6 kg BMI: 27.5 CONSTITUTIONAL: alert, well nourished and hydrated, NAD. RESPIRATORY: no distress SKIN: color normal, no rash. PSYCHIATRIC: awake, alert and oriented X3, mood/affect normal. Assessment/Plan 1. Colon polyps Repeat colonoscopy February 2028. 2. Chronic idiopathic constipation We will attempt to obtain her Linzess 145mcg through patient assistance. Patient is agreeable to this plan and will continue current laxatives until it is available. Follow-up in clinic in May with HOTEL ENGINEER appointment. Reviewed Linzess dosing and risk/benefit when it is available. Return or call with new or concerning symptoms. Problem List/Past Medical History Ongoing Chronic idiopathic constipation Colon polyps FH: ovarian cancer in first degree relative History of total vaginal hysterectomy (TVH) Postmenopausal atrophic vaginitis Rectocele, female Urge incontinence Vaginal adhesions, acquired Weakening of rectovaginal tissue Procedure/Surgical History EGD Service Date: 03/05/2025 CT abdomen and pelvis Service Date: 02/13/2025 Mammogram Service Date: 2024 Colonoscopy - repeat in 5 years for surveillance Service Date: 03/03/2023 Sciatic nerve surgery lumbar fusion, L3-L4 Cholecystectomy; Complete hysterectomy Medications acetaminophen-HYDROcodone(acetaminoph en-hydrocodone 325 mg-5 mg oral tablet), 1 Tablet(s), Oral, q6h, PRN ALPRAZolam(ALPRAZolam 0.5 mg oral tablet), See Instructions bisacodyl(Dulcolax Laxative), 5 mg, Oral, Daily cloNIDine(cloNIDine 0.3 mg oral tablet), 0.3 mg= 1 Tablet(s), Oral, bid docusate(Colace 100 mg oral capsule), 100 mg= 1 capsule(s), Oral, Daily hydrALAZINE(hydrALAZINE 25 mg oral tablet), 25 mg= 1 Tablet(s), Oral, qid labetalol(labetalol 200 mg oral tablet), 200 mg= 1 Tablet(s), Oral, tid leflunomide(leflunomide 20 mg oral tablet), 20 mg= 1 Tablet(s), Oral, Daily linaclotide(Linzess 145 mcg oral capsule), 145 mcg= 1 capsule(s), Oral, Daily, 1 refills naproxen(Aleve 220 mg oral tablet), 220 mg= 1 Tablet(s), Oral, q12h, PRN nitroglycerin(nitroglycerin 0.4 mg sublingual tablet), 0.4 mg= 1 Tablet(s), Sublingual, q5min, PRN omeprazole(omeprazole 20 mg oral delayed release capsule), 20 mg= 1 capsule(s), Oral, Daily polyethylene glycol 3350(polyethylene glycol 3350 oral powder for reconstitution), 17 g, Oral, Daily predniSONE(predniSONE 5 mg oral tablet), 5 mg= 1 Tablet(s), Oral, Daily, PRN traMADol(traMADol 50 mg oral tablet), 50 mg= 1 Tablet(s), Oral, q8h, PRN verapamil(verapamil 120 mg oral tablet), 120 mg= 1 Tablet(s), Oral, bid Allergies lubiprostone sulfaSALAzine Social History Smoking Status Never smoker Alcohol - Denies Alcohol Use Employment/School Status:Retired Home/Environment Lives with:Spouse Sexual - No Sexual Activity Sexually active:No Substance Abuse - Denies Substance Abuse Tobacco - Denies Tobacco Use Family History Cancer: Father. Ovarian cancer: Mother. Parkinson disease: Father. Health Status Family Member(s) Family Member(s) Relationship: Father, Age: Unknown, Cause: cancer - kind unknown Relationship: Mother, Age: Unknown Immunizations Health Maintenance Lab Results Diagnostic Results Visit Information Attending Physician: Erendira Ramon HEAD OF DIGITAL Visit Date: 04/16/2025 04/16/2025 [facility] General Clinic Note Assessment/Pl an Patient is a 75-year-old female with a history of hysterectomy, weight loss, and hypertension presenting today for bladder leakage and constipation. 1. Weakening of rectovaginal tissue I do not think pelvic floor therapy would be worthwhile at this point as her tissue is in such poor repair 2. Rectocele, female Is aware that we would need to fix her constipation which she is trying she is aware that some individuals continue to have issues until the midline herniation is repaired Constipation - Assessment: Chronic constipation possibly due to weak pelvic floor muscles. - Consider outpatient surgery to repair pelvic floor muscles. - Recommend continued use of stool softeners and laxatives. - Recommend use of Vaseline to aid in bowel movements. 3. Postmenopausal atrophic vaginitis Topical vaginal estrogen Estring 1 ring inside the vagina where you leave it in for 90 days and then replace it Imvexxy vaginal tablets twice a week to the vagina these are made from Coconut oil surrounding estradiol Vagifem vaginal tablets twice a week to the vagina Yuvifem vaginal tablets twice a week INTAROSA 1 suppository nightly to the vagina Osphena 60 mg 1 tablet daily Cee it goes to the receptors in the vagina. This is the only non-hormone Everything else has some systemic absorption Estradiol 1 applicator twice a week to the vagina Estrace cream 1 applicator twice a week to the vagina Premarin cream 1 applicator twice a week to the vagina Due to the potential discomfort did offer Osphena which she is willing to try Ordered: estradiol topical(Estrace Vaginal Cream 0.1 mg/g), 0.1 mg, Vaginal, Daily 4. Urge incontinence Bladder leakage - Assessment: Possible bladder infection or weakness in bladder muscles. - Ordered urine test to check for infection. - If infection is present, will treat with appropriate antibiotics. - Consider starting vaginal estrogen to strengthen tissues if no infection is found. - Follow-up in three days to review urine test results. LIST OF MEDICATIONS SAFE OVER 65 CLASS 1 Anticholinergics: This class of medications can calm an overactive bladder. In the patients over 65 (elderly) custodial use may increase the risk of dementia which is not reversable upon stopping the medication. It can give dry mouth, blurred vision, constipation, urinary retention, confusion, delirium, tachycardia, drowsiness and decreased perspiration. These medications can also increase risk of falls. Enablex (darifenacin) can be used over 65 Sanctura (Trospium Chloride) can be used over 65 CLASS 2 Beta3-receptor agonists okay over 65 Myrbetriq (mirabegron) This medication relaxes the bladder muscle and can increase the amount of urine your bladder can hold. It also helps you urinate better and empty more completely Gemtessa (vibegron) okay with renal failure Alpha Blockers -This medication use is more common use in men but it relaxes bladder neck muscles and makes it easier to empty the bladder Flomax (tamsulosin) Rapaflo (silodosin) CLASS 3 Botox- this is injections to the bladder to decrease irritability and contractions. usually needs every 4-6 M. Based upon return of symptoms. InterStim- an electrical stimulation unit placed posteriorly to decrease the irritability. A sony lead is placed and if 2-4 weeks later the effects are enough and desired the unit and wire are placed under the skin of the buttocks Ordered: darifenacin(darifenacin 15 mg oral tablet, extended release), 15 mg= 1 Tablet(s), Oral, Daily, 5 refills 5. History of total vaginal hysterectomy (TVH) 6. FH: ovarian cancer in first degree relative Patient is aware that with her mom's history of ovarian cancer the recommendations would be a risk reduction bilateral salpingo-oophorectomy. She is aware that there is no screening criteria for high risk women which is defined as first-degree relatives. At this time her mom was at a very young age. Consideration for a pelvic ultrasound if the mass was palpated 7. Vaginal adhesions, acquired This time due to the adhesions unable to do a full exam upward. Patient would not be able to be sexually intimate due to the active penetration If we do repair the rectocele we can break those down 8. Recent unexplained weight loss Weight loss - Assessment: Unintentional weight loss possibly related to malabsorption or other underlying conditions. - Review previous CAT scans and other diagnostic tests. - Monitor nutritional intake and hydration status. - Follow-up to monitor nutritional intake and hydration status. Digitally signed:: This note was transcribed using expressor software Speech Recognition software. As a result, it is possible that there are inadvertent errors in word syntax, selection, punctuation., grammatical and spelling errors that are unintended. Every attempt is made to have correct dictation. If there are any questions or major errors, please contact our office. Chief Complaint Mixed Incontinence, Rectocele, constipation for over a year. History of Present Illness ANNUAL pelvic only 04-15-25 repeat 1 year FDLMP -TVH at age of 24 CONTROL -TVH at age of 24 Age at Menarche - 14 Age at Menopause - 24 patient thought ovaries were removed at the same time Age at first delivery - 20 PAP: hyst repeat none since age of 24 MAMMOGRAM : 2024 [facility] repeat sending for records PELVIC ULTRASOUND- will order if issues COLONOSCOPY 03/03/2023 fragments of adenomatous polyp; r repeat every 5years DXA start at 64: never had repeat 2-7 years 04-15-25 Holly is a 75-year-old white female who presents today incontinence and a rectocele. She does describe urgency as well as nocturia at least 3-4 times at night patient underwent a vaginal hysterectomy at the age of 24 due to heavy bleeding. Years ago. She does have a history where her mother of ovarian cancer at the age of 52. According to the patient she was diagnosed with this condition during with herself she elects to proceed through the and immediately following history is also significant for a sister age of 70. Patient is remote from CORE STACKER exam and it has been since her hysterectomy she is up-to-date on her mammogram she had it completed at [place]. Colonoscopy was completed on 03-03-2023 she found 2 polyps repeat is scheduled in 5 years The patient reports experiencing bladder leakage for the past six months. She describes an inability to hold urine, stating that she must be near a bathroom as the urge to urinate is immediate. She drinks a significant amount of water daily but notes that it passes through her quickly, requiring her to urinate within 15 minutes of drinking. She has not experienced any leakage if she avoids drinking fluids. Her urine appears concentrated, and she has not urinated since the previous evening. To further assess a straight cath urine was completed today with her permission she only had 40 cc of residual will be sent for culture. Mid urethral hypermobility was not proven on today's exam The patient reports severe constipation, requiring the use of laxatives and stool softeners to have a bowel movement. She describes her stools as hard as a rock and black in color. She has resorted to manual evacuation using her hands due to the difficulty in passing stool. The manually evacuation is inside the rectum this issue began approximately three months after her last childbirth. She has had two upper GIs and a colonoscopy, which revealed polyps deemed non-problematic. The patient has experienced significant weight loss, losing 70 pounds without trying. There has been an extensive workup but nothing has been found. She often feels full and goes days without eating. The weight loss has affected her entire body, including her skin, which no longer fits properly. She weighed 212 pounds before the weight loss. Review of Systems as above Physical Exam Vitals and Measurements HR: 72 RR: 20 BP: 150/78 SpO2: 97% HT: 157.48 cm WT: 68.8 kg BMI: 27.7 Integumentary: Ecchymosis on the dorsum of the hand Genitourinary: Vaginal scar tissue noted Weakness in pelvic floor muscles Ovaries not palpable on examination Organ System Exam ENT: NECK/THYROID: neck supple, no lymphadenopathy. RESPIRATORY: . No conversational dyspnea GASTROINTESTINAL: no masses palpated, no hepatosplenomegaly. SKIN: no lesions seen loose skin noted - Female EXTERNAL GENITALIA: normal, VULVA: normal, no lesions, no skin discoloration. VESTIBULE: normal. CYSTOCOELE: None seen. ENTEROCOELE: None seen. RECTOCOELE: 2+ midline URETHRA: normal external meatus, no caruncles noted VAGINA: no mucosa, vaginal stenosis as well as adhesions noted in the upper vaginal cuff. Able to place speculum unremarkable. HORMONE STATUS: Severe atrophy CUL-DE-SAC: No nodularity noted. 1 finger able to reach all the way to the top but very uncomfortable for the patient CERVIX: Surgically absent SPECIMEN COLLECTION: Straight cath urine taken UTERUS: Surgically absent ADNEXA: Unable to palpate, no adnexal masses felt PERINEUM: non tender no discolorations noted ANUS: visually normal. CORE STACKER Procedure Details CORE STACKER Additional Details Menstrual History Last Menstrual Periodtotal vaginal hysterectomy Age at [id number] Contraception Current ContraceptionSurgically Sterile Sexually Transmitted Infections History of STDNo Problem List/Past Medical History Ongoing Chronic idiopathic constipation Colon polyps FH: ovarian cancer in first degree relative History of total vaginal hysterectomy (TVH) Postmenopausal atrophic vaginitis Rectocele, female Urge incontinence Vaginal adhesions, acquired Weakening of rectovaginal tissue Procedure/Surgical History EGD Service Date: 03/05/2025 CT abdomen and pelvis Service Date: 02/13/2025 Mammogram Service Date: 2024 Colonoscopy - repeat in 5 years for surveillance Service Date: 03/03/2023 Sciatic nerve surgery lumbar fusion, L3-L4 Cholecystectomy; Complete hysterectomy Medications acetaminophen-HYDROcodone(acetaminoph en-hydrocodone 325 mg-5 mg oral tablet), 1 Tablet(s), Oral, q6h, PRN ALPRAZolam(ALPRAZolam 0.5 mg oral tablet), See Instructions bisacodyl(Dulcolax Laxative), 5 mg, Oral, Daily cloNIDine(cloNIDine 0.3 mg oral tablet), 0.3 mg= 1 Tablet(s), Oral, bid darifenacin(darifenacin 15 mg oral tablet, extended release), 15 mg= 1 Tablet(s), Oral, Daily, 5 refills docusate(Colace 100 mg oral capsule), 100 mg= 1 capsule(s), Oral, Daily estradiol topical(Estrace Vaginal Cream 0.1 mg/g), 0.1 mg, Vaginal, Daily hydrALAZINE(hydrALAZINE 25 mg oral tablet), 25 mg= 1 Tablet(s), Oral, qid labetalol(labetalol 200 mg oral tablet), 200 mg= 1 Tablet(s), Oral, tid leflunomide(leflunomide 20 mg oral tablet), 20 mg= 1 Tablet(s), Oral, Daily naproxen(Aleve 220 mg oral tablet), 220 mg= 1 Tablet(s), Oral, q12h, PRN nitroglycerin(nitroglycerin 0.4 mg sublingual tablet), 0.4 mg= 1 Tablet(s), Sublingual, q5min, PRN omeprazole(omeprazole 20 mg oral delayed release capsule), 20 mg= 1 capsule(s), Oral, Daily polyethylene glycol 3350(polyethylene glycol 3350 oral powder for reconstitution), 17 g, Oral, Daily predniSONE(predniSONE 5 mg oral tablet), 5 mg= 1 Tablet(s), Oral, Daily, PRN traMADol(traMADol 50 mg oral tablet), 50 mg= 1 Tablet(s), Oral, q8h, PRN verapamil(verapamil 120 mg oral tablet), 120 mg= 1 Tablet(s), Oral, bid Allergies lubiprostone sulfaSALAzine Social History Smoking Status Never smoker Alcohol - Denies Alcohol Use Employment/School Status:Retired Home/Environment Lives with:Spouse Sexual - No Sexual Activity Sexually active:No Substance Abuse - Denies Substance Abuse Tobacco - Denies Tobacco Use Family History [place] - myocardial infarction: Sister (Dx at 70). Ovarian cancer: Mother (Dx at 45). Parkinson disease: Father. Health Status Family Member(s) Family Member(s) Relationship: Father, Age: Unknown, Cause: cancer - kind unknown Relationship: Mother, Age: Unknown Immunizations Lab Results Radiology Results Forgot procedure documentation Bladder Catheterization Consent Procedure explained to Patient. Verbal consent obtained. Verified patient's name and date of , verbal consent obtained. Indication urge incontinence Prep Kit readied for procedure., Sterile gloves put on., Skin cleansed with sterile Betadine swabs. Catheter size in and out 40 cc Procedure After wiping the urethral opening with Betadine, under sterile conditions. The patient was asked to cough and then a 5 kinyarwanda pediatric non-bulb catheter was placed into the bladder and the urine drained., . Disposition Pt tolerated procedure well, No complications, Urine sent for above testing. Catheterization Post-Procedural Instructions - After The Procedure: You may have mild discomfort for a few hours after these tests when you urinate. Drinking an 8-ounce glass of water each half-hour for 2 hours should help. If you develop any symptoms of pain or frequency in the next few days , please notify the office. You should not run a fever (greater than 100.4 degrees) with this procedure. If you do, please call the office at [phone]. We will go over the results and discuss treatment options in 3-4 days when the culture results are in. 04/15/2025 Gastroenterology IM Clinic Note Chief Complaint History of Present Illness Patient is a 75-year-old female here today as a follow-up for weight loss and constipation. She is a patient of Dr. Elizabeth, last seen in clinic on 01/27/2025. At that time, CT was ordered and she was to continue her MiraLAX for constipation. CT was completed on 02/13, showed possible thickening of the sigmoid colon. Dr. Elizabeth requested her previous colonoscopy report and re-evaluation of symptoms at follow-up. She is accompanied today by her . Current symptoms: She reports that she continues with constipation. MiraLAX has not been working for her, taking Colace and a gummy Senokot daily. Currently, she goes every 2-3 days but feels uncomfortable at this rate, bloated and full. Her stools are typically hard and dark. Her appetite is low as she feels full quickly. has been providing her meals and encouraging her to eat but she has not felt hungry. She feels that there is something wrong, as she has been losing weight for the past 2 years, 212 initially. Weight today has increased, 145.9 today up from 141.7 one month ago. She denies any difficulty swallowing, last EGD 10/20 in [place] showed mild gastropathy. She has had gastric emptying study in the past, cannot recall results. She states that she was once prescribed lubiprostone and sulfasalazine, did not help and had side effects. She reports ongoing fatigue as well as left breast pain and sees her PCP next week. Previous colonoscopy 02/2023 in [place] showed 2 polyps and diverticulosis. Repeat recommended in 5 years. Medications: Senna gummy, Colace. She denies nausea, vomiting, constipation, diarrhea, abdominal pain, or GERD symptoms. No fever, chills, or unintentional weight loss. Review of Systems General/Constitutional: Change in appetite no. Chills no. Fatigue no. Fever no. Lightheadedness no Sweats no Dizziness no. Other concerns none. Respiratory: Shortness of breath no Cough no Other concerns none. Gastrointestinal: Heartburn no Nausea no Vomiting no Abdominal pain no Change in bowel habits constipation Other concerns none. Integumentary: Rash no Skin lesion(s) no Healing problems no Other concerns none. Neurologic: Headache no Other concerns none Physical Exam Vitals and Measurements HR: 69 BP: 92/60 SpO2: 97% HT: 157.48 cm WT: 66.2 kg BMI: 26.7 CONSTITUTIONAL: alert, well nourished and hydrated, NAD. EYES: PERRL. CARDIOVASCULAR: RSR, normal S1S2. RESPIRATORY: clear to auscultation bilaterally. GASTROINTESTINAL: Soft, nontender. No masses. SKIN: color normal, no rash. PSYCHIATRIC: awake, alert and oriented X3, mood/affect normal. Assessment/Plan 1. Constipation Recommend Linzess 145 mcg. Reviewed dosing, risk/benefit with patient and . She is agreeable to trial of Linzess, sent to her pharmacy. Also reviewed gastroparesis diet with patient and due to potential diagnosis at [facility]. Educational handout provided. 2. Unintentional weight loss Patient voices concern that there is something wrong. Reviewed CT findings and previous colonoscopy with patient and . Discussed repeat colonoscopy, but patient would prefer to monitor her response to Linzess first. Will reevaluate need for repeat colonoscopy at follow-up. Orders: linaclotide(Linzess 145 mcg oral capsule), 145 mcg= 1 capsule(s), Oral, Daily, [address] drives 3 hours to get here. Discussed option of telehealth visit for her follow-up, which they would prefer. Follow-up by telehealth in 6 to 8 weeks. Return or call with new or concerning symptoms. Problem List/Past Medical History Procedure/Surgical History EGD Service Date: 10/14/2024 Colonoscopy Service Date: 03/03/2023 Sciatic nerve surgery lumbar fusion, L3-L4 Cholecystectomy; Complete hysterectomy Medications acetaminophen-HYDROcodone(acetaminoph en-hydrocodone 325 mg-5 mg oral tablet), 1 Tablet(s), Oral, q6h, PRN ALPRAZolam(ALPRAZolam 0.5 mg oral tablet), 0.5 mg= 1 Tablet(s), Oral, qid cloNIDine(cloNIDine 0.3 mg oral tablet), 0.3 mg= 1 Tablet(s), Oral, bid hydrALAZINE(hydrALAZINE 25 mg oral tablet), 25 mg= 1 Tablet(s), Oral, bid hydrALAZINE(hydrALAZINE 25 mg oral tablet), 25 mg= 1 Tablet(s), Oral, qid labetalol(labetalol 200 mg oral tablet), 200 mg= 1 Tablet(s), Oral, tid leflunomide(leflunomide 20 mg oral tablet), 20 mg= 1 Tablet(s), Oral, Daily linaclotide(Linzess 145 mcg oral capsule), 145 mcg= 1 capsule(s), Oral, Daily, 1 refills nitroglycerin(nitroglycerin 0.4 mg sublingual tablet), 0.4 mg= 1 Tablet(s), Sublingual, q5min, PRN polyethylene glycol 3350(polyethylene glycol 3350 oral powder for reconstitution), 17 g, Oral, Daily predniSONE(predniSONE 5 mg oral tablet), 5 mg= 1 Tablet(s), Oral, Daily verapamil(verapamil 120 mg oral tablet), 120 mg= 1 Tablet(s), Oral, bid Allergies lubiprostone sulfaSALAzine Social History Smoking Status Never smoker Family History Immunizations Health Maintenance Lab Results Diagnostic Results Visit Information Attending Physician: Erendira Ramon HEAD OF DIGITAL Visit Date: 03/05/2025 03/05/2025 Gastroenterology IM Clinic Note Chief Complaint Patient is referred here today by Dr.Druery Kim(per pt. request). Patient has GERD,IBS with constipation ,wt. loss,hx of colon polyps. Patient thinks she had a colonoscopy /upper GI last July at [facility]. History of Present Illness Ms. Diez is a 74 yof who presents today for unintentional weight loss and constipation. She reports she has lost about 70 lbs in the last year. She does report eating less than she used to. She reports eating breakfast in the AM, but usually gets full fairly easily and then continues to feel full for most of the day and she doesn't try to eat anything else for the rest of the day. She does consume a lot of water daily. She reports her last EGD was bout 3-4 months ago at [facility] in [place]. She says she was told she had gastritis. She denies any antacids were started. She was tried on amitiza, but this made her sick to her stomach. Gastric emptying study in [place] was reportedly normal from a gastric emptying standpoint, but she says they stated that food didn't move very much further. She reports baseline constipation with BM every 3 days. She takes stool softeners, miralax, and prune juice prn. She reports her last colonoscopy was at the same time as her EGD. She thinks she had polyps removed at that time. She also notes a prior xray that noted a lung lesion. She denies further work up for this. Review of Systems Gen: denies fevers, weight loss Eyes: denies vision changes, eye pain ENT: denies odynophagia, epistaxis, hearing loss CV: denies chest pain, palpitations Resp: denies cough, wheezing GI: per HPI MSK: denies swelling, joint pains Skin: denies jaundice, bruising Neuro: denies numbness, weakness Psych: denies depression, anxiety Physical Exam Vitals and Measurements T: 36.6 C HR: 60 BP: 128/74 SpO2: 98% HT: 157.48 cm WT: 64.3 kg BMI: 25.9 General: AAO, NAD HEENT: AT/NC, OMM, anicteric sclera CV: regular Resp: non-labored, no wheezing GI: Nontender, nondistended. No organomegaly. Ext: No cce Neuro: no focal deficits Skin: no jaundice, bruising Clinic Procedure Assessment/Plan 1. Weight loss CT chest, abdomen, and pelvis 2. Early satiety 3. 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 Problem List/Past Medical History Procedure/Surgical History Medications acetaminophen-HYDROcodone(acetaminoph en-hydrocodone 325 mg-5 mg oral tablet), 1 Tablet(s), Oral, q6h, PRN ALPRAZolam(ALPRAZolam 0.5 mg oral tablet), 0.5 mg= 1 Tablet(s), Oral, qid cloNIDine(cloNIDine 0.3 mg oral tablet), 0.3 mg= 1 Tablet(s), Oral, bid hydrALAZINE(hydrALAZINE 25 mg oral tablet), 25 mg= 1 Tablet(s), Oral, bid labetalol(labetalol 200 mg oral tablet), 200 mg= 1 Tablet(s), Oral, tid leflunomide(leflunomide 20 mg oral tablet), 20 mg= 1 Tablet(s), Oral, Daily nitroglycerin(nitroglycerin 0.4 mg sublingual tablet), 0.4 mg= 1 Tablet(s), Sublingual, q5min, PRN polyethylene glycol 3350(polyethylene glycol 3350 oral powder for reconstitution), 17 g, Oral, Daily predniSONE(predniSONE 5 mg oral tablet), 5 mg= 1 Tablet(s), Oral, Daily traMADol(traMADol 50 mg oral tablet), 50 mg= 1 Tablet(s), Oral, q8h verapamil(verapamil 120 mg oral tablet), 120 mg= 1 Tablet(s), Oral, bid Allergies lubiprostone sulfaSALAzine Social History Smoking Status Never smoker Family History Immunizations Health Maintenance Lab Results Diagnostic Results Visit Information Attending Physician: Kem Elizabeth MD Visit Date: 01/27/2025 01/27/2025 Vital Signs Vital Sign Value Date Comments Source Heart Rate 69 bpm 03/05/2025 18:07:00 [facility] SpO2 97 % 03/05/2025 18:07:00 [facility] Height (cm) 157.48 cm 03/05/2025 18:07:00 [facility] SBP NIBP 92 mm[Hg] 03/05/2025 18:07:00 [facility] DBP NIBP 60 mm[Hg] 03/05/2025 18:07:00 [facility] Weight (kg) 66.2 kg 03/05/2025 18:07:00 [facility] BSA Asher 1.67 03/05/2025 18:07:00 [facility] BMI 26.7 kg/m2 03/05/2025 18:07:00 [facility] Encounters Location Location Details Encounter Type Encounter Number Reason For Visit Attending Provider ADM Date DC Date Status Source [facility] Between Visit [id number] 01/13 14:25 :34 01/14 05:59 :59 [facility] Clinic [id number] Kem Elizabeth 01/27 21:44 :41 01/28 05:59 :59 [facility] Outpatient [id number] Kem Elizabeth 02/13 12:28 :32 02/14 04:59 :59 [facility] Digestive [facility] [id number] Erendira Ramon 03/05 18:03 :34 03/06 04:59 :59 [facility] Between Visit [id number] 04/15 12:53 :48 04/16 04:59 :59 [facility] OBGYN Clinic [id number] Sheela Brewstergrecai 04/15 15:00 :38 04/16 04:59 :59 HOTEL ENGINE[facility] OBGYN Between Visit [id number] 04/15 20:02 :45 04/16 04:59 :59 HOTEL ENGINEER [facility] Care [id number] Erendira June 04/16 18:51 :36 04/17 04:59 :59 [facility] Between Visit [id number] 04/22 15:57 :24 04/23 04:59 :59 [facility] Between Visit [id number] 05/13 16:17 :35 05/14 04:59 :59 [facility] Procedures Procedure Code Date Perfomer Comments Source CT abdomen and pelvis 02/13/2025 05:00:00 [facility] Mamm[facility] 11/27/2024 00:00:00 [facility] EGD 10/14/2024 06:00:00 [facility] Sciatic nerve surgery [facility] lumbar fusion, L3-L4 [facility] Cholecystectomy; [id number] [facility] Complete hysterectomy [facility] Social History Social History Date Source No data available for this section 05/14/2025 [facility] No data available for this section 04/23/2025 [facility] No data available for this section 04/17/2025 [facility] No data available for this section 04/16/2025 HOTEL ENGINEER [facility] [place] No data available for this section 03/06/2025 [facility] No data available for this section 02/14/2025 [facility] No data available for this section 01/28/2025 [facility]
--- OUTSIDE RECORDS SUMMARY | 2025-06-23 09:58 | XMS_ITS | Encounter Summary ---
Author Organization [facility] Address [address] [place] [address] Care Team Providers Care Housekeeping Associate Name Role Phone Ann Marie Kim MD Primary Care Provider [phone] Encounter Details Date Type Department Care Team (Late st Contact Info) Description 07/03/2024 Lab Requisition [facility] [id number] [place] [phone] Nicholas Rodriguez MD [address] [facility] [address] [place] [address] Social History Tobacco Use Types Packs/Day Years Used Date Smoking Tobacco: Never Smokeless Tobacco: Never Alcohol Use Standard Drinks/Week Comments Never 0 (1 standard drink = 0.6 oz pur e alcohol) Comments No Sex and Gender Information Value Date Recorded Sex Assigned at Not on file 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 Gender Identity Not on file Sexual Orientation Not on file documented as of this encounter Plan of Treatment Not on file documented as of this encounter Procedures Procedure Name Priority Date/Time Associated Diagnosis Comments REFERENCE LAB PROCESSING FEE Routine 07/03/2024 10:40 AM CDT documented in this encounter Results * REFERENCE LAB PROCESSING FEE (07/03/2024 10:40 AM CDT) [facility] REFERENCE LAB SENDOUT Completed 07/03/2024 11:08 AM CDT [facility] Other, specify BLOOD SPECIMEN / Unknown Collection / Unknown 07/03/2024 10:40 AM CDT 07/03/2024 11:08 AM CDT us Nicholas Rodriguez MD CHEMISTRY ORDERABLES Final Re sult [facility] CLIA # [id number] [facility] [address] [address] documented in this encounter Visit Diagnoses Not on filedocumented in this encounter Care Teams Housekeeping Associate Relationship Specialty Start Date End Date Ann Marie Kim MD [address] [phone] PCP - General Family Practice 02/02/23 documented as of this encounter
--- OUTSIDE RECORDS SUMMARY | 2025-06-23 09:58 | XMS_ITS | Clinical Summary ---
Author Organization [facility] de Address [address] [place] [address] Phone Care Team Providers Care Model Maker [employer] Name Role Phone Ann Marie Kim MD Primary Care Provider [phone] Allergies No known active allergies Medications hydrALAZINE [...] External Device Data STL ABSTRACTION Provider, Abstract 06/11/2025 External Device Data ST[place] ABSTRACTION Provider, Abstract 05/14/2025 External Device Data [place] ABSTRACTION Provider, Abstract 04/17/2025 External Device Data ST[place] ABSTRACTION Provider, Abstract 04/17/2025 External Device Data ST[place] ABSTRACTION Provider, Abstract 04/16/2025 External Device Data ST[place] ABSTRACTION Provider, Abstract from Last 3 Months Family History Medical [...] on file Legal Sex Female 12:31 AM [employer] Gender Identity Not on file Sexual Orientation Not on file Last Filed Vital Signs Vital Sign Reading Time Taken Comments Blood Pressure 154/85 10/14/2024 9:30 AM [employer]ER Pulse 73 10/14/2024 9:30 AM [employer]ER Temperature - - Respiratory Rate 18 10/14/2024 9:30 AM [employer]ER Oxygen Saturation 95% 10/14/2024 9:30 AM [employer] AS[employer]ER Inhaled Oxygen Concentration - - Weight 70.7 [...] Nagy MD - 03/03/2023 11:36 AM CDT [facility] GI Patient Name: Holly Diez Procedure Date: [...] 11:17:18 AM Scope Out: 11:31:46 AM [address] [place], [place] Neo Nagy MD GI PROCEDURE ORDERABLES F inal Result from Last 3 Months or Most Recently Relevant to Health Maintenance Insurance MEDICARE PART A AND B [place] [id number] Advance Directives For more information, please contact: [phone] * Full Code (Latest Code Status on File) Date Activated Date Inactivated Comments 03/03/2023 10:13 AM 03/03/2023 2:17 PM Care Teams Model Maker 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
--- NOTE | 2025-06-23 11:05 | PM.PN ---
Subjective Subjective: Patient was admitted to inpatient hospice over the weekend. Discussed with patient's in the room. He just wants to keep the patient comfortable at this time. Patient is somewhat confused at this time however awake and alert. Patient has history of dementia. Vitals/I&O/Wt Last Vital Signs Temp 100.2 F H 06/23/25 11:11 Pulse 108 H 06/23/25 11:11 Resp 16 06/23/25 18:31 BP 170/96 06/23/25 11:11 Pulse Ox 96 06/23/25 11:11 06/23/25 06/23/25 06/24/25 14:59 22:59 06:59 Intake Total 0 / 0 Output Total 550 / 550 Balance -550 / -550 Physical Exam Narrative: Limited exam secondary to comfort measures status only Patient states she is comfortable at this time Denies abdominal pain Abdomen soft nontender Lungs clear to auscultation. Urinary Catheter Management: Vega: Cath Placed During This Visit: yes Reason for Continuing Indwelling Catheter: Hospice/Comfort/Palliative Care Urinary Catheter Date of Insertion: 06/20/25 Urinary Catheter Time of Insertion: 10:00 A&P Assessment and plan 1. Comfort measures only status: Plan: #Comfort measures only #Inpatient hospice Patient has been admitted to inpatient hospice over the weekend. Patient's would like to continue comfort measures status only. At times patient has been asleep and would not take up to take medication. Discussed with patient's . He states it is okay to hold off on amiodarone antibiotics or any other medication she may need except to keep her comfortable. We will continue Ativan and morphine per 's wishes at this time. Patient will be under inpatient hospice with 3 [facility] PDMP PDMP Reviewed: Not Reviewed Attestations Medical Necessity Statement*: Comfort measures status only. Diagnoses Comfort measures only status Z51.5
[2025-06-23 11:11] VITALS: BP 170/96; PULSE 108; TEMP 37.9; O2SAT 96
[2025-06-23] MEDS: morphine 10 mg/0.5 mL oral liq UD SUBLINGUAL (14:50)
[2025-06-23] MEDS: LORazepam 2 mg/mL oral liquid (mL) 1 MG PO ×2 (14:51→20:42)
[2025-06-23 18:31] VITALS: RESP 16
[2025-06-23] MEDS: LORazepam 1 MG/0.5 ML injection IVP (18:31)
[2025-06-23] MEDS: morphine 4 mg/mL SDV 1 mL IVP (18:31)
[2025-06-24] MEDS: LORazepam 2 mg/mL oral liquid (mL) 1 MG PO ×4 (01:50→19:40)
[2025-06-24 07:30] VITALS: BP 155/82; PULSE 106; RESP 16; TEMP 36.6; O2SAT 95
[2025-06-24 11:36] VITALS: BP 167/92; PULSE 108; RESP 17; TEMP 36.8; O2SAT 94
[2025-06-24 12:02] VITALS: RESP 18
[2025-06-24] MEDS: morphine 4 mg/mL SDV 1 mL IVP (12:02)
--- NOTE | 2025-06-24 14:24 | PM.PN ---
Subjective Subjective: Continue acute events overnight. Patient is comfortable. is at bedside. Vitals/I&O/Wt Last Vital Signs Temp 98.3 F 06/24/25 11:36 Pulse 108 H 06/24/25 11:36 Resp 18 06/24/25 12:02 BP 167/92 06/24/25 11:36 Pulse Ox 94 06/24/25 11:36 O2 Del Method Room Air 06/24/25 11:36 06/23/25 06/24/25 06/24/25 22:59 06:59 14:59 Intake Total 0 / 0 360 / 360 Output Total 550 / 550 250 / 800 Balance -550 / -550 -250 / -800 360 / 360 Physical Exam Narrative: Limited exam secondary to comfort measures status only Patient states she is comfortable at this time Denies abdominal pain Abdomen soft nontender Lungs clear to auscultation. Urinary Catheter Management: Vega: Cath Placed During This Visit: yes Reason for Continuing Indwelling Catheter: Hospice/Comfort/Palliative Care Urinary Catheter Date of Insertion: 06/20/25 Urinary Catheter Time of Insertion: 10:00 A&P Assessment and plan 1. Comfort measures only status: Plan: #Comfort measures only #Inpatient hospice Patient has been admitted to inpatient hospice over the weekend. Patient's would like to continue comfort measures status only. At times patient has been asleep and would not take up to take medication. Discussed with patient's . He states it is okay to hold off on amiodarone antibiotics or any other medication she may need except to keep her comfortable. We will continue Ativan and morphine per 's wishes at this time. Patient will be under inpatient hospice with [facility] 06/24/2025 Continue comfort measures status. 3 hours hospice following. Patient is comfortable at this time. PDMP PDMP Reviewed: Not Reviewed Attestations Medical Necessity Statement*: Comfort measures Diagnoses Comfort measures only status Z51.5
[2025-06-24 16:00] VITALS: BP 154/87; PULSE 114; RESP 16; TEMP 36.8; O2SAT 94
[2025-06-24] MEDS: morphine 10 mg/0.5 mL oral liq UD SUBLINGUAL (17:32)
[2025-06-24 19:22] VITALS: BP 153/98; PULSE 120; RESP 17; TEMP 36.8; O2SAT 95
[2025-06-25] MEDS: morphine 10 mg/0.5 mL oral liq UD SUBLINGUAL ×3 (00:38→14:06)
[2025-06-25] MEDS: LORazepam 2 mg/mL oral liquid (mL) 1 MG PO ×3 (01:39→14:05)
[2025-06-25 07:40] VITALS: BP 157/92; PULSE 111; RESP 17; TEMP 36.8; O2SAT 96
[2025-06-25 07:47] VITALS: BP 140/78; PULSE 113; RESP 12; TEMP 36.4; O2SAT 95
--- NOTE | 2025-06-25 09:48 | P.DS_ITS ---
Discharge Providers Date of Admission: 06/20/25 14:25 Date of Discharge: June 25, 2025 Attending Provider at Admission: iMchele Woodward MD Attending Provider at Discharge: Adeola Steven MD Primary Care Provider: Ann Marie Kim MD Diagnoses at Discharge Discharge Diagnosis 1. Comfort measures only status: Reason for Visit Reason for Visit: HOSPICE CARE Hospital Course Hospital Course Patient was initially admitted to the hospital for hypertensive urgency acute encephalopathy. Eventually decision was made to pursue comfort measures after discussion with patient's family by attending physician Dr. Carver. Patient was admitted to inpatient hospice at which time I took over her care. She was discharged to hospice at a medical facility Physical Exam Narrative: Limited exam secondary to comfort measures status only Patient states she is comfortable at this time Denies abdominal pain Abdomen soft nontender Lungs clear to auscultation. Urinary Catheter Management: Vega: Cath Placed During This Visit: yes Reason for Continuing Indwelling Catheter: Hospice/Comfort/Palliative Care Urinary Catheter Date of Insertion: 06/20/25 Urinary Catheter Time of Insertion: 10:00 Discharge Data Studies Completed and Pending Laboratory Results POC Glucose 109 mg/dL (70-110) 06/23/25 16:37 Vitals Last Vital Signs Temp 97.6 F 06/25/25 07:47 Pulse 113 H 06/25/25 07:47 Resp 12 06/25/25 07:47 BP 140/78 06/25/25 07:47 Pulse Ox 95 06/25/25 07:47 O2 Del Method Room Air 06/25/25 07:47 Discharge Plan Discharge Patient Disposition: Hospice - Medical Facility Condition: Stable Prescriptions: Discontinued leflunomide 20 mg tablet 20 mg PO DAILY Qty: 90 1RF tramadol 50 mg tablet 50 mg PO Q8H PRN (Reason: pain) 30 Days Qty: 90 1RF labetalol 200 mg tablet 200 mg PO Q12H Qty: 270 1RF nitroglycerin 0.4 mg tablet, sublingual 0.4 mg SUBLINGUAL Q5M PRN (Reason: chest pain) Qty: 25 2RF Rx Instructions: do not exceed 3 doses per episode hydrocodone-acetaminophen 5-325 mg tablet 1 tab PO Q8H PRN (Reason: pain) 30 Days Qty: 60 0RF alprazolam 0.5 mg tablet 0.5 mg PO QID Qty: 120 5RF oxycodone 5 mg tablet 5 mg PO Q4H PRN (Reason: pain) 7 Days Qty: 42 0RF multivitamin Tablet 1 tab PO DAILY naproxen sodium [Aleve] 220 mg Tablet 220 mg PO BID PRN (Reason: Pain) hydralazine 25 mg tablet 25 mg PO BID PRN (Reason: Systolic blood pressure of more than 160 mmHg) Qty: 10 0RF verapamil 120 mg tablet extended release 120 mg PO BID Discharge Order = DC NOW: Discharge Order (Routine); Ordered 06/25/25 Ordered By: Adeola Steven Discharge Diet: Regular Patient Instructions: Hospice Care (GEN) Discharge Attestations Time Spent in Discharge Care*: less than 30 min Status at Discharge: Cognitive status at discharge: cognitively intact , Behavioral status at discharge: cooperative , Quality Metrics Clinical Quality Measures [ No reported AMI, CVA or VTE this stay] Coding Level of Care Code Acute Code for Chg Fwd Diagnoses Comfort measures only status Z51.5
--- NOTE | 2025-06-25 10:35 | PC.NURSE ---
Discharge Note Patient discharged to [facility] via [facility] transport accompanied by [facility] personnel. Discharge instructions reviewed with patient and/or corporate representative. Mobile pharmacy medications and/or prescriptions provided. Belongings/home medications returned.
--- NOTE | 2025-06-25 11:10 | PC.NURSE ---
Called report to Amarilis at [facility] [place] at [phone].
[2025-06-25 11:45] VITALS: BP 139/86; PULSE 111; RESP 17; TEMP 36.9; O2SAT 95
[2025-06-25 12:53] VITALS: BP 139/86; PULSE 111; RESP 17; TEMP 36.9; O2SAT 95
--- NOTE | 2025-06-25 14:17 | PC.SOCIAL ---
IMM UPDATED IMM dated and initialed, copy given to patient and copy placed in chart.
--- OUTSIDE RECORDS SUMMARY | 2025-08-03 19:00 | XMS_ITS | Clinical Summary ---
Author Organization Unknown Care Team Providers Care Blind Aide Name Role Phone ANNA NIEVES, NIVIA Unavailable Unavailable JESS GUERRERO, KORINA Unavailable Unavailable Payers Payer Name Policy Type Policy Number Effective Date Expira tion Date MEDICARE - S - PDGM [id number] Problems Condition Name Condition Details Condition Category Status Onset Date Resolution Date Last Treatment Date Treating Clinician Comments ESSENTIAL (PRIMARY) HYPERTENSION Active 06-06 00:00: 00 TYPE 2 DIABETES MELLITUS WITHOUT COMPLICATION S Active 11-27 00:00: 00 ACUTE KIDNEY FAILURE, UNSPECIFIED Active 11-27 00:00: 00 ORTHOSTATIC HYPOTENSION Active 11-27 00:00: 00 SPINAL STENOSIS, LUMBAR REGION WITH NEUROGENIC CLAUDICATION Active 11-27 00:00: 00 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, LUMBAR REGION Active 11-27 00:00: 00 DERMATITIS, UNSPECIFIED Active 11-27 00:00: 00 Irritable bowel syndrome, unspecified Active 11-27 00:00: 00 ANXIETY DISORDER, UNSPECIFIED Active 11-27 00:00: 00 HYPERTENSIVE ENCEPHALOPAT HY Active 11-27 00:00: 00 HYPERTENSIVE URGENCY Active 11-27 00:00: 00 ACQUIRED ABSENCE OF BOTH CERVIX AND UTERUS Active 11-27 00:00: 00 ACQUIRED ABSENCE OF OTHER SPECIFIED PARTS OF DIGESTIVE TRACT Active 11-27 00:00: 00 HISTORY OF FALLING Active 11-27 00:00: 00 Personal history of colon polyps, unspecified Active 11-27 00:00: 00 Allergies, Adverse Reactions, Alerts Allergy Name Allergy Type Status Severity Reaction(s) Onset Date Inactive Date Treating Clinician Comments SULFAZINE Propensity to adverse reactions Active 06-06 13:07: 40 Medications Ordered Medication Name Filled Medication Name Start Date Stop Date Current Medication? Ordering Clinician Indication Dosage Frequency Signature (SIG) Comments Components alprazolam 0.5 mg tablet 06-06 00:00: 00 Yes [id number] 1 tablet 4 TIMES DAILY 1 tablet 4 TIMES DAILY (route: oral) Med Classific ation: Central Nervous System Agents clonidine HCl 0.3 mg tablet 06-06 00:00: 00 Yes [id number] 1 tablet 3 TIMES DAILY 1 tablet 3 TIMES DAILY (route: oral) Med Classific ation: Cardiovas cular Therapy Agents hydralazine 25 mg tablet 06-06 00:00: 00 Yes [id number] 1 tablet 4 TIMES DAILY 1 tablet 4 TIMES DAILY (route: oral) Med Classific ation: Cardiovas cular Therapy Agents hydrocodone 5 mg-acetamin ophen 325 mg tablet 06-06 00:00: 00 Yes [id number] 1 tablet EVERY 8 HOURS 1 tablet EVERY 8 HOURS (route: oral) Med Classific ation: Analgesic , Anti-infl ammatory or Antipyret ic labetalol 200 mg tablet 06-06 00:00: 00 Yes [id number] 1 tablet 3 TIMES DAILY 1 tablet 3 TIMES DAILY (route: oral) Med Classific ation: Cardiovas cular Therapy Agents magnesium glycinate gummies 200mg 06-06 00:00: 00 Yes [id number] 1 gummy DAILY 1 gummy DAILY (route: BY MOUTH) Med Classific ation: ELECTROLY KHURRAM/VITAM INS multivitami n tablet 06-06 00:00: 00 Yes [id number] 1 tablet DAILY 1 tablet DAILY (route: oral) Med Classific ation: Electroly te Balance-N utritiona l Products oxycodone 5 mg tablet 06-06 00:00: 00 Yes [id number] 1 tablet EVERY 4 HOURS 1 tablet EVERY 4 HOURS (route: oral) Med Classific ation: Analgesic , Anti-infl ammatory or Antipyret ic tramadol 50 mg tablet 06-06 00:00: 00 Yes [id number] 1 tablet EVERY 8 HOURS 1 tablet EVERY 8 HOURS (route: oral) Med Classific ation: Analgesic , Anti-infl ammatory or Antipyret ic verapamil 120 mg tablet 06-06 00:00: 00 Yes [id number] 2 tablet 2 TIMES DAILY 2 tablet 2 TIMES DAILY (route: oral) Med Classific ation: Cardiovas cular Therapy Agents leflunomide 20 mg tablet 06-06 00:00: 00 Yes [id number] 1 tablet DAILY 1 tablet DAILY (route: oral) Med Classific ation: Analgesic , Anti-infl ammatory or Antipyret ic Vital Signs Vital Name Observation Time Observation Value Commen ts Temperature 2025-06-06 14:59:00.000 97.7 [degF] Temperature 2025-06-06 12:17:00.000 97.1 [degF] BMI (%) 2025-06-06 12:17:00.000 25 kg/m2 Height 2025-06-06 12:17:00.000 62 [in_us] Pulse 2025-06-06 14:59:00.000 75 /min Pulse 2025-06-06 12:17:00.000 67 /min O2 Saturation (%) 2025-06-06 14:59:00.000 94 % O2 Saturation (%) 2025-06-06 12:17:00.000 97 % Respirations 2025-06-06 14:59:00.000 16 /min Respirations 2025-06-06 12:17:00.000 18 /min Weight (lbs) 2025-06-06 12:17:00.000 141 [lb_av] Systolic Blood Pressure 2025-06-06 14:59:00.000 119 mm [Hg] Systolic Blood Pressure 2025-06-06 12:17:00.000 96 mm[ Hg] Diastolic Blood Pressure 2025-06-06 14:59:00.000 72 mm [Hg] Diastolic Blood Pressure 2025-06-06 12:17:00.000 60 mm [Hg] Plan of Treatment Planned Activity Planned Date Details Comments Future Scheduled Test SKILLED NU RSE TO EVALUATE PATIENT, IDENTIFY PRIMARY AND CO-MORBID CONDITIONS CODED PER CODING GUIDELINES INCLUDING ESSENTIAL (PRIMARY) HYPERTENSION, TYPE 2 DIABETES MELLITUS WITHOUT COMPLICATIONS, ACUTE KIDNEY FAILURE, UNSPECIFIED, ORTHOSTATIC HYPOTENSION, SPINAL STENOSIS, LUMBAR REGION WITH NEUROGENIC CLAUDICATION, INTERVERTEBRAL DISC DISORDERS W RADICULOPATHY, LUMBAR REGION, AND DEVELOP PATIENT SPECIFIC PLAN OF CARE THAT INCLUDES PATIENT GOAL FOR HOME HEALTH. [code = SKILLED NURSE TO EVALUATE PATIENT, IDENTIFY PRIMARY AND CO-MORBID CONDITIONS CODED PER CODING GUIDELINES INCLUDING ESSENTIAL (PRIMARY) HYPERTENSION, TYPE 2 DIABETES MELLITUS WITHOUT COMPLICATIONS, ACUTE KIDNEY FAILURE, UNSPECIFIED, ORTHOSTATIC HYPOTENSION, SPINAL STENOSIS, LUMBAR REGION WITH NEUROGENIC CLAUDICATION, INTERVERTEBRAL DISC DISORDERS W RADICULOPATHY, LUMBAR REGION, AND DEVELOP PATIENT SPECIFIC PLAN OF CARE THAT INCLUDES PATIENT GOAL FOR HOME HEALTH.] Future Scheduled Test [facility] MAY ACCEPT ORDERS FROM THE FOLLOWING PHYSICIANS: ALL PROVIDERS INVOLVED IN CARE [code = HOME HEALTH AGENCY MAY ACCEPT ORDERS FROM THE FOLLOWING PHYSICIANS: ALL PROVIDERS INVOLVED IN CARE ] Future Scheduled Test SKILLED NU RSE FOR O/A OF MUSCULOSKELETAL STATUS AND TEACHING ON MEASURES TO MANAGE INTERVERTEBRAL DISC DISORDERS W RADICULOPATHY, LUMBAR REGION AND TO MAINTAIN SAFETY WITH ACTIVITY [code = SKILLED NURSE FOR O/A OF MUSCULOSKELETAL STATUS AND TEACHING ON MEASURES TO MANAGE INTERVERTEBRAL DISC DISORDERS W RADICULOPATHY, LUMBAR REGION AND TO MAINTAIN SAFETY WITH ACTIVITY] Future Scheduled Test SKILLED NU RSE TO PROVIDE TEACHING ON SIGNS AND SYMPTOMS AND MANAGEMENT OF HYPERTENSION. [code = SKILLED NURSE TO PROVIDE TEACHING ON SIGNS AND SYMPTOMS AND MANAGEMENT OF HYPERTENSION.] Future Scheduled Test SKILLED NU RSE FOR O/A AND SKILLED TEACHING RELATED TO SIGNS AND SYMPTOMS AND MANAGEMENT OF INTERVERTEBRAL DISC DISORDERS W RADICULOPATHY, LUMBAR REGION [code = SKILLED NURSE FOR O/A AND SKILLED TEACHING RELATED TO SIGNS AND SYMPTOMS AND MANAGEMENT OF INTERVERTEBRAL DISC DISORDERS W RADICULOPATHY, LUMBAR REGION] Future Scheduled Test VIRTUAL SIT FREQUENCY: 12 PRN VIRTUAL VISITS MAY BE PERFORMED UTILIZING TELECOMMUNICATIONS SYSTEM TO OPTIMIZE SKILLED SERVICES FURNISHED ON THE PLAN OF CARE. SKILLED NURSE TO ESTABLISH SUPPORT MEASURES TO MINIMIZE RISK OF REHOSPITALIZATION, AND INSTRUCT PATIENT/CAREGIVER ON METHODS TO REDUCE AVOIDABLE HOSPITALIZATION. [code = VIRTUAL VISIT FREQUENCY: 12 PRN VIRTUAL VISITS MAY BE PERFORMED UTILIZING TELECOMMUNICATIONS SYSTEM TO OPTIMIZE SKILLED SERVICES FURNISHED ON THE PLAN OF CARE. SKILLED NURSE TO ESTABLISH SUPPORT MEASURES TO MINIMIZE RISK OF REHOSPITALIZATION, AND INSTRUCT PATIENT/CAREGIVER ON METHODS TO REDUCE AVOIDABLE HOSPITALIZATION.] Future Scheduled Test PATIENT GARZA S A RISK OF HOSPITALIZATION AND ED USE. SKILLED NURSE TO ESTABLISH SUPPORT MEASURES TO MINIMIZE RISK OF HOSPITALIZATION AND ED USE, AND INSTRUCT PATIENT/CAREGIVER ON METHODS TO REDUCE AVOIDABLE HOSPITALIZATION AND ED USE. [code = PATIENT HAS A RISK OF HOSPITALIZATION AND ED USE. SKILLED NURSE TO ESTABLISH SUPPORT MEASURES TO MINIMIZE RISK OF HOSPITALIZATION AND ED USE, AND INSTRUCT PATIENT/CAREGIVER ON METHODS TO REDUCE AVOIDABLE HOSPITALIZATION AND ED USE.] Future Scheduled Test SKILLED NU RSE TO PROVIDE INSTRUCTION TO PATIENT/CAREGIVER RELATED TO DISCHARGE PLANNING. [code = SKILLED NURSE TO PROVIDE INSTRUCTION TO PATIENT/CAREGIVER RELATED TO DISCHARGE PLANNING.] Future Scheduled Test SKILLED NU RSE TO PERFORM ENVIRONMENTAL SAFETY RISK ASSESSMENT AND FALL RISK ASSESSMENT AND PROVIDE INSTRUCTION TO IMPLEMENT ENVIRONMENTAL SAFETY AND FALL PREVENTION STRATEGIES THROUGHOUT THE CERTIFICATION PERIOD. SKILLED NURSE WILL MAINTAIN SITUATIONAL AWARENESS AND WILL NOTIFY CLINICAL CONCRETE BOOM PUMP OPERATOR AND PHYSICIAN/PROVIDER WITH ANY CHANGE IN CONDITION. [code = SKILLED NURSE TO PERFORM ENVIRONMENTAL SAFETY RISK ASSESSMENT AND FALL RISK ASSESSMENT AND PROVIDE INSTRUCTION TO IMPLEMENT ENVIRONMENTAL SAFETY AND FALL PREVENTION STRATEGIES THROUGHOUT THE CERTIFICATION PERIOD. SKILLED NURSE WILL MAINTAIN SITUATIONAL AWARENESS AND WILL NOTIFY CLINICAL CONCRETE BOOM PUMP OPERATOR AND PHYSICIAN/PROVIDER WITH ANY CHANGE IN CONDITION.] Future Scheduled Test SKILLED NU RSE FOR OBSERVATION AND ASSESSMENT OF PATIENTS PAIN LEVEL AND EFFECTIVENESS OF PAIN MANAGEMENT REGIMEN. SKILLED NURSE TO INSTRUCT PATIENT/CAREGIVER REGARDING PHARMACOLOGIC AND NON-PHARMACOLOGIC PAIN CONTROL MEASURES. SKILLED NURSE TO REPORT TO PHYSICIAN IF PAIN LEVEL IS OUTSIDE OF ESTABLISHED PARAMETERS. [code = SKILLED NURSE FOR OBSERVATION AND ASSESSMENT OF PATIENTS PAIN LEVEL AND EFFECTIVENESS OF PAIN MANAGEMENT REGIMEN. SKILLED NURSE TO INSTRUCT PATIENT/CAREGIVER REGARDING PHARMACOLOGIC AND NON-PHARMACOLOGIC PAIN CONTROL MEASURES. SKILLED NURSE TO REPORT TO PHYSICIAN IF PAIN LEVEL IS OUTSIDE OF ESTABLISHED PARAMETERS.] Future Scheduled Test SKILLED NU RSE TO ASSESS PATIENT'S SKIN INTEGRITY AND INSTRUCT PATIENT/CAREGIVER ON MEASURES TO PREVENT PRESSURE ULCERS. [code = SKILLED NURSE TO ASSESS PATIENT'S SKIN INTEGRITY AND INSTRUCT PATIENT/CAREGIVER ON MEASURES TO PREVENT PRESSURE ULCERS.] Future Scheduled Test SKILLED NU RSE TO REVIEW PATIENT MEDICATIONS (PRESCRIPTION/OTC). INSTRUCT PATIENT/CAREGIVER ON ALL MEDICATIONS INCLUDING PURPOSE, WHEN TO TAKE, IMPORTANCE OF MEDICATION ADHERENCE, MONITORING OF EFFECTIVENESS, ADVERSE DRUG REACTIONS, POSSIBLE SIDE EFFECTS, AND WHEN TO NOTIFY AGENCY OR PHYSICIAN/PROVIDER OF ANY CONCERNS. [code = SKILLED NURSE TO REVIEW PATIENT MEDICATIONS (PRESCRIPTION/OTC). INSTRUCT PATIENT/CAREGIVER ON ALL MEDICATIONS INCLUDING PURPOSE, WHEN TO TAKE, IMPORTANCE OF MEDICATION ADHERENCE, MONITORING OF EFFECTIVENESS, ADVERSE DRUG REACTIONS, POSSIBLE SIDE EFFECTS, AND WHEN TO NOTIFY AGENCY OR PHYSICIAN/PROVIDER OF ANY CONCERNS.] Future Scheduled Test PHYSICAL T HERAPIST TO EVALUATE PATIENT SECONDARY TO FUNCTIONAL DEFICITS/SAFETY CONCERNS. PHYSICAL THERAPY TO ESTABLISH /UPGRADE/DOWNGRADE THERAPEUTIC EXERCISE PROGRAM AND INSTRUCT PATIENT/CAREGIVER ON EXERCISE PRECAUTIONS WITH WRITTEN HOME PROGRAM. MAY INCLUDE PROM, AAROM, AROM, RROM APPROPRIATE TO IMPROVE FUNCTIONAL STRENGTH AND RANGE OF MOTION. PHYSICAL THERAPY TO INSTRUCT PATIENT/CAREGIVER ON SAFE TRANSFER TECHNIQUES USING PROPER BODY MECHANICS AND EQUIPMENT. PHYSICAL THERAPY TO INSTRUCT PATIENT/CAREGIVER ON GAIT TRAINING TECHNIQUES USING APPROPRIATE ASSISTIVE DEVICE, PROPER BODY MECHANICS TO IMPROVE MOBILITY, AND PREVENT INJURY OF PATIENT AND/OR CAREGIVER. PHYSICAL THERAPY TO INSTRUCT PATIENT/CAREGIVER ON BALANCE AND BALANCE STRATEGIES TO IMPROVE SAFE MOBILITY AND REDUCE RISK FOR FALL AND INJURY [code = PHYSICAL THERAPIST TO EVALUATE PATIENT SECONDARY TO FUNCTIONAL DEFICITS/SAFETY CONCERNS. PHYSICAL THERAPY TO ESTABLISH /UPGRADE/DOWNGRADE THERAPEUTIC EXERCISE PROGRAM AND INSTRUCT PATIENT/CAREGIVER ON EXERCISE PRECAUTIONS WITH WRITTEN HOME PROGRAM. MAY INCLUDE PROM, AAROM, AROM, RROM APPROPRIATE TO IMPROVE FUNCTIONAL STRENGTH AND RANGE OF MOTION. PHYSICAL THERAPY TO INSTRUCT PATIENT/CAREGIVER ON SAFE TRANSFER TECHNIQUES USING PROPER BODY MECHANICS AND EQUIPMENT. PHYSICAL THERAPY TO INSTRUCT PATIENT/CAREGIVER ON GAIT TRAINING TECHNIQUES USING APPROPRIATE ASSISTIVE DEVICE, PROPER BODY MECHANICS TO IMPROVE MOBILITY, AND PREVENT INJURY OF PATIENT AND/OR CAREGIVER. PHYSICAL THERAPY TO INSTRUCT PATIENT/CAREGIVER ON BALANCE AND BALANCE STRATEGIES TO IMPROVE SAFE MOBILITY AND REDUCE RISK FOR FALL AND INJURY] Goal Patient Goal - GET STRONGER Goal Provider Goal - A PLAN OF CARE WILL BE ESTABLISHED THAT MEETS PATIENT'S DETENTION NEEDS AND INCLUDES PATIENT GOAL FOR HOME HEALTH. Goal Provider Goal - ADDITIONAL ORDERS WILL BE RECEIVED FROM ALTERNATE PHYSICIAN IN A TIMELY MANNER THROUGHOUT THE CERTIFICATION PERIOD. Goal Provider Goal - PATIENT/CAREGIVER WILL VERBALIZE/DEMONSTRATE ABILITY TO MANAGE INTERVERTEBRAL DISC DISORDERS W RADICULOPATHY, LUMBAR REGION WHILE MAINTAINING SAFETY THROUGHOUT THE EPISODE. Goal Provider Goal - PATIENT/CAREGIVER WILL VERBALIZE SIGNS AND SYMPTOMS OF HYPERTENSION AND WILL BE ABLE TO DEMONSTRATE ABILITY TO MANAGE EXACERBATION BY END OF THE EPISODE. Goal Provider Goal - PATIENT/CAREGIVER WILL VERBALIZE UNDERSTANDING OF INTERVERTEBRAL DISC DISORDERS W RADICULOPATHY, LUMBAR REGION INCLUDING SIGNS AND SYMPTOMS, MANAGEMENT, AND PRESCRIBED TREATMENT REGIMEN BY END OF EPISODE. Goal Provider Goal - PATIENT/CAREGIVER WILL UTILIZE VIRTUAL VISITS TO ACHIEVE GOALS OUTLINED ON THE PLAN OF CARE. PATIENT WILL HAVE SUPPORT MEASURES ESTABLISHED TO PREVENT HOSPITALIZATION AND PATIENT/CAREGIVER WILL VERBALIZE/DEMONSTRATE METHODS TO REDUCE AVOIDABLE HOSPITALIZATION THROUGHOUT THE CERTIFICATION PERIOD. Goal Provider Goal - PATIENT WILL HAVE SUPPORT MEASURES ESTABLISHED TO PREVENT HOSPITALIZATION AND ED USE AND PATIENT/CAREGIVER WILL VERBALIZE/DEMONSTRATE METHODS TO REDUCE AVOIDABLE HOSPITALIZATION AND ED USE BY END OF EPISODE. Goal Provider Goal - PATIENT/CAREGIVER WILL VERBALIZE UNDERSTANDING OF DISCHARGE PLANNING INSTRUCTIONS BY DATE OF DISCHARGE. Goal Provider Goal - PATIENT/CAREGIVER WILL VERBALIZE/DEMONSTRATE EFFECTIVE ENVIRONMENTAL SAFETY AND FALL PREVENTION STRATEGIES, WILL REMAIN SAFE IN THE COMMUNITY, AND WILL BE FREE OF DANGER TO SELF AND OTHERS THROUGHOUT THE CERTIFICATION PERIOD. Goal Provider Goal - PATIENT/CAREGIVER WILL DEMONSTRATE UNDERSTANDING OF PHARMACOLOGIC AND NONPHARMACOLOGIC PAIN CONTROL MEASURES AND PATIENT WILL HAVE IMPROVEMENT IN PAIN INTERFERING WITH ACTIVITY EVIDENCED BY PAIN AT A LEVEL THAT IS ACCEPTABLE TO THE PATIENT AND PAIN LEVEL WITHIN ESTABLISHED PARAMETERS BY END OF CERTIFICATION PERIOD. Goal Provider Goal - PATIENT/CAREGIVER WILL VERBALIZE UNDERSTANDING OF PRESSURE ULCER PREVENTION BY END OF THE EPISODE. Goal Provider Goal - PATIENT/CAREGIVER WILL VERBALIZE UNDERSTANDING OF EDUCATION PROVIDED ON MEDICATIONS BY THE END OF THE CERTIFICATION PERIOD. Goal Provider Goal - PHYSICAL THERAPY EVALUATION TO BE COMPLETED WITH RECOMMENDATIONS AND/OR WRITTEN TREATMENT PLAN OF CARE ESTABLISHED FOR THE PHYSICIANS SIGNATURE PATIENT/CAREGIVER WILL PERFORM THERAPEUTIC EXERCISE/S AND DEMONSTRATE PARTICIPATION IN A HOME PROGRAM. PATIENT/CAREGIVER WILL DEMONSTRATE SAFE TRANSFERS USING APPROPRIATE ASSISTIVE DEVICE, BODY MECHANICS AND EQUIPMENT. PATIENT/CAREGIVER WILL DEMONSTRATE IMPROVED GAIT TECHNIQUES TO MINIMIZE RISK OF INJURY. PATIENT/CAREGIVER WILL DEMONSTRATE IMPROVED BALANCE AND REDUCE THE RISK OF FALLS AND INJURY. Encounters Start Date/Time End Date/Time Encounter Type Admission Type Attending [facility] Care Facility Care Department Encounter ID Discharge Date Discharge Status Discharge Condition Discharge Reason Percent Goals Met 2025-06-06 00:00:00 2025-08-04 00:00:00 Outpatient NEW ADMISSION [facility] [id number] 100.00
== END 2025-06-25 14:19 | disposition hospice, inpatient (51) | DRG 951 ==
PROVIDERS: Admitting Provider Family Medicine; PCP Family Medicine; Visit Provider Internal Medicine
DX: Z51.5 Encounter for palliative care (principal); G93.40 Encephalopathy, unspecified; I16.0 Hypertensive urgency; Z66 Do not resuscitate
CPT/HCPCS: 36416; 51702; 82962; J2060; J2270; J9999